=== PATIENT | male | born 1945 | race Caucasian/White ===

== ENCOUNTER → 2018-03-31 | Outpatient (CLI) | payer MEDICARE, OTHER ==
[2018-03-31 14:10] LABS: Blood Urea Nitrogen 15 mg/dL (9-20)
--- NOTE | 2018-03-31 14:48 | CT ---
EXAMINATION TYPE: CT brain wo/w con DATE OF EXAM: 03/31/2018 COMPARISON: NONE HISTORY: Headache and dizziness. CT DLP: 1963.40 mGycm Automated exposure control for dose reduction was used. CONTRAST: CT scan of the head is performed without and with IV Contrast, patient injected with 100 mL of Isovue 300. FINDINGS: Noncontrast images show no acute intracranial hemorrhage or midline shift. There is ventricular and s ulcal prominence consistent with diffuse cerebral atrophy. Is low-attenuation in the periventricular white matter presumed on basis of product of chronic small vessel ischemic change. Postcontrast image s show no suspicious enhancing intraparenchymal mass. The globes are intact and the visualized sinuse s are clear. IMPRESSION: There is mild to moderate diffuse cerebral atrophy and moderate to severe chronic small v essel ischemic change. No suspicious enhancement is noted.
== END | disposition home or self-care (01) ==
LOC: RADCTMAIN 13:36
PROVIDERS: ATTEND Family Medicine
DX: G31.9 Degenerative disease of nervous system, unspecified (principal); I67.82 Cerebral ischemia
CPT/HCPCS: 82565; 84520; 70470; 36415; Q9967

== ENCOUNTER 2018-04-15 12:25 | Inpatient (IN) | payer MEDICARE, OTHER ==
[2018-04-15] MEDS ORDERED: SODIUM CHLORIDE 0.9% 1,000 ML IV STA (12:46)
[2018-04-15] MEDS ORDERED: DILTIAZEM 50 MG in SODIUM CHLORIDE 0.9% 40 ML IV ONE (12:46)
--- NOTE | 2018-04-15 12:47 | ED ---
General Adult HPI - General Chief complaint: Chest Pain Stated complaint: CHEST PAIN Time Seen by Provider: 04/15/18 12:44 Source: patient, RN notes reviewed, old records reviewed Mode of arrival: wheelchair Limitations: no limitations - History of Present Illness Initial comments: This is a 72-year-old male the ER for evaluation today. Patient resents today for shortness of breath, significant chest pain weakness. Patient states his heart feels he is refusing the fifth. Patient does have history of heart disease as a history of A. fib coming in with A. fib with RVR today. Patient states his chest pain is improved currently on his heart is mildly improved but he still a significant anterior chest pain and significant amount of swelling, very diaphoretic and unable to catch his breath - Related Data Home Medications Medication Instructions Recorded Confirmed Cholecalciferol [Vitamin D3] 1,000 unit PO DAILY 02/15/15 04/15/18 Finasteride [Proscar] 5 mg PO HS 02/15/15 04/15/18 Metoprolol Tartrate 12.5 mg PO BID 02/15/15 04/15/18 Tamsulosin [Flomax] 0.4 mg PO HS 02/15/15 04/15/18 metFORMIN HCL [Glucophage] 1,000 mg PO AC-SUPPER 02/15/15 04/15/18 metFORMIN HCL [Glucophage] 500 mg PO AC-BRKFST 07/18/16 04/15/18 Apixaban [Eliquis] 5 mg PO BID 04/15/18 04/15/18 Montelukast [Singulair] 10 mg PO HS 04/15/18 04/15/18 Previous Rx's Medication Instructions Recorded Atorvastatin [Lipitor] 40 mg PO HS #30 tab 07/19/16 Allergies Allergy/AdvReac Type Severity Reaction Status Date / Time lorazepam [From Ativan] AdvReac BECOMES Verified 04/15/18 13:02 DISORIENTED morphine AdvReac AGITATION Verified 04/15/18 13:02 Review of Systems ROS Statement: Those systems with pertinent positive or pertinent negative responses have been documented in the HPI. ROS Other: All systems not noted in ROS Statement are negative. Past Medical History Past Medical History: Coronary Artery Disease (CAD), Chest Pain / Angina, Diabetes Mellitus, Hyperlipidemia, Hypertension, Myocardial Infarction ([place]), Prostate Disorder Additional Past Medical History / Comment(s): NIDDM type II, back pain-bulging discs, diverticular dx, BPH Last Myocardial Infarction Date:: 1999 History of Any Multi-Drug Resistant Organisms: None Reported Past Surgical History: Cholecystectomy, Heart Catheterization With Stent, Orthopedic Surgery, Tonsillectomy Additional Past Surgical History / Comment(s): 1999 cardiac stents, bilateral open shoulder surgeries for rotator cuff, colonoscopy, vasectomy, circumcism. Past Anesthesia/Blood Transfusion Reactions: No Reported Reaction Date of Last Stent Placement:: 1999 Past Psychological History: No Psychological Hx Reported Smoking Status: Current every day smoker Past Alcohol Use History: None Reported Past Drug Use History: None Reported - Past Family History Father Family Medical History: CVA/TIA Additional Family Medical History / Comment(s): Father of a CVA at age 59 yrs. Mother Family Medical History: Vascular Disorder Additional Family Medical History / Comment(s): Mother of a brain aneurysm. General Exam Limitations: no limitations General appearance: alert, in no apparent distress, anxious Head exam: Present: atraumatic, normocephalic, normal inspection Eye exam: Present: normal appearance, PERRL, EOMI. Absent: scleral icterus, conjunctival injection, periorbital swelling ENT exam: Present: normal exam, mucous membranes moist Neck exam: Present: normal inspection. Absent: tenderness, meningismus, lymphadenopathy Respiratory exam: Present: normal lung sounds bilaterally. Absent: respiratory distress, wheezes, rales, rhonchi, stridor Cardiovascular Exam: Present: tachycardia, irregular rhythm, normal heart sounds. Absent: systolic murmur, diastolic murmur, rubs, gallop, clicks GI/Abdominal exam: Present: soft, normal bowel sounds. Absent: distended, tenderness, guarding, rebound, rigid Extremities exam: Present: normal inspection, full ROM, normal capillary refill. Absent: tenderness, pedal edema, joint swelling, calf tenderness Back exam: Present: normal inspection Neurological exam: Present: alert, oriented X3, CN II-XII intact Psychiatric exam: Present: normal affect, normal mood Skin exam: Present: warm, dry, intact, normal color. Absent: rash Course Vital Signs 04/15/18 04/15/18 04/15/18 12:27 12:42 13:03 Temperature 98 F Pulse Rate 56 L 153 H Pulse Rate [ 173 H [employer] Estate [employer] ] Respiratory 18 20 Rate Blood Pressure 117/66 143/70 O2 Sat by Pulse 98 97 Oximetry 04/15/18 04/15/18 04/15/18 13:07 13:13 13:39 Temperature Pulse Rate 148 H 153 H 141 H Pulse Rate [ [employer] ] Respiratory 18 18 16 Rate Blood Pressure 108/62 101/51 156/65 O2 Sat by Pulse 97 98 98 Oximetry - Reevaluation(s) Reevaluation #1: 04/15/18 14:06 Patient showing mild improvement heart rate at this time EKG Findings - EKG Comments: EKG Findings:: EKG shows A. fib with RVR rate 168, QRS 84, QTc 481 Medical Decision Making - Medical Decision Making 72 male the ER was significant anterior chest pain, significant complaint of elevated heart rate in A. fib with RVR, patient is anticoagulated, will continue rate control admitted for cardiology observation. Monitoring of urinalysis status - Lab Data Result diagrams: 04/15/18 12:40 04/15/18 12:40 Lab Results 04/15/18 04/15/18 04/15/18 Range/Units 12:40 12:40 12:40 WBC 11.2 H (3.8-10.6) k/uL RBC 5.41 (4.30-5.90) m/uL Hgb 17.3 (13.0-17.5) gm/dL Hct 50.1 (39.0-53.0) % MCV 92.8 (80.0-100.0) fL MCH 32.0 (25.0-35.0) pg MCHC 34.5 (31.0-37.0) g/dL RDW 13.2 (11.5-15.5) % Plt Count 186 (150-450) k/uL Neutrophils % 59 % Lymphocytes % 27 % Monocytes % 9 % Eosinophils % 2 % Basophils % 0 % Neutrophils # 6.6 (1.3-7.7) k/uL Lymphocytes # 3.0 (1.0-4.8) k/uL Monocytes # 1.0 (0-1.0) k/uL Eosinophils # 0.2 (0-0.7) k/uL Basophils # 0.0 (0-0.2) k/uL PT (9.0-12.0) sec INR (<1.2) APTT (22.0-30.0) sec Sodium 145 (137-145) mmol/L Potassium 4.3 (3.5-5.1) mmol/L Chloride 101 (98-107) mmol/L Carbon Dioxide 29 (22-30) mmol/L Anion Gap 15 mmol/L BUN 14 (9-20) mg/dL Creatinine 0.85 (0.66-1.25) mg/dL Est GFR (CKD-EPI)AfAm >90 (>60 ml/min/1.73 sqM) Est GFR (CKD-EPI)NonAf 88 (>60 ml/min/1.73 sqM) Glucose 164 H (74-99) mg/dL Calcium 9.6 (8.4-10.2) mg/dL Magnesium 1.8 (1.6-2.3) mg/dL Total Bilirubin 0.6 (0.2-1.3) mg/dL AST 17 (17-59) U/L ALT 27 (21-72) U/L Alkaline Phosphatase 124 (38-126) U/L Total Creatine Kinase 37 L (55-170) U/L CK-MB (CK-2) 0.5 (0.0-2.4) ng/mL CK-MB (CK-2) Rel Index 1.4 Troponin I <0.012 (0.000-0.034) ng/mL NT-Pro-B Natriuret Pep pg/mL Total Protein 6.8 (6.3-8.2) g/dL Albumin 4.3 (3.5-5.0) g/dL Lipase 90 (23-300) U/L 04/15/18 04/15/18 Range/Units 12:40 12:40 WBC (3.8-10.6) k/uL RBC (4.30-5.90) m/uL Hgb (13.0-17.5) gm/dL Hct (39.0-53.0) % MCV (80.0-100.0) fL MCH (25.0-35.0) pg MCHC (31.0-37.0) g/dL RDW (11.5-15.5) % Plt Count (150-450) k/uL Neutrophils % % Lymphocytes % % Monocytes % % Eosinophils % % Basophils % % Neutrophils # (1.3-7.7) k/uL Lymphocytes # (1.0-4.8) k/uL Monocytes # (0-1.0) k/uL Eosinophils # (0-0.7) k/uL Basophils # (0-0.2) k/uL PT 10.4 (9.0-12.0) sec INR 1.1 (<1.2) APTT 27.4 (22.0-30.0) sec Sodium (137-145) mmol/L Potassium (3.5-5.1) mmol/L Chloride (98-107) mmol/L Carbon Dioxide (22-30) mmol/L Anion Gap mmol/L BUN (9-20) mg/dL Creatinine (0.66-1.25) mg/dL Est GFR (CKD-EPI)AfAm (>60 ml/min/1.73 sqM) Est GFR (CKD-EPI)NonAf (>60 ml/min/1.73 sqM) Glucose (74-99) mg/dL Calcium (8.4-10.2) mg/dL Magnesium (1.6-2.3) mg/dL Total Bilirubin (0.2-1.3) mg/dL AST (17-59) U/L ALT (21-72) U/L Alkaline Phosphatase (38-126) U/L Total Creatine Kinase (55-170) U/L CK-MB (CK-2) (0.0-2.4) ng/mL CK-MB (CK-2) Rel Index Troponin I (0.000-0.034) ng/mL NT-Pro-B Natriuret Pep 202 pg/mL Total Protein (6.3-8.2) g/dL Albumin (3.5-5.0) g/dL Lipase (23-300) U/L - Radiology Data Radiology results: report reviewed (Chest x-rays negative for acute disease), image reviewed Critical Care Time Critical Care Time: Yes Total Critical Care Time: 31 Disposition Clinical Impression: Chest pain, Atrial fibrillation with RVR Disposition: HOME SELF-CARE Condition: Good Is patient prescribed a controlled substance at d/c from ED?: No Referrals: Mau Mcmillan MD [Primary Care Provider] - 1-2 days
[2018-04-15 13:06] LABS: Basophils % (A) 0 %; Eosinophils # (A) 0.2 k/uL (0-0.7); Eosinophils % (A) 2 %; HCT 50.1 % (39.0-53.0); HGB 17.3 gm/dL (13.0-17.5); Lymphocytes % (A) 27 %; MCHC 34.5 g/dL (31.0-37.0); MCV 92.8 fL (80.0-100.0); Mean Platelet Volume 7.7; Monocytes % (A) 9 %; Neutrophils # (A) 6.6 k/uL (1.3-7.7); Neutrophils % (A) 59 %; Platelet Count 186 k/uL (150-450); RBC 5.41 m/uL (4.30-5.90); RDW 13.2 % (11.5-15.5); WBC 11.2 k/uL (3.8-10.6)
[2018-04-15 13:14] LABS: ALT 27 U/L (21-72); AST 17 U/L (17-59); Albumin 4.3 g/dL (3.5-5.0); Alkaline Phosphatase 124 U/L (38-126); Anion Gap 15 mmol/L; Blood Urea Nitrogen 14 mg/dL (9-20); Calcium 9.6 mg/dL (8.4-10.2); Carbon Dioxide 29 mmol/L (22-30); Chloride 101 mmol/L (98-107); Glucose 164 mg/dL (74-99); Lipase 90 U/L (23-300); Magnesium 1.8 mg/dL (1.6-2.3); Potassium 4.3 mmol/L (3.5-5.1); Sodium 145 mmol/L (137-145); Total Bilirubin 0.6 mg/dL (0.2-1.3); Total Protein 6.8 g/dL (6.3-8.2)
[2018-04-15 13:28] LABS: INR 1.1 (<1.2); Partial Thromboplastin Time 27.4 sec (22.0-30.0); Prothrombin Time 10.4 sec (9.0-12.0)
[2018-04-15 13:31] LABS: Creatine Kinase 37 U/L (55-170)
[2018-04-15 13:43] LABS: Creatine Kinase MB 0.5 ng/mL (0.0-2.4); Troponin I <0.012 ng/mL (0.000-0.034)
[2018-04-15] MEDS ORDERED: NITROGLYCERIN SL TABS 0.4 MG TAB SUBLINGUAL PRN (13:59)
[2018-04-15] MEDS ORDERED: DILTIAZEM 5 MG/1 ML (25ML VIAL) IV STA (14:00)
--- NOTE | 2018-04-15 14:00 | XR ---
EXAMINATION TYPE: XR chest 2V DATE OF EXAM: 04/15/2018 COMPARISON: 07/18/2016 HISTORY: 72-year-old male with chest pain TECHNIQUE: Frontal and lateral views FINDINGS: Heart normal size. Mild atherosclerotic arch calcifications. Mild interstitial prominence has a chron ic appearance. Hazy lower lung densities related to overlying soft tissue. No consolidation or pleura l effusion. IMPRESSION: Chronic changes without acute cardiopulmonary process.
[2018-04-15] MEDS ORDERED: SODIUM CHLORIDE 0.9% 500 ML IV ONE (14:25)
[2018-04-15 15:11] VITALS: RESP 18
--- NOTE | 2018-04-15 16:18 | P.HPIM ---
History of Present Illness This is a pleasant 72-year-old man came to the hospital with complaints of chest pressure-like sensation 5/10 in severity started today when he woke up along with diaphoresis denied any nausea denied any radiation of chest pain. Denied any fever chills does have cough with the clear sputum production does smoke patient does have history of atrial fibrillation patient is found to be in atrial fibrillation with rapid ventricular rate patient is on anticoagulation with Eliquis at home patient takes 12.5 mg twice a day metoprolol tartrate. Patient was started on Cardizem patient had normal ejection fraction the past. Patient had a stress test in 2015 which was essentially within normal limits patient's EKG here showed A. fib with rapid ventricular rate with some ST depressions in anterior chest leads. Chest x-ray did not show any pneumonic process clear to auscultation on exam. Patient denied any fever chills. Patient just pain is nonpruritic in nature facet of troponin is negative. Tumor cetrorelix of troponins were ordered. Patient denied any orthopnea PND was comparing of some shortness of breath upon admission. Patient chest pain significant improved now. Review of Systems REVIEW OF SYSTEMS: CONSTITUTIONAL: No fever, no malaise, no fatigue. HEENT: No recent visual problems or hearing problems. Denied any sore throat. CARDIOVASCULAR: no palpitations, no syncope. PULMONARY: No shortness of breath, no cough, no hemoptysis. GASTROINTESTINAL: No diarrhea, no nausea, no vomiting, no abdominal pain. Normoactive bowel sounds. NEUROLOGICAL: No headaches, no weakness, no numbness. HEMATOLOGICAL: Denies any bleeding or petechiae. GENITOURINARY: Denies any burning micturition, frequency, or urgency. MUSCULOSKELETAL/RHEUMATOLOGICAL: Denies any joint pain, swelling, or any muscle pain. ENDOCRINE: Denies any polyuria or polydipsia. The rest of the 14-point review of systems is negative. Past Medical History Past Medical History: Coronary Artery Disease (CAD), Chest Pain / Angina, Diabetes Mellitus, Hyperlipidemia, Hypertension, Myocardial Infarction ([place]), Prostate Disorder Additional Past Medical History / Comment(s): NIDDM type II, back pain-bulging discs, diverticular dx, BPH Last Myocardial Infarction Date:: 1999 History of Any Multi-Drug Resistant Organisms: None Reported Past Surgical History: Cholecystectomy, Heart Catheterization With Stent, Orthopedic Surgery, Tonsillectomy Additional Past Surgical History / Comment(s): 1999 cardiac stents, bilateral open shoulder surgeries for rotator cuff, colonoscopy, vasectomy, circumcism. Past Anesthesia/Blood Transfusion Reactions: No Reported Reaction Date of Last Stent Placement:: 1999 Smoking Status: Current every day smoker - Past Family History Father Family Medical History: CVA/TIA Additional Family Medical History / Comment(s): Father of a CVA at age 59 yrs. Mother Family Medical History: Vascular Disorder Additional Family Medical History / Comment(s): Mother of a brain aneurysm. Medications and Allergies Home Medications Medication Instructions Recorded Confirmed Type Cholecalciferol [Vitamin D3] 1,000 unit PO DAILY 02/15/15 04/15/18 History Finasteride [Proscar] 5 mg PO HS 02/15/15 04/15/18 History Metoprolol Tartrate 12.5 mg PO BID 02/15/15 04/15/18 History Tamsulosin [Flomax] 0.4 mg PO HS 02/15/15 04/15/18 History metFORMIN HCL [Glucophage] 1,000 mg PO AC-SUPPER 02/15/15 04/15/18 History metFORMIN HCL [Glucophage] 500 mg PO AC-BRKFST 07/18/16 04/15/18 History Atorvastatin [Lipitor] 40 mg PO HS #30 tab 07/19/16 04/15/18 Rx Apixaban [Eliquis] 5 mg PO BID 04/15/18 04/15/18 History Montelukast [Singulair] 10 mg PO HS 04/15/18 04/15/18 History Allergies Allergy/AdvReac Type Severity Reaction Status Date / Time lorazepam [From Ativan] AdvReac BECOMES Verified 04/15/18 13:02 DISORIENTED morphine AdvReac AGITATION Verified 04/15/18 13:02 Physical Exam Vitals: Vital Signs Temp Pulse Pulse Resp BP BP Pulse Ox 04/15/18 15:10 97 F L 125 H 18 136/86 98 04/15/18 14:44 112 H 20 114/77 98 04/15/18 14:30 97.1 F L 118 H 118 H 102/56 98 04/15/18 14:23 124 H 18 87/51 04/15/18 13:39 141 H 16 156/65 98 04/15/18 13:13 153 H 18 101/51 98 04/15/18 13:07 148 H 18 108/62 97 04/15/18 13:03 153 H 20 143/70 97 04/15/18 12:42 173 H 04/15/18 12:27 98 F 56 L 18 117/66 98 Intake and Output 04/15/18 04/15/18 04/15/18 06:59 14:59 22:59 Other: Weight 90.718 kg PHYSICAL EXAMINATION: GENERAL: The patient is alert and oriented x3, not in any acute distress. Well developed, well nourished. HEENT: Pupils are round and equally reacting to light. EOMI. No scleral icterus. No conjunctival pallor. Normocephalic, atraumatic. No pharyngeal erythema. No thyromegaly. CARDIOVASCULAR: S1 and S2 present. No murmurs, rubs, or gallops. Tachycardic irregularly irregular rhythm PULMONARY: Chest is clear to auscultation, no wheezing or crackles. ABDOMEN: Soft, nontender, nondistended, normoactive bowel sounds. No palpable organomegaly. MUSCULOSKELETAL: No joint swelling or deformity. EXTREMITIES: No cyanosis, clubbing, or pedal edema. NEUROLOGICAL: Gross neurological examination did not reveal any focal deficits. SKIN: No rashes. Results CBC & Chem 7: 04/15/18 12:40 04/15/18 12:40 Labs: Abnormal Lab Results - Last 24 Hours (Table) 04/15/18 04/15/18 04/15/18 Range/Units 12:40 12:40 12:40 WBC 11.2 H (3.8-10.6) k/uL Glucose 164 H (74-99) mg/dL Total Creatine Kinase 37 L (55-170) U/L Thrombosis Risk Factor Assmnt - Choose All That Apply Each Factor Represents 1 point: Obesity (BMI >25) Each Risk Factor Represents 2 Points: Age 61-74 years Thrombosis Risk Factor Assessment Total Risk Factor Score: 3 Thrombosis Risk Factor Assessment Level: Moderate Risk Assessment and Plan Plan: -Atrial fibrillation with rapid and regular rate: I did not see any prostrating factor. Patient metoprolol dose will be increased will try to wean off Cardizem. Patient had normal ejection fraction the past continue with his home anti-correlation which was resumed. -Chest pain: Most probably related to his atrial fibrillation cardiology was consulted 2 more sets of troponins were ordered EKGs were ordered. Patient had a Lexiscan stress test in 2014 which did not show any inducible ischemia at that time -Benign prostatic hypertrophy -Type 2 diabetes mellitus patient is being resumed on his home regimen of metformin will monitor his blood sugars patient will also be on sliding scale insulin -Hyperlipidemia -History of coronary artery disease with stents in the past. Previous cardiac catheterization and stenting was in 1999
[2018-04-15 16:59] LABS: Glucose,Whole Blood 111 mg/dL (75-99)
[2018-04-15] MEDS ORDERED: metFORMIN 500 MG TAB PO SCH (17:30)
[2018-04-15] MEDS: DILTIAZEM 50 MG in SODIUM CHLORIDE 0.9% 40 ML IV SCH ×2 (17:43→20:36)
[2018-04-15 19:48] LABS: Creatine Kinase MB 0.9 ng/mL (0.0-2.4)
[2018-04-15 19:52] LABS: Troponin I 0.096 ng/mL (0.000-0.034)
[2018-04-15] MEDS ORDERED: ACETAMINOPHEN TAB 325 MG TAB PO PRN (19:55)
[2018-04-15] MEDS: APIXABAN 5 MG TAB PO SCH (20:12)
[2018-04-15] MEDS: METOPROLOL TARTRATE 25 MG TAB PO SCH (20:12)
[2018-04-15] MEDS ORDERED: FINASTERIDE 5 MG TAB PO SCH (21:00)
[2018-04-15] MEDS ORDERED: TAMSULOSIN 0.4 MG CAP.ER.24H PO SCH (21:00)
[2018-04-15] MEDS ORDERED: MONTELUKAST 10 MG TAB PO SCH (21:00)
[2018-04-15] MEDS ORDERED: METOPROLOL TARTRATE 12.5 MG TAB PO SCH (21:00)
[2018-04-15] MEDS ORDERED: ATORVASTATIN 40 MG TAB PO SCH (21:00)
[2018-04-15 21:15] LABS: Glucose,Whole Blood 87 mg/dL (75-99)
[2018-04-16 01:39] LABS: Creatine Kinase MB 0.8 ng/mL (0.0-2.4)
[2018-04-16 01:44] LABS: Troponin I 0.088 ng/mL (0.000-0.034)
[2018-04-16] MEDS: DILTIAZEM 50 MG in SODIUM CHLORIDE 0.9% 40 ML IV SCH ×3 (02:30→12:34)
[2018-04-16 03:46] LABS: Hemoglobin A1C 6.9 % (4.0-6.0)
[2018-04-16 05:11] LABS: Anion Gap 11 mmol/L; Blood Urea Nitrogen 16 mg/dL (9-20); Calcium 8.9 mg/dL (8.4-10.2); Carbon Dioxide 28 mmol/L (22-30); Chloride 104 mmol/L (98-107); Cholesterol 106 mg/dL (<200); Glucose 92 mg/dL (74-99); HDL Cholesterol 30 mg/dL (40-60); LDL Cholesterol,Calculated 42 mg/dL (0-99); Potassium 3.9 mmol/L (3.5-5.1); Sodium 143 mmol/L (137-145); Triglycerides 170 mg/dL (<150)
[2018-04-16 06:11] LABS: Glucose,Whole Blood 105 mg/dL (75-99)
[2018-04-16] MEDS ORDERED: metFORMIN 500 MG TAB PO SCH (07:30)
[2018-04-16] MEDS ORDERED: ASPIRIN 325 MG TAB PO SCH (09:00)
[2018-04-16] MEDS: APIXABAN 5 MG TAB PO SCH (09:34)
[2018-04-16] MEDS: METOPROLOL TARTRATE 25 MG TAB PO SCH (09:34)
--- NOTE | 2018-04-16 10:19 | P.CRDCN ---
History of Present Illness Consult date: 04/16/18 Requesting physician: Gamaliel Conner Consult reason: atrial fibrillation Chief complaint: Chest tightness and diaphoresis History of present illness: This is a 72-year-old gentleman with known history of hypertension, diabetes, hyperlipidemia, coronary artery disease with prior anterior wall myocardial infarction in 1999 at which time he underwent angioplasty and stenting of the left anterior descending artery. Patient also has history of paroxysmal atrial fibrillation, COPD, and nicotine dependence. Patient presents to the hospital on this occasion with symptoms of chest tightness and heaviness which awoke him from sleep, he states he became quite diaphoretic and mildly short of breath. He also states that he has had a mild fever at home with associated cough. EKG on presentation here showed atrial fibrillation with a rapid ventricular response, heart rate in the 160 range, chest x-ray showed chronic changes without acute cardiopulmonary process. Blood pressure 118/60 on arrival with heart rate in the 160s to 170s, 98% on room air. Blood pressure this morning 118/57 temperature 97.6. White blood cell count on admission 11.2, hemoglobin 17.3, platelet count 186. Sodium 143, potassium 3.9 , BUN 16, creatinine 0.8. Magnesium level I.8. Initial troponin 0.012, subsequent troponin 0.09, 0.08. Cholesterol 106, triglycerides 170, LDL 42, HDL 30. Patient was initiated on IV Cardizem in the emergency room and since converted to normal sinus rhythm. He is currently in normal sinus rhythm at this time. IV Cardizem has been discontinued. We will decrease the aspirin dose to 81 mg daily, continue Eliquis 5 mg one tablet by mouth twice a day. Patient was taking metoprolol 12-1/2 mg one tablet by mouth twice a day at home which has been increased to 25 mg one tablet by mouth twice a day. Past Medical History Past Medical History: Coronary Artery Disease (CAD), Chest Pain / Angina, Diabetes Mellitus, Hyperlipidemia, Hypertension, Myocardial Infarction ([place]), Prostate Disorder Additional Past Medical History / Comment(s): NIDDM type II, back pain-bulging discs, diverticular dx, BPH Last Myocardial Infarction Date:: 1999 History of Any Multi-Drug Resistant Organisms: None Reported Past Surgical History: Cholecystectomy, Heart Catheterization With Stent, Orthopedic Surgery, Tonsillectomy Additional Past Surgical History / Comment(s): 1999 cardiac stents, bilateral open shoulder surgeries for rotator cuff, colonoscopy, vasectomy, circumcism. Past Anesthesia/Blood Transfusion Reactions: No Reported Reaction Date of Last Stent Placement:: 1999 Smoking Status: Current every day smoker - Past Family History Father Family Medical History: CVA/TIA Additional Family Medical History / Comment(s): Father of a CVA at age 59 yrs. Mother Family Medical History: Vascular Disorder Additional Family Medical History / Comment(s): Mother of a brain aneurysm. Medications and Allergies Home Medications Medication Instructions Recorded Confirmed Type Cholecalciferol [Vitamin D3] 1,000 unit PO DAILY 02/15/15 04/15/18 History Finasteride [Proscar] 5 mg PO HS 02/15/15 04/15/18 History Metoprolol Tartrate 12.5 mg PO BID 02/15/15 04/15/18 History Tamsulosin [Flomax] 0.4 mg PO HS 02/15/15 04/15/18 History metFORMIN HCL [Glucophage] 1,000 mg PO AC-SUPPER 02/15/15 04/15/18 History metFORMIN HCL [Glucophage] 500 mg PO AC-BRKFST 07/18/16 04/15/18 History Atorvastatin [Lipitor] 40 mg PO HS #30 tab 07/19/16 04/15/18 Rx Apixaban [Eliquis] 5 mg PO BID 04/15/18 04/15/18 History Montelukast [Singulair] 10 mg PO HS 04/15/18 04/15/18 History Allergies Allergy/AdvReac Type Severity Reaction Status Date / Time lorazepam [From Ativan] AdvReac BECOMES Verified 04/15/18 13:02 DISORIENTED morphine AdvReac AGITATION Verified 04/15/18 13:02 Physical Exam Vitals: Vital Signs Temp Pulse Pulse Resp BP BP Pulse Ox 04/16/18 04:00 97.6 F 61 18 118/57 95 04/16/18 00:00 98.0 F 66 18 114/56 97 04/15/18 20:00 98.1 F 96 18 142/65 94 L 04/15/18 17:45 133/65 04/15/18 15:10 97 F L 125 H 18 136/86 98 04/15/18 14:44 112 H 20 114/77 98 05/15/18 14:30 97.1 F L 118 H 118 H 102/56 98 04/15/18 14:23 124 H 18 87/51 04/15/18 13:39 141 H 16 156/65 98 04/15/18 13:13 153 H 18 101/51 98 04/15/18 13:07 148 H 18 108/62 97 04/15/18 13:03 153 H 20 143/70 97 04/15/18 12:42 173 H 04/15/18 12:27 98 F 56 L 18 117/66 98 Intake and Output 04/15/18 04/16/18 04/16/18 22:59 06:59 14:59 Intake Total 268.833 42.333 Output Total 500 250 Balance -231.167 -207.667 Intake: Intake, IV Titration 28.833 42.333 Amount Diltiazem 50 mg In Sodium 28.833 42.333 Chloride 0.9% 40 ml @ 10 MG/HR 10 mls/hr IV .Q5H [facility] Rx#:[id number] Oral 240 Output: Urine 500 250 Other: Voiding Method Urinal Urinal Weight 89.9 kg PHYSICAL EXAMINATION: HEENT: Head is atraumatic, normocephalic. Pupils equal, round. Neck is supple. There is no elevated jugular venous pressure. HEART EXAMINATION: Heart S1, S2 normal. No murmur or gallop heard. CHEST EXAMINATION: Lungs reveal fine expiratory wheezing throughout. ABDOMEN: Soft, nontender. Bowel sounds are heard. No organomegaly noted. EXTREMITIES: 2+ peripheral pulses with no evidence of peripheral edema and no calf tenderness noted. NEUROLOGIC [patient is awake, alert and oriented -3.] . Results 04/15/18 12:40 04/16/18 03:55 Cardiac Enzymes 04/15/18 04/15/18 04/15/18 Range/Units 12:40 12:40 18:53 AST 17 (17-59) U/L CK-MB (CK-2) 0.5 0.9 (0.0-2.4) ng/mL Troponin I <0.012 0.096 H* (0.000-0.034) ng/mL 04/16/18 Range/Units 00:46 AST (17-59) U/L CK-MB (CK-2) 0.8 (0.0-2.4) ng/mL Troponin I 0.088 H* (0.000-0.034) ng/mL Coagulation 04/15/18 Range/Units 12:40 PT 10.4 (9.0-12.0) sec APTT 27.4 (22.0-30.0) sec Lipids 04/16/18 Range/Units 03:55 Triglycerides 170 H (<150) mg/dL Cholesterol 106 (<200) mg/dL HDL Cholesterol 30 L (40-60) mg/dL CBC 04/15/18 Range/Units 12:40 WBC 11.2 H (3.8-10.6) k/uL RBC 5.41 (4.30-5.90) m/uL Hgb 17.3 (13.0-17.5) gm/dL Hct 50.1 (39.0-53.0) % Plt Count 186 (150-450) k/uL Comprehensive Metabolic Panel 04/15/18 04/16/18 Range/Units 12:40 03:55 Sodium 145 143 (137-145) mmol/L Potassium 4.3 3.9 (3.5-5.1) mmol/L Chloride 101 104 (98-107) mmol/L Carbon Dioxide 29 28 (22-30) mmol/L BUN 14 16 (9-20) mg/dL Creatinine 0.85 0.80 (0.66-1.25) mg/dL Glucose 164 H 92 (74-99) mg/dL Calcium 9.6 8.9 (8.4-10.2) mg/dL AST 17 (17-59) U/L ALT 27 (21-72) U/L Alkaline Phosphatase 124 (38-126) U/L Total Protein 6.8 (6.3-8.2) g/dL Albumin 4.3 (3.5-5.0) g/dL Current Medications Generic Name Dose Route Start Last Admin Trade Name Freq PRN Reason Stop Dose Admin Acetaminophen 650 mg 04/15/18 19:55 04/15/18 20:11 Tylenol Tab PO 650 mg Q6HR PRN Administration Fever and/ or Pain Apixaban 5 mg 04/15/18 21:00 04/16/18 09:34 Eliquis PO 5 mg BID RACHID Administration Aspirin 325 mg 04/16/18 09:00 04/16/18 09:34 Aspirin PO 325 mg DAILY RACHID Administration Atorvastatin Calcium 40 mg 04/15/18 21:00 04/15/18 20:12 Lipitor PO 40 mg HS RACHID Administration Finasteride 5 mg 04/15/18 21:00 04/15/18 20:12 Proscar PO 5 mg HS RACHID Administration Diltiazem HCl 50 mg/ Sodium 50 mls @ 10 mls/hr 04/15/18 16:11 04/16/18 05:45 Chloride IV Not Given .Q5H RACHID Protocol 10 MG/HR Metformin HCl 1,000 mg 04/15/18 17:30 04/15/18 17:17 Glucophage PO 1,000 mg AC-SUPPER RACHID Administration Metformin HCl 500 mg 04/16/18 07:30 04/16/18 06:48 Glucophage PO 500 mg AC-BRKFST RACHID Administration Metoprolol Tartrate 25 mg 04/15/18 21:00 04/16/18 09:34 Lopressor PO 25 mg BID RACHID Administration Montelukast Sodium 10 mg 04/15/18 21:00 04/15/18 20:12 Singulair PO 10 mg HS RACHID Administration Nitroglycerin 0.4 mg 04/15/18 13:59 Nitrostat SUBLINGUAL Q5M PRN Chest Pain Tamsulosin HCl 0.4 mg 04/15/18 21:00 04/15/18 20:12 Flomax PO 0.4 mg HS RACHID Administration Intake and Output 04/15/18 04/16/18 04/16/18 22:59 06:59 14:59 Intake Total 268.833 42.333 Output Total 500 250 Balance -231.167 -207.667 Intake: Intake, IV Titration 28.833 42.333 Amount Diltiazem 50 mg In Sodium 28.833 42.333 Chloride 0.9% 40 ml @ 10 MG/HR 10 mls/hr IV .Q5H [facility] Rx#:[id number] Oral 240 Output: Urine 500 250 Other: Voiding Method Urinal Urinal Weight 89.9 kg 04/15/18 12:40 04/16/18 03:55 EKG Interpretations (text) Initial EKG shows atrial fibrillation with rapid ventricular response. Subsequent EKG shows normal sinus rhythm. Assessment and Plan Plan: Assessment and plan #1 atrial fibrillation with rapid ventricular response, paroxysmal. Patient currently in normal sinus rhythm. #2 history of paroxysmal atrial fibrillation, on Eliquis for anticoagulation. #3 hyperlipidemia #4 hypertension #5 diabetes #6 coronary artery disease with prior anterior myocardial infarction in 1999 which time patient underwent stenting of the LAD. #7 Nicotine dependence #8 COPD Plan We will obtain an echocardiogram with Doppler study and check a TSH level. Beta gisele has been increased to 25 mg one tablet by mouth twice a day and Cardizem drip has been discontinued. We will continue Eliquis 5 mg one tablet by mouth twice a day. Further recommendations to follow. DNP note has been reviewed, I agree with a documented findings and plan of care. Patient was seen and examined.
[2018-04-16 11:46] LABS: Glucose,Whole Blood 106 mg/dL (75-99)
--- NOTE | 2018-04-16 12:31 | P.DS ---
Providers Date of admission: 04/15/18 13:59 Attending physician: Gamaliel Conner Consults: 04/15/18 13:59 Consult Physician Urgent Consulting Provider: Ana Gregg Consult Reason/Comments: afib Do you want consulting provider notified?: Yes Primary care physician: Mau Mcmillan Hospital Course: 72-year-old admitted with atrial fibrillation with rapid ventricular rate rate controlled now off Cardizem drip patient is already on anticoagulation patient is complaining of chest pressure-like sensation echocardiac exam was obtained if cleared by cardiology patient will be discharged today his chest pressure secondary to atrial fibrillation mostly. Troponins are negative. Metoprolol dose was increased to 25 twice a day PHYSICAL EXAMINATION: GENERAL: The patient is alert and oriented x3, not in any acute distress. Well developed, well nourished. HEENT: Pupils are round and equally reacting to light. EOMI. No scleral icterus. No conjunctival pallor. Normocephalic, atraumatic. No pharyngeal erythema. No thyromegaly. CARDIOVASCULAR: S1 and S2 present. No murmurs, rubs, or gallops. PULMONARY: Chest is clear to auscultation, no wheezing or crackles. ABDOMEN: Soft, nontender, nondistended, normoactive bowel sounds. No palpable organomegaly. MUSCULOSKELETAL: No joint swelling or deformity. EXTREMITIES: No cyanosis, clubbing, or pedal edema. NEUROLOGICAL: Gross neurological examination did not reveal any focal deficits. SKIN: No rashes. Assessment and Plan Plan: -Atrial fibrillation with rapid and regular rate: Presently rate controlled -Chest pain: Most probably related to his atrial fibrillation cardiology -Benign prostatic hypertrophy -Type 2 diabetes mellitus -Hyperlipidemia -History of coronary artery disease with stents in the past. Previous cardiac catheterization and stenting was in 1999 Patient Condition at Discharge: Good Plan - Discharge Summary Discharge Rx Participant: No New Discharge Prescriptions: New Metoprolol Tartrate [Lopressor] 25 mg PO BID #60 tab Continue metFORMIN HCL [Glucophage] 1,000 mg PO AC-SUPPER Tamsulosin [Flomax] 0.4 mg PO HS Finasteride [Proscar] 5 mg PO HS Cholecalciferol [Vitamin D3] 1,000 unit PO DAILY metFORMIN HCL [Glucophage] 500 mg PO AC-BRKFST Atorvastatin [Lipitor] 40 mg PO HS #30 tab Montelukast [Singulair] 10 mg PO HS Apixaban [Eliquis] 5 mg PO BID Discontinued Metoprolol Tartrate 12.5 mg PO BID Discharge Medication List Cholecalciferol [Vitamin D3] 1,000 unit PO DAILY 02/15/15 [History] Finasteride [Proscar] 5 mg PO HS 02/15/15 [History] Tamsulosin [Flomax] 0.4 mg PO HS 02/15/15 [History] metFORMIN HCL [Glucophage] 1,000 mg PO AC-SUPPER 02/15/15 [History] metFORMIN HCL [Glucophage] 500 mg PO AC-BRKFST 07/18/16 [History] Atorvastatin [Lipitor] 40 mg PO HS #30 tab 07/19/16 [Rx] Apixaban [Eliquis] 5 mg PO BID 04/15/18 [History] Montelukast [Singulair] 10 mg PO HS 04/15/18 [History] Metoprolol Tartrate [Lopressor] 25 mg PO BID #60 tab 04/16/18 [Rx] Follow up Appointment(s)/Referral(s): Mau Mcmillan MD [Primary Care Provider] - 3 Days Discharge Disposition: HOME SELF-CARE
[2018-04-16 12:32] VITALS: BP 119/58; PULSE 64; TEMP 97.5
--- NOTE | 2018-04-16 20:22 | ECHOF ---
Referral Reason:afib MEASUREMENTS -------- HEIGHT: 172.7 cm WEIGHT: 89.8 kg BP: 118/57 RVIDd: 3.2 cm (< 3.3) IVSd: 1.0 cm (0.6 - 1.1) LVIDd: 3.8 cm (3.9 - 5.3) LVPWd: 1.3 cm (0.6 - 1.1) IVSs: 1.6 cm LVIDs: 3.0 cm LVPWs: 1.6 cm LAESV Index (A-L): 19.79 ml/m Ao Diam: 3.1 cm (2.0 - 3.7) AV Cusp: 1.8 cm (1.5 - 2.6) LA Diam: 3.6 cm (2.7 - 3.8) MV E Sandor: 0.77 m/s MV DecT: 193 ms MV A Sandor: 0.78 m/s MV E/A Ratio: 0.99 RAP: 5.00 mmHg RVSP: 14.07 mmHg FINDINGS -------- Sinus rhythm. This was a technically adequate study. The left ventricular size is normal. Left ventricular wall thickness is normal. Overall left vent ricular systolic function is normal with, an EF between 55 - 60 %. The right ventricle is normal in size and function. Normal LA size by volume 22+/-6 ml/m2. The right atrium is normal in size. Aortic valve is trileaflet and is mildly thickened. The mitral valve leaflets are mildly thickened. There is trace to mild mitral regurgitation. Mild tricuspid regurgitation present. Right ventricular systolic pressure is normal at < 35 mmHg. There is no evidence of pulmonary hypertension. Trace/mild (physiologic) pulmonic regurgitation. The aortic root size is normal. Normal inferior vena cava with normal inspiratory collapse consistent with estimated right atrial pre ssure of 5 mmHg. There is no pericardial effusion. CONCLUSIONS -------- 1. Sinus rhythm. 2. This was a technically adequate study. 3. The left ventricular size is normal. 4. Left ventricular wall thickness is normal. 5. Overall left ventricular systolic function is normal with, an EF between 55 - 60 %. 6. Normal LA size by volume 22+/-6 ml/m2. 7. Aortic valve is trileaflet and is mildly thickened. 8. There is trace to mild mitral regurgitation. 9. Mild tricuspid regurgitation present. 10. Right ventricular systolic pressure is normal at < 35 mmHg. 11. Trace/mild (physiologic) pulmonic regurgitation. 12. The aortic root size is normal. 13. There is no pericardial effusion. RESIDENT CARE AID: David Salazar RDCS
[2018-04-17] MEDS ORDERED: ASPIRIN 81 MG PO SCH (09:00)
== END 2018-04-16 15:02 | disposition home or self-care (01) | DRG 310 ==
LOC: EC 12:25 → 6SEL 13:59
PROVIDERS: ADMIT Hospitalist; ATTEND Hospitalist
DX: I48.0 Paroxysmal atrial fibrillation (principal); J44.9 Chronic obstructive pulmonary disease, unspecified; E11.9 Type 2 diabetes mellitus without complications; R07.9 Chest pain, unspecified; E78.5 Hyperlipidemia, unspecified; F17.200 Nicotine dependence, unspecified, uncomplicated; I10 Essential (primary) hypertension; I25.10 Atherosclerotic heart disease of native coronary artery without angina pectoris; I25.2 Old myocardial infarction; N40.0 Benign prostatic hyperplasia without lower urinary tract symptoms; K57.90 Diverticulosis of intestine, part unspecified, without perforation or abscess without bleeding; Z79.84 Long term (current) use of oral hypoglycemic drugs; Z79.899 Other long term (current) drug therapy; Z79.01 Long term (current) use of anticoagulants; Z88.5 Allergy status to narcotic agent; Z88.8 Allergy status to other drugs, medicaments and biological substances; Z95.5 Presence of coronary angioplasty implant and graft; Z90.49 Acquired absence of other specified parts of digestive tract; Z82.3 Family history of stroke; Z82.49 Family history of ischemic heart disease and other diseases of the circulatory system
CPT/HCPCS: 36415; 71046; 80048; 80053; 80061; 82550; 82553; 83036; 83690; 83735; 83880; 84443; 84484; 85025; 85610; 85730; 93306; 96360; 96365; 96366; 99291

== ENCOUNTER 2018-06-29 13:46 | Inpatient (IN) | payer MEDICARE, OTHER ==
[2018-06-29] MEDS ORDERED: SODIUM CHLORIDE 0.9% 500 ML IV STA (13:49)
--- NOTE | 2018-06-29 14:03 | ED ---
General Adult HPI - General Chief complaint: Weakness Stated complaint: WEAKNESS Time Seen by Provider: 06/29/18 13:49 Source: patient, RN notes reviewed, old records reviewed Mode of arrival: ambulatory Limitations: no limitations - History of Present Illness Initial comments: 72-year-old male history of atrial fibrillation and CAD status post stenting presenting with palpitations. Patient is transported by EMS, found to be in A. fib with rapid ventricular response. Patient is currently on metoprolol 50 mg twice daily. He is anticoagulated. He states that with this palpitations he had some neck pain and some mild central chest tightness. Denies any preceding symptoms. Denies nausea vomiting or diarrhea. Denies rectal bleeding. Denies fever or chills. - Related Data Home Medications Medication Instructions Recorded Confirmed Cholecalciferol [Vitamin D3] 1,000 unit PO DAILY 02/15/15 06/29/18 Finasteride [Proscar] 5 mg PO HS 02/15/15 06/29/18 Tamsulosin [Flomax] 0.4 mg PO HS 02/15/15 06/29/18 metFORMIN HCL [Glucophage] 1,000 mg PO AC-SUPPER 02/15/15 06/29/18 metFORMIN HCL [Glucophage] 500 mg PO AC-BRKFST 07/18/16 06/29/18 Apixaban [Eliquis] 5 mg PO BID 04/15/18 06/29/18 Montelukast [Singulair] 10 mg PO HS 04/15/18 06/29/18 Metoprolol Tartrate [Lopressor] 50 mg PO BID 06/29/18 06/29/18 Previous Rx's Medication Instructions Recorded Atorvastatin [Lipitor] 40 mg PO HS #30 tab 07/19/16 Allergies Allergy/AdvReac Type Severity Reaction Status Date / Time lorazepam [From Ativan] AdvReac BECOMES Verified 06/29/18 14:26 DISORIENTED morphine AdvReac AGITATION Verified 06/29/18 14:26 Review of Systems ROS Statement: Those systems with pertinent positive or pertinent negative responses have been documented in the HPI. ROS Other: All systems not noted in ROS Statement are negative. Past Medical History Past Medical History: Coronary Artery Disease (CAD), Chest Pain / Angina, Diabetes Mellitus, Hyperlipidemia, Hypertension, Myocardial Infarction ([place]), Prostate Disorder Additional Past Medical History / Comment(s): NIDDM type II, back pain-bulging discs, diverticular dx, BPH Last Myocardial Infarction Date:: 1999 History of Any Multi-Drug Resistant Organisms: None Reported Past Surgical History: Cholecystectomy, Heart Catheterization With Stent, Orthopedic Surgery, Tonsillectomy Additional Past Surgical History / Comment(s): 1999 cardiac stents, bilateral open shoulder surgeries for rotator cuff, colonoscopy, vasectomy, circumcism. Past Anesthesia/Blood Transfusion Reactions: No Reported Reaction Date of Last Stent Placement:: 1999 Past Psychological History: No Psychological Hx Reported Smoking Status: Current every day smoker - Past Family History Father Family Medical History: CVA/TIA Additional Family Medical History / Comment(s): Father of a CVA at age 59 yrs. Mother Family Medical History: Vascular Disorder Additional Family Medical History / Comment(s): Mother of a brain aneurysm. General Exam Limitations: no limitations General appearance: alert, in no apparent distress Head exam: Present: atraumatic, normocephalic Eye exam: Present: normal appearance, PERRL, EOMI ENT exam: Present: normal exam Neck exam: Present: normal inspection. Absent: tenderness, meningismus Respiratory exam: Present: normal lung sounds bilaterally. Absent: respiratory distress, wheezes Cardiovascular Exam: Present: tachycardia, irregular rhythm GI/Abdominal exam: Present: soft. Absent: distended, tenderness, guarding Extremities exam: Present: normal inspection, full ROM, normal capillary refill. Absent: pedal edema Neurological exam: Present: alert, oriented X3, CN II-XII intact. Absent: motor sensory deficit Psychiatric exam: Present: normal affect, normal mood Skin exam: Present: warm, dry, intact. Absent: cyanosis, diaphoretic Course Vital Signs 06/29/18 06/29/18 06/29/18 13:47 13:57 14:07 Temperature 98.4 F Pulse Rate 156 H 151 H Pulse Rate [ 156 H Pile Header ] Respiratory 20 20 Rate Blood Pressure 78/52 105/84 O2 Sat by Pulse 96 98 Oximetry 06/29/18 06/29/18 06/29/18 14:09 14:13 14:18 Temperature Pulse Rate 140 H 144 H Pulse Rate [ Pile Header ] Respiratory 20 20 18 Rate Blood Pressure 112/66 73/54 87/69 O2 Sat by Pulse 97 97 96 Oximetry 06/29/18 06/29/18 14:20 14:59 Temperature Pulse Rate 134 H 62 Pulse Rate [ Pile Header ] Respiratory 20 18 Rate Blood Pressure 127/66 O2 Sat by Pulse 100 95 Oximetry EKG Findings - EKG Comments: EKG Findings:: EKG obtained at 1346, atrial fibrillation with rapid ventricular response, rate of 151, there is no ST segment elevation. QRS duration 86, QTC 485. Repeat EKG obtained at 1452, sinus rhythm with sinus arrhythmia, rate of 68, SD interval 160, QRS duration 92, QTC 391. Medical Decision Making - Medical Decision Making 72-year-old male presenting in [facility]. [facility] with RVR, rate 151. Patient was experiencing some mild generalized chest tightness as well as neck and shoulder pain. Patient given IV hydration and IV metoprolol emergency department. Does convert into sinus rhythm. Laboratory studies reveal normal CBC, normal CMP, initial troponin is negative. Patient is anticoagulated. Chest x-ray negative for acute cardiopulmonary disease. Patient will be admitted for telemetry, serial cardiac enzymes, and cardiology consultation. - Lab Data Result diagrams: 06/29/18 14:01 06/29/18 14:01 Lab Results 06/29/18 06/29/18 06/29/18 Range/Units 14:01 14:01 14:01 WBC 10.2 (3.8-10.6) k/uL RBC 5.32 (4.30-5.90) m/uL Hgb 16.6 (13.0-17.5) gm/dL Hct 50.0 (39.0-53.0) % MCV 93.9 (80.0-100.0) fL MCH 31.2 (25.0-35.0) pg MCHC 33.2 (31.0-37.0) g/dL RDW 13.3 (11.5-15.5) % Plt Count 203 (150-450) k/uL Neutrophils % 69 % Lymphocytes % 20 % Monocytes % 7 % Eosinophils % 2 % Basophils % 0 % Neutrophils # 7.0 (1.3-7.7) k/uL Lymphocytes # 2.1 (1.0-4.8) k/uL Monocytes # 0.8 (0-1.0) k/uL Eosinophils # 0.2 (0-0.7) k/uL Basophils # 0.0 (0-0.2) k/uL PT (9.0-12.0) sec INR (<1.2) APTT (22.0-30.0) sec Sodium 142 (137-145) mmol/L Potassium 4.2 (3.5-5.1) mmol/L Chloride 104 (98-107) mmol/L Carbon Dioxide 28 (22-30) mmol/L Anion Gap 10 mmol/L BUN 12 (9-20) mg/dL Creatinine 0.92 (0.66-1.25) mg/dL Est GFR (CKD-EPI)AfAm >90 (>60 ml/min/1.73 sqM) Est GFR (CKD-EPI)NonAf 84 (>60 ml/min/1.73 sqM) Glucose 156 H (74-99) mg/dL Calcium 9.6 (8.4-10.2) mg/dL Magnesium 1.9 (1.6-2.3) mg/dL Total Bilirubin 0.7 (0.2-1.3) mg/dL AST 18 (17-59) U/L ALT 27 (21-72) U/L Alkaline Phosphatase 105 (38-126) U/L Total Creatine Kinase 44 L (55-170) U/L CK-MB (CK-2) 0.6 (0.0-2.4) ng/mL CK-MB (CK-2) Rel Index 1.4 Troponin I <0.012 (0.000-0.034) ng/mL Total Protein 6.7 (6.3-8.2) g/dL Albumin 4.2 (3.5-5.0) g/dL 06/29/18 Range/Units 14:01 WBC (3.8-10.6) k/uL RBC (4.30-5.90) m/uL Hgb (13.0-17.5) gm/dL Hct (39.0-53.0) % MCV (80.0-100.0) fL MCH (25.0-35.0) pg MCHC (31.0-37.0) g/dL RDW (11.5-15.5) % Plt Count (150-450) k/uL Neutrophils % % Lymphocytes % % Monocytes % % Eosinophils % % Basophils % % Neutrophils # (1.3-7.7) k/uL Lymphocytes # (1.0-4.8) k/uL Monocytes # (0-1.0) k/uL Eosinophils # (0-0.7) k/uL Basophils # (0-0.2) k/uL PT 11.2 (9.0-12.0) sec INR 1.2 H (<1.2) APTT 27.6 (22.0-30.0) sec Sodium (137-145) mmol/L Potassium (3.5-5.1) mmol/L Chloride (98-107) mmol/L Carbon Dioxide (22-30) mmol/L Anion Gap mmol/L BUN (9-20) mg/dL Creatinine (0.66-1.25) mg/dL Est GFR (CKD-EPI)AfAm (>60 ml/min/1.73 sqM) Est GFR (CKD-EPI)NonAf (>60 ml/min/1.73 sqM) Glucose (74-99) mg/dL Calcium (8.4-10.2) mg/dL Magnesium (1.6-2.3) mg/dL Total Bilirubin (0.2-1.3) mg/dL AST (17-59) U/L ALT (21-72) U/L Alkaline Phosphatase (38-126) U/L Total Creatine Kinase (55-170) U/L CK-MB (CK-2) (0.0-2.4) ng/mL CK-MB (CK-2) Rel Index Troponin I (0.000-0.034) ng/mL Total Protein (6.3-8.2) g/dL Albumin (3.5-5.0) g/dL Critical Care Time Critical Care Time: Yes Total Critical Care Time: 35 Disposition Clinical Impression: Atrial fibrillation with RVR, Chest pain Disposition: ADMITTED IP TO [facility] Condition: Stable Is patient prescribed a controlled substance at d/c from ED?: No Referrals: Mau Mcmillan MD [Primary Care Provider] - 1-2 days Decision to Admit Reason: Admit from EC Decision Date: 06/29/18 Decision Time: 15:40
[2018-06-29] MEDS: METOPROLOL TARTRATE 5 MG/5 ML VIAL IVP SCH ×3 (14:04→14:41)
[2018-06-29 14:11] LABS: Basophils % (A) 0 %; Eosinophils # (A) 0.2 k/uL (0-0.7); Eosinophils % (A) 2 %; HGB 16.6 gm/dL (13.0-17.5); Lymphocytes # (A) 2.1 k/uL (1.0-4.8); Lymphocytes % (A) 20 %; MCH 31.2 pg (25.0-35.0); MCHC 33.2 g/dL (31.0-37.0); MCV 93.9 fL (80.0-100.0); Mean Platelet Volume 8.1; Monocytes # (A) 0.8 k/uL (0-1.0); Monocytes % (A) 7 %; Neutrophils % (A) 69 %; Platelet Count 203 k/uL (150-450); RBC 5.32 m/uL (4.30-5.90); RDW 13.3 % (11.5-15.5); WBC 10.2 k/uL (3.8-10.6)
[2018-06-29 14:24] LABS: ALT 27 U/L (21-72); AST 18 U/L (17-59); Albumin 4.2 g/dL (3.5-5.0); Alkaline Phosphatase 105 U/L (38-126); Anion Gap 10 mmol/L; Blood Urea Nitrogen 12 mg/dL (9-20); Calcium 9.6 mg/dL (8.4-10.2); Carbon Dioxide 28 mmol/L (22-30); Chloride 104 mmol/L (98-107); Glucose 156 mg/dL (74-99); Magnesium 1.9 mg/dL (1.6-2.3); Potassium 4.2 mmol/L (3.5-5.1); Sodium 142 mmol/L (137-145); Total Bilirubin 0.7 mg/dL (0.2-1.3); Total Protein 6.7 g/dL (6.3-8.2)
[2018-06-29 14:30] LABS: Creatine Kinase 44 U/L (55-170)
[2018-06-29 14:34] LABS: INR 1.2 (<1.2); Partial Thromboplastin Time 27.6 sec (22.0-30.0); Prothrombin Time 11.2 sec (9.0-12.0)
[2018-06-29 14:43] LABS: Creatine Kinase MB 0.6 ng/mL (0.0-2.4); Troponin I <0.012 ng/mL (0.000-0.034)
--- NOTE | 2018-06-29 14:58 | XR ---
EXAMINATION TYPE: XR chest 2V DATE OF EXAM: 06/29/2018 COMPARISON: Chest radiograph 04/15/2018 HISTORY: Chest pain TECHNIQUE: Frontal and lateral views of the chest are obtained. FINDINGS: There is no focal air space opacity, pleural effusion, or pneumothorax seen. The cardiac silhouette size is within normal limits. The osseous structures are intact. IMPRESSION: No acute cardiopulmonary process been no significant interval change.
[2018-06-29 15:00] VITALS: RESP 18
[2018-06-29] MEDS ORDERED: NALOXONE 0.4 MG/ML 1 ML VIAL IV PRN (15:36)
[2018-06-29] MEDS ORDERED: ACETAMINOPHEN TAB 500 MG TAB PO PRN (16:34)
[2018-06-29 16:47] LABS: Glucose,Whole Blood 104 mg/dL (75-99)
[2018-06-29] MEDS: INSULIN ASPART 100 UNIT/ML 1 ML 10 ML VIAL SQ SCH ×2 (17:05→21:40)
[2018-06-29] MEDS: metFORMIN 500 MG TAB PO SCH (17:08)
--- NOTE | 2018-06-29 18:42 | HP ---
HISTORY AND PHYSICAL CHIEF COMPLAINTS: Weakness. HISTORY OF PRESENT ILLNESS: This 72-year-old gentleman with a past medical history of multiple medical problems including CAD, history of diabetes, hypertension, hyperlipidemia, history of myocardial infarction, history of CAD, stent being followed by Dr. Mau Mcmillan in the outpatient setting was complaining generalized hand weakness. Patient came to [facility] and the patient also had chest pressure type of sensation felt in the anterior part of the chest. Patient found to be in atrial fibrillation with fast ventricular rate. Patient received beta blockers, metoprolol 2.5 x3 total and the patient was anticoagulated. The patient converted to normal sinus rhythm. The patient admitted for further evaluation and treatment. The patient had a stress test about a few weeks ago. The patient has seen by Dr. Fontanez in the outpatient setting. There is no history of fever, rigors or chills. No history of any hematochezia or melena. PAST MEDICAL HISTORY: History of CAD, stent, diabetes type 2, hypertension, hyperlipidemia, myocardial infarction. MEDICATIONS: Prior to admission and home medications are: 1. Glucophage 500 mg a.c. breakfast, 1000 mg a.c. supper. 2. Flomax 0.4 q.h.s. 3. Singulair 10 mg q.h.s. 4. Lopressor 50 mg p.o. b.i.d. 5. Proscar 5 mg q.h.s. 6. Vitamin D3 1000 daily. 7. Lipitor 40 mg q.h.s. 8. Eliquis 5 mg p.o. b.i.d. ALLERGIES: ATIVAN, MORPHINE. FAMILY HISTORY: History of CVA, TIA in the family. SOCIAL HISTORY: History of continued ongoing smoking. No history of alcohol intake. REVIEW OF SYSTEMS: ENT: No diminished hearing or vision. CARDIOVASCULAR: As mentioned earlier. RESPIRATORY: As mentioned earlier. GI: No nausea. : No dysuria. NERVOUS SYSTEM: No numbness or weakness. ALLERGY/IMMUNOLOGY: No history of asthma. MUSCULOSKELETAL: As mentioned earlier. HEMATOLOGY/ONCOLOGY: No history of anemia. ENDOCRINE: As mentioned earlier. CONSTITUTIONAL: As mentioned earlier. DERMATOLOGY: Negative. RHEUMATOLOGY: Negative. PSYCHIATRY: As mentioned earlier. PHYSICAL EXAMINATION: Alert, oriented X3. Pulse 63, blood pressure 130/70, respiration 18, temperature 97.2, pulse ox 93% on room air. HEENT: Conjunctivae normal. Oral mucosa moist. NECK: No jugular venous distention. No carotid bruit. No lymph node enlargement. CARDIOVASCULAR: S1, S2. No S3, no S4. RESPIRATORY: Breath sounds diminished in the bases. No rhonchi. No crackles. ABDOMEN: Soft, nontender. No mass palpable. LEGS: No edema, no swelling. NERVOUS SYSTEM: Higher functions as mentioned earlier. Moves all four limbs. No focal motor deficits LYMPHATICS: No lymphadenopathy in the neck, axillae, groin.. SKIN: No ulcer, rash, bleeding. LAB DATA: CBC within normal. INR 1.2, glucose 156. ASSESSMENT: 1. Atrial fibrillation with fast ventricular rate. 2. Chest pain possible unstable angina. 3. History of coronary artery disease, stent. 4. History of diabetes mellitus type 2. 5. Hypertension. 6. Hyperlipidemia. 7. History of myocardial infarction. 8. History of back pain and degenerative joint disease. 9. Continued ongoing nicotine dependence. RECOMMENDATIONS AND DISCUSSION: This 72-year-old gentleman who presented with multiple medical problems, will monitor the patient closely. Continue the current management and symptomatic treatment. The patient has converted into normal sinus rhythm with beta blockers. Patient is anticoagulated with Eliquis 5 mg twice daily and I would also recommend rule out myocardial infarction. Cardiology consultation. I will obtain the report for stress test and continue to monitor. Home medications will be continued. Monitor blood sugars closely and Dr. Mcmillan will follow tomorrow. Discussed with the patient who understands and agrees. MMODL / IJN: [id number] /
[2018-06-29] MEDS: METOPROLOL TARTRATE 50 MG TAB PO SCH (20:12)
[2018-06-29] MEDS: APIXABAN 5 MG TAB PO SCH (20:12)
[2018-06-29] MEDS: MONTELUKAST 10 MG TAB PO SCH (20:12)
[2018-06-29] MEDS: TAMSULOSIN 0.4 MG CAP.ER.24H PO SCH (20:12)
[2018-06-29] MEDS: FINASTERIDE 5 MG TAB PO SCH (20:12)
[2018-06-29] MEDS: ATORVASTATIN 40 MG TAB PO SCH (20:12)
[2018-06-29 20:26] LABS: Creatine Kinase MB 0.7 ng/mL (0.0-2.4)
[2018-06-29 20:51] LABS: Troponin I 0.067 ng/mL (0.000-0.034)
[2018-06-29 21:22] LABS: Glucose,Whole Blood 111 mg/dL (75-99)
[2018-06-30 02:15] LABS: Basophils % (A) 0 %; Eosinophils # (A) 0.2 k/uL (0-0.7); Eosinophils % (A) 2 %; HCT 43.1 % (39.0-53.0); HGB 14.7 gm/dL (13.0-17.5); Lymphocytes # (A) 2.9 k/uL (1.0-4.8); Lymphocytes % (A) 26 %; Mean Platelet Volume 7.9; Monocytes % (A) 9 %; Neutrophils # (A) 6.7 k/uL (1.3-7.7); Neutrophils % (A) 61 %; Platelet Count 149 k/uL (150-450); RBC 4.58 m/uL (4.30-5.90); RDW 13.3 % (11.5-15.5)
[2018-06-30 02:53] LABS: Creatine Kinase MB 0.7 ng/mL (0.0-2.4)
[2018-06-30 03:03] LABS: Troponin I 0.066 ng/mL (0.000-0.034)
[2018-06-30 03:08] LABS: Anion Gap 6 mmol/L; Blood Urea Nitrogen 13 mg/dL (9-20); Carbon Dioxide 29 mmol/L (22-30); Chloride 106 mmol/L (98-107); Glucose 85 mg/dL (74-99); Potassium 4.1 mmol/L (3.5-5.1); Sodium 141 mmol/L (137-145)
[2018-06-30 06:24] LABS: Glucose,Whole Blood 105 mg/dL (75-99)
[2018-06-30] MEDS: METOPROLOL TARTRATE 5 MG/5 ML VIAL IVP SCH (06:28)
[2018-06-30] MEDS: INSULIN ASPART 100 UNIT/ML 1 ML 10 ML VIAL SQ SCH ×4 (06:28→22:13)
[2018-06-30] MEDS: metFORMIN 500 MG TAB PO SCH ×3 (06:48→17:09)
[2018-06-30] MEDS: PANTOPRAZOLE 40 MG TABLET PO SCH (06:48)
--- NOTE | 2018-06-30 08:38 | P.CRDCN ---
History of Present Illness Consult date: 06/30/18 Requesting physician: Mau Mcmillan Consult reason: atrial fibrillation Chief complaint: Chest pain History of present illness: This is a 72-year-old gentleman who follows regularly with Dr. VC Fontanez in the office. History of hypertension, diabetes, hyperlipidemia, coronary artery disease with prior anterior wall WA in 1999 at which time he underwent angioplasty and stenting of the LAD. Patient also has history of paroxysmal atrial fibrillation, COPD, nicotine dependence. He presents to the hospital on this occasion with symptoms of what he describes as heartburn and chest pressure with discomfort in bilateral arms. His initial EKG on presentation here shows atrial fibrillation with a rapid ventricular response. Subsequent EKG shows a normal sinus rhythm. Chest x-ray did not reveal any acute cardiopulmonary process. Let pressure 134/60 with a heart rate in the 60s , temperature 98.2 is 95% on room air. Laboratory data was reviewed, white blood cell count 11.0, hemoglobin 14.7, platelet count 149. Sodium 141, potassium 4.1, BUN 13, creatinine 0.8. Troponins 0.012, 0.067.066. At the time of my examination this morning, patient feels well, denies any chest pain in his breathing is stable, denies any arm discomfort. The patient does state that earlier this month he did have a stress test performed in the office and we will obtain a copy of that. Past Medical History Past Medical History: Coronary Artery Disease (CAD), Chest Pain / Angina, Diabetes Mellitus, Hyperlipidemia, Hypertension, Myocardial Infarction (WA), Prostate Disorder Additional Past Medical History / Comment(s): NIDDM type II, back pain-bulging discs, diverticular dx, BPH Last Myocardial Infarction Date:: 1999 History of Any Multi-Drug Resistant Organisms: None Reported Past Surgical History: Cholecystectomy, Heart Catheterization With Stent, Orthopedic Surgery, Tonsillectomy Additional Past Surgical History / Comment(s): 1999 cardiac stents, bilateral open shoulder surgeries for rotator cuff, colonoscopy, vasectomy, circumcism. Past Anesthesia/Blood Transfusion Reactions: No Reported Reaction Date of Last Stent Placement:: 1999 Past Psychological History: No Psychological Hx Reported Additional Psychological History / Comment(s): Pt lives with his and an adult mehnaz. He is independent. He has no home [facility]. He drives a car. Smoking Status: Current every day smoker Past Alcohol Use History: None Reported Additional Past Alcohol Use History / Comment(s): Pt states he started smoking around 16-18 yrs of age. He is a 1 to 1.5 ppd Past Drug Use History: None Reported - Past Family History Father Family Medical History: CVA/TIA Additional Family Medical History / Comment(s): Father of a CVA at age 59 yrs. Mother Family Medical History: Vascular Disorder Additional Family Medical History / Comment(s): Mother of a brain aneurysm. Medications and Allergies Home Medications Medication Instructions Recorded Confirmed Type Cholecalciferol [Vitamin D3] 1,000 unit PO DAILY 02/15/15 06/29/18 History Finasteride [Proscar] 5 mg PO HS 02/15/15 06/29/18 History Tamsulosin [Flomax] 0.4 mg PO HS 02/15/15 06/29/18 History metFORMIN HCL [Glucophage] 1,000 mg PO AC-SUPPER 02/15/15 06/29/18 History metFORMIN HCL [Glucophage] 500 mg PO AC-BRKFST 07/18/16 06/29/18 History Atorvastatin [Lipitor] 40 mg PO HS #30 tab 07/19/16 06/29/18 Rx Apixaban [Eliquis] 5 mg PO BID 04/15/18 06/29/18 History Montelukast [Singulair] 10 mg PO HS 04/15/18 06/29/18 History Metoprolol Tartrate [Lopressor] 50 mg PO BID 06/29/18 06/29/18 History Allergies Allergy/AdvReac Type Severity Reaction Status Date / Time lorazepam [From Ativan] AdvReac BECOMES Verified 06/29/18 14:26 DISORIENTED morphine AdvReac AGITATION Verified 06/29/18 14:26 Physical Exam Vitals: Vital Signs Temp Pulse Pulse Resp BP BP Pulse Ox 06/30/18 04:15 98.2 F 66 18 135/67 95 06/30/18 04:00 74 18 06/30/18 00:15 98.0 F 67 18 132/63 95 06/29/18 20:10 98.0 F 55 L 18 142/87 99 06/29/18 16:46 97.6 F 63 18 136/71 93 L 06/29/18 16:36 56 L 18 06/29/18 16:19 97.6 F 63 18 136/71 93 L 06/29/18 16:08 98.0 F 58 L 18 108/63 96 06/29/18 15:46 55 L 18 107/63 99 06/29/18 14:59 62 18 127/66 95 06/29/18 14:20 134 H 20 100 06/29/18 14:18 18 87/69 96 06/29/18 14:13 144 H 20 73/54 97 06/29/18 14:09 140 H 20 112/66 97 06/29/18 14:07 151 H 20 105/84 98 06/29/18 13:57 156 H 06/29/18 13:47 98.4 F 156 H 20 78/52 96 Intake and Output 06/29/18 06/30/18 06/30/18 22:59 06:59 14:59 Intake Total 890 Output Total 200 Balance 690 Intake: IV 150 .9 @ 100 150 Intake, IV Titration 500 Amount Sodium Chloride 0.9% 500 500 ml @ 999 mls/hr IV .Q31M STA Rx#:[id number] Oral 240 Output: Urine 200 Other: Voiding Method Toilet Toilet # Voids 1 1 # Bowel Movements 1 Weight 89.7 kg PHYSICAL EXAMINATION: GENERAL: 72-year-old gentleman in no acute distress at the time of my examination HEENT: Head is atraumatic, normocephalic. Pupils equal, round. Sclera anicteric. Conjunctiva are clear. Mucous membranes of the mouth are moist. Neck is supple. There is no elevated jugular venous pressure. No carotid bruit is heard. HEART EXAMINATION: Heart S1, S2 normal. No murmur or gallop heard. CHEST EXAMINATION: Lungs are clear to auscultation and precussion. No chest wall tenderness is noted on palpation or with deep breathing. ABDOMEN: Soft, nontender. Bowel sounds are heard. No organomegaly noted. EXTREMITIES: 2+ peripheral pulses with no evidence of peripheral edema and no calf tenderness noted. NEUROLOGIC patient is awake, alert and oriented X3. . Results 06/30/18 01:59 06/30/18 01:59 Cardiac Enzymes 06/29/18 06/29/18 06/29/18 Range/Units 14:01 14:01 19:45 AST 18 (17-59) U/L CK-MB (CK-2) 0.6 0.7 (0.0-2.4) ng/mL Troponin I <0.012 0.067 H* (0.000-0.034) ng/mL 06/30/18 Range/Units 01:59 AST (17-59) U/L CK-MB (CK-2) 0.7 (0.0-2.4) ng/mL Troponin I 0.066 H* (0.000-0.034) ng/mL Coagulation 06/29/18 Range/Units 14:01 PT 11.2 (9.0-12.0) sec APTT 27.6 (22.0-30.0) sec CBC 06/29/18 06/30/18 Range/Units 14:01 01:59 WBC 10.2 11.0 H (3.8-10.6) k/uL RBC 5.32 4.58 (4.30-5.90) m/uL Hgb 16.6 14.7 (13.0-17.5) gm/dL Hct 50.0 43.1 (39.0-53.0) % Plt Count 203 149 L (150-450) k/uL Comprehensive Metabolic Panel 06/29/18 06/30/18 Range/Units 14:01 01:59 Sodium 142 141 (137-145) mmol/L Potassium 4.2 4.1 (3.5-5.1) mmol/L Chloride 104 106 (98-107) mmol/L Carbon Dioxide 28 29 (22-30) mmol/L BUN 12 13 (9-20) mg/dL Creatinine 0.92 0.80 (0.66-1.25) mg/dL Glucose 156 H 85 (74-99) mg/dL Calcium 9.6 9.0 (8.4-10.2) mg/dL AST 18 (17-59) U/L ALT 27 (21-72) U/L Alkaline Phosphatase 105 (38-126) U/L Total Protein 6.7 (6.3-8.2) g/dL Albumin 4.2 (3.5-5.0) g/dL Current Medications Generic Name Dose Route Start Last Admin Trade Name Freq PRN Reason Stop Dose Admin Acetaminophen 500 mg 06/29/18 16:34 Tylenol Tab PO Q6HR PRN Fever and/ or MILD Pain Apixaban 5 mg 06/29/18 21:00 06/29/18 20:12 Eliquis PO 5 mg BID RACHID Administration Atorvastatin Calcium 40 mg 06/29/18 21:00 06/29/18 20:12 Lipitor PO 40 mg HS RACHID Administration Cholecalciferol 1,000 unit 06/30/18 09:00 Vitamin D3 PO DAILY RACHID Finasteride 5 mg 06/29/18 21:00 06/29/18 20:12 Proscar PO 5 mg HS RACHID Administration Insulin Aspart 0 unit 06/29/18 17:30 06/30/18 06:28 Novolog SQ Not Given ACHS [facility] Protocol Metformin HCl 500 mg 06/30/18 07:30 06/30/18 08:24 Glucophage PO Not Given AC-BRKFST [facility] Metformin HCl 1,000 mg 06/29/18 17:30 06/29/18 17:08 Glucophage PO 1,000 mg AC-SUPPER [facility] Administration Metoprolol Tartrate 50 mg 06/29/18 21:00 06/29/18 20:12 Lopressor PO 50 mg BID [facility] Administration Montelukast Sodium 10 mg 06/29/18 21:00 06/29/18 20:12 Singulair PO 10 mg HS [facility] Administration Naloxone HCl 0.2 mg 06/29/18 15:36 Narcan IV Q2M PRN Opioid Reversal Nicotine 1 patch 06/30/18 09:00 Habitrol 14mg/24hr Patch TRANSDERM DAILY [facility] Pantoprazole Sodium 40 mg 06/30/18 07:30 06/30/18 06:48 Protonix PO 40 mg AC-BRKFST [facility] Administration Tamsulosin HCl 0.4 mg 06/29/18 21:00 06/29/18 20:12 Flomax PO 0.4 mg HS RACHID Administration Intake and Output 06/29/18 06/30/18 06/30/18 22:59 06:59 14:59 Intake Total 890 Output Total 200 Balance 690 Intake: IV 150 .9 @ 100 150 Intake, IV Titration 500 Amount Sodium Chloride 0.9% 500 500 ml @ 999 mls/hr IV .Q31M STA Rx#:[id number] Oral 240 Output: Urine 200 Other: Voiding Method Toilet Toilet # Voids 1 1 # Bowel Movements 1 Weight 89.7 kg 06/30/18 01:59 07/30/18 01:59 EKG Interpretations (text) EKG on admission showed atrial fibrillation with a rapid ventricular response. Subsequent EKG shows normal sinus rhythm. Assessment and Plan Plan: Assessment and plan #1 atrial fibrillation with rapid ventricular response, patient currently in normal sinus rhythm #2 chest heaviness with bilateral arm discomfort, could be secondary to A. fib with RVR. Troponins 0.012, 0.067, 0.066 #3 known history of coronary artery disease with prior myocardial infarction in 1999 at which time patient underwent stenting of the LAD, he states he most recently had a stress test performed earlier this month in the office #4 hypertension #5 hyperlipidemia #6 diabetes #7 COPD #8 nicotine dependence Plan Patient had an echocardiogram with Doppler study performed in April of this year, because of the abnormality in troponin we will repeat an echo this admission. We will also obtain stress test performed earlier this month in the office. Patient's symptoms and abnormality in troponin could be secondary to A. fib with RVR. Patient did have an admission to the hospital in April of this year at which time he presented with A. fib with RVR, troponin abnormality noted on that visit as well. We will continue Eliquis 5 mg one tablet by mouth twice a day, Lipitor 40 mg daily, metoprolol 50 mg one tablet by mouth twice a day, nicotine patch, obtain free T4 and TSH level. Initiate baby aspirin daily. Further recommendations to follow. DNP note has been reviewed, I agree with a documented findings and plan of care. Patient was seen and examined.
[2018-06-30] MEDS: METOPROLOL TARTRATE 50 MG TAB PO SCH ×2 (08:39→22:10)
[2018-06-30] MEDS: CHOLECALCIFEROL 1,000 UNIT TAB PO SCH (08:39)
[2018-06-30] MEDS: NICOTINE 14MG/24HR PATCH TRANSDERM SCH (08:39)
--- NOTE | 2018-06-30 11:20 | P.PN ---
Progress Note - Text This is an addendum to the dictated cardiology consultation. The patient has a known history of CAD status post PCI in 1999, history of paroxysmal atrial fibrillation who presented with symptoms of palpitations, he was in atrial ablation with rapid ventricular response associated with chest tightness. He recently had an MPI that showed no evidence of stress-induced ischemia. He's feeling well at this time, his breathing is stable, he denies any dizziness or palpitations he's been ambulating without significant difficulties. His EKG shows no acute ST segment changes when he is in sinus mechanism and he has minimal troponin elevation most likely related to the atrial fibrillation. His systolic function has been normal and his MPI has been normal, it was done on . I will continue on anticoagulation and I would add flecainide with the hope to maintain sinus mechanism. If he has any recurrence he may be a candidate for ablation. I discussed those findings with the patient and his . Thank you for this consult we will follow with you.
[2018-06-30 11:40] LABS: Glucose,Whole Blood 108 mg/dL (75-99)
--- NOTE | 2018-06-30 11:55 | P.PN ---
Subjective Patient resting in bed states he has some improvement. Patient has converted to sinus rhythm Objective - Vital Signs Vital signs: Vital Signs Temp 98.4 F 06/30/18 08:15 Pulse 70 06/30/18 08:15 Resp 18 06/30/18 08:15 BP 159/75 06/30/18 08:15 Pulse Ox 93 L 06/30/18 08:15 Intake & Output 06/29/18 06/30/18 06/30/18 18:59 06:59 18:59 Intake Total 890 Output Total 200 Balance 690 Weight 89.811 kg 89.7 kg Intake: IV 150 .9 @ 100 150 Intake, IV Titration 500 Amount Sodium Chloride 0.9% 500 500 ml @ 999 mls/hr IV .Q31M STA Rx#:[id number] Oral 240 Output: Urine 200 Other: Voiding Method Toilet Toilet Toilet # Voids 1 1 2 # Bowel Movements 1 - Constitutional General appearance: Present: obese - EENT Eyes: Present: PERRLA Ears: bilateral: normal - Neck Neck: Present: normal ROM - Respiratory Respiratory: bilateral: CTA - Cardiovascular Rhythm: regular - Gastrointestinal General gastrointestinal: Present: soft - Integumentary Integumentary: Present: normal - Neurologic Neurologic: Present: CNII-XII intact - Psychiatric Psychiatric: Present: A&O x's 3, appropriate affect, intact judgment & insight - Labs CBC & Chem 7: 06/30/18 01:59 06/30/18 01:59 Labs: Abnormal Lab Results - Last 24 Hours (Table) 06/29/18 06/29/18 06/29/18 Range/Units 14:01 14:01 14:01 WBC (3.8-10.6) k/uL Plt Count (150-450) k/uL INR 1.2 H (<1.2) Glucose 156 H (74-99) mg/dL POC Glucose (mg/dL) (75-99) mg/dL Total Creatine Kinase 44 L (55-170) U/L Troponin I (0.000-0.034) ng/mL 06/29/18 06/29/18 06/29/18 Range/Units 16:45 19:45 21:03 WBC (3.8-10.6) k/uL Plt Count (150-450) k/uL INR (<1.2) Glucose (74-99) mg/dL POC Glucose (mg/dL) 104 H 111 H (75-99) mg/dL Total Creatine Kinase 38 L (55-170) U/L Troponin I 0.067 H* (0.000-0.034) ng/mL 06/30/18 06/30/18 06/30/18 Range/Units 01:59 01:59 05:40 WBC 11.0 H (3.8-10.6) k/uL Plt Count 149 L (150-450) k/uL INR (<1.2) Glucose (74-99) mg/dL POC Glucose (mg/dL) 105 H (75-99) mg/dL Total Creatine Kinase 36 L (55-170) U/L Troponin I 0.066 H* (0.000-0.034) ng/mL 06/30/18 Range/Units 11:16 WBC (3.8-10.6) k/uL Plt Count (150-450) k/uL INR (<1.2) Glucose (74-99) mg/dL POC Glucose (mg/dL) 108 H (75-99) mg/dL Total Creatine Kinase (55-170) U/L Troponin I (0.000-0.034) ng/mL - Imaging and Cardiology Chest x-ray: report reviewed Assessment and Plan Plan: Assessment Atrial fibrillation with RVR converted to sinus rhythm with beta blockers Chest pain elevated troponins History of coronary disease with ID and stents Diabetes type 2 Hypertension Hyperlipidemia lipidemia Degenerative disease chronic back pain Nicotine dependence Plan Continue consultation with cardiology
[2018-06-30] MEDS: FLECAINIDE 50 MG TAB PO SCH ×2 (11:58→22:10)
[2018-06-30] MEDS: APIXABAN 5 MG TAB PO SCH ×2 (11:58→22:09)
[2018-06-30] MEDS: ASPIRIN 81 MG PO SCH (11:58)
[2018-06-30 14:18] LABS: Hemoglobin A1C 7.1 % (4.0-6.0)
[2018-06-30 16:20] LABS: Glucose,Whole Blood 86 mg/dL (75-99)
--- NOTE | 2018-06-30 16:24 | ECHOF ---
Referral Reason:chest pain MEASUREMENTS -------- HEIGHT: 172.7 cm WEIGHT: 89.4 kg BP: RVIDd: 3.1 cm (< 3.3) IVSd: 1.3 cm (0.6 - 1.1) LVIDd: 4.0 cm (3.9 - 5.3) LVPWd: 1.2 cm (0.6 - 1.1) IVSs: 1.7 cm LVIDs: 2.7 cm LVPWs: 1.8 cm LA Diam: 3.3 cm (2.7 - 3.8) Ao Diam: 3.2 cm (2.0 - 3.7) LA Diam: 3.4 cm (2.7 - 3.8) MV EXCURSION: 22.213 mm (> 18.000) MV EF SLOPE: 109 mm/s (70 - 150) EPSS: 0.5 cm MV E Sandor: 0.48 m/s MV DecT: 229 ms MV A Sandor: 0.78 m/s MV E/A Ratio: 0.61 RAP: 5.00 mmHg RVSP: 18.36 mmHg FINDINGS -------- Sinus rhythm. This was a technically adequate study. The left ventricular size is normal. Overall left ventricular systolic function is low-normal with, an EF between 50 - 55 %. The right ventricle is normal in size. The left atrial size is normal. The right atrial size is normal. The aortic valve is trileaflet, and appears structurally normal. No aortic stenosis or regurgitation. Mild mitral annular calcification present. Mild mitral regurgitation is present. Mild tricuspid regurgitation present. There is no evidence of pulmonary hypertension. The right v entricular systolic pressure, as measured by Doppler, is 18.36mmHg. There is no pulmonic regurgitation present. The aortic root size is normal. There is no pericardial effusion. CONCLUSIONS -------- 1. The left ventricular size is normal. 2. Overall left ventricular systolic function is low-normal with, an EF between 50 - 55 %. 3. The right ventricle is normal in size. 4. The left atrial size is normal. 5. The right atrial size is normal. 6. The aortic valve is trileaflet, and appears structurally normal. No aortic stenosis or regurgitati on. 7. Mild mitral annular calcification present. 8. Mild mitral regurgitation is present. 9. Mild tricuspid regurgitation present. 10. There is no evidence of pulmonary hypertension. 11. The right ventricular systolic pressure, as measured by Doppler, is 18.36mmHg. 12. There is no pulmonic regurgitation present. 13. The aortic root size is normal. 14. There is no pericardial effusion. MANAGER REPORTING: Lola Lane RDCS
[2018-06-30 21:16] LABS: Glucose,Whole Blood 136 mg/dL (75-99)
[2018-06-30] MEDS: ATORVASTATIN 40 MG TAB PO SCH (22:10)
[2018-06-30] MEDS: FINASTERIDE 5 MG TAB PO SCH (22:10)
[2018-06-30] MEDS: MONTELUKAST 10 MG TAB PO SCH (22:10)
[2018-06-30] MEDS: TAMSULOSIN 0.4 MG CAP.ER.24H PO SCH (22:11)
[2018-07-01 05:40] LABS: Glucose,Whole Blood 133 mg/dL (75-99)
[2018-07-01] MEDS: INSULIN ASPART 100 UNIT/ML 1 ML 10 ML VIAL SQ SCH ×2 (06:13→11:30)
[2018-07-01] MEDS: PANTOPRAZOLE 40 MG TABLET PO SCH (06:25)
[2018-07-01] MEDS: metFORMIN 500 MG TAB PO SCH (06:25)
[2018-07-01 06:41] LABS: Basophils % (A) 0 %; Eosinophils # (A) 0.2 k/uL (0-0.7); Eosinophils % (A) 2 %; HCT 46.5 % (39.0-53.0); HGB 14.9 gm/dL (13.0-17.5); Lymphocytes # (A) 2.7 k/uL (1.0-4.8); Lymphocytes % (A) 27 %; MCH 30.3 pg (25.0-35.0); MCV 94.7 fL (80.0-100.0); Mean Platelet Volume 7.8; Monocytes # (A) 0.9 k/uL (0-1.0); Monocytes % (A) 9 %; Neutrophils # (A) 5.8 k/uL (1.3-7.7); Neutrophils % (A) 59 %; Platelet Count 170 k/uL (150-450); RBC 4.91 m/uL (4.30-5.90); RDW 13.2 % (11.5-15.5); WBC 9.7 k/uL (3.8-10.6)
[2018-07-01 06:49] LABS: Anion Gap 7 mmol/L; Blood Urea Nitrogen 15 mg/dL (9-20); Calcium 9.1 mg/dL (8.4-10.2); Carbon Dioxide 31 mmol/L (22-30); Chloride 104 mmol/L (98-107); Glucose 120 mg/dL (74-99); Potassium 4.3 mmol/L (3.5-5.1); Sodium 142 mmol/L (137-145)
[2018-07-01] MEDS: NICOTINE 14MG/24HR PATCH TRANSDERM SCH (07:56)
[2018-07-01] MEDS: ASPIRIN 81 MG PO SCH (08:04)
[2018-07-01] MEDS: CHOLECALCIFEROL 1,000 UNIT TAB PO SCH (08:04)
[2018-07-01] MEDS: APIXABAN 5 MG TAB PO SCH (08:04)
[2018-07-01] MEDS: METOPROLOL TARTRATE 50 MG TAB PO SCH (08:05)
[2018-07-01] MEDS: FLECAINIDE 50 MG TAB PO SCH (08:05)
[2018-07-01 11:26] LABS: Glucose,Whole Blood 105 mg/dL (75-99)
--- NOTE | 2018-07-01 11:36 | P.DS ---
Providers Date of admission: 06/29/18 15:36 Expected date of discharge: 07/01/18 Attending physician: Mau Mcmillan Consults: 06/29/18 15:37 Consult Physician Routine Consulting Provider: Ana Gregg Consult Reason/Comments: A. fib with RVR, chest pain Do you want consulting provider notified?: Yes Primary care physician: Mau Mcmillan Hospital Course: 72-year-old male presented to the emergency room with complaints of chest pressure. Patient was found to be in atrial fibrillation with RVR patient was started on a beta gisele converted to sinus rhythm Assessment Atrial fibrillation with RVR converted to sinus rhythm with a beta gisele Chest pain related to the atrial fibrillation History of coronary disease with stents Diabetes type 2 Hypertension Hyperlipidemia History of CO Degenerative disc disease Nicotine dependence Plan Follow-up with family physician Dr. Mau Mcmillan and cardiology Patient Condition at Discharge: Stable Plan - Discharge Summary Discharge Rx Participant: No New Discharge Prescriptions: New Flecainide [Tambocor] 50 mg PO Q12HR #60 tab Nicotine 14Mg/24Hr Patch [Habitrol] 1 patch TRANSDERM DAILY #30 patch Acetaminophen Tab [Tylenol] 500 mg PO Q6HR PRN tab PRN Reason: Fever and/ or MILD Pain Pantoprazole [Protonix] 40 mg PO AC-BRKFST tablet.dr Rich metFORMIN HCL [Glucophage] 1,000 mg PO AC-SUPPER Tamsulosin [Flomax] 0.4 mg PO HS Finasteride [Proscar] 5 mg PO HS Cholecalciferol [Vitamin D3] 1,000 unit PO DAILY metFORMIN HCL [Glucophage] 500 mg PO AC-BRKFST Atorvastatin [Lipitor] 40 mg PO HS #30 tab Montelukast [Singulair] 10 mg PO HS Apixaban [Eliquis] 5 mg PO BID Metoprolol Tartrate [Lopressor] 50 mg PO BID Discharge Medication List Cholecalciferol [Vitamin D3] 1,000 unit PO DAILY 02/15/15 [History] Finasteride [Proscar] 5 mg PO HS 02/15/15 [History] Tamsulosin [Flomax] 0.4 mg PO HS 02/15/15 [History] metFORMIN HCL [Glucophage] 1,000 mg PO AC-SUPPER 02/15/15 [History] metFORMIN HCL [Glucophage] 500 mg PO AC-BRKFST 07/18/16 [History] Atorvastatin [Lipitor] 40 mg PO HS #30 tab 07/19/16 [Rx] Apixaban [Eliquis] 5 mg PO BID 04/15/18 [History] Montelukast [Singulair] 10 mg PO HS 04/15/18 [History] Metoprolol Tartrate [Lopressor] 50 mg PO BID 06/29/18 [History] Acetaminophen Tab [Tylenol] 500 mg PO Q6HR PRN tab 07/01/18 [Rx] Flecainide [Tambocor] 50 mg PO Q12HR #60 tab 07/01/18 [Rx] Nicotine 14Mg/24Hr Patch [Habitrol] 1 patch TRANSDERM DAILY #30 patch 07/01/18 [ Rx] Pantoprazole [Protonix] 40 mg PO AC-BRKFST tablet. 07/01/18 [Rx] Follow up Appointment(s)/Referral(s): Mau Mcmillan MD [Primary Care Provider] - 07/08/18 9:40 am (Saturday) Karis Fontanez MD [STAFF PHYSICIAN] - 07/22/18 3:15 pm Patient Instructions/Handouts: A-fib (Atrial Fibrillation) (DC), Safe Use of Anticoagulants (DC)
[2018-07-01 13:26] VITALS: BP 138/63; PULSE 58; TEMP 97.5
--- NOTE | 2018-07-01 14:40 | P.PN ---
Subjective Progress Note Date: 07/01/18 This is a 72-year-old gentleman who follows regularly with Dr. VC Fontanez in the office. History of hypertension, diabetes, hyperlipidemia, coronary artery disease with prior anterior wall OR in 1999 at which time he underwent angioplasty and stenting of the LAD. Patient also has history of paroxysmal atrial fibrillation, COPD, nicotine dependence. He presents to the hospital on this occasion with symptoms of what he describes as heartburn and chest pressure with discomfort in bilateral arms. His initial EKG on presentation here shows atrial fibrillation with a rapid ventricular response. Subsequent EKG shows a normal sinus rhythm. Chest x-ray did not reveal any acute cardiopulmonary process. Let pressure 134/60 with a heart rate in the 60s , temperature 98.2 is 95% on room air. Laboratory data was reviewed, white blood cell count 11.0, hemoglobin 14.7, platelet count 149. Sodium 141, potassium 4.1, BUN 13, creatinine 0.8. Troponins 0.012, 0.067.066. At the time of my examination this morning, patient feels well, denies any chest pain in his breathing is stable, denies any arm discomfort. The patient does state that earlier this month he did have a stress test performed in the office and we will obtain a copy of that. 07/01/2008 Patient seen and examined this morning, continues to be in a normal sinus rhythm. Feeling well overall.blood pressure 138/60 with a heart rate in the low 60s, 98% on room air.CBC normal, sodium 142, potassium 4.3, BUN 15, creatinine 0.8. Objective - Vital Signs Vital signs: Vital Signs Temp 97.5 F L 07/01/18 12:00 Pulse 58 L 07/01/18 12:00 Resp 18 07/01/18 12:00 BP 138/63 07/01/18 12:00 Pulse Ox 98 07/01/18 12:00 Intake & Output 06/30/18 07/01/18 07/01/18 18:59 06:59 18:59 Intake Total 360 200 360 Balance 360 200 360 Weight 88.1 kg Intake: Oral 360 200 360 Other: Voiding Method Toilet Toilet Toilet # Voids 2 2 - Exam PHYSICAL EXAMINATION: GENERAL: 72-year-old gentleman in no acute distress at the time of my examination HEENT: Head is atraumatic, normocephalic. Pupils equal, round. Sclera anicteric. Conjunctiva are clear. Mucous membranes of the mouth are moist. Neck is supple. There is no elevated jugular venous pressure. No carotid bruit is heard. HEART EXAMINATION: Heart S1, S2 normal. No murmur or gallop heard. CHEST EXAMINATION: Lungs are clear to auscultation and precussion. No chest wall tenderness is noted on palpation or with deep breathing. ABDOMEN: Soft, nontender. Bowel sounds are heard. No organomegaly noted. EXTREMITIES: 2+ peripheral pulses with no evidence of peripheral edema and no calf tenderness noted. NEUROLOGIC patient is awake, alert and oriented X3. - Labs CBC & Chem 7: 07/01/18 05:31 07/01/18 05:31 Labs: Abnormal Lab Results - Last 24 Hours (Table) 06/29/18 06/30/18 07/01/18 Range/Units 19:45 20:59 05:31 Carbon Dioxide 31 H (22-30) mmol/L Glucose 120 H (74-99) mg/dL POC Glucose (mg/dL) 136 H (75-99) mg/dL Hemoglobin A1c 7.1 H (4.0-6.0) % 07/01/18 07/01/18 Range/Units 05:35 11:15 Carbon Dioxide (22-30) mmol/L Glucose (74-99) mg/dL POC Glucose (mg/dL) 133 H 105 H (75-99) mg/dL Hemoglobin A1c (4.0-6.0) % Assessment and Plan Plan: Assessment and plan #1 atrial fibrillation with rapid ventricular response, patient currently in normal sinus rhythm #2 chest heaviness with bilateral arm discomfort, could be secondary to A. fib with RVR. Troponins 0.012, 0.067, 0.066 #3 known history of coronary artery disease with prior myocardial infarction in 1999 at which time patient underwent stenting of the LAD, he states he most recently had a stress test performed earlier this month in the office #4 hypertension #5 hyperlipidemia #6 diabetes #7 COPD #8 nicotine dependence Plan echocardiogram with Doppler study revealed a normal left ventricular systolic function. Patient continues to be in normal sinus rhythm. From cardiology's perspective, patient may be able to be discharged home today on Eliquis and flecainide. Follow-up appointment will be made in the office with Dr. VC Fontanez post discharge. DNP note has been reviewed, I agree with a documented findings and plan of care. Patient was seen and examined.
== END 2018-07-01 13:21 | disposition home or self-care (01) | DRG 310 ==
LOC: EC 13:46 → 6SEL 15:36
PROVIDERS: ADMIT Family Medicine; ATTEND Family Medicine
DX: I48.0 Paroxysmal atrial fibrillation (principal); E11.9 Type 2 diabetes mellitus without complications; E78.5 Hyperlipidemia, unspecified; F17.200 Nicotine dependence, unspecified, uncomplicated; G89.29 Other chronic pain; I10 Essential (primary) hypertension; I25.10 Atherosclerotic heart disease of native coronary artery without angina pectoris; I25.2 Old myocardial infarction; J44.9 Chronic obstructive pulmonary disease, unspecified; N40.0 Benign prostatic hyperplasia without lower urinary tract symptoms; Z79.01 Long term (current) use of anticoagulants; Z82.3 Family history of stroke; Z95.5 Presence of coronary angioplasty implant and graft; M54.2 Cervicalgia; M25.519 Pain in unspecified shoulder; R74.8 Abnormal levels of other serum enzymes; Z79.899 Other long term (current) drug therapy; Z88.8 Allergy status to other drugs, medicaments and biological substances; K57.90 Diverticulosis of intestine, part unspecified, without perforation or abscess without bleeding; Z79.84 Long term (current) use of oral hypoglycemic drugs
CPT/HCPCS: 36415; 71046; 80048; 80053; 82550; 82553; 83036; 83735; 84484; 85025; 85610; 85730; 93306; 96361; 96374; 96376; 99291

== ENCOUNTER 2018-08-18 16:26 | Inpatient (IN) | payer MEDICARE, OTHER ==
[2018-08-18 16:42] LABS: Glucose,Whole Blood 126 mg/dL (75-99)
--- NOTE | 2018-08-18 16:42 | ED ---
General Adult HPI - General Stated complaint: altered mental status - History of Present Illness Initial comments: Dictation was produced using [employer] dictation software. please excuse any grammatical, word or spelling errors. Chief Complaint: 72-year-old male past medical history of coronary artery disease, diabetes, dyslipidemia, hypertension, NH, A. fib presents with altered mental status since 3:30 PM. History of Present Illness: 72-year-old male who was at home when he became acutely confused approximately 3:30 PM. EMS was called because patient was severely confused which is abnormal according to . said patient was quite ill appearing at approximately breakfast this time. Patient told his that he felt unwell. Patient was last seen normal and having normal conversation approximately 3:30 PM.: White patient does not have a severe history of CVA. Patient unable to provide HPI this time. Patient is on eliquis for his atrial fibrillation. He was just started on pantoprazole and flecainide for A. fib. The ROS documented in this emergency department record has been reviewed and confirmed by me. Those systems with pertinent positive or negative responses have been documented in the HPI. All other systems are other negative and/or noncontributory. - Related Data Home Medications Medication Instructions Recorded Confirmed Cholecalciferol [Vitamin D3] 1,000 unit PO DAILY 02/15/15 08/18/18 Finasteride [Proscar] 5 mg PO HS 02/15/15 08/18/18 Tamsulosin [Flomax] 0.4 mg PO HS 02/15/15 08/18/18 metFORMIN HCL [Glucophage] 1,000 mg PO AC-SUPPER 02/15/15 08/18/18 metFORMIN HCL [Glucophage] 500 mg PO AC-BRKFST 07/18/16 08/18/18 Apixaban [Eliquis] 5 mg PO BID 04/15/18 08/18/18 Montelukast [Singulair] 10 mg PO HS 04/15/18 08/18/18 Metoprolol Tartrate [Lopressor] 50 mg PO BID 06/29/18 08/18/18 Flecainide [Tambocor] 50 mg PO BID 08/18/18 08/18/18 Previous Rx's Medication Instructions Recorded Atorvastatin [Lipitor] 40 mg PO HS #30 tab 07/19/16 Pantoprazole [Protonix] 40 mg PO AC-BRKFST tablet. 07/01/18 Allergies Allergy/AdvReac Type Severity Reaction Status Date / Time lorazepam [From Ativan] AdvReac BECOMES Verified 08/18/18 16:56 DISORIENTED morphine AdvReac AGITATION Verified 08/18/18 16:56 Review of Systems ROS Statement: Those systems with pertinent positive or pertinent negative responses have been documented in the HPI. ROS Other: All systems not noted in ROS Statement are negative. Past Medical History Past Medical History: Coronary Artery Disease (CAD), Chest Pain / Angina, Diabetes Mellitus, Hyperlipidemia, Hypertension, Myocardial Infarction (NH), Prostate Disorder Additional Past Medical History / Comment(s): NIDDM type II, back pain-bulging discs, diverticular dx, BPH Last Myocardial Infarction Date:: 1999 History of Any Multi-Drug Resistant Organisms: None Reported Past Surgical History: Cholecystectomy, Heart Catheterization With Stent, Orthopedic Surgery, Tonsillectomy Additional Past Surgical History / Comment(s): 1999 cardiac stents, bilateral open shoulder surgeries for rotator cuff, colonoscopy, vasectomy, circumcism. Past Anesthesia/Blood Transfusion Reactions: No Reported Reaction Date of Last Stent Placement:: 1999 Past Psychological History: No Psychological Hx Reported Additional Psychological History / Comment(s): Pt lives with his and an adult mehnaz. He is independent. He has no home [facility]. He drives a car. Smoking Status: Current every day smoker Past Alcohol Use History: None Reported Additional Past Alcohol Use History / Comment(s): Pt states he started smoking around 16-18 yrs of age. He is a 1 to 1.5 ppd Past Drug Use History: None Reported - Past Family History Father Family Medical History: CVA/TIA Additional Family Medical History / Comment(s): Father of a CVA at age 59 yrs. Mother Family Medical History: Vascular Disorder Additional Family Medical History / Comment(s): Mother of a brain aneurysm. General Exam - General Exam Comments Initial Comments: PHYSICAL EXAM: General Impression: A lethargic, confused, slow speech HEENT: Normocephalic atraumatic, extra-ocular movements intact, pupils equal and reactive to light bilaterally, mucous membranes moist. Cardiovascular: Heart regular rate and rhythm, S1&S2 audible, no murmurs, rubs or gallops Chest: Bilateral lung rhonchi Abdomen: Bowel sounds present, abdomen soft, non-tender, non-distended, no organomegaly Musculoskeletal: Pulses present and equal in all extremities, no peripheral edema Motor: Moves all shows grossly, 3+ strength of bilateral lower extremities, no drift of left upper extremity. Normal strength to right upper extremity Neurological: Follows commands intermittently, intact sensation to pain. No gaze deficit. Mild left neglect Skin: Intact with no visualized rashes Psych: Not tested Course Vital Signs 08/18/18 08/18/18 08/18/18 16:30 16:45 17:00 Temperature 104.6 F H Pulse Rate 87 82 102 H Respiratory 16 18 18 Rate Blood Pressure 150/67 100/67 133/84 O2 Sat by Pulse 99 98 96 Oximetry 08/18/18 08/18/18 08/18/18 17:15 17:30 17:45 Temperature Pulse Rate 92 101 H 136 H Respiratory 18 18 16 Rate Blood Pressure 152/95 161/70 136/61 O2 Sat by Pulse 96 Oximetry 08/18/18 08/18/18 08/18/18 17:49 18:16 19:14 Temperature 104 F H 102.3 F H 101.3 F H Pulse Rate 82 86 Respiratory 18 18 Rate Blood Pressure 130/62 130/62 O2 Sat by Pulse 98 Oximetry Medical Decision Making - Medical Decision Making ED course: 72 Year-old male presents with acute confusion since 3:30 PM. Patient is severely confused and appears to be densely aphasic. Patient was given an NIH of 11. Timeout onset was 3:30 PM. Discussed patient case with Dr. Leon was her stroke neurologist. He agreed the patient is not a TPA candidate at this time. Patient was given 500 mL bolus and Tylenol with improvement of mental status.Laboratory evaluation obtained. Leukocytosis of 12.8. Coag panel unremarkable. Metabolic panel is negative. Lactic acid level II.1. Cardiac enzymes are negative. Urine is unremarkable. Rapid urine drug screen is negative. CT of the brain shows no acute processes. CT angioma does not show an acute processes. Chest x-rays negative. Repeat vital signs shows improvement of temperature. This point there is no clear source of patient's fever. Patient does not have any signs of meningismus. He has negative Kernig's and Brudzinski's. No clear indication for lumbar puncture this time. Patient started complaining of any neck pain headache. Patient given broad-spectrum antibiotics. Pending blood cultures and urine cultures. Patient be admitted to the hospital for further evaluation. EKG interpretation: Ventricular rate 93 normal sinus rhythm, PA interval 156, QRS 92, QTC 427. No PA prolongation, no QTC prolongation, no ST or T-wave changes noted. . Overall, this EKG is unremarkable - Lab Data Result diagrams: 08/18/18 17:00 08/18/18 17:00 Lab Results 08/18/18 08/18/18 08/18/18 Range/Units 16:38 17:00 17:00 WBC 12.8 H (3.8-10.6) k/uL RBC 4.77 (4.30-5.90) m/uL Hgb 14.9 (13.0-17.5) gm/dL Hct 46.3 (39.0-53.0) % MCV 97.1 (80.0-100.0) fL MCH 31.2 (25.0-35.0) pg MCHC 32.2 (31.0-37.0) g/dL RDW 13.3 (11.5-15.5) % Plt Count 124 L (150-450) k/uL Neutrophils % 88 % Lymphocytes % 4 % Monocytes % 5 % Eosinophils % 2 % Basophils % 0 % Neutrophils # 11.3 H (1.3-7.7) k/uL Lymphocytes # 0.5 L (1.0-4.8) k/uL Monocytes # 0.7 (0-1.0) k/uL Eosinophils # 0.2 (0-0.7) k/uL Basophils # 0.0 (0-0.2) k/uL PT (9.0-12.0) sec INR (<1.2) APTT (22.0-30.0) sec Sodium 139 (137-145) mmol/L Potassium 4.5 (3.5-5.1) mmol/L Chloride 103 (98-107) mmol/L Carbon Dioxide 26 (22-30) mmol/L Anion Gap 10 mmol/L BUN 16 (9-20) mg/dL Creatinine 0.83 (0.66-1.25) mg/dL Est GFR (CKD-EPI)AfAm >90 (>60 ml/min/1.73 sqM) Est GFR (CKD-EPI)NonAf 89 (>60 ml/min/1.73 sqM) Glucose 120 H (74-99) mg/dL POC Glucose (mg/dL) 126 H (75-99) mg/dL POC Glu Day Trader ID Kenyatta Renee Plasma Lactic Acid Cory (0.7-2.0) mmol/L Calcium 8.8 (8.4-10.2) mg/dL Total Bilirubin 0.8 (0.2-1.3) mg/dL AST 32 (17-59) U/L ALT 38 (21-72) U/L Alkaline Phosphatase 96 (38-126) U/L Total Creatine Kinase (55-170) U/L CK-MB (CK-2) (0.0-2.4) ng/mL CK-MB (CK-2) Rel Index Troponin I (0.000-0.034) ng/mL Total Protein 6.3 (6.3-8.2) g/dL Albumin 3.7 (3.5-5.0) g/dL Urine Color Urine Appearance (Clear) Urine pH (5.0-8.0) Ur Specific [place] (1.001-1.035) Urine Protein (Negative) Urine Glucose (UA) (Negative) Urine Ketones (Negative) Urine Blood (Negative) Urine Nitrite (Negative) Urine Bilirubin (Negative) Urine Urobilinogen (<2.0) mg/dL Ur Leukocyte Esterase (Negative) Urine Opiates Screen (NotDetected) Ur Oxycodone Screen (NotDetected) Urine Methadone Screen (NotDetected) Ur Propoxyphene Screen (NotDetected) Ur Barbiturates Screen (NotDetected) U Tricyclic Antidepress (NotDetected) Ur Phencyclidine Scrn (NotDetected) Ur Amphetamines Screen (NotDetected) U Methamphetamines Scrn (NotDetected) U Benzodiazepines Scrn (NotDetected) Urine Cocaine Screen (NotDetected) U Marijuana (THC) Screen (NotDetected) 08/18/18 08/18/18 08/18/18 Range/Units 17:00 17:00 17:30 WBC (3.8-10.6) k/uL RBC (4.30-5.90) m/uL Hgb (13.0-17.5) gm/dL Hct (39.0-53.0) % MCV (80.0-100.0) fL MCH (25.0-35.0) pg MCHC (31.0-37.0) g/dL RDW (11.5-15.5) % Plt Count (150-450) k/uL Neutrophils % % Lymphocytes % % Monocytes % % Eosinophils % % Basophils % % Neutrophils # (1.3-7.7) k/uL Lymphocytes # (1.0-4.8) k/uL Monocytes # (0-1.0) k/uL Eosinophils # (0-0.7) k/uL Basophils # (0-0.2) k/uL PT 11.5 (9.0-12.0) sec INR 1.2 H (<1.2) APTT 26.0 (22.0-30.0) sec Sodium (137-145) mmol/L Potassium (3.5-5.1) mmol/L Chloride (98-107) mmol/L Carbon Dioxide (22-30) mmol/L Anion Gap mmol/L BUN (9-20) mg/dL Creatinine (0.66-1.25) mg/dL Est GFR (CKD-EPI)AfAm (>60 ml/min/1.73 sqM) Est GFR (CKD-EPI)NonAf (>60 ml/min/1.73 sqM) Glucose (74-99) mg/dL POC Glucose (mg/dL) (75-99) mg/dL POC Glu Day Trader ID Plasma Lactic Acid Cory 2.1 H* (0.7-2.0) mmol/L Calcium (8.4-10.2) mg/dL Total Bilirubin (0.2-1.3) mg/dL AST (17-59) U/L ALT (21-72) U/L Alkaline Phosphatase (38-126) U/L Total Creatine Kinase 33 L (55-170) U/L CK-MB (CK-2) 0.3 (0.0-2.4) ng/mL CK-MB (CK-2) Rel Index 0.9 Troponin I <0.012 (0.000-0.034) ng/mL Total Protein (6.3-8.2) g/dL Albumin (3.5-5.0) g/dL Urine Color Urine Appearance (Clear) Urine pH (5.0-8.0) Ur Specific [place] (1.001-1.035) Urine Protein (Negative) Urine Glucose (UA) (Negative) Urine Ketones (Negative) Urine Blood (Negative) Urine Nitrite (Negative) Urine Bilirubin (Negative) Urine Urobilinogen (<2.0) mg/dL Ur Leukocyte Esterase (Negative) Urine Opiates Screen (NotDetected) Ur Oxycodone Screen (NotDetected) Urine Methadone Screen (NotDetected) Ur Propoxyphene Screen (NotDetected) Ur Barbiturates Screen (NotDetected) U Tricyclic Antidepress (NotDetected) Ur Phencyclidine Scrn (NotDetected) Ur Amphetamines Screen (NotDetected) U Methamphetamines Scrn (NotDetected) U Benzodiazepines Scrn (NotDetected) Urine Cocaine Screen (NotDetected) U Marijuana (THC) Screen (NotDetected) 08/18/18 Range/Units 17:51 WBC (3.8-10.6) k/uL RBC (4.30-5.90) m/uL Hgb (13.0-17.5) gm/dL Hct (39.0-53.0) % MCV (80.0-100.0) fL MCH (25.0-35.0) pg MCHC (31.0-37.0) g/dL RDW (11.5-15.5) % Plt Count (150-450) k/uL Neutrophils % % Lymphocytes % % Monocytes % % Eosinophils % % Basophils % % Neutrophils # (1.3-7.7) k/uL Lymphocytes # (1.0-4.8) k/uL Monocytes # (0-1.0) k/uL Eosinophils # (0-0.7) k/uL Basophils # (0-0.2) k/uL PT (9.0-12.0) sec INR (<1.2) APTT (22.0-30.0) sec Sodium (137-145) mmol/L Potassium (3.5-5.1) mmol/L Chloride (98-107) mmol/L Carbon Dioxide (22-30) mmol/L Anion Gap mmol/L BUN (9-20) mg/dL Creatinine (0.66-1.25) mg/dL Est GFR (CKD-EPI)AfAm (>60 ml/min/1.73 sqM) Est GFR (CKD-EPI)NonAf (>60 ml/min/1.73 sqM) Glucose (74-99) mg/dL POC Glucose (mg/dL) (75-99) mg/dL POC Glu Day Trader ID Plasma Lactic Acid Cory (0.7-2.0) mmol/L Calcium (8.4-10.2) mg/dL Total Bilirubin (0.2-1.3) mg/dL AST (17-59) U/L ALT (21-72) U/L Alkaline Phosphatase (38-126) U/L Total Creatine Kinase (55-170) U/L CK-MB (CK-2) (0.0-2.4) ng/mL CK-MB (CK-2) Rel Index Troponin I (0.000-0.034) ng/mL Total Protein (6.3-8.2) g/dL Albumin (3.5-5.0) g/dL Urine Color Yellow Urine Appearance Clear (Clear) Urine pH 7.0 (5.0-8.0) Ur Specific [place] 1.022 (1.001-1.035) Urine Protein Negative (Negative) Urine Glucose (UA) Negative (Negative) Urine Ketones Negative (Negative) Urine Blood Negative (Negative) Urine Nitrite Negative (Negative) Urine Bilirubin Negative (Negative) Urine Urobilinogen <2.0 (<2.0) mg/dL Ur Leukocyte Esterase Negative (Negative) Urine Opiates Screen Not Detected (NotDetected) Ur Oxycodone Screen Not Detected (NotDetected) Urine Methadone Screen Not Detected (NotDetected) Ur Propoxyphene Screen Not Detected (NotDetected) Ur Barbiturates Screen Not Detected (NotDetected) U Tricyclic Antidepress Not Detected (NotDetected) Ur Phencyclidine Scrn Not Detected (NotDetected) Ur Amphetamines Screen Not Detected (NotDetected) U Methamphetamines Scrn Not Detected (NotDetected) U Benzodiazepines Scrn Not Detected (NotDetected) Urine Cocaine Screen Not Detected (NotDetected) U Marijuana (THC) Screen Not Detected (NotDetected) Disposition Clinical Impression: SIRS (systemic inflammatory response syndrome) Disposition: ADMITTED IP TO THIS HOSP Condition: Fair Referrals: Mau Mcmillan MD [Primary Care Provider] - 1-2 days Decision Time: 20:04
[2018-08-18] MEDS ORDERED: SODIUM CHLORIDE 0.9% 500 ML IV STA (16:43)
--- NOTE | 2018-08-18 17:07 | CT ---
EXAMINATION: CT brain wo con for TPA DATE AND TIME: 08/18/2018 4:57 PM CLINICAL INDICATION: Neuro Deficits Altered mental status. TECHNIQUE: Standard departmental protocol. 992.8 COMPARISON: CT 03/31/2018 FINDINGS: The calvarium is intact. There is no intracranial hemorrhage. There is no intracranial mass or mass effect. No definite new intra-axial or extra-axial attenuation defect. The paranasal sinuses, middle ear cavities, and mastoid sinus air cells are clear. The orbits are unremarkable. IMPRESSION: NO ACUTE PROCESS.
[2018-08-18] MEDS ORDERED: ACETAMINOPHEN IV (For NPO) 1,000 MG in EMPTY BAG 1 BAG IVPB ONE (17:12)
[2018-08-18 17:17] LABS: Basophils % (A) 0 %; Eosinophils # (A) 0.2 k/uL (0-0.7); Eosinophils % (A) 2 %; HCT 46.3 % (39.0-53.0); HGB 14.9 gm/dL (13.0-17.5); Lymphocytes # (A) 0.5 k/uL (1.0-4.8); Lymphocytes % (A) 4 %; MCH 31.2 pg (25.0-35.0); MCHC 32.2 g/dL (31.0-37.0); MCV 97.1 fL (80.0-100.0); Mean Platelet Volume 7.3; Monocytes # (A) 0.7 k/uL (0-1.0); Monocytes % (A) 5 %; Neutrophils # (A) 11.3 k/uL (1.3-7.7); Neutrophils % (A) 88 %; Platelet Count 124 k/uL (150-450); RBC 4.77 m/uL (4.30-5.90); RDW 13.3 % (11.5-15.5); WBC 12.8 k/uL (3.8-10.6)
[2018-08-18 17:26] LABS: INR 1.2 (<1.2); Prothrombin Time 11.5 sec (9.0-12.0)
[2018-08-18 17:28] LABS: ALT 38 U/L (21-72); AST 32 U/L (17-59); Albumin 3.7 g/dL (3.5-5.0); Alkaline Phosphatase 96 U/L (38-126); Anion Gap 10 mmol/L; Blood Urea Nitrogen 16 mg/dL (9-20); Calcium 8.8 mg/dL (8.4-10.2); Carbon Dioxide 26 mmol/L (22-30); Chloride 103 mmol/L (98-107); Glucose 120 mg/dL (74-99); Potassium 4.5 mmol/L (3.5-5.1); Sodium 139 mmol/L (137-145); Total Bilirubin 0.8 mg/dL (0.2-1.3); Total Protein 6.3 g/dL (6.3-8.2)
[2018-08-18 17:41] LABS: Creatine Kinase 33 U/L (55-170)
--- NOTE | 2018-08-18 17:53 | CT ---
EXAMINATION TYPE: CT angio head neck with contrast and with 3-D reconstruction renderings. DATE OF EXAM: 08/18/2018 HISTORY: Altered mental status. COMPARISON: CT 08/18/2018 CT DLP: 421.2 mGycm. Automated Exposure Control for Dose Reduction was Utilized. TECHNIQUE: CTA scan of the neck is performed with IV Contrast, patient injected with 65 mL of Isovue 370, axial images are obtained, coronal and sagittal reformatted images are reviewed. Three-D recons tructed images are created on an independent workstation and reviewed. FINDINGS: Carotid systems / anterior circulation: Negative for hemodynamically significant stenosis or filling defect throughout the neck. Anterior circulation negative for significant stenosis, filling defect, o r aneurysm. Vertebral artery systems / posterior circulation: Negative for hemodynamically significant stenosis o r filling defect throughout the neck. Posterior circulation negative for significant stenosis, fillin g defect, or aneurysm. Other: No significant findings. IMPRESSION: No acute process.
[2018-08-18 17:54] LABS: Creatine Kinase MB 0.3 ng/mL (0.0-2.4); Troponin I <0.012 ng/mL (0.000-0.034)
[2018-08-18 18:14] LABS: Appearance,Urine Clear (Clear); Bilirubin,Urine Negative (Negative); Blood,Urine Negative (Negative); Color,Urine Yellow; Glucose,Urine (UA) Negative (Negative); Ketones,Urine Negative (Negative); Leukocyte Esterase,Urine Negative (Negative); Nitrite,Urine Negative (Negative); Protein,Urine Negative (Negative); Specific Gravity,Urine 1.022 (1.001-1.035); Urobilinogen,Urine <2.0 mg/dL (<2.0)
[2018-08-18 18:23] LABS: Amphetamine Screen,Urine Not Detected (NotDetected); Barbiturate Screen,Urine Not Detected (NotDetected); Benzodiazepines Screen,Urine Not Detected (NotDetected); Cocaine Screen,Urine Not Detected (NotDetected); Methadone Screen, Urine Not Detected (NotDetected); Opiate Screen,Urine Not Detected (NotDetected); Oxycodone Screen, Urine Not Detected (NotDetected); Phencyclidine Screen,Urine Not Detected (NotDetected); Tricyclic Antidepressant,Urine Not Detected (NotDetected); Urn Cannabinoid Scrn Not Detected (NotDetected)
[2018-08-18] MEDS ORDERED: VANCOMYCIN 1,500 MG in SODIUM CHLORIDE 0.9% 250 ML IVPB STA (18:50)
[2018-08-18] MEDS ORDERED: CEFEPIME 2 GM in SODIUM CHLORIDE 0.9% 50 ML IVPB STA (18:50)
--- NOTE | 2018-08-18 19:13 | XR ---
EXAMINATION: XR chest 2V DATE AND TIME: 08/18/2018 6:17 PM CLINICAL INDICATION: altered mental status TECHNIQUE: AP and lateral COMPARISON: 06/29/2018 FINDINGS: Limited hemidiaphragms consistent with low lung inflation at the moment of x-ray radiography. The hyacinth gs appear to be clear and well expanded otherwise. The pleural spaces are negative. The cardiac silhouette is mildly enlarged. The remainder of the mediastinal silhouette is unremarkable. The skeletal structures and soft tissues are negative for acute findings. IMPRESSION: NO ACUTE PROCESS.
[2018-08-18] MEDS ORDERED: VANCOMYCIN IV PER PHARMACY 1 EACH MISC MISCELLANE PRN (20:26)
[2018-08-18] MEDS ORDERED: MELATONIN 3 MG TABLET PO PRN (20:26)
[2018-08-18] MEDS ORDERED: TAMSULOSIN 0.4 MG CAP.ER.24H PO SCH (21:00)
--- NOTE | 2018-08-18 21:54 | HP ---
HISTORY AND PHYSICAL I am covering for Dr. Mau Mcmillan. CHIEF COMPLAINT: Change in mental status. HISTORY OF PRESENT ILLNESS: This 72-year-old gentleman with a past medical history of CAD and stent, diabetes mellitus, hypertension, hyperlipidemia, history atrial fibrillation, history of myocardial infarction, being followed by Dr. Mau Mcmillan in the outpatient setting, was noted to have confusion of acute onset at about 3:30 p.m. today. The family noted that the patient was confused. The patient was found to be ill-appearing at approximately breakfast this time. The patient also has some cough. He does not have any history of CVI. Because of the confusion, patient was taken to [facility] and admitted for further evaluation. Fever was found to be 104. The patient was given some Tylenol. The possibility of stroke was considered, but the stroke workup turned up negative, with a normal CT scan and CT angiogram. Patient was admitted for further evaluation and treatment. The chest exam showed a few rhonchi and crackles. No bronchial breath sounds, but chest x-ray showed some minimal infiltrate in the right lower lobe. There is no history of any headache, any seizures. No history of any chest pain, palpitations, hematochezia or melena at this time. PAST MEDICAL HISTORY: 1. History of diabetes mellitus, type 2. 2. History of hypertension. 3. Hyperlipidemia. 4. History of myocardial infarction. 5. History of prostate disorder. 6. History of CAD and stent. HOME MEDICATIONS: 1. Metformin 500 mg at breakfast, 1000 mg at supper. 2. Flomax 0.4 at bedtime. 3. Protonix 40 mg with breakfast. 4. Singulair 10 mg at bedtime. 5. Lopressor 50 mg b.i.d. 6. Tambocor 50 mg b.i.d. 7. Proscar 5 mg at bedtime. 8. Vitamin D3 1000 daily. 9. Lipitor 40 mg at bedtime. 10.Eliquis 5 mg p.o. b.i.d. ALLERGIES: LORAZEPAM and MORPHINE. FAMILY HISTORY: History of CVA, TIA. SOCIAL HISTORY: History of smoking on a regular basis. No history of alcohol intake. REVIEW OF SYSTEMS: ENT: Diminished hearing. Diminished vision. CARDIOVASCULAR SYSTEM: As mentioned earlier. RESPIRATORY SYSTEM: As mentioned earlier. GI: No nausea, vomiting. : No dysuria or retention. NERVOUS SYSTEM: As mentioned earlier. ALLERGY/IMMUNOLOGY: No asthma, hayfever. MUSCULOSKELETAL: As mentioned earlier. HEMATOLOGY/ONCOLOGY: No history of anemia. ENDOCRINE: No history of diabetes, hypothyroidism. CONSTITUTIONAL: As mentioned earlier. DERMATOLOGY: Negative. RHEUMATOLOGY: Negative. PSYCHIATRY: As mentioned earlier. PHYSICAL EXAMINATION: Patient is alert and oriented x3. Pulse is 86, blood pressure 130/62, respiration 18, temperature 101.3, pulse ox 98% on room air. HEENT: Conjunctivae normal. Oral mucosa moist. NECK: No jugular venous distention. No carotid bruit. No lymph node enlargement. No neck stiffness. CARDIOVASCULAR SYSTEM: S1, S2 muffled. No S3. No S4. RESPIRATORY SYSTEM: Breath sounds diminished at the bases. Bilateral scattered rhonchi and expiratory wheezing present. ABDOMEN: Soft, non-tender. No mass palpable. LEGS: No edema. No swelling. NERVOUS SYSTEM: Higher functions as mentioned earlier. Moves all 4 limbs. No focal motor or sensory deficit. LYMPHATICS: No lymph node palpable in neck, axillae or groin. SKIN: No ulcer, rash, bleeding. LABS: WBC 12.8, hemoglobin 14.9. Glucose 120, lactic acid 2.1. Other labs are noted. ASSESSMENT: 1. Possible acute right lower lobe pneumonia with possible sepsis. 2. Change in mental status, acute metabolic encephalopathy, possibly secondary to sepsis. 3. Increased white count. 4. Thrombocytopenia. 5. History of coronary artery disease and stent. 6. Diabetes mellitus, type 2. 7. Hypertension. 8. Hyperlipidemia. 9. History of myocardial infarction. 10.History of prostate disorder. 11.History of degenerative joint disease. RECOMMENDATIONS AND DISCUSSION: In this 72-year-old gentleman who presented with multiple complex medical issues, we will monitor the patient closely, continue the current medications, continue with symptomatic treatment, broad-spectrum IV antibiotics. Also recommend infectious disease evaluation. The patient was given cefepime. I will continue the cefepime and continue to monitor. Cultures will be obtained. Influenza swabs are being requested. Guarded prognosis because of multiple complex medical issues. See orders for further details. Will continue with IV fluids cautiously. Further recommendations to follow. A copy of this dictation is being forwarded to Dr. Mau Mcmillan, who is the primary physician. MMODL / IJN: [id number] /
[2018-08-18 22:55] VITALS: BMI 29.2
[2018-08-18] MEDS: APIXABAN 5 MG TAB PO SCH (22:58)
[2018-08-18] MEDS: METOPROLOL TARTRATE 50 MG TAB PO SCH (22:58)
[2018-08-18] MEDS: ATORVASTATIN 40 MG TAB PO SCH (22:59)
[2018-08-18] MEDS: FINASTERIDE 5 MG TAB PO SCH (22:59)
[2018-08-18] MEDS: FLECAINIDE 50 MG TAB PO SCH (22:59)
[2018-08-18] MEDS: INSULIN ASPART 100 UNIT/ML 1 ML 10 ML VIAL SQ SCH (22:59)
[2018-08-18] MEDS: MONTELUKAST 10 MG TAB PO SCH (22:59)
[2018-08-19] MEDS ORDERED: HEPARIN SODIUM,PORCINE 5,000 UNIT/ML 1 ML VIAL SQ SCH
[2018-08-19] MEDS: CEFEPIME 2 GM in SODIUM CHLORIDE 0.9% 50 ML IVPB SCH ×3 (04:00→19:59)
[2018-08-19 04:20] LABS: Hemoglobin A1C 6.8 % (4.0-6.0)
[2018-08-19] MEDS: PANTOPRAZOLE 40 MG TABLET PO SCH (05:53)
[2018-08-19] MEDS: ACETAMINOPHEN TAB 500 MG TAB PO PRN ×2 (05:53→16:10)
[2018-08-19] MEDS: INSULIN ASPART 100 UNIT/ML 1 ML 10 ML VIAL SQ SCH ×4 (05:54→23:18)
[2018-08-19 06:17] LABS: Glucose,Whole Blood 129 mg/dL (75-99)
[2018-08-19] MEDS: VANCOMYCIN 1,750 MG in SODIUM CHLORIDE 0.9% 500 ML IVPB SCH ×2 (06:32→20:34)
[2018-08-19 06:40] LABS: Basophils % (A) 0 %; Eosinophils # (A) 0.1 k/uL (0-0.7); Eosinophils % (A) 1 %; HCT 43.9 % (39.0-53.0); HGB 14.6 gm/dL (13.0-17.5); Lymphocytes % (A) 6 %; MCH 31.5 pg (25.0-35.0); MCHC 33.4 g/dL (31.0-37.0); MCV 94.4 fL (80.0-100.0); Mean Platelet Volume 7.9; Monocytes # (A) 1.5 k/uL (0-1.0); Monocytes % (A) 10 %; Neutrophils # (A) 12.8 k/uL (1.3-7.7); Neutrophils % (A) 82 %; Platelet Count 131 k/uL (150-450); RBC 4.65 m/uL (4.30-5.90); RDW 13.1 % (11.5-15.5); WBC 15.7 k/uL (3.8-10.6)
[2018-08-19 06:53] LABS: Anion Gap 10 mmol/L; Blood Urea Nitrogen 15 mg/dL (9-20); Calcium 8.8 mg/dL (8.4-10.2); Carbon Dioxide 25 mmol/L (22-30); Chloride 107 mmol/L (98-107); Glucose 110 mg/dL (74-99); Potassium 4.2 mmol/L (3.5-5.1); Sodium 142 mmol/L (137-145)
[2018-08-19] MEDS ORDERED: metFORMIN 500 MG TAB PO SCH ×2 (07:30→17:30)
[2018-08-19] MEDS: APIXABAN 5 MG TAB PO SCH ×2 (08:13→20:00)
[2018-08-19] MEDS: METOPROLOL TARTRATE 50 MG TAB PO SCH ×2 (08:13→20:01)
[2018-08-19] MEDS: FLECAINIDE 50 MG TAB PO SCH ×2 (08:13→20:00)
[2018-08-19] MEDS: CHOLECALCIFEROL 1,000 UNIT TAB PO SCH (08:14)
--- NOTE | 2018-08-19 10:57 | P.PN ---
Subjective 72-year-old pleasant gentleman was admitted secondary to sepsis patient is found to be bacteremic with gram-negative bacilli. Patient will be continued on cefepime Vanco mycin will be discontinued repeat blood cultures today and tomorrow morning will be obtained patient white blood cell count went up patient denied any abdominal pain will obtain a CAT scan of the abdomen to rule out any intra-abdominal source of infection. Constitutional: Denied any fatigue denied any fever. Cardio vascular: denied any chest pain, palpitations Gastrointestinal denied any nausea vomiting Pulmonary: Denied any shortness of breath cough Neurologic denied any new focal deficits Objective - Vital Signs Vital signs: Vital Signs Temp 98.6 F 08/19/18 08:00 Pulse 68 08/19/18 08:00 Resp 18 08/19/18 08:00 BP 119/56 08/19/18 08:00 Pulse Ox 93 L 08/19/18 08:00 Intake & Output 08/18/18 08/19/18 08/19/18 18:59 06:59 18:59 Intake Total 960 Output Total 800 Balance 160 Weight 89.721 kg 87 kg Intake: Oral 960 Output: Urine 800 Other: Voiding Method Urinal # Voids 2 - Exam PHYSICAL EXAMINATION: GENERAL: The patient is alert and oriented x3, not in any acute distress. Well developed, well nourished. HEENT: Pupils are round and equally reacting to light. EOMI. No scleral icterus. No conjunctival pallor. Normocephalic, atraumatic. No pharyngeal erythema. No thyromegaly. CARDIOVASCULAR: S1 and S2 present. No murmurs, rubs, or gallops. PULMONARY: Chest is clear to auscultation, no wheezing or crackles. ABDOMEN: Soft, nontender, nondistended, normoactive bowel sounds. No palpable organomegaly. MUSCULOSKELETAL: No joint swelling or deformity. EXTREMITIES: No cyanosis, clubbing, or pedal edema. NEUROLOGICAL: Gross neurological examination did not reveal any focal deficits. SKIN: No rashes. - Labs CBC & Chem 7: 08/19/18 05:56 08/19/18 05:56 Labs: Abnormal Lab Results - Last 24 Hours (Table) 08/18/18 08/18/18 08/18/18 Range/Units 16:38 17:00 17:00 WBC 12.8 H (3.8-10.6) k/uL Plt Count 124 L (150-450) k/uL Neutrophils # 11.3 H (1.3-7.7) k/uL Lymphocytes # 0.5 L (1.0-4.8) k/uL Monocytes # (0-1.0) k/uL INR (<1.2) Glucose 120 H (74-99) mg/dL POC Glucose (mg/dL) 126 H (75-99) mg/dL Hemoglobin A1c (4.0-6.0) % Plasma Lactic Acid Cory (0.7-2.0) mmol/L Total Creatine Kinase (55-170) U/L 08/18/18 08/18/18 08/18/18 Range/Units 17:00 17:00 17:00 WBC (3.8-10.6) k/uL Plt Count (150-450) k/uL Neutrophils # (1.3-7.7) k/uL Lymphocytes # (1.0-4.8) k/uL Monocytes # (0-1.0) k/uL INR 1.2 H (<1.2) Glucose (74-99) mg/dL POC Glucose (mg/dL) (75-99) mg/dL Hemoglobin A1c 6.8 H (4.0-6.0) % Plasma Lactic Acid Cory (0.7-2.0) mmol/L Total Creatine Kinase 33 L (55-170) U/L 08/18/18 08/19/18 08/19/18 Range/Units 17:30 05:56 05:56 WBC 15.7 H (3.8-10.6) k/uL Plt Count 131 L (150-450) k/uL Neutrophils # 12.8 H (1.3-7.7) k/uL Lymphocytes # (1.0-4.8) k/uL Monocytes # 1.5 H (0-1.0) k/uL INR (<1.2) Glucose 110 H (74-99) mg/dL POC Glucose (mg/dL) (75-99) mg/dL Hemoglobin A1c (4.0-6.0) % Plasma Lactic Acid Cory 2.1 H* (0.7-2.0) mmol/L Total Creatine Kinase (55-170) U/L 08/19/18 Range/Units 06:15 WBC (3.8-10.6) k/uL Plt Count (150-450) k/uL Neutrophils # (1.3-7.7) k/uL Lymphocytes # (1.0-4.8) k/uL Monocytes # (0-1.0) k/uL INR (<1.2) Glucose (74-99) mg/dL POC Glucose (mg/dL) 129 H (75-99) mg/dL Hemoglobin A1c (4.0-6.0) % Plasma Lactic Acid Cory (0.7-2.0) mmol/L Total Creatine Kinase (55-170) U/L Microbiology - Last 24 Hours (Table) 08/18/18 17:30 Blood Culture Gram Stain - Preliminary Blood 08/18/18 17:30 Blood Culture - Final Blood 08/18/18 17:51 Urine Culture - Preliminary Urine,Voided Assessment and Plan Plan: -Sepsis gram-negative to bacteremia source is not clear abdominal CAT scan will be updated as mentioned above. My suspicion is low that patient has pneumonia. Cefepime will be continued vancomycin will be discontinued. Repeat blood cultures will be obtained today and tomorrow infectious disease was consulted -Atrial fibrillation: Presently rate controlled continue with anti-coagulation -Coronary artery disease -Type 2 diabetes mellitus: metformin will be discussed use secondary to lactic acidosis, patient will be started on IV fluids -Hypertension -hyperlipidemia -Benign prostatic hypertrophy -Degenerative joint disease.
[2018-08-19] MEDS: SODIUM CHLORIDE 0.9% 1,000 ML IV SCH (11:45)
[2018-08-19] MEDS: MULTIVITAMINS, THERA 1 EACH TAB PO SCH (11:46)
[2018-08-19 11:47] LABS: Glucose,Whole Blood 110 mg/dL (75-99)
[2018-08-19] MEDS: IOPAMIDOL-300 CONTRAST 30 ML VIAL (ORAL USE) PO PRN ×2 (16:16→17:42)
[2018-08-19 16:46] LABS: Glucose,Whole Blood 128 mg/dL (75-99)
[2018-08-19] MEDS: FINASTERIDE 5 MG TAB PO SCH (20:00)
[2018-08-19] MEDS: ATORVASTATIN 40 MG TAB PO SCH (20:00)
[2018-08-19] MEDS: MONTELUKAST 10 MG TAB PO SCH (20:01)
--- NOTE | 2018-08-19 20:06 | CT ---
EXAMINATION TYPE: CT abdomen pelvis w con DATE OF EXAM: 08/19/2018 COMPARISON: None HISTORY: Intraabdominal infection. CT DLP: 1232.2 mGycm Automated exposure control for dose reduction was used. TECHNIQUE: Helical acquisition of images was performed from the lung bases through the pelvis. CONTRAST: Performed with Oral Contrast and with IV Contrast, patient injected with 100ml mL of Isovue 300. FINDINGS: Lung bases are clear of consolidation. There is no pleural effusion. Spleen appears normal. Pancreas appears normal. There is air in the anterior biliary tree. Bile ducts are not dilated. There are clip s from cholecystectomy. Stomach appears normal. There is no adrenal mass. Kidneys show satisfactory contrast opacification. T here is 2 cm cortical cyst lower pole left kidney. There are bilateral multiple renal small calcifica tions. There is no hydronephrosis. Ureters are not dilated. There is 1.5 cm cortical cyst posterior l eft kidney. Abdominal aorta is atheromatous. There is no retroperitoneal adenopathy. There is no mese nteric adenopathy. There is a single enlarged lymph node anterior to the pancreatic head that measure s 16 x 10 mm. There is slight increased density in the mesenteric fat at the celiac artery. There are multiple diverticula in the sigmoid colon. There is no evidence of free air. There is no as cites. Bladder distends smoothly. There is no inguinal hernia. There is small umbilical hernia that c ontains fat. There is no intestinal wall thickening. There are no dilated loops. There are some spond ylotic changes in the lumbar spine. I see no bony destructive process. Abdominal aorta is atheromatou s. 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 IMPRESSION: NONOBSTRUCTING RENAL CALCULI. There is pneumobilia probably related to reflux. No dilated ducts. Ther e is slight increased density in the fat around the proximal celiac artery that could relate to a min imal localized inflammatory process. There is single enlarged peripancreatic lymph node. No inflammat ory changes are seen within the pancreas.
[2018-08-19 21:35] LABS: Glucose,Whole Blood 107 mg/dL (75-99)
--- NOTE | 2018-08-19 23:16 | CONS ---
CONSULTATION DATE OF SERVICE: 08/19/2018 REASON FOR CONSULTATION: Sepsis and gram-negative bacteremia. HISTORY OF PRESENT ILLNESS: The patient is a 72-year-old male who presented to [facility] ER last evening with the chief complaints of acute rigors and chills and confusion that apparently started around 3:30 in the afternoon. EMS was called because the patient was severely confused. The patient denies any headache. Denies having any URI symptoms. No chest pain, shortness of breath or cough. No nausea. No vomiting. No abdominal pain. No diarrhea. No burning or frequency of urine. With these symptoms, the patient was evaluated by the ER physician. Initial workup was done for possible CVA. Angiographic CT and brain CT were negative. The patient did have a chest x-ray that was reported to be negative. The patient did have a fever of 104.6 on presentation. The patient did have a white count of 12.6. It is up to 15.7 today. Patient's UA was negative. The blood cultures drawn are coming back positive with gram-negative bacilli. Antibiotic has been adjusted to cefepime and vancomycin. Infectious Disease was consulted for further recommendations regarding antibiotic therapy. The patient on my evaluation this morning has been back to his baseline; he knows he is in the hospital. He continues to deny having any active symptoms at this point. REVIEW OF SYSTEMS: CONSTITUTIONAL: Positive for weakness along with a fever. EYES: No complaint. ENT: No complaint. RESPIRATORY: No complaint. CARDIOVASCULAR: No complaint. GENITOURINARY: No complaint. GASTROINTESTINAL: No complaint. MUSCULOSKELETAL: No complaint. INTEGUMENTARY: No complaint. PSYCHOLOGICAL: No complaint. ENDOCRINE: No complaint. NEUROLOGICAL: As per HPI. PAST MEDICAL HISTORY: 1. Coronary artery disease. 2. Diabetes mellitus. 3. Hyperlipidemia. 4. Hypertension. 5. FL. 6. Benign prostatic hypertrophy. PAST SURGICAL HISTORY: 1. Cholecystectomy. 2. PTCA and stent. 3. Tonsillectomy. 4. Bilateral shoulder surgery for rotator cuff. 5. Vasectomy. 6. Circumcision. 7. Colonoscopy. SOCIAL HISTORY: The patient is currently a smoker. He has been smoking since the age of 19, about a pack and a half a day. No drinking or drug use. FAMILY HISTORY: Father history of CVA and TIA. Mother with history of brain aneurysm. ALLERGIES: LORAZEPAM AND MORPHINE. CURRENT MEDICATIONS: 1. Tylenol. 2. Eliquis. 3. Lipitor. 4. Vitamin D3. 5. Proscar. 6. NovoLog. 7. Melatonin. 8. Lopressor. 9. Singulair. 10.Theragran. 11.Protonix. PHYSICAL EXAMINATION: Blood pressure is 148/68 with a pulse of 66, temperature 98.2, T-max 104. He is 95% on room air. General description is an elderly male lying in bed in no distress. No tachypnea or accessory muscle of respiration use. HEENT examination showed no pallor or scleral icterus. Oral mucous membrane is dry. No pharyngeal erythema or thrush. NECK: Trachea is central. No thyromegaly. LUNGS: Unlabored breathing. Clear to auscultation. No wheeze or crackle. HEART: S1, S2. Regular rate and rhythm. ABDOMEN: Soft. No tenderness. No guarding or rigidity. EXTREMITIES: No edema of the feet. SKIN EXAMINATION: No rash or mass palpable. Neurologically the patient is awake, alert, oriented x3. Mood and affect normal. LABS: BUN of 15, creatinine 0.73. White count 15.7. Influenza serology was negative. Urine drug screen was negative. UA was negative. Chest x-ray reported to be negative. DIAGNOSTIC IMPRESSION AND PLAN: Patient admitted to hospital with sepsis in a patient who did have a fever of 104 degrees Fahrenheit. The patient did have elevated white count and tachycardia, meeting criteria for SIRS, now with evidence of gram-negative bacteremia, which could be either secondary to abdominal or urinary source. However, the patient's UA has been negative. Chest x-ray report negative for pneumonia. He also had a CT of abdomen and pelvis completed which shows some inflammatory changes around the celiac artery origin with a question of possible ischemic colitis to be the likely etiology, as the patient currently has no other clinical focus of infection. PLAN: 1. Repeat a UA and culture. 2. Discontinue cefepime and vancomycin. 3. Start the patient on Zosyn 3.375 grams q.8 hours. 4. Will follow up on clinical condition and culture to further adjust medication if needed. Thank you for this consultation. Will follow this patient along with you. MMODL / IJN: [id number] /
[2018-08-20] MEDS: PIPERACILLIN-TAZOBACTAM 3.375 GM in DEXTROSE/WATER 1 50ML.BAG IVPB SCH ×4 (00:02→23:39)
[2018-08-20 01:02] LABS: Appearance,Urine Clear (Clear); Bilirubin,Urine Negative (Negative); Blood,Urine Negative (Negative); Color,Urine Light Yellow; Glucose,Urine (UA) Negative (Negative); Ketones,Urine Negative (Negative); Leukocyte Esterase,Urine Negative (Negative); Nitrite,Urine Negative (Negative); Protein,Urine Negative (Negative); Specific Gravity,Urine 1.025 (1.001-1.035); Urobilinogen,Urine <2.0 mg/dL (<2.0)
[2018-08-20] MEDS: SODIUM CHLORIDE 0.9% 1,000 ML IV SCH ×3 (02:30→16:31)
[2018-08-20] MEDS: ACETAMINOPHEN TAB 500 MG TAB PO PRN ×2 (03:16→21:47)
[2018-08-20] MEDS: PANTOPRAZOLE 40 MG TABLET PO SCH (05:54)
[2018-08-20] MEDS: HYDROcodone/APAP 5-325MG 1 EACH TAB PO PRN ×2 (05:54→13:03)
[2018-08-20] MEDS: hydrALAZINE HCL 20 MG/ML 1 ML VIAL IVP PRN ×2 (05:55→21:07)
[2018-08-20 05:59] LABS: Glucose,Whole Blood 112 mg/dL (75-99)
[2018-08-20] MEDS: INSULIN ASPART 100 UNIT/ML 1 ML 10 ML VIAL SQ SCH ×4 (06:01→21:13)
[2018-08-20 07:38] LABS: Basophils % (A) 0 %; Eosinophils # (A) 0.1 k/uL (0-0.7); Eosinophils % (A) 1 %; HCT 41.5 % (39.0-53.0); HGB 13.9 gm/dL (13.0-17.5); Lymphocytes # (A) 0.6 k/uL (1.0-4.8); Lymphocytes % (A) 7 %; MCH 31.6 pg (25.0-35.0); MCHC 33.4 g/dL (31.0-37.0); MCV 94.4 fL (80.0-100.0); Mean Platelet Volume 8.2; Monocytes # (A) 0.7 k/uL (0-1.0); Monocytes % (A) 9 %; Neutrophils # (A) 6.7 k/uL (1.3-7.7); Neutrophils % (A) 81 %; RBC 4.39 m/uL (4.30-5.90); RDW 13.1 % (11.5-15.5); WBC 8.3 k/uL (3.8-10.6)
[2018-08-20 07:39] LABS: Anion Gap 6 mmol/L; Blood Urea Nitrogen 13 mg/dL (9-20); Calcium 8.6 mg/dL (8.4-10.2); Carbon Dioxide 27 mmol/L (22-30); Chloride 107 mmol/L (98-107); Glucose 109 mg/dL (74-99); Potassium 3.7 mmol/L (3.5-5.1); Sodium 140 mmol/L (137-145)
[2018-08-20 08:55] LABS: Platelet Count 97 k/uL (150-450)
[2018-08-20] MEDS: METOPROLOL TARTRATE 50 MG TAB PO SCH ×3 (08:58→21:47)
[2018-08-20] MEDS: CHOLECALCIFEROL 1,000 UNIT TAB PO SCH (08:58)
[2018-08-20] MEDS: APIXABAN 5 MG TAB PO SCH ×2 (08:59→21:08)
[2018-08-20] MEDS: FLECAINIDE 50 MG TAB PO SCH ×3 (08:59→21:46)
[2018-08-20] MEDS: MULTIVITAMINS, THERA 1 EACH TAB PO SCH (09:00)
[2018-08-20 11:14] LABS: Glucose,Whole Blood 113 mg/dL (75-99)
--- NOTE | 2018-08-20 11:38 | P.PN ---
Subjective 72-year-old pleasant gentleman was admitted secondary to sepsis patient is found to be bacteremic with gram-negative bacilli. Patient will be continued on cefepime Vanco mycin will be discontinued repeat blood cultures today and tomorrow morning will be obtained patient white blood cell count went up patient denied any abdominal pain will obtain a CAT scan of the abdomen to rule out any intra-abdominal source of infection. 08/20/2018 Patient blood cultures from my yesterday are so far negative patient leukocytosis improved. Patient had abdominal CAT scan and the infectious disease believes there may be probably some ischemic colitis blood cultures are still pending to be finalized patient is on Zosyn other antibiotics were discontinued. Constitutional: Denied any fatigue denied any fever. Cardio vascular: denied any chest pain, palpitations Gastrointestinal denied any nausea vomiting Pulmonary: Denied any shortness of breath cough Neurologic denied any new focal deficits Objective - Vital Signs Vital signs: Vital Signs Temp 98 F 08/20/18 08:00 Pulse 68 08/20/18 08:00 Resp 18 08/20/18 08:00 BP 136/98 08/20/18 08:00 Pulse Ox 96 08/20/18 08:00 Intake & Output 08/19/18 08/20/18 08/20/18 18:59 06:59 18:59 Intake Total 90 Output Total 300 400 Balance -300 -310 Weight 87.3 kg Intake: Oral 90 Output: Urine 300 400 Other: Voiding Method Urinal Urinal - Exam PHYSICAL EXAMINATION: GENERAL: The patient is alert and oriented x3, not in any acute distress. Well developed, well nourished. HEENT: Pupils are round and equally reacting to light. EOMI. No scleral icterus. No conjunctival pallor. Normocephalic, atraumatic. No pharyngeal erythema. No thyromegaly. CARDIOVASCULAR: S1 and S2 present. No murmurs, rubs, or gallops. PULMONARY: Chest is clear to auscultation, no wheezing or crackles. ABDOMEN: Soft, nontender, nondistended, normoactive bowel sounds. No palpable organomegaly. MUSCULOSKELETAL: No joint swelling or deformity. EXTREMITIES: No cyanosis, clubbing, or pedal edema. NEUROLOGICAL: Gross neurological examination did not reveal any focal deficits. SKIN: No rashes. - Labs CBC & Chem 7: 08/20/18 06:46 08/20/18 06:46 Labs: Abnormal Lab Results - Last 24 Hours (Table) 08/19/18 08/19/18 08/19/18 Range/Units 11:44 16:44 21:34 Plt Count (150-450) k/uL Lymphocytes # (1.0-4.8) k/uL Glucose (74-99) mg/dL POC Glucose (mg/dL) 110 H 128 H 107 H (75-99) mg/dL 08/20/18 08/20/18 08/20/18 Range/Units 05:58 06:46 06:46 Plt Count 97 L (150-450) k/uL Lymphocytes # 0.6 L (1.0-4.8) k/uL Glucose 109 H (74-99) mg/dL POC Glucose (mg/dL) 112 H (75-99) mg/dL 08/20/18 Range/Units 11:10 Plt Count (150-450) k/uL Lymphocytes # (1.0-4.8) k/uL Glucose (74-99) mg/dL POC Glucose (mg/dL) 113 H (75-99) mg/dL Microbiology - Last 24 Hours (Table) 08/18/18 17:51 Urine Culture - Final Urine,Voided 08/18/18 17:30 Blood Culture Gram Stain - Preliminary Blood Blood Culture - Preliminary Gram Neg Bacilli 08/18/18 17:30 Blood Culture - Final Blood Assessment and Plan Plan: -Sepsis gram-negative to bacteremia source is not clear abdominal CAT scan suspicious for ischemic colitis, patient is presently on Zosyn which will be continued awaiting finalization of the blood cultures and clearance of bacteremia -Atrial fibrillation: Presently rate controlled continue with anti-coagulation -Coronary artery disease -Type 2 diabetes mellitus: metformin will be discussed use secondary to lactic acidosis, patient will be started on IV fluids -Hypertension -hyperlipidemia -Benign prostatic hypertrophy -Degenerative joint disease.
[2018-08-20 16:24] LABS: Glucose,Whole Blood 99 mg/dL (75-99)
[2018-08-20 21:02] LABS: Glucose,Whole Blood 120 mg/dL (75-99)
[2018-08-20] MEDS: MONTELUKAST 10 MG TAB PO SCH (21:08)
[2018-08-20] MEDS: ATORVASTATIN 40 MG TAB PO SCH (21:08)
[2018-08-20] MEDS: FINASTERIDE 5 MG TAB PO SCH (21:09)
[2018-08-20 21:58] VITALS: RESP 18
--- NOTE | 2018-08-20 22:59 | PN ---
PROGRESS NOTE DATE OF SERVICE: 08/20/2018. REASON FOR FOLLOWUP: Gram-negative bacteremia with sepsis. INTERVAL HISTORY: The patient is currently afebrile. He has been breathing comfortably. The patient denies significant chest pain, shortness of breath or cough. He did have slight discomfort in the right abdominal area; some nausea, but no vomiting and no diarrhea. EXAMINATION: Blood pressure 194/81 with a pulse of 58, temperature 98.8. General description is an elderly male, lying in bed in no distress. RESPIRATORY SYSTEM: Unlabored breathing. Clear to auscultation anteriorly. HEART: S1, S2. Regular rate and rhythm. ABDOMEN: Soft. No tenderness. No guarding or rigidity. EXTREMITIES: No edema of feet. LABS: The patient did have a repeat UA done this morning which has been negative. CT of abdomen and pelvis did show pneumobilia, probably related to reflux and increased density in the fat along with around the celiac artery. DIAGNOSTIC IMPRESSION AND PLAN: Patient with gram-negative bacteremia, source is abdominal, questionably ischemic with some increased inflammation of the celiac artery was noticed on the CAT scan. The patient is complaining of pain in the upper abdominal area. The patient at this time will continue on Zosyn while waiting for the culture to finalize. Continue with supportive care. MMODL / IJN: [id number] /
[2018-08-21 05:59] LABS: Glucose,Whole Blood 116 mg/dL (75-99)
[2018-08-21 06:04] LABS: Basophils % (A) 0 %; Eosinophils # (A) 0.1 k/uL (0-0.7); Eosinophils % (A) 1 %; HCT 40.5 % (39.0-53.0); Lymphocytes # (A) 0.9 k/uL (1.0-4.8); Lymphocytes % (A) 10 %; MCH 30.8 pg (25.0-35.0); MCHC 32.2 g/dL (31.0-37.0); MCV 95.6 fL (80.0-100.0); Mean Platelet Volume 7.9; Monocytes # (A) 0.9 k/uL (0-1.0); Monocytes % (A) 11 %; Neutrophils # (A) 6.7 k/uL (1.3-7.7); Neutrophils % (A) 76 %; Platelet Count 105 k/uL (150-450); RBC 4.23 m/uL (4.30-5.90); RDW 13.2 % (11.5-15.5); WBC 8.8 k/uL (3.8-10.6)
[2018-08-21] MEDS: INSULIN ASPART 100 UNIT/ML 1 ML 10 ML VIAL SQ SCH ×2 (06:14→12:53)
[2018-08-21 06:19] LABS: Anion Gap 9 mmol/L; Blood Urea Nitrogen 12 mg/dL (9-20); Calcium 8.3 mg/dL (8.4-10.2); Carbon Dioxide 25 mmol/L (22-30); Chloride 104 mmol/L (98-107); Glucose 104 mg/dL (74-99); Potassium 3.8 mmol/L (3.5-5.1); Sodium 138 mmol/L (137-145)
[2018-08-21] MEDS: SODIUM CHLORIDE 0.9% 1,000 ML IV SCH ×3 (06:19→12:52)
[2018-08-21] MEDS: PANTOPRAZOLE 40 MG TABLET PO SCH (06:23)
[2018-08-21] MEDS: PIPERACILLIN-TAZOBACTAM 3.375 GM in DEXTROSE/WATER 1 50ML.BAG IVPB SCH (08:18)
[2018-08-21] MEDS: HYDROcodone/APAP 5-325MG 1 EACH TAB PO PRN (08:21)
[2018-08-21] MEDS: METOPROLOL TARTRATE 50 MG TAB PO SCH (08:21)
[2018-08-21] MEDS: CHOLECALCIFEROL 1,000 UNIT TAB PO SCH (08:21)
[2018-08-21] MEDS: FLECAINIDE 50 MG TAB PO SCH (08:22)
[2018-08-21] MEDS: MULTIVITAMINS, THERA 1 EACH TAB PO SCH (08:22)
[2018-08-21] MEDS: APIXABAN 5 MG TAB PO SCH (08:22)
[2018-08-21 11:14] VITALS: BP 160/72; PULSE 56; TEMP 98.2
[2018-08-21 11:51] LABS: Glucose,Whole Blood 160 mg/dL (75-99)
--- NOTE | 2018-08-21 12:00 | P.DS ---
Providers Date of admission: 08/18/18 19:58 Attending physician: Gamaliel Conner Consults: 08/18/18 19:32 Consult Physician Routine Consulting Provider: Leyda Pierre Consult Reason/Comments: fever ,unknown source Do you want consulting provider notified?: Yes Primary care physician: Mau Mcmillan [facility] Course: 72-year-old pleasant gentleman was admitted secondary to sepsis patient is found to be bacteremic with gram-negative bacilli. Patient will be continued on cefepime Vanco mycin will be discontinued repeat blood cultures today and tomorrow morning will be obtained patient white blood cell count went up patient denied any abdominal pain will obtain a CAT scan of the abdomen to rule out any intra-abdominal source of infection. 08/20/2018 Patient blood cultures from my yesterday are so far negative patient leukocytosis improved. Patient had abdominal CAT scan and the infectious disease believes there may be probably some ischemic colitis blood cultures are still pending to be finalized patient is on Zosyn other antibiotics were discontinued. 08/29/2018 Patient has bacteremia with Klebsiella pneumoniae pansensitive. Infectious disease believes patient has colitis which contributed to his septicemia and bacteremia because of that reason they're recommending 12 more days of ciprofloxacin, metronidazole completing 14 day therapy PHYSICAL EXAMINATION: GENERAL: The patient is alert and oriented x3, not in any acute distress. Well developed, well nourished. HEENT: Pupils are round and equally reacting to light. EOMI. No scleral icterus. No conjunctival pallor. Normocephalic, atraumatic. No pharyngeal erythema. No thyromegaly. CARDIOVASCULAR: S1 and S2 present. No murmurs, rubs, or gallops. PULMONARY: Chest is clear to auscultation, no wheezing or crackles. ABDOMEN: Soft, nontender, nondistended, normoactive bowel sounds. No palpable organomegaly. MUSCULOSKELETAL: No joint swelling or deformity. EXTREMITIES: No cyanosis, clubbing, or pedal edema. NEUROLOGICAL: Gross neurological examination did not reveal any focal deficits. SKIN: No rashes. Assessment and Plan Plan: -Sepsis gram-negative to bacteremia source is not clear abdominal CAT scan suspicious for infectious colitis, patient has Klebsiella pneumoniae sepsis and bacteremia. -Atrial fibrillation: Presently rate controlled continue with anti-coagulation -Coronary artery disease -Type 2 diabetes mellitus: -Hypertension -hyperlipidemia -Benign prostatic hypertrophy -Degenerative joint disease. Patient Condition at Discharge: Fair Plan - Discharge Summary Discharge Rx Participant: No New Discharge Prescriptions: New Ciprofloxacin HCl [Cipro] 500 mg PO Q12H 12 Days #6 tab metroNIDAZOLE [Flagyl] 500 mg PO Q8HR #36 tab Continue metFORMIN HCL [Glucophage] 1,000 mg PO AC-SUPPER Tamsulosin [Flomax] 0.4 mg PO HS Finasteride [Proscar] 5 mg PO HS Cholecalciferol [Vitamin D3] 1,000 unit PO DAILY metFORMIN HCL [Glucophage] 500 mg PO AC-BRKFST Atorvastatin [Lipitor] 40 mg PO HS #30 tab Montelukast [Singulair] 10 mg PO HS Apixaban [Eliquis] 5 mg PO BID Metoprolol Tartrate [Lopressor] 50 mg PO BID Pantoprazole [Protonix] 40 mg PO AC-BRKFST tablet. Flecainide [Tambocor] 50 mg PO BID Discharge Medication List Cholecalciferol [Vitamin D3] 1,000 unit PO DAILY 02/15/15 [History] Finasteride [Proscar] 5 mg PO HS 02/15/15 [History] Tamsulosin [Flomax] 0.4 mg PO HS 02/15/15 [History] metFORMIN HCL [Glucophage] 1,000 mg PO AC-SUPPER 02/15/15 [History] metFORMIN HCL [Glucophage] 500 mg PO AC-BRKFST 07/18/16 [History] Atorvastatin [Lipitor] 40 mg PO HS #30 tab 07/19/16 [Rx] Apixaban [Eliquis] 5 mg PO BID 04/15/18 [History] Montelukast [Singulair] 10 mg PO HS 04/15/18 [History] Metoprolol Tartrate [Lopressor] 50 mg PO BID 06/29/18 [History] Pantoprazole [Protonix] 40 mg PO AC-BRKFST tablet. 07/01/18 [Rx] Flecainide [Tambocor] 50 mg PO BID 08/18/18 [History] Ciprofloxacin HCl [Cipro] 500 mg PO Q12H 12 Days #6 tab 08/21/18 [Rx] metroNIDAZOLE [Flagyl] 500 mg PO Q8HR #36 tab 08/21/18 [Rx] Follow up Appointment(s)/Referral(s): Mau Mcmillan MD [Primary Care Provider] - 08/27/18 10:00 am Leyda Pierre MD [STAFF PHYSICIAN] - 1 Week Patient Instructions/Handouts: Sepsis (GEN), Complications of Infection (GEN) Discharge Disposition: HOME SELF-CARE
--- NOTE | 2018-08-21 13:33 | PN ---
PROGRESS NOTE DATE OF SERVICE: 08/21/2018 REASON FOR FOLLOWUP: Klebsiella bacteremia, possible abdominal source. INTERVAL HISTORY: The patient is currently afebrile. He is breathing comfortably. He did have some cough, but not bringing up any sputum. No chest pain. Abdominal pain has improved. No nausea, vomiting and no diarrhea. PHYSICAL EXAMINATION: On examination, blood pressure is 160/72 with a pulse of 56, temperature 98.2. He is 95% on room air. General description is an elderly male up in the bed in no distress. RESPIRATORY SYSTEM: Unlabored breathing, occasional wheeze. HEART: S1, S2. Regular rate and rhythm. ABDOMEN: Soft, no tenderness. EXTREMITIES: No edema of the feet. LABS: BUN of 12, creatinine 0.64, hemoglobin is 13, white count 8.8. Blood culture with Klebsiella pneumoniae sensitive pathogen. Repeat blood cultures 08/19 and 08/20 have been negative. DIAGNOSTIC IMPRESSION AND PLAN: Patient with Klebsiella pneumoniae bacteremia source could be abdominal, less likely pulmonary source as the patient did have CT of abdomen and pelvis that did show some inflammation around the distribution. He will finish therapy with oral Cipro and Flagyl combination for another 12 days with close outpatient followup. Continue supportive care. MMODL / IJN: [id number] /
== END 2018-08-21 14:27 | disposition home or self-care (01) | DRG 871 ==
LOC: EC 16:26 → 6SEL 19:58
PROVIDERS: ADMIT Hospitalist; ATTEND Hospitalist
DX: A41.59 Other Gram-negative sepsis (principal); G93.41 Metabolic encephalopathy; A09 Infectious gastroenteritis and colitis, unspecified; D69.6 Thrombocytopenia, unspecified; E11.9 Type 2 diabetes mellitus without complications; E78.5 Hyperlipidemia, unspecified; F17.200 Nicotine dependence, unspecified, uncomplicated; I10 Essential (primary) hypertension; I25.10 Atherosclerotic heart disease of native coronary artery without angina pectoris; I25.2 Old myocardial infarction; I48.91 Unspecified atrial fibrillation; M19.90 Unspecified osteoarthritis, unspecified site; N40.0 Benign prostatic hyperplasia without lower urinary tract symptoms; Z79.01 Long term (current) use of anticoagulants; Z79.84 Long term (current) use of oral hypoglycemic drugs; Z79.899 Other long term (current) drug therapy; Z82.3 Family history of stroke; Z95.5 Presence of coronary angioplasty implant and graft; Z79.51 Long term (current) use of inhaled steroids; Z88.5 Allergy status to narcotic agent; Z88.8 Allergy status to other drugs, medicaments and biological substances
CPT/HCPCS: 36415; 70450; 70496; 70498; 71046; 74177; 80048; 80053; 80306; 81003; 82550; 82553; 83036; 83605; 84484; 85025; 85610; 85730; 87040; 87077; 87086; 87186; 87502; 93005; 96365; 96366; 96367; 99285

== ENCOUNTER → 2018-09-16 | Outpatient (CLI) | payer MEDICARE, OTHER ==
--- NOTE | 2018-09-16 16:16 | US ---
EXAMINATION TYPE: US carotid duplex BILAT DATE OF EXAM: 09/16/2018 COMPARISON: NONE CLINICAL HISTORY: R42 Dizziness. EXAM MEASUREMENTS: RIGHT: Peak Systolic Velocity (PSV) cm/sec ----- Right CCA: 60.9 ----- Right ICA: 86.2 ----- Right ECA: 166.1 ICA/CCA ratio: 1.4 RIGHT: End Diastole cm/sec ----- Right CCA: 11.8 ----- Right ICA: 23.9 ----- Right ECA: 9.9 LEFT: Peak Systolic Velocity (PSV) cm/sec ----- Left CCA: 65.7 ----- Left ICA: 93.2 ----- Left ECA: 148.0 ICA/CCA ratio: 1.4 LEFT: End Diastole cm/sec ----- Left CCA: 12.5 ----- Left ICA: 25.8 ----- Left ECA: 12.3 VERTEBRALS (direction of flow): Right Vertebral: Antegrade Left Vertebral: Antegrade Rhythm: Normal No elevated velocities in bilateral ICA's, small velocity increase in bilateral ECA's IMPRESSION: Mild degree of grayscale atheromatous plaquing with no sonographically evident hemodynam ically significant stenosis within either visualized internal or common carotid arterial system. 50 -60% stenosis within the bilateral external carotid arteries.
== END | disposition home or self-care (01) ==
LOC: RADUSWWP 15:31
PROVIDERS: ATTEND Family Medicine
DX: I65.23 Occlusion and stenosis of bilateral carotid arteries (principal)
CPT/HCPCS: 93880

== ENCOUNTER → 2018-10-03 | Outpatient (CLI) | payer MEDICARE, OTHER ==
--- NOTE | 2018-10-05 13:38 | MR ---
EXAMINATION TYPE: MR brain wo/w con DATE OF EXAM: 10/03/2018 COMPARISON: 08/18/2018 CT brain HISTORY: Headache CONTRAST: Performed utilizing 7.5 mL intravenous Gadavist gadolinium contrast. TECHNIQUE: Multiplanar, multiecho imaging on a 3.0 Gris magnet is performed through the brain. Stud y is performed within 24 hours of arrival to the hospital. The craniovertebral junction is normal. The pituitary is normal. Diffusion-weighted imaging is performed. No abnormal hyperintensity is present to suggest an acute i ntracranial infarct or acute ischemic change. There is confluent periventricular white matter hyperintensity, likely on the basis of white matter i schemic changes. This correlates with the CT examination. No abnormal enhancement is evident. Ventricles and sulci are appropriate for the patient age. IMPRESSIONS: 1. Confluent periventricular white matter ischemic type changes.
--- NOTE | 2018-10-05 14:08 | MR ---
EXAMINATION TYPE: MR angio head wo con DATE OF EXAM: 10/03/2018 COMPARISON: HISTORY: Headache CONTRAST: None TECHNIQUE: Multiplanar multiecho imaging on a 3.0 Gris magnet is performed through the [place] [facility]. 3-D [id number] imaging is performed. Source images are reviewed on the computer in the axi al plane. Reconstructed images rotating on the computer are reviewed. FINDINGS: The internal carotid arteries bifurcate normally into A1 and M1 segments. The A2 segments are normal. Middle cerebral artery branches are normal. Extending inferior to the left A1 and A2 segments adjacent to the anterior communicating artery is a 1.7 mm suspected aneurysm. This is just left of midline near the junction of the A1 and the A2 segmen t on the left. Anterior communicating artery is patent. The right posterior communicating artery is absent. The left posterior communicating artery is patent. Vertebrobasilar arteries within the [id number]-ho-sabv are normal. The right vertebral artery is dominant. Posterior cerebral vasculature is normal. No obstructions are identified. No significant flow-limit ing stenosis is evident. IMPRESSIONS: 1. There appears to be a 1.7 mm aneurysm at the junction of the left A1 and A2 segments adjacent to t he anterior communicating artery.
== END | disposition home or self-care (01) ==
LOC: RADMRIMAIN 16:45
PROVIDERS: ATTEND Family Medicine
DX: R90.89 Other abnormal findings on diagnostic imaging of central nervous system (principal); R51 Headache
CPT/HCPCS: 70544; 70553; A9585

== ENCOUNTER → 2019-07-13 | Outpatient (CLI) | payer MEDICARE, OTHER ==
[2019-07-13 14:43] LABS: African American GFR (CKD) >90 (>60 ml/min/1.73 sqM); Blood Urea Nitrogen 19 mg/dL (9-20); Non-African American GFR(CKD) 86 (>60 ml/min/1.73 sqM)
--- NOTE | 2019-07-13 15:23 | CT ---
EXAMINATION TYPE: CT brain wo/w con DATE OF EXAM: 07/13/2019 COMPARISON: MRI of the head dated 10/03/2018 and CTA of the head dated 08/18/2018 HISTORY: Dizziness, hx of cerebral aneurysm CT DLP: 2043 mGycm Automated exposure control for dose reduction was used. CONTRAST: CT scan of the head is performed without and with IV Contrast, patient injected with 100 mL of Isovue 300. FINDINGS: No acute intracranial hemorrhage. No mass effect or midline shift. Scattered areas of low attenuation in the periventricular and subcortical white matter with predominance in the frontoparietal lobes. M ild generalized atrophy. No hydrocephalus. Extra-axial spaces are clear. Basal cisterns are preserved . Skull base is intact. Visualized paranasal sinuses and mastoid air cells are clear. No abnormal enhancing mass is identified. Difficult evaluation of the tiny 2 mm aneurysm near the lef t anterior communicating artery due to slice thickness. No new or enlarging aneurysms are identified. Basilar artery is patent. Hypoplasia of the right vertebral artery. IMPRESSION: No acute intracranial hemorrhage, mass effect or midline shift. Chronic senescent changes of the brain. No abnormal enhancing mass identified. Limited evaluation of tiny 2 mm aneurysm seen on MRA dated 10/03/2018. If further evaluation is requir ed, MRA of the head without contrast media obtained.
--- NOTE | 2019-07-13 15:49 | US ---
EXAMINATION TYPE: US carotid duplex BILAT DATE OF EXAM: 07/13/2019 COMPARISON: NONE CLINICAL HISTORY: R42 Dizziness, I67.0 Cerebral Aneurysm. Dizziness EXAM MEASUREMENTS: RIGHT: Peak Systolic Velocity (PSV) cm/sec ----- Right CCA: 51.3 ----- Right ICA: 89.2 ----- Right ECA: 117.0 ICA/CCA ratio: 1.7 RIGHT: End Diastole cm/sec ----- Right CCA: 13.4 ----- Right ICA: 19.7 ----- Right ECA: 9.6 LEFT: Peak Systolic Velocity (PSV) cm/sec ----- Left CCA: 56.3 ----- Left ICA: 70.2 ----- Left ECA: 152.9 ICA/CCA ratio: 1.2 LEFT: End Diastole cm/sec ----- Left CCA: 13.4 ----- Left ICA: 19.7 ----- Left ECA: 0 VERTEBRALS (direction of flow): Right Vertebral: Antegrade Left Vertebral: Antegrade Rhythm: Normal No significant stenosis seen IMPRESSION: No evidence for hemodynamically significant stenosis. Criteria for Assigning % of Stenosis / Diameter reduction (Estimation based on the indirect measurements of the internal carotid artery velocities (ICA PSV). 1. Normal (no stenosis)=ICA PSV < 125 cm/s: ratio < 2.0: ICA EDV<40 cm/s. 2. Less than 50% stenosis=ICA PSV < 125 cm/s: ratio < 2.0: ICA EDV<40 cm/s. 3. 50 to 69% stenosis=ICA PSV of 125 to 230 cm/s: ration 2.0 ? 4.0: ICA EDV 40-100 cm/s. 4. Greater than 70% stenosis to near occlusion= ICA PSV > 230 cm/s: ratio > 4.0: ICA EDV > 100 cm/s. 5. Near occlusion= ICA PSV velocities may be low or undetectable: variable ratio and ICA EDV. 6. Total occlusion=unable to detect flow.
== END | disposition home or self-care (01) ==
LOC: RADCTMAIN 14:05
PROVIDERS: ATTEND Family Medicine
DX: R42 Dizziness and giddiness (principal); R90.89 Other abnormal findings on diagnostic imaging of central nervous system
CPT/HCPCS: 36415; 70470; 82565; 84520; 93880

== ENCOUNTER → 2019-11-05 | Outpatient (CLI) | payer MEDICARE, OTHER ==
--- NOTE | 2019-11-05 16:43 | MR ---
EXAMINATION TYPE: MR angio head wo con DATE OF EXAM: 11/05/2019 COMPARISON: Prior MRA October 03, 2018. HISTORY: One year follow up on cerebral aneurysm TECHNIQUE: Time of flight images focusing on the [place] were performed without contrast.. 2-D and 3-D postprocessing imaging is performed on MRI scanner.. FINDINGS: Redemonstration of dominant left vertebral artery. No significant stenosis or aneurysmal ch carito and posterior circulation. Small caliber but patent left posterior communicating artery redemons trated image 114. Hypoplastic right posterior communicating artery. Images of the anterior circulation demonstrate focal stable aneurysm right aspect anterior to indicat ing artery image 114 measuring approximately 1.8 mm. No new aneurysm is seen. No significant stenosis is evident. 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 No new a neurysm is seen.
== END | disposition home or self-care (01) ==
LOC: RADMRIMAIN 15:23
PROVIDERS: ATTEND Psychiatry & Neurology Neurology
DX: I67.1 Cerebral aneurysm, nonruptured (principal)
CPT/HCPCS: 70544

== ENCOUNTER 2020-07-07 20:15 | Inpatient (IN) | payer MEDICARE, OTHER ==
[2020-07-07] MEDS ORDERED: SODIUM CHLORIDE 0.9% 500 ML 500 ML IV STA (20:42)
[2020-07-07] MEDS ORDERED: DILTIAZEM DRIP BOLUS FROM BAG 1 MG SOLN IV ONE (20:42)
[2020-07-07] MEDS ORDERED: DILTIAZEM 125 MG in SODIUM CHLORIDE 0.9% 100 ML IV SCH (20:45)
[2020-07-07 20:59] LABS: Basophils % (A) 0 %; Eosinophils # (A) 0.3 k/uL (0-0.7); Eosinophils % (A) 2 %; HCT 48.9 % (39.0-53.0); Lymphocytes # (A) 2.5 k/uL (1.0-4.8); Lymphocytes % (A) 21 %; MCH 31.4 pg (25.0-35.0); MCHC 32.8 g/dL (31.0-37.0); MCV 95.7 fL (80.0-100.0); Mean Platelet Volume 8.8; Monocytes # (A) 0.9 k/uL (0-1.0); Monocytes % (A) 8 %; Neutrophils # (A) 8.1 k/uL (1.3-7.7); Neutrophils % (A) 68 %; Platelet Count 181 k/uL (150-450); RBC 5.11 m/uL (4.30-5.90); RDW 13.8 % (11.5-15.5)
[2020-07-07 21:07] LABS: ALT 24 U/L (4-49); AST 23 U/L (17-59); African American GFR (CKD) >90 (>60 ml/min/1.73 sqM); Albumin 4.2 g/dL (3.5-5.0); Alkaline Phosphatase 98 U/L (38-126); Anion Gap 9 mmol/L; Blood Urea Nitrogen 14 mg/dL (9-20); Calcium 10.4 mg/dL (8.4-10.2); Carbon Dioxide 27 mmol/L (22-30); Chloride 104 mmol/L (98-107); Glucose 236 mg/dL (74-99); Non-African American GFR(CKD) 84 (>60 ml/min/1.73 sqM); Potassium 4.4 mmol/L (3.5-5.1); Sodium 140 mmol/L (137-145); Total Bilirubin 0.4 mg/dL (0.2-1.3); Total Protein 6.6 g/dL (6.3-8.2)
[2020-07-07 21:10] LABS: Prothrombin Time 10.2 sec (9.0-12.0)
--- NOTE | 2020-07-07 21:40 | XR ---
EXAMINATION: XR chest 1V portable DATE AND TIME: 07/07/2020 9:27 PM CLINICAL INDICATION: PHH; dysrhythmia TECHNIQUE: AP upright portable COMPARISON: 08/18/2018 FINDINGS: The lungs are clear. The pleural spaces are negative. The cardiac silhouette is not enlarged. The remainder of the mediastinal silhouette is unremarkable. The skeletal structures and soft tissues are negative for acute findings. IMPRESSION: NO ACUTE PROCESS.
[2020-07-07] MEDS ORDERED: NALOXONE 0.4 MG/ML 1 ML VIAL IV PRN (22:37)
--- NOTE | 2020-07-07 22:37 | ED ---
Chest Pain HPI - General Chief Complaint: Chest Pain Stated Complaint: Chest pain Source: patient Mode of arrival: ambulatory Limitations: no limitations - History of Present Illness Initial Comments: Patient is a 74-year-old male past medical history of A. fib and coronary artery disease who presents to emergency room with reported chest pressure. He states he took a nap and around 1 PM woke up and found that he was having significant chest pressure and palpitations. Symptoms persisted all evening until his made him come into the emergency department. Upon arrival patient noted to be in A. fib with RVR. Patient reports that he has taken his metoprolol this morning. He has yet to take his nighttime dose. Upon further prompting the patient states that he had an appointment with Dr. Pak last week. At this time he was taken off of his Fleccinide. He continues to remain on elquis without any missed doses. She denies ripping or tearing sensation to his back. Denies any abdominal pain. No fevers or chills. No lower extremity edema. No other alleviating, precipitating or modifying factors - Related Data Home Medications Medication Instructions Recorded Confirmed Cholecalciferol [Vitamin D3 (25 1,000 unit PO DAILY 02/15/15 07/07/20 Mcg = 1000 Iu)] Finasteride [Proscar] 5 mg PO HS 02/15/15 07/07/20 Tamsulosin [Flomax] 0.4 mg PO HS 02/15/15 07/07/20 Apixaban [Eliquis] 5 mg PO BID 04/15/18 07/07/20 Montelukast [Singulair] 10 mg PO HS 04/15/18 07/07/20 Metoprolol Tartrate [Lopressor] 50 mg PO BID-W/MEALS 06/29/18 07/07/20 lisinopriL [Zestril] 2.5 mg PO DAILY 07/07/20 07/07/20 metFORMIN HCL 1,000 mg PO BID-W/MEALS 07/07/20 07/07/20 Previous Rx's Medication Instructions Recorded Atorvastatin [Lipitor] 40 mg PO HS #30 tab 07/19/16 Pantoprazole [Protonix] 40 mg PO AC-BRKFST tablet. 07/01/18 Allergies Allergy/AdvReac Type Severity Reaction Status Date / Time lorazepam [From Ativan] AdvReac BECOMES Verified 07/07/20 21:59 DISORIENTED morphine AdvReac AGITATION Verified 07/07/20 21:59 Review of Systems ROS Statement: Those systems with pertinent positive or pertinent negative responses have been documented in the HPI. ROS Other: All systems not noted in ROS Statement are negative. EKG Findings - EKG Comments: EKG Findings:: EKG demonstrates H fibrillation with a rapid ventricular rate of 171. QRS E4. QTC of 472. No acute ST segment elevations. Moderate ST depression in the lateral leads Past Medical History Past Medical History: Atrial Fibrillation, Coronary Artery Disease (CAD), Chest Pain / Angina, Diabetes Mellitus, Hyperlipidemia, Hypertension, Myocardial Infarction ([place]), Prostate Disorder Additional Past Medical History / Comment(s): NIDDM type II, back pain-bulging discs, diverticular dx, BPH Last Myocardial Infarction Date:: 1999 History of Any Multi-Drug Resistant Organisms: None Reported Past Surgical History: Cholecystectomy, Heart Catheterization With Stent, Orthopedic Surgery, Tonsillectomy Additional Past Surgical History / Comment(s): 1999 cardiac stents, bilateral open shoulder surgeries for rotator cuff, colonoscopy, vasectomy, circumcism. Past Anesthesia/Blood Transfusion Reactions: No Reported Reaction Date of Last Stent Placement:: 1999 Past Psychological History: No Psychological Hx Reported Smoking Status: Current every day smoker Past Alcohol Use History: None Reported Past Drug Use History: None Reported - Past Family History Father Family Medical History: CVA/TIA Additional Family Medical History / Comment(s): Father of a CVA at age 59 yrs. Mother Family Medical History: Vascular Disorder Additional Family Medical History / Comment(s): Mother of a brain aneurysm. General Exam Limitations: no limitations Course Vital Signs 07/07/20 07/07/20 07/07/20 20:16 21:03 21:06 Temperature 98.4 F Pulse Rate 51 L 165 H 168 H Respiratory 20 18 Rate Blood Pressure 107/59 107/75 116/77 O2 Sat by Pulse 97 98 98 Oximetry 07/07/20 07/07/20 07/07/20 21:19 21:45 21:47 Temperature Pulse Rate 152 H 151 H 88 Respiratory 16 16 16 Rate Blood Pressure 93/73 110/98 142/72 O2 Sat by Pulse 97 100 96 Oximetry 07/07/20 22:45 Temperature 98.2 F Pulse Rate 83 Respiratory 18 Rate Blood Pressure 122/72 O2 Sat by Pulse 98 Oximetry Chest Pain MDM - MDM Upon arrival patient is placed into room 4. A thorough history and physical exam was performed. Peripheral IV is established. Patient is noted to be in A. fib with RVR. He is given a 10 mg bolus of Cardizem and started on a Cardizem drip. He remains in continuous pulse ox and cardiac monitoring. Laboratory studies were conducted. Chest x-ray was performed which demonstrates no acute process. Patient remained in the Cardizem drip for approximately an hour. It is noted that the patient converts to normal sinus rhythm. I recommended hospitalization for evaluation of the patient's rate controlling medications for cardiology. Patient agreed to this. I discussed the case with Sujatha from [facility] to accept admission. Patient was then taken to the floor in stable condition Disposition Clinical Impression: Atrial fibrillation with RVR Disposition: ADMITTED IP TO THIS HOSP Condition: Stable Is patient prescribed a controlled substance at d/c from ED?: No Decision to Admit Reason: Admit from EC Decision Date: 07/07/20 Decision Time: 22:37
[2020-07-08] MEDS: APIXABAN 5 MG TAB PO SCH ×2 (01:32→08:46)
[2020-07-08 03:20] LABS: Basophils % (A) 0 %; Eosinophils # (A) 0.2 k/uL (0-0.7); Eosinophils % (A) 2 %; HCT 44.5 % (39.0-53.0); HGB 14.4 gm/dL (13.0-17.5); Lymphocytes # (A) 3.1 k/uL (1.0-4.8); Lymphocytes % (A) 28 %; MCH 31.4 pg (25.0-35.0); MCHC 32.4 g/dL (31.0-37.0); MCV 96.7 fL (80.0-100.0); Mean Platelet Volume 8.4; Monocytes % (A) 9 %; Neutrophils # (A) 6.6 k/uL (1.3-7.7); Neutrophils % (A) 60 %; Platelet Count 174 k/uL (150-450); RDW 13.9 % (11.5-15.5); WBC 11.1 k/uL (3.8-10.6)
[2020-07-08 04:08] LABS: African American GFR (CKD) >90 (>60 ml/min/1.73 sqM); Anion Gap 4 mmol/L; Blood Urea Nitrogen 15 mg/dL (9-20); Calcium 9.6 mg/dL (8.4-10.2); Carbon Dioxide 27 mmol/L (22-30); Chloride 108 mmol/L (98-107); Glucose 142 mg/dL (74-99); Non-African American GFR(CKD) >90 (>60 ml/min/1.73 sqM); Potassium 4.4 mmol/L (3.5-5.1); Sodium 139 mmol/L (137-145)
[2020-07-08 06:10] LABS: Glucose,Whole Blood 145 mg/dL (75-99)
[2020-07-08] MEDS ORDERED: METOPROLOL TARTRATE 50 MG TAB PO SCH (07:30)
[2020-07-08] MEDS ORDERED: PANTOPRAZOLE 40 MG TABLET PO SCH (07:30)
[2020-07-08] MEDS ORDERED: CHOLECALCIFEROL 1,000 UNIT TAB PO SCH (09:00)
--- NOTE | 2020-07-08 10:36 | ECHOF ---
Referral Reason:afib MEASUREMENTS -------- HEIGHT: 175.3 cm WEIGHT: 88.5 kg BP: 103/58 RVIDd: 3.3 cm (< 3.3) IVSd: 1.0 cm (0.6 - 1.1) LVIDd: 4.6 cm (3.9 - 5.3) LVPWd: 1.2 cm (0.6 - 1.1) IVSs: 1.3 cm LVIDs: 3.4 cm LVPWs: 1.5 cm LA Diam: 3.7 cm (2.7 - 3.8) LAESV Index (A-L): 23.69 ml/m Ao Diam: 2.6 cm (2.0 - 3.7) AV Cusp: 1.9 cm (1.5 - 2.6) MV EXCURSION: 21.518 mm (> 18.000) MV EF SLOPE: 70 mm/s (70 - 150) EPSS: 0.6 cm MV E Sandor: 0.59 m/s MV DecT: 148 ms MV A Sandor: 0.52 m/s MV E/A Ratio: 1.14 RAP: 5.00 mmHg RVSP: 11.16 mmHg FINDINGS -------- Sinus rhythm. This was a technically adequate study. LV size, wall thickness and systolic function are normal, with an EF greater than 55%. The left claude tricular size is normal. The right ventricle is normal in size. The left atrial size is normal. Normal LA size by volume 22+/-6 ml/m2. The right atrial size is normal. There is mild aortic valve sclerosis. Mild mitral regurgitation is present. Mild tricuspid regurgitation present. Right ventricular systolic pressure is normal at < 35 mmHg. There is no pulmonic regurgitation present. The aortic root size is normal. There is no pericardial effusion. CONCLUSIONS -------- 1. LV size, wall thickness and systolic function are normal, with an EF greater than 55%. 2. The left ventricular size is normal. 3. The right ventricle is normal in size. 4. The left atrial size is normal. 5. Normal LA size by volume 22+/-6 ml/m2. 6. The right atrial size is normal. 7. There is mild aortic valve sclerosis. 8. Mild mitral regurgitation is present. 9. Mild tricuspid regurgitation present. 10. Right ventricular systolic pressure is normal at < 35 mmHg. [employer] MACHINE OPERATOR: Lola Lane RDCS
[2020-07-08] MEDS ORDERED: METOPROLOL TARTRATE 25 MG TAB PO STA (11:22)
[2020-07-08 12:04] LABS: Glucose,Whole Blood 158 mg/dL (75-99)
--- NOTE | 2020-07-08 13:47 | P.CRDCN ---
History of Present Illness Consult date: 07/08/20 History of present illness: CHIEF COMPLAINT: A. fib HISTORY OF PRESENT ILLNESS: 74-year-old male with a past history of atrial fibrillation and coronary artery disease with previous stent placement to the LAD in 1999 who presented to the emergency room with a chief complaint of chest tightness. EKG on arrival revealed afib with RVR. Patient denied shortness of breath or palpations. Patient received IV Cardizem bolus and was started on a Cardizem drip. He is now maintaining sinus rhythm. Patient reports he saw Dr. Pak in the office in June and he took him off his Flecainide. Patient also reports he was due to have an echocardiogram performed soon. DIAGNOSTICS: EKG reveals atrial fibrillation with RVR Chest xray negative for acute process Laboratory data: WBC 11.1. Hemoglobin 14.4. Platelet count 174. Sodium 139. Potassium 4.4. BUN 15. Creatinine 0.76. Magnesium 2.0. BNP 145. Troponin 0.012. 0.038. 0.043. Current cardiac medications include lisinopril 2.5 mg daily, metoprolol 50 mg PO BID, Lipitor 40 mg daily, and Eliquis 5 mg twice a day. REVIEW OF SYSTEMS: CONSTITUTIONAL: Denies fever or chills. HEENT: Denies blurred vision, vision changes, or eye pain. Denies hemoptysis CARDIOVASCULAR: Patient reports chest tightness yesterday. Denies orthopnea, PND or palpitations RESPIRATORY: No shortness of breath. GASTROINTESTINAL: Denies abdominal pain. Denies nausea or vomiting. HEMATOLOGIC: Denies bleeding disorders. GENITOURINARY: Denies any blood in urine. SKIN: Denies pruitis. Denies rash. PHYSICAL EXAM: VITAL SIGNS: Reviewed. GENERAL: Well-developed in no acute distress. HEENT: Head is normocephalic. Pupils are equal, round. Sclerae anicteric. Mucous membranes of the mouth are moist. Neck supple. No JVD or thyromegaly LUNGS: Respirations even and unlabored. Lungs essentially clear to auscultation bilaterally. HEART: Regular rate and rhythm. S1 and S2 heard. ABDOMEN: Soft. Nontender. EXTREMITIES: Normal range of motion. No clubbing or cyanosis. Peripheral pulses intact. No lower extremity edema NEUROLOGIC: Awake and alert. Oriented x 3. ASSESSMENT: 1. Atrial fibrillation with RVR 2. History of coronary artery disease with previous stent placement to LAD, 1999 PLAN: -Echocardiogram obtained and reviewed -Continue anticoagulation -Beta gisele increased per medicine -Okay to discharge from a cardiac standpoint. Patient to follow up outpatient with Dr. Pak Nurse practitioner note has been reviewed by physician. Signing provider agrees with the documented findings, assessment, and plan of care. Past Medical History Past Medical History: Atrial Fibrillation, Coronary Artery Disease (CAD), Chest Pain / Angina, Diabetes Mellitus, Hyperlipidemia, Hypertension, Myocardial Infarction ([place]), Prostate Disorder Additional Past Medical History / Comment(s): NIDDM type II, back pain-bulging discs, diverticular dx, BPH Last Myocardial Infarction Date:: 1999 History of Any Multi-Drug Resistant Organisms: None Reported Past Surgical History: Cholecystectomy, Heart Catheterization With Stent, Orthopedic Surgery, Tonsillectomy Additional Past Surgical History / Comment(s): 1999 cardiac stents, bilateral open shoulder surgeries for rotator cuff, colonoscopy, vasectomy, circumcism. Past Anesthesia/Blood Transfusion Reactions: No Reported Reaction Date of Last Stent Placement:: 1999 Past Psychological History: No Psychological Hx Reported Smoking Status: Current every day smoker Past Alcohol Use History: None Reported Past Drug Use History: None Reported - Past Family History Brother(s) Family Medical History: Dialysis Father Family Medical History: CVA/TIA Additional Family Medical History / Comment(s): Father of a CVA at age 59 yrs. Mother Family Medical History: Vascular Disorder Additional Family Medical History / Comment(s): Mother of a brain aneurysm. Medications and Allergies Home Medications Medication Instructions Recorded Confirmed Type Cholecalciferol [Vitamin D3 (25 1,000 unit PO DAILY 02/15/15 07/07/20 History Mcg = 1000 Iu)] Finasteride [Proscar] 5 mg PO HS 02/15/15 07/07/20 History Tamsulosin [Flomax] 0.4 mg PO HS 02/15/15 07/07/20 History Atorvastatin [Lipitor] 40 mg PO HS #30 tab 07/19/16 07/07/20 Rx Apixaban [Eliquis] 5 mg PO BID 04/15/18 07/07/20 History Montelukast [Singulair] 10 mg PO HS 04/15/18 07/07/20 History Pantoprazole [Protonix] 40 mg PO [facility] tablet. 07/01/18 07/07/20 Rx lisinopriL [Zestril] 2.5 mg PO DAILY 07/07/20 07/07/20 History metFORMIN HCL 1,000 mg PO BID-W/MEALS 07/07/20 07/07/20 History Metoprolol Tartrate [Lopressor] 75 mg PO BID-W/MEALS #60 tab 07/08/20 Rx Allergies Allergy/AdvReac Type Severity Reaction Status Date / Time lorazepam [From Ativan] AdvReac BECOMES Verified 07/07/20 21:59 DISORIENTED morphine AdvReac AGITATION Verified 07/07/20 21:59 Physical Exam Vitals: Vital Signs Temp Pulse Pulse Resp BP BP Pulse Ox 07/08/20 04:00 97.9 F 67 16 103/58 98 07/07/20 23:54 98.0 F 77 16 131/66 98 07/07/20 22:45 98.2 F 83 18 122/72 98 07/07/20 21:47 88 16 142/72 96 07/07/20 21:45 151 H 16 110/98 100 07/07/20 21:19 152 H 16 93/73 97 07/07/20 21:06 168 H 18 116/77 98 07/07/20 21:03 165 H 107/75 98 07/07/20 20:16 98.4 F 51 L 20 107/59 97 Intake and Output 07/07/20 07/08/20 07/08/20 22:59 06:59 14:59 Other: Voiding Method Toilet # Voids 1 Weight 86.183 kg 88.5 kg Results 07/08/20 03:11 07/08/20 03:11 Cardiac Enzymes 07/07/20 07/07/20 07/08/20 Range/Units 20:51 20:51 00:23 AST 23 (17-59) U/L Troponin I <0.012 0.038 H* (0.000-0.034) ng/mL 07/08/20 Range/Units 03:11 AST (17-59) U/L Troponin I 0.043 H* (0.000-0.034) ng/mL Coagulation 07/07/20 Range/Units 20:51 PT 10.2 (9.0-12.0) sec APTT 26.0 (22.0-30.0) sec CBC 07/07/20 07/08/20 Range/Units 20:51 03:11 WBC 12.0 H 11.1 H (3.8-10.6) k/uL RBC 5.11 4.60 (4.30-5.90) m/uL Hgb 16.0 14.4 (13.0-17.5) gm/dL Hct 48.9 44.5 (39.0-53.0) % Plt Count 181 174 (150-450) k/uL Comprehensive Metabolic Panel 07/07/20 07/08/20 Range/Units 20:51 03:11 Sodium 140 139 (137-145) mmol/L Potassium 4.4 4.4 (3.5-5.1) mmol/L Chloride 104 108 H (98-107) mmol/L Carbon Dioxide 27 27 (22-30) mmol/L BUN 14 15 (9-20) mg/dL Creatinine 0.90 0.76 (0.66-1.25) mg/dL Glucose 236 H 142 H (74-99) mg/dL Calcium 10.4 H 9.6 (8.4-10.2) mg/dL AST 23 (17-59) U/L ALT 24 (4-49) U/L Alkaline Phosphatase 98 (38-126) U/L Total Protein 6.6 (6.3-8.2) g/dL Albumin 4.2 (3.5-5.0) g/dL Current Medications Generic Name Dose Route Start Last Admin Trade Name Freq PRN Reason Stop Dose Admin Apixaban 5 mg 07/08/20 00:30 07/08/20 08:46 Eliquis PO 5 mg BID RACHID Administration Atorvastatin Calcium 40 mg 07/08/20 21:00 Lipitor PO HS RACHID Cholecalciferol 1,000 unit 07/08/20 09:00 07/08/20 08:46 Vitamin D3 (25 Mcg = 1000 Iu) PO 1,000 unit DAILY RACHID Administration Finasteride 5 mg 07/08/20 21:00 Proscar PO HS RACHID Diltiazem HCl 125 mg/ Sodium 125 mls @ 5 mls/hr 07/07/20 20:45 07/07/20 21:01 Chloride IV 5 mg/hr .Q24H RACHID 5 mls/hr Administration 5 MG/HR Lisinopril 2.5 mg 07/08/20 09:00 07/08/20 08:46 Zestril PO 2.5 mg DAILY RACHID Administration Metoprolol Tartrate 50 mg 07/08/20 07:30 07/08/20 06:48 Lopressor PO 50 mg BID-W/MEALS RACHID Administration Montelukast Sodium 10 mg 07/08/20 21:00 Singulair PO HS RACHID Naloxone HCl 0.2 mg 07/07/20 22:37 Narcan IV Q2M PRN Opioid Reversal Pantoprazole Sodium 40 mg 07/08/20 07:30 07/08/20 06:48 Protonix PO 40 mg AC-BRKFST RACHID Administration Tamsulosin HCl 0.4 mg 07/08/20 21:00 Flomax PO HS [facility] Intake and Output 07/07/20 07/08/20 07/08/20 22:59 06:59 14:59 Other: Voiding Method Toilet # Voids 1 Weight 86.183 kg 88.5 kg 07/08/20 03:11 07/08/20 03:11
--- NOTE | 2020-07-08 14:53 | P.HPIM ---
History of Present Illness 74-year-old pleasant male came in with compensative chest tightness EKG revealed atrial fibrillation entrapment clear rate. Patient was started given Cardizem bolus and subsequent to started on Cardizem drip subsequently converted to sinus rhythm. Patient used to be on flecainide which was recently discontinued by his computer engineering technologist. Patient had normal ejection fraction the past. I'm increasing the dose of metoprolol patient is already on anticoagulation patient will be discharged today to follow up with his computer engineering technologist as an outpatient today patient had mildly elevated troponin which was believed to be secondary to atrial fibrillation. He does have history of coronary artery disease with the stents to LAD in 1999. Review of Systems REVIEW OF SYSTEMS: CONSTITUTIONAL: No fever, no malaise, no fatigue. HEENT: No recent visual problems or hearing problems. Denied any sore throat. CARDIOVASCULAR: No orthopnea, PND, no palpitations, no syncope. PULMONARY: No shortness of breath, no cough, no hemoptysis. GASTROINTESTINAL: No diarrhea, no nausea, no vomiting, no abdominal pain. NEUROLOGICAL: No headaches, no weakness, no numbness. HEMATOLOGICAL: Denies any bleeding or petechiae. GENITOURINARY: Denies any burning micturition, frequency, or urgency. MUSCULOSKELETAL/RHEUMATOLOGICAL: Denies any joint pain, swelling, or any muscle pain. ENDOCRINE: Denies any polyuria or polydipsia. The rest of the 14-point review of systems is negative. Past Medical History Past Medical History: Atrial Fibrillation, Coronary Artery Disease (CAD), Chest Pain / Angina, Diabetes Mellitus, Hyperlipidemia, Hypertension, Myocardial Infarction ([place]), Prostate Disorder Additional Past Medical History / Comment(s): NIDDM type II, back pain-bulging discs, diverticular dx, BPH Last Myocardial Infarction Date:: 1999 History of Any Multi-Drug Resistant Organisms: None Reported Past Surgical History: Cholecystectomy, Heart Catheterization With Stent, Ort hopedic Surgery, Tonsillectomy Additional Past Surgical History / Comment(s): 1999 cardiac stents, bilateral open shoulder surgeries for rotator cuff, colonoscopy, vasectomy, circumcism. Past Anesthesia/Blood Transfusion Reactions: No Reported Reaction Date of Last Stent Placement:: 1999 Past Psychological History: No Psychological Hx Reported Smoking Status: Current every day smoker Past Alcohol Use History: None Reported Past Drug Use History: None Reported - Past Family History Brother(s) Family Medical History: Dialysis Father Family Medical History: CVA/TIA Additional Family Medical History / Comment(s): Father of a CVA at age 59 yrs. Mother Family Medical History: Vascular Disorder Additional Family Medical History / Comment(s): Mother of a brain aneurysm. Medications and Allergies Home Medications Medication Instructions Recorded Confirmed Type Cholecalciferol [Vitamin D3 (25 1,000 unit PO DAILY 02/15/15 07/07/20 History Mcg = 1000 Iu)] Finasteride [Proscar] 5 mg PO HS 02/15/15 07/07/20 History Tamsulosin [Flomax] 0.4 mg PO HS 02/15/15 07/07/20 History Atorvastatin [Lipitor] 40 mg PO HS #30 tab 07/19/16 07/07/20 Rx Apixaban [Eliquis] 5 mg PO BID 04/15/18 07/07/20 History Montelukast [Singulair] 10 mg PO HS 04/15/18 07/07/20 History Pantoprazole [Protonix] 40 mg PO AC-BRKFST tablet. 07/01/18 07/07/20 Rx lisinopriL [Zestril] 2.5 mg PO DAILY 07/07/20 07/07/20 History metFORMIN HCL 1,000 mg PO BID-W/MEALS 07/07/20 07/07/20 History Metoprolol Tartrate [Lopressor] 75 mg PO BID-W/MEALS #60 tab 07/08/20 Rx Allergies Allergy/AdvReac Type Severity Reaction Status Date / Time lorazepam [From Ativan] AdvReac BECOMES Verified 07/07/20 21:59 DISORIENTED morphine AdvReac AGITATION Verified 07/07/20 21:59 Physical Exam Vitals: Vital Signs Temp Pulse Pulse Resp BP BP Pulse Ox 07/08/20 04:00 97.9 F 67 16 103/58 98 07/07/20 23:54 98.0 F 77 16 131/66 98 07/07/20 22:45 98.2 F 83 18 122/72 98 07/07/20 21:47 88 16 142/72 96 07/07/20 21:45 151 H 16 110/98 100 07/07/20 21:19 152 H 16 93/73 97 07/07/20 21:06 168 H 18 116/77 98 07/07/20 21:03 165 H 107/75 98 07/07/20 20:16 98.4 F 51 L 20 107/59 97 Intake and Output 07/07/20 07/08/20 07/08/20 22:59 06:59 14:59 Other: Voiding Method Toilet # Voids 1 Weight 86.183 kg 88.5 kg PHYSICAL EXAMINATION: GENERAL: The patient is alert and oriented x3, not in any acute distress. Well developed, well nourished. HEENT: Pupils are round and equally reacting to light. EOMI. No scleral icterus. No conjunctival pallor. Normocephalic, atraumatic. No pharyngeal erythema. No thyromegaly. CARDIOVASCULAR: S1 and S2 present. No murmurs, rubs, or gallops. PULMONARY: Chest is clear to auscultation, no wheezing or crackles. ABDOMEN: Soft, nontender, nondistended, normoactive bowel sounds. No palpable organomegaly. MUSCULOSKELETAL: No joint swelling or deformity. EXTREMITIES: No cyanosis, clubbing, or pedal edema. NEUROLOGICAL: Gross neurological examination did not reveal any focal deficits. SKIN: No rashes. Results CBC & Chem 7: 07/08/20 03:11 07/08/20 03:11 Labs: Abnormal Lab Results - Last 24 Hours (Table) 07/07/20 07/07/20 07/08/20 Range/Units 20:51 20:51 00:23 WBC 12.0 H (3.8-10.6) k/uL Neutrophils # 8.1 H (1.3-7.7) k/uL Chloride (98-107) mmol/L Glucose 236 H (74-99) mg/dL POC Glucose (mg/dL) (75-99) mg/dL Calcium 10.4 H (8.4-10.2) mg/dL Troponin I 0.038 H* (0.000-0.034) ng/mL 07/08/20 07/08/20 07/08/20 Range/Units 03:11 03:11 03:11 WBC 11.1 H (3.8-10.6) k/uL Neutrophils # (1.3-7.7) k/uL Chloride 108 H (98-107) mmol/L Glucose 142 H (74-99) mg/dL POC Glucose (mg/dL) (75-99) mg/dL Calcium (8.4-10.2) mg/dL Troponin I 0.043 H* (0.000-0.034) ng/mL 07/08/20 07/08/20 Range/Units 06:09 12:03 WBC (3.8-10.6) k/uL Neutrophils # (1.3-7.7) k/uL Chloride (98-107) mmol/L Glucose (74-99) mg/dL POC Glucose (mg/dL) 145 H 158 H (75-99) mg/dL Calcium (8.4-10.2) mg/dL Troponin I (0.000-0.034) ng/mL Thrombosis Risk Factor Assmnt - Choose All That Apply Each Factor Represents 1 point: Obesity (BMI >25) Other Risk Factors: Yes Each Risk Factor Represents 2 Points: Age 61-74 years Thrombosis Risk Factor Assessment Total Risk Factor Score: 3 Thrombosis Risk Factor Assessment Level: Moderate Risk Assessment and Plan Plan: -Atrial fibrillation with rapid ventricular rate: Patient is present is sinus rh ythm rate controlled is being discharged today. Patient regarding her anti- correlation increase the dose of beta gisele to 75 twice a day from 50 twice a day -Dizziness secondary to atrial fibrillation resolved at this time -Chest pain and mildly elevated troponin: Secondary to atrial fibrillation no evidence of acute myocardial infarction -Type 2 diabetes mellitus -Hyperlipidemia -Hypertension -Coronary artery disease -Benign prostatic hypertrophic -Nicotine abuse: Counseling was provided patient is try to cut down on smoking For above-mentioned chronic woody problems patient will be continued on rest of his home medications patient will be discharged today
--- NOTE | 2020-07-08 14:53 | P.DS ---
Providers Date of admission: 07/07/20 23:01 Attending physician: Gamaliel Conner Consults: 07/07/20 22:59 Consult Physician Urgent Consulting Provider: [facility] Consult Reason/Comments: afib with rvr Do you want consulting provider notified?: Yes Primary care physician: Mau Mcmillan Hospital Course: As mentioned in HPI Patient Condition at Discharge: Stable Plan - Discharge Summary Discharge Rx Participant: No New Discharge Prescriptions: New Metoprolol Tartrate [Lopressor] 75 mg PO BID-W/MEALS #60 tab Continue Tamsulosin [Flomax] 0.4 mg PO HS Finasteride [Proscar] 5 mg PO HS Cholecalciferol [Vitamin D3 (25 Mcg = 1000 Iu)] 1,000 unit PO DAILY Atorvastatin [Lipitor] 40 mg PO HS #30 tab Montelukast [Singulair] 10 mg PO HS Apixaban [Eliquis] 5 mg PO BID Pantoprazole [Protonix] 40 mg PO AC-BRKFST tablet. metFORMIN HCL 1,000 mg PO BID-W/MEALS lisinopriL [Zestril] 2.5 mg PO DAILY Discontinued Metoprolol Tartrate [Lopressor] 50 mg PO BID-W/MEALS Discharge Medication List Cholecalciferol [Vitamin D3 (25 Mcg = 1000 Iu)] 1,000 unit PO DAILY 02/15/15 [History] Finasteride [Proscar] 5 mg PO HS 02/15/15 [History] Tamsulosin [Flomax] 0.4 mg PO HS 02/15/15 [History] Atorvastatin [Lipitor] 40 mg PO HS #30 tab 07/19/16 [Rx] Apixaban [Eliquis] 5 mg PO BID 04/15/18 [History] Montelukast [Singulair] 10 mg PO HS 04/15/18 [History] Pantoprazole [Protonix] 40 mg PO AC-BRKFST tablet. 07/01/18 [Rx] lisinopriL [Zestril] 2.5 mg PO DAILY 07/07/20 [History] metFORMIN HCL 1,000 mg PO BID-W/MEALS 07/07/20 [History] Metoprolol Tartrate [Lopressor] 75 mg PO BID-W/MEALS #60 tab 07/08/20 [Rx] Follow up Appointment(s)/Referral(s): Mau Mcmillan MD [Primary Care Provider] - 3 Days Lima Pak MD [STAFF PHYSICIAN] - 1 Week Discharge Disposition: HOME SELF-CARE
[2020-07-08 15:41] VITALS: RESP 18
[2020-07-08 15:47] VITALS: BP 140/66; PULSE 59; TEMP 98.1
[2020-07-08] MEDS ORDERED: METOPROLOL TARTRATE 25 MG TAB PO SCH (17:30)
[2020-07-08] MEDS ORDERED: FINASTERIDE 5 MG TAB PO SCH (21:00)
[2020-07-08] MEDS ORDERED: MONTELUKAST 10 MG TAB PO SCH (21:00)
[2020-07-08] MEDS ORDERED: ATORVASTATIN 40 MG TAB PO SCH (21:00)
[2020-07-08] MEDS ORDERED: TAMSULOSIN 0.4 MG CAP.ER.24H PO SCH (21:00)
== END 2020-07-08 15:33 | disposition home or self-care (01) | DRG 310 ==
LOC: EC 20:15 → 3SCARD 23:01
PROVIDERS: ADMIT Hospitalist; ATTEND Hospitalist
DX: I48.91 Unspecified atrial fibrillation (principal); I25.10 Atherosclerotic heart disease of native coronary artery without angina pectoris; I10 Essential (primary) hypertension; F17.200 Nicotine dependence, unspecified, uncomplicated; E78.5 Hyperlipidemia, unspecified; E11.9 Type 2 diabetes mellitus without complications; N40.0 Benign prostatic hyperplasia without lower urinary tract symptoms; I25.2 Old myocardial infarction; Z79.01 Long term (current) use of anticoagulants; Z79.84 Long term (current) use of oral hypoglycemic drugs; Z79.899 Other long term (current) drug therapy; Z82.3 Family history of stroke; Z95.5 Presence of coronary angioplasty implant and graft; Z88.8 Allergy status to other drugs, medicaments and biological substances; Z88.5 Allergy status to narcotic agent; Z90.49 Acquired absence of other specified parts of digestive tract; Z98.890 Other specified postprocedural states; Z90.89 Acquired absence of other organs; Z81.8 Family history of other mental and behavioral disorders; Z82.49 Family history of ischemic heart disease and other diseases of the circulatory system
CPT/HCPCS: 71045; 80048; 80053; 83735; 83880; 84484; 85025; 85610; 85730; 93005; 93306; 96365; 96366; 96376; 99285

== ENCOUNTER → 2021-03-13 | Outpatient (CLI) | payer MEDICARE, OTHER | END | disposition home or self-care (01) | LOC: LABWHC1 16:43 | PROVIDERS: ATTEND Family Medicine | DX: Z20.822 Contact with and (suspected) exposure to COVID-19 (principal) | CPT/HCPCS: U0003; C9803 ==

== ENCOUNTER 2021-03-21 11:26 | Inpatient (IN) | payer MEDICARE, OTHER ==
[2021-03-21] MEDS ORDERED: DILTIAZEM DRIP BOLUS FROM BAG 1 MG SOLN IV ONE (11:44)
[2021-03-21] MEDS ORDERED: DILTIAZEM 125 MG in SODIUM CHLORIDE 0.9% 100 ML IV SCH ×2 (11:45→22:45)
[2021-03-21 12:24] LABS: Albumin 4.3 g/dL (3.5-5.0); Calcium 9.5 mg/dL (8.4-10.2); Magnesium 1.7 mg/dL (1.6-2.3); Potassium 4.7 mmol/L (3.5-5.1); Total Bilirubin 0.6 mg/dL (0.2-1.3); Total Protein 6.8 g/dL (6.3-8.2)
--- NOTE | 2021-03-21 12:25 | ED ---
Chest Pain HPI - General Chief Complaint: Chest Pain Stated Complaint: chest tightness, SOB Time Seen by Provider: 03/21/21 11:36 Source: patient, RN notes reviewed Mode of arrival: wheelchair Limitations: no limitations - History of Present Illness Initial Comments: This is a 75-year-old male with a history of atrial fibrillation in the past who presents with complaints that they have retrosternal chest tightness some shortness of breath and dizziness. He woke up with around 10:30 this morning. No fevers chills no nausea vomiting sweats. He states the pain is gone at this time. He was found upon arrival to be in atrial fibrillation. No other complaints or modifying factors at this time MD Complaint: chest pain, other - Related Data Home Medications Medication Instructions Recorded Confirmed Cholecalciferol [Vitamin D3 (25 25 mcg PO DAILY 02/15/15 03/21/21 Mcg = 1000 Iu)] Finasteride [Proscar] 5 mg PO HS 02/15/15 03/21/21 Tamsulosin [Flomax] 0.4 mg PO HS 02/15/15 03/21/21 Apixaban [Eliquis] 5 mg PO BID 04/15/18 03/21/21 Montelukast [Singulair] 10 mg PO HS 04/15/18 03/21/21 lisinopriL [Zestril] 2.5 mg PO DAILY 07/07/20 03/21/21 metFORMIN HCL 1,000 mg PO AC-BID 07/07/20 03/21/21 Metoprolol Tartrate [Lopressor] 50 mg PO BID 03/21/21 03/21/21 Pantoprazole [Protonix] 40 mg PO DAILY 03/21/21 03/21/21 Previous Rx's Medication Instructions Recorded Atorvastatin [Lipitor] 40 mg PO HS #30 tab 07/19/16 Allergies Allergy/AdvReac Type Severity Reaction Status Date / Time lorazepam [From Ativan] AdvReac BECOMES Verified 03/21/21 12:06 DISORIENTED morphine AdvReac AGITATION Verified 03/21/21 12:06 Review of Systems ROS Statement: Those systems with pertinent positive or pertinent negative responses have been documented in the HPI. ROS Other: All systems not noted in ROS Statement are negative. EKG Findings - EKG Results: EKG: interpreted by ANASTACIOD EKG shows: atrial fibrillation (Atrial fibrillation with a response rate of 191 QRS S 78 QT since QTC 320/[address] configuration) Past Medical History Past Medical History: Atrial Fibrillation, Coronary Artery Disease (CAD), Chest Pain / Angina, Diabetes Mellitus, Hyperlipidemia, Hypertension, Myocardial Infarction ([place]), Prostate Disorder Additional Past Medical History / Comment(s): NIDDM type II, back pain-bulging discs, diverticular dx, BPH Last Myocardial Infarction Date:: 1999 History of Any Multi-Drug Resistant Organisms: None Reported Past Surgical History: Cholecystectomy, Heart Catheterization With Stent, Orthopedic Surgery, Tonsillectomy Additional Past Surgical History / Comment(s): 1999 cardiac stents, bilateral open shoulder surgeries for rotator cuff, colonoscopy, vasectomy, circumcism. Past Anesthesia/Blood Transfusion Reactions: No Reported Reaction Date of Last Stent Placement:: 1999 Past Psychological History: No Psychological Hx Reported Smoking Status: Current every day smoker Past Alcohol Use History: None Reported Past Drug Use History: None Reported - Past Family History Brother(s) Family Medical History: Dialysis Father Family Medical History: CVA/TIA Additional Family Medical History / Comment(s): Father of a CVA at age 59 yrs. Mother Family Medical History: Vascular Disorder Additional Family Medical History / Comment(s): Mother of a brain aneurysm. General Exam - General Exam Comments Initial Comments: This is a well-developed well-nourished awake alert oriented times 3 male Limitations: no limitations General appearance: alert, in no apparent distress Head exam: Present: atraumatic, normocephalic, normal inspection Eye exam: Present: normal appearance, PERRL, EOMI. Absent: scleral icterus, conjunctival injection, periorbital swelling ENT exam: Present: normal exam, mucous membranes moist Neck exam: Present: normal inspection, full ROM, other (No stridor JVD or bruits). Absent: tenderness, meningismus, lymphadenopathy Respiratory exam: Present: normal lung sounds bilaterally. Absent: respiratory distress, wheezes, rales, rhonchi, stridor Cardiovascular Exam: Present: tachycardia, irregular rhythm. Absent: systolic murmur, diastolic murmur, rubs, gallop, clicks GI/Abdominal exam: Present: soft, normal bowel sounds. Absent: distended, tenderness, guarding, rebound, rigid Extremities exam: Present: normal inspection, full ROM, normal capillary refill. Absent: tenderness, pedal edema, joint swelling, calf tenderness Back exam: Present: normal inspection Neurological exam: Present: alert, oriented X3, CN II-XII intact Psychiatric exam: Present: normal affect, normal mood Skin exam: Present: warm, dry, intact, normal color. Absent: rash Course Vital Signs 03/21/21 03/21/21 11:29 13:32 Temperature 97.9 F Pulse Rate 52 L 147 H Respiratory 18 18 Rate Blood Pressure 100/64 94/65 O2 Sat by Pulse 98 98 Oximetry - Reevaluation(s) Reevaluation #1: 03/21/21 13:52 Ventilation patient reveals that he has no further discomfort he still has atrial fibrillation though the rate is trending downward. He did demonstrate some evidence of hypotension. He will get a fluid bolus. Chest Pain MDM - MDM I did discuss findings with the [facility]'s service patient be admitted with cardiology consultation. Critical Care Time Critical Care Time: Yes Total Critical Care Time: 39 Critical Care Time: Critical care time includes initial presentation with history physical labs x- rays multiple reevaluation patient responsive therapy discuss with the admitting physician admission orders and documentation of the above. Disposition Clinical Impression: Rapid atrial fibrillation, Chest pain, Hypotensive episode Disposition: ADMITTED IP TO THIS HOSP Condition: Fair Referrals: Mau Mcmillan MD [Primary Care Provider] - 1-2 days
[2021-03-21 12:27] LABS: Prothrombin Time 10.9 sec (9.0-12.0)
[2021-03-21 12:43] LABS: Basophils # (A) 0.1 k/uL (0-0.2); Basophils % (A) 1 %; Eosinophils # (A) 0.2 k/uL (0-0.7); Eosinophils % (A) 1 %; Lymphocytes # (A) 3.1 k/uL (1.0-4.8); Lymphocytes % (A) 26 %; MCH 33.1 pg (25.0-35.0); MCV 97.1 fL (80.0-100.0); Mean Platelet Volume 9.1; Monocytes % (A) 9 %; Neutrophils # (A) 7.2 k/uL (1.3-7.7); Neutrophils % (A) 61 %; Platelet Count 191 k/uL (150-450); RBC 5.15 m/uL (4.30-5.90); RDW 13.6 % (11.5-15.5); WBC 11.8 k/uL (3.8-10.6)
--- NOTE | 2021-03-21 12:46 | XR ---
EXAMINATION TYPE: XR chest 2V DATE OF EXAM: 03/21/2021 COMPARISON: 07/07/2020 HISTORY: 75-year-old male with chest pain and shortness of breath TECHNIQUE: AP and lateral views FINDINGS: The cardiomediastinal silhouette, aorta, and pulmonary vasculature are within normal limits. Minimal central peribronchial cuffing especially on the right. Some strandy atelectasis in the lower lungs. N o consolidation or pleural effusion. IMPRESSION: Minimal central peribronchial cuffing particularly on the right could reflect bronchitis or chronic a sthma. No acute process otherwise seen.
[2021-03-21] MEDS ORDERED: SODIUM CHLORIDE 0.9% 1,000 ML IV ONE (13:55)
[2021-03-21] MEDS ORDERED: NITROGLYCERIN SL TABS 0.4 MG TAB SUBLINGUAL PRN (13:56)
[2021-03-21 18:58] LABS: Glucose,Whole Blood 97 mg/dL (75-99)
[2021-03-21] MEDS: INSULIN ASPART (NovoLOG) 100 UNIT/ML VIAL SQ SCH ×2 (18:58→21:50)
[2021-03-21] MEDS: metFORMIN 500 MG TAB PO SCH (19:02)
--- NOTE | 2021-03-21 19:48 | P.HPIM ---
History of Present Illness H&P Date: 03/21/21 Chief Complaint: Palpitations/Chest tightness/shortness of breath 75-year-old male is admitted to the hospital for atrial fibrillation with rapid ventricular rate. Patient woke up this a.m. approximate 1030 with symptoms of palpitation, chest tightness, shortness of breath, and nausea. Patient went to the emergency department, found to have a fib with RVR with a rate of 180 to 220, patient was placed on Cardizem drip titrate up to 10 mg per hour current heart rate 120s to 130s. Patient has significant medical history of atrial fibrillation, coronary artery disease, chest pain/angina, diabetes mellitus type II [id number], history of myocardial infarction, history of bulging disc, history of diverticular disease, and BPH. Patient has significant surgical history of cholecystectomy, heart catheterization with stent, and orthopedic surgery. Patients diagnostic labs are evaluated elevated troponin possibly related to rate response. Currently patient denies fever, chills, shortness of breath, chest pain, palpitations, abdominal pain, nausea, or diarrhea. Patient is anticoagulated with Eliquis for past history of atrial fibrillation. Consultation with cardiology for recommendations and treatment plan. Review of Systems Cardiovascular: Reports decreased exercise tolerance, Reports dyspnea on exe rtion, Reports palpitations Respiratory: Reports dyspnea Past Medical History Past Medical History: Atrial Fibrillation, Coronary Artery Disease (CAD), Chest Pain / Angina, Diabetes Mellitus, Hyperlipidemia, Hypertension, Myocardial In farction ([place]), Prostate Disorder Additional Past Medical History / Comment(s): NIDDM type II, back pain-bulging discs, diverticular dx, BPH Last Myocardial Infarction Date:: 1999 History of Any Multi-Drug Resistant Organisms: None Reported Past Surgical History: Cholecystectomy, Heart Catheterization With Stent, Orthopedic Surgery, Tonsillectomy Additional Past Surgical History / Comment(s): 1999 cardiac stents, bilateral open shoulder surgeries for rotator cuff, colonoscopy, vasectomy, circumcism. Past Anesthesia/Blood Transfusion Reactions: No Reported Reaction Date of Last Stent Placement:: 1999 Past Psychological History: No Psychological Hx Reported Smoking Status: Current every day smoker Past Alcohol Use History: None Reported Past Drug Use History: None Reported - Past Family History Brother(s) Family Medical History: Dialysis Father Family Medical History: CVA/TIA Additional Family Medical History / Comment(s): Father of a CVA at age 59 yrs. Mother Family Medical History: Vascular Disorder Additional Family Medical History / Comment(s): Mother of a brain aneurysm. Medications and Allergies Home Medications and Allergies Comment(s): Medications and allergies reviewed Home Medications Medication Instructions Recorded Confirmed Type Cholecalciferol [Vitamin D3 (25 25 mcg PO DAILY 02/15/15 03/21/21 History Mcg = 1000 Iu)] Finasteride [Proscar] 5 mg PO HS 02/15/15 03/21/21 History Tamsulosin [Flomax] 0.4 mg PO HS 02/15/15 03/21/21 History Atorvastatin [Lipitor] 40 mg PO HS #30 tab 07/19/16 03/21/21 Rx Apixaban [Eliquis] 5 mg PO BID 04/15/18 03/21/21 History Montelukast [Singulair] 10 mg PO HS 04/15/18 03/21/21 History lisinopriL [Zestril] 2.5 mg PO DAILY 07/07/20 03/21/21 History metFORMIN HCL 1,000 mg PO AC-BID 07/07/20 03/21/21 History Metoprolol Tartrate [Lopressor] 50 mg PO BID 03/21/21 03/21/21 History Pantoprazole [Protonix] 40 mg PO DAILY 03/21/21 03/21/21 History Allergies Allergy/AdvReac Type Severity Reaction Status Date / Time lorazepam [From Ativan] AdvReac BECOMES Verified 03/21/21 12:06 DISORIENTED morphine AdvReac AGITATION Verified 03/21/21 12:06 Physical Exam Vitals: Vital Signs Temp Pulse Resp BP Pulse Ox 03/21/21 17:24 142 H 18 111/74 96 03/21/21 15:38 128 H 17 106/70 96 03/21/21 14:26 121 H 18 99/70 97 03/21/21 13:32 147 H 18 94/65 98 03/21/21 11:29 97.9 F 52 L 18 100/64 98 Intake and Output 03/21/21 03/21/21 03/21/21 06:59 14:59 22:59 Other: Weight 86.183 kg - Constitutional General appearance: mild distress - EENT Eyes: EOMI, PERRLA, normal appearance Ears: bilateral: normal - Neck Neck: normal ROM Carotids: bilateral: upstroke normal Thyroid: bilateral: normal size - Respiratory Respiratory: bilateral: CTA (Anterior and posterior lung arellano) - Cardiovascular A fib with RVR Heart rate: 122 Rhythm: irregularly irregular Heart sounds: normal: S1, S2 radial pulse Peripheral Pulses: bilateral: Normal dorsalis pedis Peripheral Pulses: bilateral: Normal - Gastrointestinal General gastrointestinal: normal bowel sounds - Integumentary Integumentary: pale - Neurologic Neurologic: CNII-XII intact - Musculoskeletal Musculoskeletal: gait normal - Psychiatric Psychiatric: A&O x's 3, appropriate affect, intact judgment & insight Results CBC & Chem 7: 03/21/21 11:48 03/21/21 11:48 Labs: Abnormal Lab Results - Last 24 Hours (Table) 03/21/21 03/21/21 03/21/21 Range/Units 11:48 11:48 16:27 WBC 11.8 H (3.8-10.6) k/uL Glucose 217 H (74-99) mg/dL Creatine Kinase 37 L (55-170) U/L Troponin I 0.080 H* (0.000-0.034) ng/mL Chest x-ray: report reviewed Thrombosis Risk Factor Assmnt - Choose All That Apply Each Factor Represents 1 point: Obesity (BMI >25) Each Risk Factor Represents 2 Points: Age 61-74 years (Patient currently on anticoagulation therapy for atrial fibrillation Eliquis 5 mg BID) Thrombosis Risk Factor Assessment Total Risk Factor Score: 3 Thrombosis Risk Factor Assessment Level: Moderate Risk Assessment and Plan Assessment: Atrial fibrillation with RVR Chest tightness Coronary artery disease with heart catheterization the past Diabetes mellitus type II [id number] History of myocardial infarction History of bulging disc History of diverticulitis BPH cholecystectomy orthopedic surgeries full code Plan: Atrial fibrillation with RVR continue Cardizem drip titrate to keep heart rate less than 120 and systolic blood pressure greater than 90/60; continue Eliquis 5 mg PO BID consultation with cardiology for treatment plan and recommendations. Chest discomfort continue serial troponins consultation with cardiology for treatment plan and recommendations continue home medications continue to monitor vital signs, diagnostic labs further recommendations to come based on patient's clinical condition Time with Patient: Greater than 30
[2021-03-21] MEDS ORDERED: MONTELUKAST 10 MG TAB PO SCH (21:00)
[2021-03-21] MEDS ORDERED: ATORVASTATIN 40 MG TAB PO SCH (21:00)
[2021-03-21] MEDS ORDERED: FINASTERIDE 5 MG TAB PO SCH (21:00)
[2021-03-21] MEDS ORDERED: TAMSULOSIN 0.4 MG CAP.ER.24H PO SCH (21:00)
[2021-03-21 21:35] LABS: Glucose,Whole Blood 93 mg/dL (75-99)
[2021-03-21] MEDS: METOPROLOL TARTRATE 50 MG TAB PO SCH (21:48)
[2021-03-21] MEDS: APIXABAN 5 MG TAB PO SCH (21:49)
[2021-03-22] MEDS ORDERED: IBUPROFEN 400 MG TAB PO PRN (04:49)
[2021-03-22 05:56] LABS: Basophils % (A) 0 %; Eosinophils # (A) 0.1 k/uL (0-0.7); Eosinophils % (A) 1 %; HCT 44.1 % (39.0-53.0); HGB 14.6 gm/dL (13.0-17.5); Lymphocytes % (A) 18 %; MCHC 33.2 g/dL (31.0-37.0); MCV 96.4 fL (80.0-100.0); Mean Platelet Volume 8.5; Monocytes % (A) 9 %; Neutrophils # (A) 7.7 k/uL (1.3-7.7); Neutrophils % (A) 70 %; Platelet Count 168 k/uL (150-450); RBC 4.57 m/uL (4.30-5.90); RDW 13.7 % (11.5-15.5)
[2021-03-22 06:04] LABS: ALT 16 U/L (4-49); AST 20 U/L (17-59); African American GFR (CKD) >90 (>60 ml/min/1.73 sqM); Albumin 3.4 g/dL (3.5-5.0); Albumin/Globulin Ratio 1.4; Alkaline Phosphatase 71 U/L (38-126); Anion Gap 6 mmol/L; Blood Urea Nitrogen 17 mg/dL (9-20); Calcium 8.9 mg/dL (8.4-10.2); Carbon Dioxide 27 mmol/L (22-30); Chloride 107 mmol/L (98-107); Cholesterol 110 mg/dL (<200); Globulin 2.4 g/dL; Glucose 112 mg/dL (74-99); HDL Cholesterol 30 mg/dL (40-60); LDL Cholesterol,Calculated 36 mg/dL (0-99); Magnesium 1.7 mg/dL (1.6-2.3); Non-African American GFR(CKD) 86 (>60 ml/min/1.73 sqM); Potassium 4.4 mmol/L (3.5-5.1); Sodium 140 mmol/L (137-145); Total Bilirubin 0.6 mg/dL (0.2-1.3); Total Protein 5.8 g/dL (6.3-8.2); Triglycerides 222 mg/dL (<150)
[2021-03-22 07:22] LABS: Glucose,Whole Blood 110 mg/dL (75-99)
[2021-03-22] MEDS ORDERED: PANTOPRAZOLE 40 MG TABLET PO SCH (07:30)
[2021-03-22] MEDS: metFORMIN 500 MG TAB PO SCH (07:40)
[2021-03-22] MEDS: INSULIN ASPART (NovoLOG) 100 UNIT/ML VIAL SQ SCH ×2 (07:40→12:03)
[2021-03-22 08:07] VITALS: BP 104/61; PULSE 68; RESP 16; TEMP 98
--- NOTE | 2021-03-22 08:10 | P.PN ---
Subjective Progress Note Date: 03/22/21 Principal diagnosis: Chest tightness/palpitations A. fib RVR Evaluated patient this a.m., resting comfortably in bed. Throughout the night patient converted to sinus rhythm, Cardizem drip discontinued. Patient denies any complaints at this time. Elevated troponins possibly related to rate responseconsultation with cardiology for recommendations and treatment plan. Patient denies fever, chills, shortness of breath, palpitations, chest pain, abdominal pain, nausea, vomiting or diarrhea at this time. Objective - Vital Signs Vital signs: Vital Signs Temp 98.7 F 03/22/21 01:16 Pulse 64 03/22/21 01:16 Resp 20 03/22/21 02:19 BP 112/73 03/22/21 01:16 Pulse Ox 95 03/22/21 01:16 Intake & Output 03/21/21 03/22/21 03/22/21 18:59 06:59 18:59 Weight 86.183 kg 86.183 kg Other: Voiding Method Toilet # Voids 0 - Constitutional General appearance: Present: cooperative - EENT Eyes: Present: EOMI, PERRLA, normal appearance Ears: bilateral: normal - Neck Neck: Present: normal ROM Carotids: bilateral: upstroke normal Thyroid: bilateral: normal size - Respiratory Respiratory: bilateral: CTA (Anterior and posterior lung arellano) - Cardiovascular Details: Normal sinus rhythm Heart rate: 67 Rhythm: regular Heart sounds: normal: S1, S2 - Peripheral pulses radial pulse Peripheral Pulses: bilateral: Normal dorsalis pedis Peripheral Pulses: bilateral: Normal - Gastrointestinal General gastrointestinal: Present: normal bowel sounds - Integumentary Integumentary: Present: normal turgor - Neurologic Neurologic: Present: CNII-XII intact - Musculoskeletal Musculoskeletal: Present: gait normal - Psychiatric Psychiatric: Present: A&O x's 3, appropriate affect, intact judgment & insight - Allied health notes Allied health notes reviewed: nursing - Labs CBC & Chem 7: 03/22/21 04:46 03/22/21 04:46 Labs: Abnormal Lab Results - Last 24 Hours (Table) 03/21/21 03/21/21 03/21/21 Range/Units 11:48 11:48 16:27 WBC 11.8 H (3.8-10.6) k/uL Glucose 217 H (74-99) mg/dL POC Glucose (mg/dL) (75-99) mg/dL Creatine Kinase 37 L (55-170) U/L Troponin I 0.080 H* (0.000-0.034) ng/mL Total Protein (6.3-8.2) g/dL Albumin (3.5-5.0) g/dL Triglycerides (<150) mg/dL HDL Cholesterol (40-60) mg/dL 03/21/21 03/22/21 03/22/21 Range/Units 19:25 04:46 04:46 WBC 11.0 H (3.8-10.6) k/uL Glucose 112 H (74-99) mg/dL POC Glucose (mg/dL) (75-99) mg/dL Creatine Kinase (55-170) U/L Troponin I 0.097 H* (0.000-0.034) ng/mL Total Protein 5.8 L (6.3-8.2) g/dL Albumin 3.4 L (3.5-5.0) g/dL Triglycerides 222 H (<150) mg/dL HDL Cholesterol 30 L (40-60) mg/dL 03/22/21 Range/Units 07:21 WBC (3.8-10.6) k/uL Glucose (74-99) mg/dL POC Glucose (mg/dL) 110 H (75-99) mg/dL Creatine Kinase (55-170) U/L Troponin I (0.000-0.034) ng/mL Total Protein (6.3-8.2) g/dL Albumin (3.5-5.0) g/dL Triglycerides (<150) mg/dL HDL Cholesterol (40-60) mg/dL - Imaging and Cardiology Chest x-ray: report reviewed Assessment and Plan Assessment: Atrial fibrillation with RVRconverted to sinus rhythm with Cardizem drip Chest tightnessdenies at this time Coronary artery disease with heart catheterization the past Diabetes mellitus type II [id number] History of myocardial infarction History of bulging disc History of diverticulitis BPH cholecystectomy orthopedic surgeries full code Plan: Atrial fibrillation with RVR discontinue Cardizem drip, continue Eliquis 5 mg by mouth twice a dayconsultation with cardiology for recommendations and treatment plan Chest discomfort continue serial troponins consultation with cardiology for treatment plan and recommendations continue home medications continue to monitor vital signs, diagnostic labs further recommendations to come based on patient's clinical condition Time with Patient: Greater than 30
[2021-03-22] MEDS: METOPROLOL TARTRATE 50 MG TAB PO SCH (08:12)
[2021-03-22] MEDS: APIXABAN 5 MG TAB PO SCH (08:12)
[2021-03-22] MEDS ORDERED: CHOLECALCIFEROL 25 MCG (1000 IU) TABLET PO SCH (09:00)
[2021-03-22] MEDS ORDERED: ASPIRIN 81 MG PO SCH (09:00)
[2021-03-22] MEDS ORDERED: ASPIRIN 325 MG TAB PO SCH (09:00)
[2021-03-22] MEDS ORDERED: METOPROLOL TARTRATE 25 MG TAB PO STA (09:41)
--- NOTE | 2021-03-22 09:59 | P.CRDCN ---
History of Present Illness History of present illness: HISTORY OF PRESENTING ILLNESS This is a pleasant 75-year-old male past medical history significant for atrial fibrillation on eliquis, type 2 diabetes, hypertension, History [place], coronary artery disease status post PCI LAD in 1999, nicotine dependence. He follows in the office with Dr. Camara. We have been asked to see in consultation for atrial fibrillation with RVR and elevated troponin. Patient woke up this a.m. approximate 1030 yesterday with symptoms of palpitation and chest tightness. Associated shortness of breath. Also had slight diaphoresis. Chest tightness was nonradiating, nonexertional, patient denied nausea. Presented to the emergency department. Found to be in Atrial fibrillation with RVR HR 180-220. Patient was given 10mg Cardizem bolus and was placed on Cardizem drip titrate up to 10 mg per hour. Converted back to sinus rhythm HR 60s. Patient seen and examined at bedside, up in bedside chair, no acute distress. States his chest tightness resolved after his heart rate was decreased. Denies shortness of breath, lightheadedness, dizziness, syncope. At time of exam no chest pain or tightness. Laboratory data reviewed, troponin trend <0.012, 0.08, 0.09, Vital signs blood pressure 104/61, heart rate 68, maintaining oxygen saturations greater than 92% on room air, afebrile. DIAGNOSTICS EKG reveals on admission atrial fibrillation with RVR heart rate 191. Repeat EKG sinus rhythm heart rate 86, no significant STT wave abnormalities. Prior EKG in 05/2020 patient was in atrial fibrillation with RVR Telemetry tracings indicate sinus mechanism HR 60s Chest xray no acute cardiopulmonary process. Most recent echocardiogram 07/2020EF of 55%, mild MR, mild TR Laboratory reviewed, WBC 11, hemoglobin 14.6, platelets 160, sodium 140, potassium 4.4, serum creatinine 0.84, BUN/creatinine 17, triglycerides 222, cholesterol 110, LDL 36, HDL 30. Current cardiac medications include lisinopril 2.5 mg daily, metoprolol tartrate 50 mg twice a day, atorvastatin 40 mg nightly, Eliquis 5 mg twice a day. REVIEW OF SYSTEMS At the time of my exam: CONSTITUTIONAL: Denies fever or chills. CARDIOVASCULAR: + Chest tightness, + shortness of breath Denies orthopnea, PND or palpitations. RESPIRATORY: Denies cough. GASTROINTESTINAL: Denies abdominal pain, diarrhea, constipation, nausea or vomiting. MUSCULOSKELETAL: Denies myalgias. NEUROLOGIC: Denies numbness, tingling, headacbe or weakness. ENDOCRINE: Denies fatigue, weight change, polydipsia or polyurina. GENITOURINARY: Denies burning, hematuria or urgency with micturation. HEMATOLOGIC: Denies history of anemia or bleeding. PHYSICAL EXAMINATION CONSTITUTIONAL: No apparent distress. HEENT: Head is normocephalic. Pupils are equal, round. Sclerae anicteric. Mucous membranes of the mouth are moist. No JVD. No carotid bruit. CHEST EXAMINATION: Lungs are clear to auscultation. No chest wall tenderness is noted on palpation or with deep breathing. HEART EXAMINATION: Regular rate and rhythm. S1, S2 heard. No murmurs, gallops or rub. ABDOMEN: Soft, nontender. Positive bowel sounds. EXTREMITIES: 2+ peripheral pulses, no lower extremity edema and no calf tenderness. SKIN: intact NEUROLOGIC EXAMINATION: Patient is awake, alert and oriented x3. ASSESSMENT Paroxysmal atrial fibrillation -[id number] score 4 Elevated troponin- most likely due to patient being in atrial fibrillation with RVR Hypertension Dyslipidemia History of myocardial infarction Coronary artery disease status post PCI to LAD in 1999 Chronic nicotine dependence PLAN -Will repeat one more troponin to assess troponin trend -Increase metoprolol tartrate to 75 BID -Continue Eliquis anticoagulation -2D echo ordered to assess cardiac structure and function -If no acute changes on echocardiogram and troponin is not increased from prior, ok to discharge from cardiac perspective and follow up outpatient with Dr. Camara in the office. Nurse Practitioner note has been reviewed, I agree with a documented findings and plan of care. Patient was seen and examined. Past Medical History Past Medical History: Atrial Fibrillation, Coronary Artery Disease (CAD), Chest Pain / Angina, Diabetes Mellitus, Hyperlipidemia, Hypertension, Myocardial Infarction ([place]), Prostate Disorder Additional Past Medical History / Comment(s): NIDDM type II, back pain-bulging discs, diverticular dx, BPH Last Myocardial Infarction Date:: 1999 History of Any Multi-Drug Resistant Organisms: None Reported Past Surgical History: Cholecystectomy, Heart Catheterization With Stent, Orthopedic Surgery, Tonsillectomy Additional Past Surgical History / Comment(s): 1999 cardiac stents, bilateral open shoulder surgeries for rotator cuff, colonoscopy, vasectomy, circumcism. Past Anesthesia/Blood Transfusion Reactions: No Reported Reaction Date of Last Stent Placement:: 1999 Past Psychological History: No Psychological Hx Reported Additional Psychological History / Comment(s): Pt lives with his and an adult mehnaz. He is independent. He has no home [facility]. He drives a car. Smoking Status: Current every day smoker Past Alcohol Use History: None Reported Additional Past Alcohol Use History / Comment(s): Pt states he started smoking around 16-18 yrs of age. He is a 1 to 1.5 ppd Past Drug Use History: None Reported - Past Family History Brother(s) Family Medical History: Dialysis Father Family Medical History: CVA/TIA Additional Family Medical History / Comment(s): Father of a CVA at age 59 yrs. Mother Family Medical History: Vascular Disorder Additional Family Medical History / Comment(s): Mother of a brain aneurysm. Medications and Allergies Home Medications Medication Instructions Recorded Confirmed Type Cholecalciferol [Vitamin D3 (25 25 mcg PO DAILY 02/15/15 03/21/21 History Mcg = 1000 Iu)] Finasteride [Proscar] 5 mg PO HS 02/15/15 03/21/21 History Tamsulosin [Flomax] 0.4 mg PO HS 02/15/15 03/21/21 History Atorvastatin [Lipitor] 40 mg PO HS #30 tab 07/19/16 03/21/21 Rx Apixaban [Eliquis] 5 mg PO BID 04/15/18 03/21/21 History Montelukast [Singulair] 10 mg PO HS 04/15/18 03/21/21 History lisinopriL [Zestril] 2.5 mg PO DAILY 07/07/20 03/21/21 History metFORMIN HCL 1,000 mg PO AC-BID 07/07/20 03/21/21 History Metoprolol Tartrate [Lopressor] 50 mg PO BID 03/21/21 03/21/21 History Pantoprazole [Protonix] 40 mg PO DAILY 03/21/21 03/21/21 History Allergies Allergy/AdvReac Type Severity Reaction Status Date / Time lorazepam [From Ativan] AdvReac BECOMES Verified 03/21/21 12:06 DISORIENTED morphine AdvReac AGITATION Verified 03/21/21 12:06 Physical Exam Vitals: Vital Signs Temp Pulse Pulse Resp BP BP Pulse Ox 03/22/21 07:00 98.0 F 68 16 104/61 92 L 03/22/21 02:19 20 03/22/21 01:16 98.7 F 64 16 112/73 95 03/21/21 21:38 97.8 F 82 20 110/76 97 03/21/21 17:24 142 H 18 111/74 96 03/21/21 15:38 128 H 17 106/70 96 03/21/21 14:26 121 H 18 99/70 97 03/21/21 13:32 147 H 18 94/65 98 03/21/21 11:29 97.9 F 52 L 18 100/64 98 Intake and Output 03/21/21 03/22/21 03/22/21 22:59 06:59 14:59 Other: Voiding Method Toilet # Voids 0 Weight 86.183 kg Results 03/22/21 04:46 03/22/21 04:46 Cardiac Enzymes 03/21/21 03/21/21 03/21/21 Range/Units 11:48 11:48 16:27 AST 22 (17-59) U/L Troponin I <0.012 0.080 H* (0.000-0.034) ng/mL 03/21/21 03/22/21 Range/Units 19:25 04:46 AST 20 (17-59) U/L Troponin I 0.097 H* (0.000-0.034) ng/mL Coagulation 03/21/21 Range/Units 11:48 PT 10.9 (9.0-12.0) sec APTT 26.0 (22.0-30.0) sec Lipids 03/22/21 Range/Units 04:46 Triglycerides 222 H (<150) mg/dL Cholesterol 110 (<200) mg/dL HDL Cholesterol 30 L (40-60) mg/dL CBC 03/21/21 03/22/21 Range/Units 11:48 04:46 WBC 11.8 H 11.0 H (3.8-10.6) k/uL RBC 5.15 4.57 (4.30-5.90) m/uL Hgb 17.0 14.6 (13.0-17.5) gm/dL Hct 50.0 44.1 (39.0-53.0) % Plt Count 191 168 (150-450) k/uL Comprehensive Metabolic Panel 03/21/21 03/22/21 Range/Units 11:48 04:46 Sodium 140 140 (137-145) mmol/L Potassium 4.7 4.4 (3.5-5.1) mmol/L Chloride 104 107 (98-107) mmol/L Carbon Dioxide 27 27 (22-30) mmol/L BUN 18 17 (9-20) mg/dL Creatinine 1.05 0.84 (0.66-1.25) mg/dL Glucose 217 H 112 H (74-99) mg/dL Calcium 9.5 8.9 (8.4-10.2) mg/dL AST 22 20 (17-59) U/L ALT 20 16 (4-49) U/L Alkaline Phosphatase 88 71 (38-126) U/L Total Protein 6.8 5.8 L (6.3-8.2) g/dL Albumin 4.3 3.4 L (3.5-5.0) g/dL Current Medications Generic Name Dose Route Start Last Admin Trade Name Freq PRN Reason Stop Dose Admin Apixaban 5 mg 03/21/21 21:00 03/22/21 08:12 Apixaban 5 Mg Tab PO 5 mg BID RACHID Administration Aspirin 81 mg 03/22/21 09:00 03/22/21 08:28 Aspirin 81 Mg PO Not Given DAILY RACHID Atorvastatin Calcium 40 mg 03/21/21 21:00 03/21/21 21:48 Atorvastatin 40 Mg Tab PO 40 mg HS RACHID Administration Cholecalciferol 25 mcg 03/22/21 09:00 03/22/21 08:12 Cholecalciferol 25 Mcg (1000 Iu) Tablet PO 25 mcg DAILY RACHID Administration Finasteride 5 mg 03/21/21 21:00 03/21/21 21:49 Finasteride 5 Mg Tab PO 5 mg HS RACHID Administration Ibuprofen 400 mg 03/22/21 04:49 03/22/21 05:00 Ibuprofen 400 Mg Tab PO 400 mg Q6HR PRN Administration Pain Insulin Aspart 0 unit 03/21/21 17:30 03/22/21 07:40 Insulin Aspart (Novolog) 100 Unit/Ml Vial SQ Not Given ACHS [facility] Protocol Lisinopril 2.5 mg 03/22/21 09:00 03/22/21 08:12 Lisinopril 2.5 Mg Tab PO 2.5 mg DAILY RACHID Administration Metformin HCl 1,000 mg 03/21/21 17:30 03/22/21 07:40 Metformin 500 Mg Tab PO Not Given AC-BID RACHID Metoprolol Tartrate 50 mg 03/21/21 21:00 03/22/21 08:12 Metoprolol Tartrate 50 Mg Tab PO 50 mg BID RACHID Administration Montelukast Sodium 10 mg 03/21/21 21:00 03/21/21 21:49 Montelukast 10 Mg Tab PO 10 mg HS RACHID Administration Nitroglycerin 0.4 mg 03/21/21 13:56 Nitroglycerin Sl Tabs 0.4 Mg Tab SUBLINGUAL Q5M PRN Chest Pain Pantoprazole Sodium 40 mg 03/22/21 07:30 03/22/21 08:12 Pantoprazole 40 Mg Tablet PO 40 mg [id number]-[id number] RACHID Administration Tamsulosin HCl 0.4 mg 03/21/21 21:00 03/21/21 21:49 Tamsulosin 0.4 Mg Cap.Er.24h PO 0.4 mg HS RACHID Administration Intake and Output 03/21/21 03/22/21 03/22/21 22:59 06:59 14:59 Other: Voiding Method Toilet # Voids 0 Weight 86.183 kg 03/22/21 04:46 03/22/21 04:46
[2021-03-22 11:51] LABS: Glucose,Whole Blood 128 mg/dL (75-99)
--- NOTE | 2021-03-22 15:51 | ECHOF ---
Referral Reason:A fib with RVR MEASUREMENTS -------- HEIGHT: 172.7 cm WEIGHT: 86.2 kg BP: RVIDd: 2.4 cm (< 3.3) IVSd: 1.1 cm (0.6 - 1.1) LVIDd: 4.2 cm (3.9 - 5.3) LVPWd: 1.1 cm (0.6 - 1.1) IVSs: 1.6 cm LVIDs: 3.1 cm LVPWs: 1.3 cm LAESV Index (A-L): 15.74 ml/m MV EXCURSION: 14.577 mm (> 18.000) MV EF SLOPE: 84 mm/s (70 - 150) EPSS: 0.5 cm MV E Sandor: 0.58 m/s MV DecT: 246 ms MV A Sandor: 0.49 m/s MV E/A Ratio: 1.17 RAP: 5.00 mmHg RVSP: 21.52 mmHg FINDINGS -------- This was a technically adequate study. The left ventricular size is normal. Left ventricular wall thickness is normal. Overall left vent ricular systolic function is low-normal with, an EF between 50 - 55 %. The diastolic filling patter n is normal for the age of the patient 11.68. The right ventricle is normal in size. The left atrial size is normal. Normal LA size by volume 22+/-6 ml/m2. The right atrial size is normal. Interatrial and interventricular septum intact. The aortic valve was not well visualized. The mitral valve is normal. There is trace mitral regurgitation. The tricuspid valve appears structurally normal. Trace tricuspid regurgitation present. Right claude tricular systolic pressure is normal at < 35 mmHg. There is no pulmonic regurgitation present. The aortic root size is normal. IVC Not well visulized. There is no pericardial effusion. CONCLUSIONS -------- 1. The left ventricular size is normal. 2. Left ventricular wall thickness is normal. 3. Overall left ventricular systolic function is low-normal with, an EF between 50 - 55 %. 4. The diastolic filling pattern is normal for the age of the patient 11.68 5. There is trace mitral regurgitation. 6. Trace tricuspid regurgitation present. 7. There is no pericardial effusion. BLENDING KETTLE TENDER: Gretchen Bonner RDCS
--- NOTE | 2021-03-22 16:13 | P.DS ---
Providers Date of admission: 03/22/21 09:45 Expected date of discharge: 03/22/21 Attending physician: Mau Mcmillan Consults: 03/21/21 13:56 Consult Physician Urgent Consulting Provider: Harjinder Camara Consult Reason/Comments: Chest pain, A. fib RVR Do you want consulting provider notified?: Yes Primary care physician: Mau Mcmillan Hospital Course: 75-year-old male was admitted to the hospital for atrial fibrillation with rapid ventricular rate. Patient stated he woke up approximate 10:30 AM with symptoms of palpitation, chest pain, shortness of breath and nausea. Patient went to the emergency department found to have atrial fibrillation with RVR with a rate of 180 to 220, patient was placed on Cardizem drip up to 10 mg per hour throughout the hospital stay patient converted to normal sinus rhythm. Patient has serious troponins drawn downward trend related to rate response. Patient had echocardiogram revealing ejection fraction of 50 to 55% with normal hernández tolic filling. Patient was evaluated by cardiology for expert opinion and recommendations increasing Lopressor 275 mg PO BID for rate control, continue Eliquis 5 mg PO BID. Patient has significant medical history of atrial fibrillation, coronary artery disease, chest pain/angina, diabetes mellitus type II notes in the clinic, history of myocardial infarction, history of bulging discs, history of diverticulitis, and BPH. Patient has significant surgical history of cholecystectomy, or catheterization with stenting, and orthopedic surgeries. Throughout hospital stay after conversion from atrial fibrillation with RVR to sinus rate patient denied any chest pain, shortness of breath, palpitations or any symptoms. Patient follow-up with primary care doctor in one to 2 days. [facility]up with [facility] within one to 2 weeks. Patient stable upon discharge. Assessment: A fib with RVR resolved with Cardizem drip; increase Lopressor to 75 mg PO BID chest tightness resolved with conversion to sinus rhythm elevated troponins rate related acute coronary syndrome ruled out with echocardiogram and expert opinion from cardiology history of coronary disease with heart catheterization and stenting history of diabetes mellitus type II [id number] history of myocardial infarction history of lumbar bulging disc history of diverticulitis BPH History of cholecystectomy History of multiple orthopedic surgeries full code Health Concerns: Multiple comorbidities Pertinent Studies: Chest x-ray echocardiogram with ejection fraction of 50 to 55% normal diastolic feeling for age Procedures: No procedures performed Patient Condition at Discharge: Fair Plan - Discharge Summary New Discharge Prescriptions: New Metoprolol Tartrate [Lopressor] 75 mg PO BID 30 Days #180 tab Ibuprofen [Motrin] 400 mg PO Q6HR PRN tab PRN Reason: Pain Continue Tamsulosin [Flomax] 0.4 mg PO HS Finasteride [Proscar] 5 mg PO HS Cholecalciferol [Vitamin D3 (25 Mcg = 1000 Iu)] 25 mcg PO DAILY Atorvastatin [Lipitor] 40 mg PO HS #30 tab Montelukast [Singulair] 10 mg PO HS Apixaban [Eliquis] 5 mg PO BID metFORMIN HCL 1,000 mg PO AC-BID lisinopriL [Zestril] 2.5 mg PO DAILY Pantoprazole [Protonix] 40 mg PO DAILY Discontinued Metoprolol Tartrate [Lopressor] 50 mg PO BID Discharge Medication List Cholecalciferol [Vitamin D3 (25 Mcg = 1000 Iu)] 25 mcg PO DAILY 02/15/15 [History] Finasteride [Proscar] 5 mg PO HS 02/15/15 [History] Tamsulosin [Flomax] 0.4 mg PO HS 02/15/15 [History] Atorvastatin [Lipitor] 40 mg PO HS #30 tab 07/19/16 [Rx] Apixaban [Eliquis] 5 mg PO BID 04/15/18 [History] Montelukast [Singulair] 10 mg PO HS 04/15/18 [History] lisinopriL [Zestril] 2.5 mg PO DAILY 07/07/20 [History] metFORMIN HCL 1,000 mg PO AC-BID 07/07/20 [History] Pantoprazole [Protonix] 40 mg PO DAILY 03/21/21 [History] Ibuprofen [Motrin] 400 mg PO Q6HR PRN tab 03/22/21 [Rx] Metoprolol Tartrate [Lopressor] 75 mg PO BID 30 Days #180 tab 03/22/21 [Rx] Follow up Appointment(s)/Referral(s): Mau Mcmillan MD [Primary Care Provider] - 1-2 days Harjinder Camara DO [STAFF PHYSICIAN] - 2 Weeks Discharge Disposition: HOME SELF-CARE
[2021-03-22] MEDS ORDERED: METOPROLOL TARTRATE 25 MG TAB PO SCH (21:00)
== END 2021-03-22 16:30 | disposition home or self-care (01) | DRG 310 ==
LOC: EC 11:26 → 6NMEDSUR 15:51 → OBSVTOIN 03-22 09:45
PROVIDERS: ADMIT Family Medicine; ATTEND Family Medicine
DX: I48.0 Paroxysmal atrial fibrillation (principal); F17.210 Nicotine dependence, cigarettes, uncomplicated; I10 Essential (primary) hypertension; I25.10 Atherosclerotic heart disease of native coronary artery without angina pectoris; I25.2 Old myocardial infarction; N40.0 Benign prostatic hyperplasia without lower urinary tract symptoms; Z79.01 Long term (current) use of anticoagulants; E11.9 Type 2 diabetes mellitus without complications; E78.5 Hyperlipidemia, unspecified; Z79.84 Long term (current) use of oral hypoglycemic drugs; Z79.899 Other long term (current) drug therapy; Z82.3 Family history of stroke; Z90.49 Acquired absence of other specified parts of digestive tract; Z95.5 Presence of coronary angioplasty implant and graft; Z90.89 Acquired absence of other organs; Z98.890 Other specified postprocedural states; Z88.1 Allergy status to other antibiotic agents; Z88.8 Allergy status to other drugs, medicaments and biological substances; R79.89 Other specified abnormal findings of blood chemistry; Z20.822 Contact with and (suspected) exposure to COVID-19
CPT/HCPCS: 36415; 71046; 80053; 80061; 82550; 83735; 83880; 84484; 85025; 85610; 85730; 87635; 93005; 93306; 96365; 96366; 99285

== ENCOUNTER 2021-08-25 08:28 | Inpatient (IN) | payer MEDICARE, OTHER ==
[2021-08-25] MEDS ORDERED: SODIUM CHLORIDE 0.9% 1,000 ML IV STA (08:39)
[2021-08-25] MEDS ORDERED: DEXTROSE 5% IN WATER 250 ML with AMIODARONE 300 MG IV ONE (08:42)
[2021-08-25 08:51] LABS: Basophils % (A) 0 %; Eosinophils # (A) 0.2 k/uL (0-0.7); Eosinophils % (A) 2 %; HCT 46.9 % (39.0-53.0); HGB 15.6 gm/dL (13.0-17.5); Lymphocytes % (A) 26 %; MCH 32.7 pg (25.0-35.0); MCHC 33.2 g/dL (31.0-37.0); MCV 98.3 fL (80.0-100.0); Mean Platelet Volume 8.8; Monocytes % (A) 8 %; Neutrophils # (A) 7.1 k/uL (1.3-7.7); Neutrophils % (A) 61 %; Platelet Count 180 k/uL (150-450); RBC 4.77 m/uL (4.30-5.90); RDW 13.7 % (11.5-15.5); WBC 11.6 k/uL (3.8-10.6)
--- NOTE | 2021-08-25 08:51 | ED ---
General Adult HPI - General Chief complaint: Arrhythmia/Palpitations Stated complaint: Rapid Heart Rate Source: EMS Mode of arrival: ambulatory Limitations: no limitations - History of Present Illness Initial comments: Dictation was produced using [employer] dictation software. please excuse any grammatical, word or spelling errors. Chief Complaint: 76-year-old male with past medical history of A. fib presents to the emergency department for chief complaint of palpitations History of Present Illness: Patient 76-year-old male who has past medical history of A. fib. He woke this morning to go to the bathroom when all the sudden he started to feel intense floaters in his chest. Patient's history of A. fib and cardioversion. Patient reports that he takes anticoagulation medications. Patient denies any fever. Denies any chest pain. EMS was called patient is brought to the emergency department in stable vitals. EMS provided patient with 400 mL bolus of IV fluids. After the fluids EMS reports that his tachycardia improved. He was initially in the rates of 170-180 after fluids dropped down to 140. 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 Patient does not report missing any medications recently. Patient is prescribed metoprolol 75 mg twice a day. The ROS documented in this emergency department record has been reviewed and confirmed by me. Those systems with pertinent positive or negative responses have been documented in the HPI. All other systems are other negative and/or noncontributory. PHYSICAL EXAM: General Impression: Alert and oriented x3, not in acute distress HEENT: Normocephalic atraumatic, extra-ocular movements intact, pupils equal and reactive to light bilaterally, mucous membranes moist. Cardiovascular: Irregularly irregular Chest: Able to complete full sentences, no retractions, no tachypnea Abdomen: abdomen soft, non-tender, non-distended, no organomegaly Musculoskeletal: Pulses present and equal in all extremities, no peripheral edema Motor: no focal deficits noted Neurological: CN II-XII grossly intact, no focal motor or sensory deficits noted Skin: Intact with no visualized rashes Psych: Normal affect and mood ED course: 76-year-old male presents emergency Department with A. fib with rapid ventricular rate. Patient is benign appearing at the bedside. He is not showing signs of acute distress vital signs upon arrival shows heart rate of 160, blood pressure 105/96, rest of vital signs within acceptable limits. Patient started on 1 L normal saline bolus. Patient's blood pressure is marginal. His heart rate still significantly elevated started on amiodarone drip. Chart review was performed. Previous vitals were obtained from reviewed from last admission back in March. Patient's blood pressure usually is in the upper 90s and low 100s systolic. Patient reevaluated at bedside after having been on amiodarone drip for some time.*Rates improved into the 110s to 120s. He denies any active symptoms at this time. States he feels significantly better and has no complaints. Patient be admitted for A. fib with RVR. Patient's blood pressure appears to be his normal baseline blood pressures. Laboratory evaluation obtained. CBC, coag panel, metabolic panel is within acceptable limits. Troponin is negative. Chest x-ray shows no processes. EKG interpretation: Ventricular rate 161, A. fib with RVR, QRS 86, QTC 484. No AK prolongation, no QTC prolongation, no ST or T-wave changes noted. EKG compared to 03/21/2021 showing no changes. - Related Data Home Medications Medication Instructions Recorded Confirmed Finasteride [Proscar] 5 mg PO HS 02/15/15 08/25/21 Tamsulosin [Flomax] 0.4 mg PO HS 02/15/15 08/25/21 Apixaban [Eliquis] 5 mg PO BID 04/15/18 08/25/21 Montelukast [Singulair] 10 mg PO HS 04/15/18 08/25/21 lisinopriL [Zestril] 2.5 mg PO DAILY 07/07/20 08/25/21 metFORMIN HCL [Glucophage] 1,000 mg PO AC-BID 07/07/20 08/25/21 Pantoprazole [Protonix] 40 mg PO DAILY 03/21/21 08/25/21 Cholecalciferol [Vitamin D3 (25 25 mcg PO DAILY 08/25/21 08/25/21 Mcg = 1000 Iu)] Metoprolol Tartrate [Lopressor] 25 mg PO BID 08/25/21 08/25/21 Previous Rx's Medication Instructions Recorded Atorvastatin [Lipitor] 40 mg PO HS #30 tab 07/19/16 Allergies Allergy/AdvReac Type Severity Reaction Status Date / Time lorazepam [From Ativan] AdvReac BECOMES Verified 08/25/21 09:26 DISORIENTED morphine AdvReac AGITATION Verified 08/25/21 09:26 Review of Systems ROS Statement: Those systems with pertinent positive or pertinent negative responses have been documented in the HPI. ROS Other: All systems not noted in ROS Statement are negative. Past Medical History Past Medical History: Atrial Fibrillation, Coronary Artery Disease (CAD), Chest Pain / Angina, Diabetes Mellitus, Hyperlipidemia, Hypertension, Myocardial Infarction ([place]), Prostate Disorder Additional Past Medical History / Comment(s): NIDDM type II, back pain-bulging discs, diverticular dx, BPH Last Myocardial Infarction Date:: 1999 History of Any Multi-Drug Resistant Organisms: None Reported Past Surgical History: Cholecystectomy, Heart Catheterization With Stent, Orthopedic Surgery, Tonsillectomy Additional Past Surgical History / Comment(s): 1999 cardiac stents, bilateral open shoulder surgeries for rotator cuff, colonoscopy, vasectomy, circumcism. Past Anesthesia/Blood Transfusion Reactions: No Reported Reaction Date of Last Stent Placement:: 1999 Past Psychological History: No Psychological Hx Reported Smoking Status: Current every day smoker Past Alcohol Use History: None Reported Past Drug Use History: None Reported - Past Family History Brother(s) Family Medical History: Dialysis Father Family Medical History: CVA/TIA Additional Family Medical History / Comment(s): Father of a CVA at age 59 yrs. Mother Family Medical History: Vascular Disorder Additional Family Medical History / Comment(s): Mother of a brain aneurysm. General Exam Limitations: no limitations Course Vital Signs 08/25/21 08/25/21 08/25/21 08:30 08:36 08:45 Temperature 97.6 F Pulse Rate 160 H 163 H 165 H Respiratory 20 20 20 Rate Blood Pressure 105/96 94/65 113/93 O2 Sat by Pulse 98 96 96 Oximetry 08/25/21 08/25/21 09:02 10:23 Temperature Pulse Rate 142 H 140 H Respiratory 20 20 Rate Blood Pressure 114/79 95/61 O2 Sat by Pulse 96 96 Oximetry Medical Decision Making - Lab Data Result diagrams: 08/25/21 08:40 08/25/21 08:40 Lab Results 08/25/21 08/25/21 08/25/21 Range/Units 08:40 08:40 08:40 WBC 11.6 H (3.8-10.6) k/uL RBC 4.77 (4.30-5.90) m/uL Hgb 15.6 (13.0-17.5) gm/dL Hct 46.9 (39.0-53.0) % MCV 98.3 (80.0-100.0) fL MCH 32.7 (25.0-35.0) pg MCHC 33.2 (31.0-37.0) g/dL RDW 13.7 (11.5-15.5) % Plt Count 180 (150-450) k/uL MPV 8.8 Neutrophils % 61 % Lymphocytes % 26 % Monocytes % 8 % Eosinophils % 2 % Basophils % 0 % Neutrophils # 7.1 (1.3-7.7) k/uL Lymphocytes # 3.0 (1.0-4.8) k/uL Monocytes # 1.0 (0-1.0) k/uL Eosinophils # 0.2 (0-0.7) k/uL Basophils # 0.0 (0-0.2) k/uL PT (9.0-12.0) sec INR (<1.2) APTT (22.0-30.0) sec Sodium 141 (137-145) mmol/L Potassium 3.9 (3.5-5.1) mmol/L Chloride 108 H (98-107) mmol/L Carbon Dioxide 25 (22-30) mmol/L Anion Gap 8 mmol/L BUN 18 (9-20) mg/dL Creatinine 0.97 (0.66-1.25) mg/dL Est GFR (CKD-EPI)AfAm 89 (>60 ml/min/1.73 sqM) Est GFR (CKD-EPI)NonAf 77 (>60 ml/min/1.73 sqM) Glucose 179 H (74-99) mg/dL Plasma Lactic Acid Cory 1.8 (0.7-2.0) mmol/L Calcium 9.4 (8.4-10.2) mg/dL Magnesium 1.8 (1.6-2.3) mg/dL Total Bilirubin 0.4 (0.2-1.3) mg/dL AST 20 (17-59) U/L ALT 14 (4-49) U/L Alkaline Phosphatase 92 (38-126) U/L Troponin I (0.000-0.034) ng/mL Total Protein 6.3 (6.3-8.2) g/dL Albumin 3.6 (3.5-5.0) g/dL 08/25/21 08/25/21 Range/Units 08:40 08:41 WBC (3.8-10.6) k/uL RBC (4.30-5.90) m/uL Hgb (13.0-17.5) gm/dL Hct (39.0-53.0) % MCV (80.0-100.0) fL MCH (25.0-35.0) pg MCHC (31.0-37.0) g/dL RDW (11.5-15.5) % Plt Count (150-450) k/uL MPV Neutrophils % % Lymphocytes % % Monocytes % % Eosinophils % % Basophils % % Neutrophils # (1.3-7.7) k/uL Lymphocytes # (1.0-4.8) k/uL Monocytes # (0-1.0) k/uL Eosinophils # (0-0.7) k/uL Basophils # (0-0.2) k/uL PT 11.0 (9.0-12.0) sec INR 1.0 (<1.2) APTT 26.9 (22.0-30.0) sec Sodium (137-145) mmol/L Potassium (3.5-5.1) mmol/L Chloride (98-107) mmol/L Carbon Dioxide (22-30) mmol/L Anion Gap mmol/L BUN (9-20) mg/dL Creatinine (0.66-1.25) mg/dL Est GFR (CKD-EPI)AfAm (>60 ml/min/1.73 sqM) Est GFR (CKD-EPI)NonAf (>60 ml/min/1.73 sqM) Glucose (74-99) mg/dL Plasma Lactic Acid Cory (0.7-2.0) mmol/L Calcium (8.4-10.2) mg/dL Magnesium (1.6-2.3) mg/dL Total Bilirubin (0.2-1.3) mg/dL AST (17-59) U/L ALT (4-49) U/L Alkaline Phosphatase (38-126) U/L Troponin I <0.012 (0.000-0.034) ng/mL Total Protein (6.3-8.2) g/dL Albumin (3.5-5.0) g/dL Critical Care Time Critical Care Time: Yes Total Critical Care Time: 33 Disposition Clinical Impression: Atrial fibrillation with RVR Disposition: ADMITTED IP TO THIS HOSP Condition: Fair Referrals: Mau Mcmillan MD [Primary Care Provider] - 1-2 days
[2021-08-25] MEDS: AMIODARONE 450 MG in DEXTROSE 5% IN WATER 250 ML IV SCH ×2 (08:55)
[2021-08-25] MEDS ORDERED: DEXTROSE 5% IN WATER 100 ML with AMIODARONE 150 MG IV ONE (09:00)
[2021-08-25 09:10] LABS: Albumin 3.6 g/dL (3.5-5.0); Calcium 9.4 mg/dL (8.4-10.2); Magnesium 1.8 mg/dL (1.6-2.3); Potassium 3.9 mmol/L (3.5-5.1); Total Bilirubin 0.4 mg/dL (0.2-1.3); Total Protein 6.3 g/dL (6.3-8.2)
[2021-08-25] MEDS ORDERED: AMIODARONE 360 MG in DEXTROSE 5% IN WATER 200 ML IV ONE ×2 (09:10)
[2021-08-25 09:47] LABS: Partial Thromboplastin Time 26.9 sec (22.0-30.0)
--- NOTE | 2021-08-25 10:59 | XR ---
EXAMINATION TYPE: XR chest 1V portable DATE OF EXAM: 08/25/2021 COMPARISON: 03/21/2021 HISTORY: Shortness of breath TECHNIQUE: Frontal and lateral views of the chest are obtained. FINDINGS: Scattered senescent parenchymal changes noted. No evidence for infiltrate. No evidence for atelectasis. Heart size is stable. Mediastinal structures are stable and grossly unremarkable. No evidence for hilar prominence. Degenerative changes dorsal spine. IMPRESSION: 1. No evidence for acute pulmonary disease.
[2021-08-25] MEDS ORDERED: NALOXONE 0.4 MG/ML 1 ML VIAL IV PRN (11:15)
[2021-08-25] MEDS ORDERED: ONDANSETRON 4 MG/2 ML VIAL IVP PRN (11:15)
[2021-08-25 12:34] LABS: Glucose,Whole Blood 148 mg/dL (75-99)
[2021-08-25] MEDS: SODIUM CHLORIDE 0.9% 1,000 ML IV SCH (13:04)
[2021-08-25 16:48] LABS: Glucose,Whole Blood 123 mg/dL (75-99)
[2021-08-25 20:33] LABS: Glucose,Whole Blood 100 mg/dL (75-99)
[2021-08-25] MEDS ORDERED: ACETAMINOPHEN TAB 500 MG TAB PO PRN (20:37)
[2021-08-25] MEDS ORDERED: MONTELUKAST 10 MG TAB PO SCH (21:00)
[2021-08-25] MEDS ORDERED: ATORVASTATIN 40 MG TAB PO SCH (21:00)
[2021-08-25] MEDS ORDERED: TAMSULOSIN 0.4 MG CAP.ER.24H PO SCH (21:00)
[2021-08-25] MEDS ORDERED: FINASTERIDE 5 MG TAB PO SCH (21:00)
[2021-08-25] MEDS: METOPROLOL TARTRATE 25 MG TAB PO SCH (21:23)
[2021-08-25] MEDS: NICOTINE 14MG/24HR PATCH TRANSDERM SCH (21:24)
[2021-08-25] MEDS: APIXABAN 5 MG TAB PO SCH (21:24)
--- NOTE | 2021-08-25 21:49 | HP ---
HISTORY AND PHYSICAL I am covering for Dr. Mcmillan. DATE OF SERVICE: 08/25/2021 CHIEF COMPLAINTS: Not feeling good and palpitations. HISTORY OF PRESENT ILLNESS: This 76-year-old gentleman with a past medical history of atrial fibrillation, history of CAD, diabetes, hypertension, hyperlipidemia, being followed by Dr. Mau Mcmillan in the outpatient setting, was not feeling well this morning when he woke up. The patient was also feeling intense flutters in the chest, and the patient came to [facility] and was found to have atrial fibrillation with a fast ventricular rate. EMS bolus IV fluids and the patient was started on amiodarone drip. The patient is being closely monitored at this time. There is no history of any fever, rigors or chills. No history of headache, loss of consciousness, seizures at this time. PAST MEDICAL HISTORY: Atrial fibrillation, CAD, diabetes mellitus, hypertension, hyperlipidemia. HOME MEDICATIONS: Protonix, Singulair, vitamin D3, Zestril, Flomax, Proscar, Lipitor, Eliquis, Glucophage, lopressor. ALLERGIES: ATIVAN AND MORPHINE. FAMILY HISTORY: History of CVA and TIA. SOCIAL HISTORY: History of smoking. No history of alcohol intake. REVIEW OF SYSTEMS: ENT: No diminished hearing. No diminished vision. CARDIOVASCULAR SYSTEM: As mentioned earlier. RESPIRATORY SYSTEM: Occasional cough. GI: As mentioned earlier. : No dysuria. NERVOUS SYSTEM: No numbness, weakness. ALLERGY/IMMUNOLOGY: No asthma or hay fever. MUSCULOSKELETAL: As mentioned earlier. HEMATOLOGY/ONCOLOGY: No history of anemia. ENDOCRINE: As mentioned earlier. CONSTITUTIONAL: As mentioned earlier. DERMATOLOGY: Negative. RHEUMATOLOGY: Negative. PSYCHIATRY: As mentioned earlier. PHYSICAL EXAMINATION: Patient alert and oriented x3. Pulse is 61, regular. Blood pressure 170/61, respirations 16, temperature 98.1, pulse ox 98% on room air. HEENT: Conjunctivae normal. Oral mucosa moist. NECK: No jugular venous distention. CARDIOVASCULAR: S1, S2 muffled. Irregular. RESPIRATION: Breath sounds diminished at the bases. Bilateral scattered rhonchi and expiratory wheezing and crackles. ABDOMEN: Soft, nontender. No mass palpable. LEGS: No edema. No swelling. NERVOUS SYSTEM: Higher functions as mentioned earlier. Moves all 4 limbs. No focal motor or sensory deficit. LYMPHATICS: No lymph node palpable in neck, axillae or groin. SKIN: No ulcer, rash, bleeding. JOINTS: No active deforming arthropathy. LABS: WBC 7.0, glucose 148. The chest x-ray, which was reviewed personally by me, showed increased bronchovascular markings and prominent right hilum. Otherwise, no acute abnormalities. ASSESSMENT: 1. Paroxysmal atrial fibrillation with fast ventricular rate. 2. Possible chronic obstructive pulmonary disease/chronic bronchitis. 3. Atrial fibrillation. 4. Coronary artery disease. 5. Diabetes mellitus, type 2. 6. Hypertension. 7. Hyperlipidemia. 8. History of myocardial infarction. 9. History of degenerative joint disease. 10.History of diverticular disease. 11.History of cholecystectomy. 12.History of coronary artery disease, stent. 13.History of continued ongoing nicotine dependence. 14.FULL CODE. RECOMMENDATIONS AND DISCUSSION: In this 76-year-old gentleman who presented with multiple complex medical issues, we will monitor the patient closely, continue the current medications, continue symptomatic treatment, continue the amiodarone drip and closely follow with Cardiology. Otherwise, I would also recommend resuming the home medications, bronchodilators, smoking cessation. Guarded prognosis. Further recommendations to follow. A copy of this dictation is being forwarded to Dr. Mcmillan, who is the primary physician. MMODL / IJN: [id number] /
[2021-08-26 05:51] LABS: Glucose,Whole Blood 109 mg/dL (75-99)
[2021-08-26] MEDS ORDERED: metFORMIN 500 MG TAB PO SCH (07:30)
[2021-08-26] MEDS ORDERED: PANTOPRAZOLE 40 MG TABLET PO SCH (07:30)
[2021-08-26 08:49] VITALS: RESP 18; TEMP 98.3
[2021-08-26] MEDS: SODIUM CHLORIDE 0.9% 1,000 ML IV SCH ×2 (08:50→08:51)
[2021-08-26] MEDS: METOPROLOL TARTRATE 25 MG TAB PO SCH (08:50)
[2021-08-26] MEDS: APIXABAN 5 MG TAB PO SCH (08:50)
[2021-08-26] MEDS: NICOTINE 14MG/24HR PATCH TRANSDERM SCH (08:51)
[2021-08-26] MEDS: AMIODARONE 450 MG in DEXTROSE 5% IN WATER 250 ML IV SCH ×2 (08:51)
[2021-08-26 08:52] LABS: Basophils % (A) 0 %; Eosinophils # (A) 0.1 k/uL (0-0.7); Eosinophils % (A) 1 %; HCT 40.1 % (39.0-53.0); HGB 12.8 gm/dL (13.0-17.5); Lymphocytes # (A) 1.9 k/uL (1.0-4.8); Lymphocytes % (A) 19 %; MCH 31.7 pg (25.0-35.0); MCHC 31.8 g/dL (31.0-37.0); MCV 99.6 fL (80.0-100.0); Mean Platelet Volume 8.6; Monocytes # (A) 0.9 k/uL (0-1.0); Monocytes % (A) 9 %; Neutrophils % (A) 69 %; Platelet Count 138 k/uL (150-450); RBC 4.02 m/uL (4.30-5.90); RDW 14.1 % (11.5-15.5); WBC 10.3 k/uL (3.8-10.6)
[2021-08-26] MEDS ORDERED: CHOLECALCIFEROL 25 MCG (1000 IU) TABLET PO SCH (09:00)
[2021-08-26 09:47] LABS: Appearance,Urine Clear (Clear); Bilirubin,Urine Negative (Negative); Blood,Urine Negative (Negative); Color,Urine Light Yellow; Glucose,Urine (UA) Negative (Negative); Ketones,Urine Negative (Negative); Leukocyte Esterase,Urine Negative (Negative); Nitrite,Urine Negative (Negative); Protein,Urine Negative (Negative); Specific Gravity,Urine 1.012 (1.001-1.035); Urobilinogen,Urine <2.0 mg/dL (<2.0)
[2021-08-26 11:38] LABS: Glucose,Whole Blood 123 mg/dL (75-99)
[2021-08-26 12:04] VITALS: BP 158/72; PULSE 59
[2021-08-26] MEDS ORDERED: AMIODARONE 200 MG TAB PO STA (12:16)
--- NOTE | 2021-08-26 15:30 | P.CRDCN ---
History of Present Illness Consult date: 08/26/21 Consult reason: atrial fibrillation History of present illness: HISTORY OF PRESENTING ILLNESS This is a 76-year-old male patient with past medical history significant for atrial fibrillation on eliquis, type 2 diabetes, hypertension, History RI, coronary artery disease status post PCI LAD in 1999, nicotine dependence. He follows in the office with Dr. Camara. Patient was last hospitalized in March of this years at which time he was treated for paroxysmal atrial fibrillation with RVR at 180-220 bpm. Patient was treated with Cardizem drip and converted back to sinus rhythm. Patient states that he has had no further episodes since that time his follow-up with Dr. Camara in the office. He denies having any chest pain or shortness of breath but could feel his heart racing. Patient has been started on amiodarone drip here in converted to sinus rhythm running in the 50s and 60s. Patient will be transitioned to oral amiodarone. Chest x-ray reveals no acute cardiopulmonary process. Echocardiogram March/2021 revealed EF of 50-55%, trace mitral regurgitation, trace tricuspid regurgitation. REVIEW OF SYSTEMS At the time of my exam: CONSTITUTIONAL: Denies fever or chills. CARDIOVASCULAR: Denies Chest tightness, denies shortness of breath Denies orthopnea, PND or palpitations. Reported palpitations. RESPIRATORY: Denies cough. GASTROINTESTINAL: Denies abdominal pain, diarrhea, constipation, nausea or vomiting. MUSCULOSKELETAL: Denies myalgias. NEUROLOGIC: Denies numbness, tingling, headacbe or weakness. ENDOCRINE: Denies fatigue, weight change, polydipsia or polyurina. GENITOURINARY: Denies burning, hematuria or urgency with micturation. HEMATOLOGIC: Denies history of anemia or bleeding. PHYSICAL EXAMINATION CONSTITUTIONAL: No apparent distress. HEENT: Head is normocephalic. Pupils are equal, round. Sclerae anicteric. Mucous membranes of the mouth are moist. No JVD. No carotid bruit. CHEST EXAMINATION: Lungs are clear to auscultation. No chest wall tenderness is noted on palpation or with deep breathing. HEART EXAMINATION: Regular rate and rhythm. S1, S2 heard. No murmurs, gallops or rub. ABDOMEN: Soft, nontender. Positive bowel sounds. EXTREMITIES: 2+ peripheral pulses, no lower extremity edema and no calf tenderness. SKIN: intact NEUROLOGIC EXAMINATION: Patient is awake, alert and oriented x3. ASSESSMENT Paroxysmal atrial fibrillation with episode of RVR, converted to sinus [id number] score 4 Hypertension Dyslipidemia History of myocardial infarction Coronary artery disease status post PCI to LAD in 1999 Chronic nicotine dependence PLAN Transitioned IV amiodarone to oral at 600 mg daily with tapering dose, prescription sent to his pharmacy Continue eliquis 5 mg twice daily, Lopressor 25 mg twice daily. Patient is cleared for discharge home with planned follow-up with Dr. Camara in the next week. Nurse Practitioner note has been reviewed, I agree with a documented findings and plan of care. Patient was seen and examined. Past Medical History Past Medical History: Atrial Fibrillation, Coronary Artery Disease (CAD), Chest Pain / Angina, Diabetes Mellitus, Hyperlipidemia, Hypertension, Myocardial Infarction ([place]), Prostate Disorder Additional Past Medical History / Comment(s): NIDDM type II, back pain-bulging discs, diverticular dx, BPH Last Myocardial Infarction Date:: 1999 History of Any Multi-Drug Resistant Organisms: None Reported Past Surgical History: Cholecystectomy, Heart Catheterization With Stent, Orthopedic Surgery, Tonsillectomy Additional Past Surgical History / Comment(s): 1999 cardiac stents, bilateral open shoulder surgeries for rotator cuff, colonoscopy, vasectomy, circumcism. Past Anesthesia/Blood Transfusion Reactions: No Reported Reaction Date of Last Stent Placement:: 1999 Past Psychological History: No Psychological Hx Reported Additional Psychological History / Comment(s): Pt lives with his and an adult daughter. He is independent. He has no home [facility]. He drives a car. Smoking Status: Current every day smoker Past Alcohol Use History: None Reported Additional Past Alcohol Use History / Comment(s): Pt states he started smoking around 16-19 yrs of age. He is a 1 to 1.5 ppd Past Drug Use History: None Reported - Past Family History Brother(s) Family Medical History: Dialysis Father Family Medical History: CVA/TIA Additional Family Medical History / Comment(s): Father of a CVA at age 59 yrs. Mother Family Medical History: Vascular Disorder Additional Family Medical History / Comment(s): Mother of a brain aneurysm. Medications and Allergies Home Medications Medication Instructions Recorded Confirmed Type Finasteride [Proscar] 5 mg PO HS 02/15/08/25/21 History Atorvastatin [Lipitor] 40 mg PO HS #30 tab 07/19/16 08/25/21 Rx Apixaban [Eliquis] 5 mg PO BID 04/15/18 08/25/21 History Montelukast [Singulair] 10 mg PO HS 04/15/18 08/25/21 History lisinopriL [Zestril] 2.5 mg PO DAILY 07/07/20 08/25/21 History metFORMIN HCL [Glucophage] 1,000 mg PO AC-BID 07/07/20 08/25/21 History Pantoprazole [Protonix] 40 mg PO DAILY 03/21/21 08/25/21 History Cholecalciferol [Vitamin D3 (25 25 mcg PO DAILY 08/25/21 08/25/21 History Mcg = 1000 Iu)] Metoprolol Tartrate [Lopressor] 25 mg PO BID 08/25/21 08/25/21 History Amiodarone [Cordarone] 600 mg PO DAILY #51 tab 08/26/21 Rx Tamsulosin [Flomax] 0.4 mg PO HS #1 cap 08/26/21 Rx Allergies Allergy/AdvReac Type Severity Reaction Status Date / Time lorazepam [From Ativan] AdvReac BECOMES Verified 08/25/21 09:26 DISORIENTED morphine AdvReac AGITATION Verified 08/25/21 09:26 Physical Exam Vitals: Vital Signs Temp Pulse Resp BP Pulse Ox 08/26/21 11:45 59 L 18 158/72 95 08/26/21 08:48 98.3 F 66 18 146/71 94 L 08/26/21 08:45 66 18 08/26/21 04:00 63 16 149/89 96 08/26/21 02:00 70 16 08/26/21 00:00 98.0 F 70 16 127/62 96 08/25/21 20:00 61 16 08/25/21 15:42 98.1 F 61 16 117/61 98 08/25/21 14:00 16 08/25/21 13:05 97.6 F 111 H 16 110/72 96 Intake and Output 08/25/21 08/26/21 08/26/21 22:59 06:59 14:59 Intake Total 457.22 Output Total 400 500 Balance 57.22 -500 Intake: Intake, IV Titration 217.22 Amount Amiodarone 450 mg In 217.22 Dextrose 5% in Water 250 ml @ 0.5 MG/MIN 16.667 mls/hr IV .Q15H RACHID Rx#: [id number] Oral 240 Output: Urine 400 500 Other: Voiding Method Toilet Toilet Toilet Urinal Urinal Urinal # Voids 1 1 # Bowel Movements 1 Weight 85.2 kg Results 08/26/21 08:03 08/25/21 08:40 CBC 08/26/21 Range/Units 08:03 WBC 10.3 (3.8-10.6) k/uL RBC 4.02 L (4.30-5.90) m/uL Hgb 12.8 L (13.0-17.5) gm/dL Hct 40.1 (39.0-53.0) % Plt Count 138 L (150-450) k/uL Current Medications Generic Name Dose Route Start Last Admin Trade Name Freq PRN Reason Stop Dose Admin Acetaminophen 500 mg 08/25/21 20:37 Acetaminophen Tab 500 Mg Tab PO Q6HR PRN Fever and/ or Pain Apixaban 5 mg 08/25/21 21:00 08/26/21 08:50 Apixaban 5 Mg Tab PO 5 mg BID RACHID Administration Protocol Atorvastatin Calcium 40 mg 08/25/21 21:00 08/25/21 21:23 Atorvastatin 40 Mg Tab PO 40 mg HS RACHID Administration Cholecalciferol 25 mcg 08/26/21 09:00 08/26/21 08:50 Cholecalciferol 25 Mcg (1000 Iu) Tablet PO 25 mcg DAILY RACHID Administration Finasteride 5 mg 08/25/21 21:00 08/25/21 21:23 Finasteride 5 Mg Tab PO 5 mg HS RACHID Administration Sodium Chloride 1,000 mls @ 130 mls/hr 08/25/21 11:15 08/26/21 08:51 Saline 0.9% IV Not Given .Q7H42M RACHID Lisinopril 2.5 mg 08/26/21 09:00 08/26/21 08:50 Lisinopril 2.5 Mg Tab PO 2.5 mg DAILY RACHID Administration Metformin HCl 1,000 mg 08/26/21 07:30 08/26/21 06:28 Metformin 500 Mg Tab PO 1,000 mg AC-BID RACHID Administration Metoprolol Tartrate 25 mg 08/25/21 21:00 08/26/21 08:50 Metoprolol Tartrate 25 Mg Tab PO 25 mg BID RACHID Administration Montelukast Sodium 10 mg 08/25/21 21:00 08/25/21 21:24 Montelukast 10 Mg Tab PO 10 mg HS RACHID Administration Naloxone HCl 0.2 mg 08/25/21 11:15 Naloxone 0.4 Mg/Ml 1 Ml Vial IV Q2M PRN Opioid Reversal Nicotine 1 patch 08/25/21 20:45 08/26/21 08:51 Nicotine 14mg/24hr Patch TRANSDERM Not Given DAILY RACHID Ondansetron HCl 4 mg 08/25/21 11:15 Ondansetron 4 Mg/2 Ml Vial IVP Q8HR PRN Nausea And Vomiting Pantoprazole Sodium 40 mg 08/26/21 07:30 08/26/21 06:28 Pantoprazole 40 Mg Tablet PO 40 mg DAILY@0730 RACHID Administration Tamsulosin HCl 0.4 mg 08/25/21 21:00 08/25/21 21:24 Tamsulosin 0.4 Mg Cap.Er.24h PO 0.4 mg HS RACHID Administration Intake and Output 08/25/21 08/26/21 08/26/21 22:59 06:59 14:59 Intake Total 457.22 Output Total 400 500 Balance 57.22 -500 Intake: Intake, IV Titration 217.22 Amount Amiodarone 450 mg In 217.22 Dextrose 5% in Water 250 ml @ 0.5 MG/MIN 16.667 mls/hr IV .Q15H RACHID Rx#: [id number] Oral 240 Output: Urine 400 500 Other: Voiding Method Toilet Toilet Toilet Urinal Urinal Urinal # Voids 1 1 # Bowel Movements 1 Weight 85.2 kg 08/26/21 08:03 08/25/21 08:40
--- NOTE | 2021-08-26 21:02 | DS ---
DISCHARGE SUMMARY DATE OF SERVICE: 08/26/2021 FINAL DIAGNOSES: 1. Paroxysmal atrial fibrillation with fast ventricular rate. 2. Possible chronic obstructive pulmonary disease, chronic bronchitis. 3. Atrial fibrillation, history of coronary artery disease. 4. Diabetes type 2. 5. Hypertension. 6. Hyperlipidemia. 7. History of myocardial infarction. 8. History of degenerative joint disease. 9. History of diverticular disease. 10.History of cholecystectomy. 11.History of coronary artery disease/stent. 12.History of continued ongoing nicotine dependence. 13.FULL CODE. DISCHARGE DISPOSITION: Patient being discharged in stable condition with guarded prognosis. HISTORY: This 76-year-old gentleman with past medical history of multiple medical problems being followed by Dr. Mau Mcmillan in the outpatient setting was admitted with atrial fibrillation with fast ventricular rate. The patient given amiodarone. Patient improved significantly. was initiated by Cardiology. Otherwise, the patient also had features of early COPD, bronchitis. Recommended smoking cessation. Continue follow up with Dr. Mcmillan regarding that. On exam, vital signs stable. Cardiovascular: S1, S2. Abdomen soft. Nontender. Nervous system: No focal deficits. DISCHARGE ADVICE AND MEDICATIONS: 1. Diet is cardiac diet. 2. Activity limited until followup. 3. Follow up with Dr. Mcmillan in 1-2 days. 4. Follow up with Cardiology as recommended. DISCHARGE MEDICATIONS: 1. Eliquis 5 mg p.o. b.i.d. 2. Glucophage 1000 mg p.o. b.i.d. 3. Lopressor 25 mg p.o. b.i.d. 4. Proscar 5 mg q.h.s. 5. Protonix 40 mg p.o. daily. 6. Singular 10 mg q.h.s. 7. Vitamin D3 25 mcg p.o. daily. 8. Zestril 2.5 mg daily. 9. Cordarone 600 mg daily and taper per Cardiology. 10.Flomax 0.4 q.h.s. 11.Lipitor 40 mg q.h.s. Once again the patient discharged in stable condition. Guarded prognosis. MMODL / IJN: [id number] / MTDD
== END 2021-08-26 14:24 | disposition home or self-care (01) | DRG 310 ==
LOC: EC 08:28 → 3SCARD 11:15
PROVIDERS: ADMIT Hospitalist; ATTEND Hospitalist
DX: I48.0 Paroxysmal atrial fibrillation (principal); E11.9 Type 2 diabetes mellitus without complications; E78.5 Hyperlipidemia, unspecified; F17.200 Nicotine dependence, unspecified, uncomplicated; I10 Essential (primary) hypertension; I25.10 Atherosclerotic heart disease of native coronary artery without angina pectoris; I25.2 Old myocardial infarction; N40.0 Benign prostatic hyperplasia without lower urinary tract symptoms; Z79.01 Long term (current) use of anticoagulants; Z20.822 Contact with and (suspected) exposure to COVID-19; Z79.84 Long term (current) use of oral hypoglycemic drugs; Z79.899 Other long term (current) drug therapy; Z82.3 Family history of stroke; Z90.49 Acquired absence of other specified parts of digestive tract; Z95.5 Presence of coronary angioplasty implant and graft; J44.9 Chronic obstructive pulmonary disease, unspecified; M19.90 Unspecified osteoarthritis, unspecified site
CPT/HCPCS: 36415; 71045; 80053; 81003; 83605; 83735; 84443; 84484; 85025; 85610; 85730; 87635; 93005; 96360; 99291

== ENCOUNTER → 2021-11-22 | Outpatient (CLI) | payer MEDICARE, OTHER ==
--- NOTE | 2021-11-22 18:58 | US ---
EXAMINATION TYPE: US kidneys/renal and bladder DATE OF EXAM: 11/22/2021 COMPARISON: NONE CLINICAL HISTORY: 76-year-old male R94.4 Abnormal results of kidney function studies. TECHNIQUE: Multiple sonographic images of the kidneys and bladder are obtained. FINDINGS: EXAM MEASUREMENTS: Right Kidney: 9.9 x 4.5 x 4.4 cm Left Kidney: 9.9 x 4.6 x 4.1 cm Right Kidney: No hydronephrosis. Left Kidney: There are a few cysts, largest measuring 1.5 x 1.5 x 1.5cm. No hydronephrosis. Bladder: Partial distention limits evaluation. IMPRESSION: 1. No hydronephrosis. 2. A few benign cysts within the left kidney measuring up to 1.5 cm.
== END | disposition home or self-care (01) ==
LOC: RADUSWWP 12:05
PROVIDERS: ATTEND Family Medicine
DX: N28.1 Cyst of kidney, acquired (principal)
CPT/HCPCS: 76770

== ENCOUNTER → 2022-01-05 | Outpatient (CLI) | payer MEDICARE, OTHER ==
[2022-01-05 23:20] LABS: HCT 45.1 % (39.6-50.0); HGB 14.4 g/dL (13.0-17.0); MCH 32.7 pg (27.0-32.0); MCHC 31.9 g/dL (32.0-37.0); MCV 102.5 fL (80.0-97.0); Mean Platelet Volume 11.4 fL (9.5-12.2); Platelet Count 209 X 10*3/uL (140-440); RDW 13.5 % (11.5-14.5); WBC 10.07 X 10*3/uL (4.50-10.00)
[2022-01-05 23:42] LABS: Anion Gap 11.8 mmol/L (10.00-18.00); Blood Urea Nitrogen 16.8 mg/dL (9.0-27.0); Carbon Dioxide 27.2 mmol/L (20.0-27.5); Non-African American GFR(CKD) 73.3 (60.0-200.0); Potassium 4.8 mmol/L (3.5-5.5)
== END | disposition home or self-care (01) ==
LOC: LABPAT 16:07
PROVIDERS: ATTEND Internal Medicine Clinical Cardiac Electrophysiology
DX: Z01.812 Encounter for preprocedural laboratory examination (principal); Z20.822 Contact with and (suspected) exposure to COVID-19; I48.0 Paroxysmal atrial fibrillation
CPT/HCPCS: 80051; 82565; 84520; 85027; U0003; C9803; U0005

== ENCOUNTER → 2022-02-16 | Outpatient (CLI) | payer MEDICARE, OTHER ==
--- NOTE | 2022-02-16 12:15 | MR ---
EXAMINATION TYPE: MR angio head wo con DATE OF EXAM: 02/16/2022 COMPARISON: Prior MRA November 05, 2019 HISTORY: Follow up aneurysm TECHNIQUE: Time of flight images focusing on the [place] of [place] were performed without contrast.. 2-D and 3-D postprocessing imaging is performed on independent workstation and reviewed. FINDINGS: Redemonstration of dominant left vertebral artery. Vertebral arteries are patent to basilar junction. No significant stenosis or aneurysmal change in the posterior circulation. Small caliber b ut patent left posterior communicating artery redemonstrated axial image 86. Hypoplastic right box stacker ior communicating artery. Images of the anterior circulation demonstrate focal stable aneurysm right aspect anterior of the fen estrated anterior communicating artery axial image 86 difficult to accurately measure due to close pr oximity and fenestrated vessels near this level measuring approximately 2.8 mm without significant ch carito in appearance from prior study. No new aneurysm is seen. No significant stenosis is evident. 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 No new aneurysm is seen.
== END | disposition home or self-care (01) ==
LOC: RADMRIMAIN 10:20
PROVIDERS: ATTEND Family Medicine
DX: I72.9 Aneurysm of unspecified site (principal); J44.9 Chronic obstructive pulmonary disease, unspecified
CPT/HCPCS: 70544

== ENCOUNTER → 2022-05-23 | Outpatient (CLI) | payer MEDICARE, OTHER ==
[2022-05-23 14:22] LABS: HCT 46.9 % (39.6-50.0); HGB 14.9 g/dL (13.0-17.0); MCH 31.4 pg (27.0-32.0); MCHC 31.8 g/dL (32.0-37.0); MCV 98.7 fL (80.0-97.0); Mean Platelet Volume 11.7 fL (9.5-12.2); NRBC Per 100 WBC 0 /100 WBCS (0.0-0.0); Platelet Count 192 X 10*3/uL (140-440); RBC 4.75 X 10*6/uL (4.40-5.60); RDW 13.2 % (11.5-14.5); WBC 11.68 X 10*3/uL (4.50-10.00)
[2022-05-23 14:28] LABS: Anion Gap 10.3 mmol/L (10.00-18.00); Blood Urea Nitrogen 14.1 mg/dL (9.0-27.0); Carbon Dioxide 27.7 mmol/L (20.0-27.5); Non-African American GFR(CKD) 73.3 (60.0-200.0); Potassium 4.2 mmol/L (3.5-5.5)
== END | disposition home or self-care (01) ==
LOC: LABPAT 09:24
PROVIDERS: ATTEND Internal Medicine Clinical Cardiac Electrophysiology
DX: Z01.812 Encounter for preprocedural laboratory examination (principal); I48.0 Paroxysmal atrial fibrillation
CPT/HCPCS: 80051; 82565; 84520; 85027

== ENCOUNTER 2022-05-31 06:30 | Day surgery (SDC) | payer MEDICARE, OTHER ==
[2022-05-29 14:08] VITALS: BMI 25.8
[~2022-05-31 06:30] MED LIST: SODIUM CHLORIDE 0.9% 1,000 ML IV SCH
[2022-05-31 06:54] LABS: Glucose,Whole Blood 118 mg/dL (70-110)
[2022-05-31] MEDS ORDERED: HEPARIN SODIUM,PORCINE 5,000 UNIT/ML 1 ML VIAL ONE (07:34)
[2022-05-31] MEDS ORDERED: LIDOCAINE 4% LTA KIT (4 ML) TOPICAL ONE (07:34)
[2022-05-31] MEDS ORDERED: PHENYLEPHRINE-0.9% NACL SYG 1,000 MCG/10 ML SYRINGE ONE (07:34)
[2022-05-31] MEDS ORDERED: ePHEDrine 50 MG/ML 1 ML VIAL ONE (07:34)
[2022-05-31] MEDS ORDERED: LIDOCAINE 2% INJ 20 MG/ML (2 ML VIAL) ONE (07:34)
[2022-05-31] MEDS ORDERED: MIDAZOLAM 2 MG/2 ML VIAL ONE (07:34)
[2022-05-31] MEDS ORDERED: SUCCINYLCHOLINE CHLORIDE 100 MG/5 ML SYR IV ONE (07:34)
[2022-05-31] MEDS ORDERED: PROPOFOL 10 MG/ML 20 ML VIAL IV ONE (07:34)
[2022-05-31] MEDS ORDERED: fentaNYL (PF) 50 MCG/ML 2 ML AMP ONE (07:34)
[2022-05-31] MEDS ORDERED: PROTAMINE SULFATE 10 MG/ML 5 ML VIAL IV ONE (07:34)
--- NOTE | 2022-05-31 07:45 | P.EPPROC ---
- EP Procedure Note Electrophysiology Procedure Note: This is Dr. Chow dictating an H/P on this patient The patient was interviewed and examined IMPRESSION / ASSESSMENT: Persistent atrial fibrillation currently on amiodarone History of CAD and anterior wall [place] Dyslipidemia Hypertension Type 2 diabetes PLAN: Proceed with PVI for management of atrial fibrillation Continue anticoagulation and low-dose amiodarone 100 mg by mouth daily for now HPI ROS: No fever chills or rigors, no cough, phlegm or expectoration, no nausea, vomiting or diarrhea, no hematuria, dysuria, no musculoskeletal complaints, no strokes or seizures, no skin lesions. EXAMINATION: Afebrile 97.1F pulse rate in the 50s blood pressure 67/70 6 mmHg Breath sounds are clear no rhonchi no crackles Heart sounds S1 and S2 are normal no murmurs Abdomen soft Extremities warm REVIEW OF LABS, ECG & MEDICAL DATA medications reviewed Currently metoprolol tartrate 50 g twice daily, atorvastatin 40 mg daily, ELIQUIS 5 mg twice daily, Zestril 2.5 mg daily at bedtime line amiodarone 200 mg daily Coronary sinus PCR negative
[2022-05-31] MEDS ORDERED: LIDOCAINE 1% INJ 10MG/ML (30 ML VIAL-PF) SQ ONE (07:57)
[2022-05-31] MEDS ORDERED: LIDOCAINE 1% PF 10 MG/ML (5 ML AMP) SQ ONE (07:57)
[2022-05-31] MEDS ORDERED: HEPARIN SOD,PORK IN 0.45% NACL 25,000 UNIT in 0.45% NACL 1 250ML.BAG IV ONE (08:16)
[2022-05-31] MEDS ORDERED: IOPAMIDOL-370 100ML BTL INJ ONE (09:44)
[2022-05-31] MEDS ORDERED: ACETAMINOPHEN TAB 325 MG TAB PO PRN (10:20)
[2022-05-31] MEDS ORDERED: ACETAMINOPHEN IV (For NPO) 1,000 MG in EMPTY BAG 1 BAG IVPB ONE (10:20)
--- NOTE | 2022-05-31 10:29 | P.HPCAR ---
History of Present Illness This is Dr. Chow dictating an H/P on this patient The patient was interviewed and examined IMPRESSION / ASSESSMENT: Persistent atrial fibrillation currently on amiodarone History of CAD and anterior wall [place] Dyslipidemia Hypertension Type 2 diabetes PLAN: Proceed with PVI for management of atrial fibrillation Continue anticoagulation and low-dose amiodarone 100 mg by mouth daily for now HPI ROS: No fever chills or rigors, no cough, phlegm or expectoration, no nausea, vomiting or diarrhea, no hematuria, dysuria, no musculoskeletal complaints, no strokes or seizures, no skin lesions. EXAMINATION: Afebrile 97.1F pulse rate in the 50s blood pressure 67/70 6 mmHg Breath sounds are clear no rhonchi no crackles Heart sounds S1 and S2 are normal no murmurs Abdomen soft Extremities warm REVIEW OF LABS, ECG & MEDICAL DATA medications reviewed Currently metoprolol tartrate 50 g twice daily, atorvastatin 40 mg daily, ELIQUIS 5 mg twice daily, Zestril 2.5 mg daily at bedtime line amiodarone 200 mg daily Coronary sinus PCR negative Physical Exam Vitals: Vital Signs Temp Pulse Resp BP 05/31/22 06:47 97.1 F L 56 L 18 167/76 Intake and Output 05/30/22 05/31/22 05/31/22 22:59 06:59 14:59 Intake Total 100 268 Balance 100 268 Intake: IV 100 268 Past Medical History Past Medical History: Atrial Fibrillation, Coronary Artery Disease (CAD), Chest Pain / Angina, Diabetes Mellitus, Hyperlipidemia, Hypertension, Myocardial Infarction ([place]), Prostate Disorder Additional Past Medical History / Comment(s): See Dr Chow's H&P. Back pain-bulging discs, diverticular disease, BPH. Last Myocardial Infarction Date:: 1999 History of Any Multi-Drug Resistant Organisms: None Reported Past Surgical History: Cholecystectomy, Heart Catheterization With Stent, Orthopedic Surgery, Tonsillectomy Additional Past Surgical History / Comment(s): 1999 cardiac stents, bilateral open shoulder surgeries for rotator cuff, colonoscopy, vasectomy, circumcism. Past Anesthesia/Blood Transfusion Reactions: No Reported Reaction Date of Last Stent Placement:: 1999 Past Psychological History: No Psychological Hx Reported Smoking Status: Current every day smoker Past Alcohol Use History: None Reported Additional Past Alcohol Use History / Comment(s): Started smoking around 16-18 yrs of age, 1 to 1.5 ppd. Past Drug Use History: None Reported - Past Family History Brother(s) Family Medical History: Dialysis Father Family Medical History: CVA/TIA Additional Family Medical History / Comment(s): Father of a CVA at age 59 yrs. Mother Family Medical History: Vascular Disorder Additional Family Medical History / Comment(s): Mother of a brain aneurysm. Physical Examination Vital Signs Temp Pulse Resp BP 05/31/22 06:47 97.1 F L 56 L 18 167/76 Intake and Output 05/30/22 05/31/22 05/31/22 22:59 06:59 14:59 Intake Total 100 268 Balance 100 268 Intake: IV 100 268 Results Current Medications Generic Name Dose Route Start Last Admin Trade Name Freq PRN Reason Stop Dose Admin Acetaminophen 650 mg 05/31/22 10:20 Acetaminophen Tab 325 Mg Tab PO 06/30/22 10:21 Q6HR PRN Mild Pain Apixaban 5 mg 05/31/22 21:00 Apixaban 5 Mg Tab PO 06/30/22 21:01 BID [facility] Protocol Atorvastatin Calcium 40 mg 05/31/22 21:00 Atorvastatin 40 Mg Tab PO 06/30/22 21:01 HS RACHID Finasteride 5 mg 05/31/22 21:00 Finasteride 5 Mg Tab PO 06/30/22 21:01 HS [facility] Acetaminophen 1,000 mg/ IV 100 mls @ 400 mls/hr 05/31/22 10:20 Solution IVPB 05/31/22 10:34 ONCE ONE Lisinopril 2.5 mg 05/31/22 21:00 Lisinopril 2.5 Mg Tab PO 06/30/22 21:01 HS [facility] Metoprolol Tartrate 50 mg 05/31/22 21:00 Metoprolol Tartrate 50 Mg Tab PO 06/30/22 21:01 BID RACHID Montelukast Sodium 10 mg 05/31/22 21:00 Montelukast 10 Mg Tab PO 06/30/22 21:01 HS [facility] Non-Formulary Medication 1,000 mg 05/31/22 21:00 Metformin Hcl [Glucophage] PO 06/30/22 21:01 BID RACHID Pantoprazole Sodium 40 mg 06/01/22 09:00 Pantoprazole 40 Mg Tablet PO 07/01/22 09:01 DAILY RACHID Sodium Chloride 12 ml 05/31/22 10:20 Sodium Chloride 0.9% Flush 10 Ml Syringe IV 06/30/22 10:21 Q12HR PRN Line Flush Tamsulosin HCl 0.4 mg 05/31/22 21:00 Tamsulosin 0.4 Mg Cap.Er.24h PO 06/30/22 21:01 HS RACHID Intake and Output 05/30/22 05/31/22 05/31/22 22:59 06:59 14:59 Intake Total 100 268 Balance 100 268 Intake: IV 100 268
--- NOTE | 2022-05-31 10:36 | P.EPPROC ---
- EP Procedure Note Electrophysiology Procedure Note: PROCEDURE A. fib ablation/cryoablation the pulmonary veins DIAGNOSIS Persistent Atrial fibrillation, symptomatic, refractory to therapy RESULT No left atrial appendage mass seen on intracardiac echo Normal LV function Elevated RA and LA pressures, mean RA pressure 60 mmHg, mean LA pressure 19 mmHg Successful A. fib ablation/pulmonary vein isolation of all veins using cryo- ablation Complete entrance block in all 4 veins confirmed No evidence for phrenic nerve injury Esophageal deflection YES PROCEDURE DETAILS Patient was brought to the EP lab in a fasting state after obtaining written informed consent. Procedure performed under general anesthesia Esophagus was intubated. Esophageal temperature monitoring with circa catheter. Esophageal deflection with an endoscope to avoid hypothermia of the esophagus. After initial muscle relaxant use, muscle relaxants were not given thereafter in order to assess phrenic nerve during procedure. Patient prepped and draped as per protocol Cryo ablation-set up with standard preparation of the cryoablation tools done. Femoral Venous access obtained on the right and left groins and sheaths placed Diagnostic catheters for the high right atrium, phrenic nerve stimulation and pacing, His bundle, coronary sinus placed Intracardiac echo catheter placed. Long sheath placed in the right atrium Left and right transseptal catheterization performed under intracardiac echo guidance. Intravenous heparin with aCT above 300 Later, catheter positioning and balloon positioning in the left atrium and pulmonary veins, under intracardiac echo guidance Diagnostic EP study with coronary sinus pacing and recording Baseline measurements: Sinus cycle length 904 ms, LA interval 121, QRS 88 and daily for 27 ms AH 80 and HV 41 AV node Wenckebach block 370 ms Sinus node recovery times at 600, 500, 400 ms were 1094, 1111 and 1250 ms Transseptal catheterization performed RA pressure 18/14/16 LA pressure 25/12/19 Transseptal catheterization performed with standard sheath. The cryoablation sheath was then placed with an over the wire exchange without any acute complications. The cryoablation balloon was placed in the office of each pulmonary vein and all 4 pulmonary veins were isolated. IV dye was injected to confirm occlusion. Goal: achieve complete occlusion of the pulmonary vein, achieve -30 degrees C at 30 seconds and achieve -40 degrees C at 60 seconds and a time to effect of less than 60 seconds. If not, the balloon was repositioned to obtain this result After completion of Cryoblation with durations from 180-240 seconds, entrance block was confirmed with the Attain circular catheter in a roving fashion around the antrum of the pulmonary veins Phrenic nerve pacing was performed from the SVC, right innominate vein area and diaphragm voltage was monitored. Diaphragmatic contractions were also monitored manually for strength of contraction. At the end of the procedure the Achieve catheter was once again used to check for entrance block Phrenic nerve stimulation was performed to confirm diaphragmatic stimulation the end of the procedure Cine fluoroscopy was performed at the very end of the procedure to confirm movement of both diaphragms with inspiration and expiration This is a long procedure. The right superior pulmonary vein could not be isolated completely filled the first 3 minute cryoablation despite excellent occlusion and excellent temperatures A repeat carinal lesion at to be delivered for complete isolation The esophagus was difficult to displace Despite displacement esophageal temperatures [place] to below 27.5C, which is up out of point Multiple short of Cryoblation lesions had to be delivered The left inferior vein was isolated expeditiously that required multiple short of lesions on account of esophageal cooling The left superior pulmonary vein had a very thick pedicle that took a long time to isolate Multiple lesions had to be delivered while keeping the esophagus away, to achieve complete isolation This was successfully performed but it required multiple short of Cryoblation le sions At the end of the procedure the patient was extubated Venous sheaths were removed and hemostasis assured with a closure device PROCEDURES PERFORMED Diagnostic EP study CS pacing and recording Left and right transseptal catheterization Catheter the mapping of the tachycardia Intracardiac echocardiography Pulmonary vein isolation with transseptal and comprehensive EPS, [id number] Increased procedural services, modifier 22
--- NOTE | 2022-05-31 10:38 | P.PN ---
Subjective Dear Mau Mr. Blankenship underwent pulmonary vein isolation successfully He tolerated the procedure well without any acute complications He will continue ELIQUIS I was asked him to reduce the dose of amiodarone 2 100 mg by mouth daily He will continue all other cardiac medications as before and will follow with you and Dr. Camara as before Thank you for entrusting me with the care of the patient Warm regards Sincerely Donal Chow Objective - Vital Signs Vital signs: Vital Signs Temp 96.8 F L 05/31/22 10:23 Pulse 51 L 05/31/22 10:32 Resp 16 05/31/22 10:32 BP 141/76 05/31/22 10:32 Pulse Ox 100 05/31/22 10:32 FiO2 Intake & Output 05/30/22 05/31/22 05/31/22 18:59 06:59 18:59 Intake Total 100 268 Balance 100 268 Weight 77.111 kg Intake: IV 100 268 - Labs Labs: Abnormal Lab Results - Last 24 Hours (Table) 05/31/22 Range/Units 06:50 POC Glucose (mg/dL) 118 H (70-110) mg/dL
[2022-05-31 17:24] LABS: Glucose,Whole Blood 94 mg/dL (70-110)
[2022-05-31] MEDS ORDERED: FINASTERIDE 5 MG TAB PO SCH (21:00)
[2022-05-31] MEDS ORDERED: TAMSULOSIN 0.4 MG CAP.ER.24H PO SCH (21:00)
[2022-05-31] MEDS ORDERED: ATORVASTATIN 40 MG TAB PO SCH (21:00)
[2022-05-31] MEDS ORDERED: MONTELUKAST 10 MG TAB PO SCH (21:00)
[2022-05-31] MEDS: APIXABAN 5 MG TAB PO SCH (21:10)
[2022-05-31] MEDS: METOPROLOL TARTRATE 50 MG TAB PO SCH (21:10)
[2022-05-31 21:31] LABS: Glucose,Whole Blood 111 mg/dL (70-110)
[2022-06-01] MEDS ORDERED: PANTOPRAZOLE 40 MG TABLET PO SCH (07:30)
[2022-06-01 07:47] LABS: Glucose,Whole Blood 126 mg/dL (70-110)
[2022-06-01 08:31] VITALS: BP 123/72; PULSE 84; RESP 18; TEMP 98
[2022-06-01] MEDS: METOPROLOL TARTRATE 50 MG TAB PO SCH (09:01)
[2022-06-01] MEDS: APIXABAN 5 MG TAB PO SCH (09:01)
--- NOTE | 2022-06-01 09:25 | P.DS ---
Providers Attending physician: Donal Chow Primary care physician: Mau Mcmillan [facility] Course: Patient is doing well. No throat pain, mild pleuritic chest discomfort in the upper chest No dizziness lightheadedness or palpitations On examination blood pressure 123 was 72 mmHg Breath sounds are clear Heart sounds S2 normal no rub no gallop Groins of healed well Impression Persistent atrial fibrillation on amiodarone Status post PVI successful Followed by electrical cardioversion Known CAD Elevated right and left atrial mean pressure is with preserved LV function Plan Discharge home today patient is stable from a cardiac vascular standpoint Follow-up with Dr. Camara Reduce amiodarone to 100 mg by mouth daily Continue anticoagulation and other cardiac medications Plan - Discharge Summary Discharge Rx Participant: No New Discharge Prescriptions: New Amiodarone [Cordarone] 100 mg PO DAILY #90 tablet Discontinued Amiodarone [Cordarone] 200 mg PO DAILY No Action Finasteride [Proscar] 5 mg PO HS Atorvastatin [Lipitor] 40 mg PO HS #30 tab Montelukast [Singulair] 10 mg PO HS Apixaban [Eliquis] 5 mg PO BID metFORMIN HCL [Glucophage] 1,000 mg PO BID lisinopriL [Zestril] 2.5 mg PO HS Pantoprazole [Protonix] 40 mg PO DAILY Tamsulosin [Flomax] 0.4 mg PO HS #1 cap Metoprolol Tartrate [Lopressor] 50 mg PO BID Cholecalciferol [Vitamin D3 (25 Mcg = 1000 Iu)] 50 mcg PO DAILY Discharge Medication List Finasteride [Proscar] 5 mg PO HS 02/15/15 [History] Atorvastatin [Lipitor] 40 mg PO HS #30 tab 07/19/16 [Rx] Apixaban [Eliquis] 5 mg PO BID 04/15/18 [History] Montelukast [Singulair] 10 mg PO HS 04/15/18 [History] lisinopriL [Zestril] 2.5 mg PO HS 07/07/20 [History] metFORMIN HCL [Glucophage] 1,000 mg PO BID 07/07/20 [History] Pantoprazole [Protonix] 40 mg PO DAILY 03/21/21 [History] Cholecalciferol [Vitamin D3 (25 Mcg = 1000 Iu)] 50 mcg PO DAILY 08/25/21 [History] Tamsulosin [Flomax] 0.4 mg PO HS #1 cap 08/26/21 [Rx] Metoprolol Tartrate [Lopressor] 50 mg PO BID 01/03/22 [History] Amiodarone [Cordarone] 100 mg PO DAILY #90 tablet 06/01/22 [Rx] Follow up Appointment(s)/Referral(s): Harjinder Camara DO [STAFF PHYSICIAN] - 06/11/22 3:00 pm (Appointment at the main office) Activity/Diet/Wound Care/Special Instructions: Post EP study - Ablation instructions 1. Keep access sites dry for 2 days. 2. No heavy lifting or straining for 2 days. 3. Avoid bending the hips repeatedly for 2 days. 4. You may go up and down stairs slowly Call if the following is noted 1. Bleeding, increasing swelling or pain at the access sites. 2. Increasing chest discomfort, especially upon taking a deep breath. 3. Increasing shortness of breath, at rest or with exertion. 4. Undue cough / phlegm 5. Difficulty or pain while swallowing. 6. Pain or change in color in the extremities. 7. Fever, chills, rigors. 8. Increasing headache or neurologic symptoms. 9. Dizziness, fainting, palpitations Reduce amiodarone dose to 100 mg by mouth daily Continue ELIQUIS Continue other cardiac medications without any changes Discharge Disposition: HOME SELF-CARE
[2022-06-02] MEDS ORDERED: metFORMIN 500 MG TAB PO SCH (17:30)
== END 2022-06-01 12:25 | disposition home or self-care (01) ==
LOC: CATHEP 06:30 → 6NMEDSUR 09:50 → CATHEP 06-01 12:25
PROVIDERS: ATTEND Internal Medicine Clinical Cardiac Electrophysiology
DX: I48.19 Other persistent atrial fibrillation (principal); I25.10 Atherosclerotic heart disease of native coronary artery without angina pectoris; I25.2 Old myocardial infarction; E78.5 Hyperlipidemia, unspecified; Z20.822 Contact with and (suspected) exposure to COVID-19; I10 Essential (primary) hypertension; E11.9 Type 2 diabetes mellitus without complications; Z72.0 Tobacco use; Z95.5 Presence of coronary angioplasty implant and graft; Z79.01 Long term (current) use of anticoagulants; Z79.84 Long term (current) use of oral hypoglycemic drugs; Z79.899 Other long term (current) drug therapy
CPT/HCPCS: 93656; 87635; C1894 ×2; C1769 ×4; C1760; C1730 ×2; C1759; C1893; C1733; C1766; S0138; J2250; J2720; J1644 ×2; J2001 ×2; J3010; J2370; J0330; J2704; Q9967

== ENCOUNTER → 2023-03-15 | Outpatient (CLI) | payer MEDICARE, OTHER ==
[2023-03-15 11:51] LABS: ALT 11 U/L (10-49); AST 14 U/L (14-35); African American GFR (CKD) 61.4 (60.0-200.0); BUN/Creat Ratio 16.62 Ratio (12.00-20.00); Blood Urea Nitrogen 21.6 mg/dL (9.0-27.0); Calcium 9.6 mg/dL (8.7-10.3); Carbon Dioxide 28.4 mmol/L (20.0-27.5); Chloride 108 mmol/L (96-109); Glucose 107 mg/dL (70-110); LDL Cholesterol,Calculated 43.7 mg/dL (0.0-131.0); Potassium 5.1 mmol/L (3.5-5.5); Sodium 146 mmol/L (135-145); VLDL Calculation 18.14 mg/dL (5.00-40.00)
== END | disposition home or self-care (01) ==
LOC: LABWHC1 07:21
PROVIDERS: ATTEND Nurse Practitioner Acute Care
DX: E78.2 Mixed hyperlipidemia (principal); I48.0 Paroxysmal atrial fibrillation
CPT/HCPCS: 36415; 80048; 80061; 84439; 84443; 84450; 84460

== ENCOUNTER → 2023-03-27 | Day surgery (SDC) | payer MEDICARE, OTHER ==
[2023-03-22 15:01] VITALS: BMI 25.1
[~2023-03-27] MED LIST changes: +BALANCED SALT IRRIG SOLN COMB2 15 ML IRRIG.SOLN IRRIGATION ONE; +CYCLOPENTOLATE 1% OPHTH SOLN 2 ML BTL OP ONE; +DUOVISC KIT (GREEN BOX) INTRAOCULA ONE; +EPINEPHrine (PF) 0.3 ML in BALANCED SALT IRRIG SOLN COMB2 500 ML IRRIGATION ONE; +LACTATED RINGERS 1,000 ML IV SCH; +LIDOCAINE 1% (10MG/ML) FOR IV START INTRADERMA PRN; +LIDOCAINE 1% (PF) 10MG/ML VIAL MISCELLANE ONE; +MIDAZOLAM 2 MG/2 ML VIAL ONE; +MOXIFLOXACIN HCL 0.5% DROPS 3 ML BTL OP PRN; +ONDANSETRON 4 MG/2 ML VIAL IVP PRN; -SODIUM CHLORIDE 0.9% 1,000 ML IV SCH; +TETRACAINE 0.5% OPHTH (PF) DROPS 4 ML BTL OP PRN; +TIMOLOL 0.5% OPHTH DROPS 5 ML BTL OP PRN; +fentaNYL (PF) 50 MCG/ML 2 ML AMP IV PRN; +fentaNYL (PF) 50 MCG/ML 2 ML AMP ONE
[2023-03-27] MEDS: CYCLOPENTOLATE 1% OPHTH SOLN 2 ML BTL OP PRN ×2 (06:50→06:56)
[2023-03-27] MEDS: PHENYLEPHRINE 2.5% OPHTH DRP 2ML OP PRN ×3 (06:53→07:08)
[2023-03-27 07:09] LABS: Glucose,Whole Blood 141 mg/dL (70-110)
--- NOTE | 2023-03-27 08:03 | P.OP ---
Date of Procedure: 03/27/23 Preoperative Diagnosis: NS & CS Postoperative Diagnosis: same Procedure(s) Performed: PIOL, OD Implants: [id number] 19.00 Anesthesia: MAC Surgeon: Mark Gomez Pathology: none sent Condition: stable Disposition: same day Indications for Procedure: blurry vision Operative Findings: no complications
[2023-03-27 08:56] VITALS: RESP 16; TEMP 98
[2023-03-27 09:03] VITALS: BP 131/72; PULSE 63
--- NOTE | 2023-03-27 19:33 | OP ---
OPERATIVE REPORT DATE OF SERVICE : 03/27/2023 PREOPERATIVE DIAGNOSES: 1. Nuclear sclerosis. 2. Cortical sclerosis. 3. Exposure to Flomax. POSTOPERATIVE DIAGNOSES: 1. Nuclear sclerosis. 2. Cortical sclerosis. 3. Exposure to Flomax. 4. Floppy iris syndrome. OPERATION: Phacoemulsification of cataract and interocular lens implant, right eye. ESTIMATED BLOOD LOSS: Zero. SPECIMEN TAKEN: None. NARRATIVE: After obtaining the appropriate consent, the patient was brought to the operating room where the patient was placed under cardiac monitoring and prepped and draped in the usual sterile manner. At the 11 o'clock position, a 15-degree super sharp blade was used to create a paracentesis followed by instillation of 1% Xylocaine MPF 50:50 mix with BSS into the anterior chamber. This was followed by DuoVisc viscoelastic to stabilize the anterior chamber. At the 9 o'clock position a self-sealing corneal flap incision was created using 2.5 mm keratome. A 7 mm Malyugin ring was inserted on the pupillary sphincter to holf the pupil open due to the appearance of both poor dilation and excessive iris movement. A cystotome was used to initiate a continuous tear capsulorrhexis which was completed with the Utrata forceps. A Binkhorst cannula was used to hydrodissect the lens nucleus followed by hydrodelineation. Phacoemulsification of the lens was performed utilizing phaco chop in 24.37 seconds at 12% power. The remaining cortical material was removed using the irrigation aspiration mode followed by additional 1% Xylocaine MPF into the anterior chamber followed by viscoelastic to stabilize the capsular bag. A [employer]ch [employer] Lomb MX60E 19.0 diopters posterior chamber lens was placed into the capsular bag without difficulty. The remaining viscoelastic material was removed from the anterior chamber with the irrigation/aspiration. Balanced salt solution was used to normalize the intraocular pressure. The incision was checked for watertight integrity. The patient then received 2 drops of 0.5% timolol followed by 2 drops Vigamox, was lightly patched and shielded in the usual manner. There were no complications from the procedure. The patient tolerated the procedure well and was returned to recovery in good condition. MMODL / IJN: [id number] / MTDD
== END | disposition home or self-care (01) ==
LOC: OR 06:02
PROVIDERS: ATTEND Ophthalmology
DX: H25.11 Age-related nuclear cataract, right eye (principal); H25.011 Cortical age-related cataract, right eye; H21.81 Floppy iris syndrome; I25.10 Atherosclerotic heart disease of native coronary artery without angina pectoris; I48.91 Unspecified atrial fibrillation; E11.36 Type 2 diabetes mellitus with diabetic cataract; I10 Essential (primary) hypertension; E78.5 Hyperlipidemia, unspecified; F17.210 Nicotine dependence, cigarettes, uncomplicated; N40.0 Benign prostatic hyperplasia without lower urinary tract symptoms; Z79.01 Long term (current) use of anticoagulants; Z79.84 Long term (current) use of oral hypoglycemic drugs; Z79.899 Other long term (current) drug therapy; Z88.5 Allergy status to narcotic agent; Z88.8 Allergy status to other drugs, medicaments and biological substances
CPT/HCPCS: 66982; C1780; J2250; J0171; J3010; J2001

== ENCOUNTER 2023-04-10 07:23 | Day surgery (SDC) | payer MEDICARE, OTHER ==
[~2023-04-10 07:23] MED LIST changes: -BALANCED SALT IRRIG SOLN COMB2 15 ML IRRIG.SOLN IRRIGATION ONE; -CYCLOPENTOLATE 1% OPHTH SOLN 2 ML BTL OP ONE; -DUOVISC KIT (GREEN BOX) INTRAOCULA ONE; -EPINEPHrine (PF) 0.3 ML in BALANCED SALT IRRIG SOLN COMB2 500 ML IRRIGATION ONE; -LACTATED RINGERS 1,000 ML IV SCH; -LIDOCAINE 1% (10MG/ML) FOR IV START INTRADERMA PRN; -LIDOCAINE 1% (PF) 10MG/ML VIAL MISCELLANE ONE; -MIDAZOLAM 2 MG/2 ML VIAL ONE; -MOXIFLOXACIN HCL 0.5% DROPS 3 ML BTL OP PRN; -ONDANSETRON 4 MG/2 ML VIAL IVP PRN; -TIMOLOL 0.5% OPHTH DROPS 5 ML BTL OP PRN; -fentaNYL (PF) 50 MCG/ML 2 ML AMP IV PRN; -fentaNYL (PF) 50 MCG/ML 2 ML AMP ONE
[2023-04-10] MEDS ORDERED: LACTATED RINGERS 1,000 ML IV SCH (07:36)
[2023-04-10] MEDS: CYCLOPENTOLATE 1% OPHTH SOLN 2 ML BTL OP PRN ×3 (07:51→08:03)
[2023-04-10] MEDS: PHENYLEPHRINE 2.5% OPHTH DRP 2ML OP PRN ×3 (07:54→08:06)
[2023-04-10 08:06] VITALS: RESP 16; TEMP 96.7
[2023-04-10 08:21] LABS: Glucose,Whole Blood 142 mg/dL (70-110)
[2023-04-10] MEDS ORDERED: fentaNYL (PF) 50 MCG/ML 2 ML AMP ONE (09:10)
[2023-04-10] MEDS ORDERED: MIDAZOLAM 2 MG/2 ML VIAL ONE (09:10)
[2023-04-10] MEDS ORDERED: LIDOCAINE 1% (PF) 10MG/ML VIAL MISCELLANE ONE (09:21)
[2023-04-10] MEDS ORDERED: HYALURONATE SODIUM INTRAOCULAR 1 EACH SYRINGE (12MG/ML) INTRAOCULA ONE (09:21)
[2023-04-10] MEDS ORDERED: BALANCED SALT IRRIG SOLN COMB2 15 ML IRRIG.SOLN INTRAOCULA ONE (09:21)
[2023-04-10] MEDS ORDERED: EPINEPHrine (PF) 1 MG/ML AMP MISCELLANE ONE (09:21)
[2023-04-10] MEDS: TIMOLOL 0.5% OPHTH DROPS 5 ML BTL OP PRN ×2 (09:33→09:37)
[2023-04-10] MEDS: MOXIFLOXACIN HCL 0.5% DROPS 3 ML BTL OP PRN ×2 (09:33→09:37)
--- NOTE | 2023-04-10 09:39 | P.OP ---
Date of Procedure: 04/10/23 Preoperative Diagnosis: NS & CS Postoperative Diagnosis: same Procedure(s) Performed: PIOL, OS Implants: MX60E 19.00 Anesthesia: MAC Surgeon: Mark Gomez Pathology: none sent Condition: stable Disposition: same day Indications for Procedure: blurry vision Operative Findings: no complications
[2023-04-10 10:02] VITALS: BP 111/77; PULSE 54
--- NOTE | 2023-04-10 18:23 | OP ---
OPERATIVE REPORT DATE OF SERVICE : 04/10/2023 PROCEDURE PERFORMED: Phacoemulsification of cataract and intraocular lens implant of the left eye. PREOPERATIVE DIAGNOSES: 1. Nuclear sclerosis. 2. Cortical sclerosis. 3. Exposure to Flomax. POSTOPERATIVE DIAGNOSES: 1. Nuclear sclerosis. 2. Cortical sclerosis. 3. Exposure to Flomax. 4. Floppy iris syndrome. ANESTHESIA: Topical. ESTIMATED BLOOD LOSS: None. SPECIMEN TAKEN: None. NARRATIVE: After obtaining the appropriate consent, the patient was brought to the operating room. There, he was placed under cardiac monitoring and prepped and draped in the usual sterile manner. He was approached from his left temporal side, and at the 5 o'clock position, a paracentesis port was created. Through this opening, 1% Xylocaine MPF with 1% epinephrine MPF and balanced salt solution in a ratio of 1:2:1 was injected into the anterior chamber. This was followed by stabilization of the anterior chamber with Viscoat. At the 3 o'clock position, a 2.5 mm keratome was used to create a self- sealing corneal flap incision. It was apparent at this stage of the procedure that the iris was not cooperating and would likely be damaged with surgery. Therefore, a 7 mm Malyugin ring was placed on the pupillary sphincter. A cystotome was then introduced to begin a continuous tear capsulorrhexis, which was completed using the Utrata forceps. Hydrodissection and hydrodelineation of the lens were accomplished with balanced salt solution. Phacoemulsification of the lens utilizing phaco chop was accomplished in 13.33 seconds at 11% power. Additional med mix was instilled into the anterior chamber. This was followed by removal of the remaining cortical material from the intraocular lens bag as well as the posterior capsule with capsule vacuum mode. A Bausch and Lomb MX60E 19.0-diopter posterior chamber intraocular lens was inserted into the capsular bag after Provisc was used to stabilize the chamber and the capsular bag itself. Once the lens was placed, the Malyugin ring was withdrawn, and the viscoelastic was removed from the lens as well as the anterior chamber. The eye was brought to normal intraocular pressure through the paracentesis port, and he received 2 drops of 0.5% timolol followed by 2 drops of moxifloxacin. He was then lightly patched and shielded in the usual manner. There were no complications from the procedure. He tolerated the procedure well and was returned to outpatient recovery in good condition. MMTOMAL / IJN: [id number] /
== END 2023-04-10 10:30 | disposition home or self-care (01) ==
LOC: OR 07:23
PROVIDERS: ATTEND Ophthalmology
DX: H25.12 Age-related nuclear cataract, left eye (principal); H25.012 Cortical age-related cataract, left eye; H21.81 Floppy iris syndrome; E11.36 Type 2 diabetes mellitus with diabetic cataract; I10 Essential (primary) hypertension; E78.5 Hyperlipidemia, unspecified; I25.10 Atherosclerotic heart disease of native coronary artery without angina pectoris; I48.91 Unspecified atrial fibrillation; F17.210 Nicotine dependence, cigarettes, uncomplicated; Z96.1 Presence of intraocular lens; Z90.89 Acquired absence of other organs; Z79.899 Other long term (current) drug therapy; Z95.5 Presence of coronary angioplasty implant and graft; Z98.890 Other specified postprocedural states
CPT/HCPCS: 66984; C1780; J2250; J0171; J3010; J2001

== ENCOUNTER → 2024-03-11 | Outpatient (CLI) | payer MEDICARE, OTHER ==
[2024-03-11 16:28] LABS: ALT 12 U/L (10-49); AST 13 U/L (14-35); Chol/HDL Ratio 3.62 Ratio; LDL Cholesterol,Calculated 51.3 mg/dL (0.0-131.0)
== END | disposition home or self-care (01) ==
LOC: LABWHC1 10:19
PROVIDERS: ATTEND Internal Medicine
DX: E78.2 Mixed hyperlipidemia (principal)
CPT/HCPCS: 36415; 80061; 84450; 84460

== ENCOUNTER → 2025-05-17 | Outpatient (CLI) | payer MEDICARE, OTHER ==
--- NOTE | 2025-05-17 11:20 | XR ---
EXAMINATION TYPE: XR chest 2V DATE OF EXAM: 05/17/2025 10:48 AM COMPARISON: Chest radiographs from 08/25/2021 CLINICAL INDICATION: Male, 79 years old with history of J44.9 COPD; [facility] TECHNIQUE: XR chest 2V Frontal and lateral views of the chest. FINDINGS: Lungs/Pleura: Low lung volumes are present. There is no evidence of pleural effusion, focal consolida tion, or pneumothorax. Pulmonary vascularity: Unremarkable. Heart/mediastinum: Cardiomediastinal silhouette is unremarkable. Musculoskeletal: No acute osseous pathology. IMPRESSION: Low lung volumes with a generalized hazy appearance which could represent atelectasis versus pulmonar y edema correlate with serum BNP. [facility], , 05/17/2025 11:18 AM
== END | disposition home or self-care (01) ==
LOC: RADXRMAIN 10:39
PROVIDERS: ATTEND Family Medicine
DX: J44.9 Chronic obstructive pulmonary disease, unspecified (principal)
CPT/HCPCS: 71046

== ENCOUNTER 2025-05-30 01:18 | Inpatient (IN) | payer MEDICARE, OTHER ==
[2025-05-30] MEDS: SODIUM CHLORIDE 0.9% 1,000 ML IV STA (01:40)
[2025-05-30] MEDS: ACETAMINOPHEN TAB 500 MG TAB PO STA (01:46)
--- NOTE | 2025-05-30 01:53 | CT ---
EXAM: CT Head Without Intravenous Contrast CLINICAL HISTORY: ITS.REASON CT Reason: trauma TECHNIQUE: Axial computed tomography images of the head/brain without intravenous contrast. CTDI is 45.3 mGy and DLP is 1101 mGy-cm. This CT exam was performed using one or more of the following dose reduction techniques: automated exposure control, adjustment of the mA and/or kV according to patient size, and/or use of iterative reconstruction technique. COMPARISON: No relevant prior studies available. FINDINGS: Brain: Moderate ischemic microangiopathy age-appropriate cerebral volume loss. No hemorrhage. Ventricles: Unremarkable. No ventriculomegaly. Bones/joints: Unremarkable. No acute fracture. Soft tissues: Unremarkable. Sinuses: Unremarkable as visualized. No acute sinusitis. Mastoid air cells: Unremarkable as visualized. No mastoid effusion. IMPRESSION: No acute findings in the head/brain. EXAM: CT Cervical Spine Without Intravenous Contrast CLINICAL HISTORY: ITS.REASON CT Reason: trauma TECHNIQUE: Axial computed tomography images of the cervical spine without intravenous contrast. CTDI is 12.5 mGy and DLP is 321.3 mGy-cm. This CT exam was performed using one or more of the following dose reduction techniques: automated exposure control, adjustment of the mA and/or kV according to patient size, and/or use of iterative reconstruction technique. COMPARISON: No relevant prior studies available. FINDINGS: Vertebrae: Unremarkable. No acute fracture. Discs/spinal canal/neural foramina: No acute findings. No spinal canal stenosis. Soft tissues: Unremarkable. IMPRESSION: Normal cervical spine CT.
--- NOTE | 2025-05-30 01:54 | XR ---
EXAM: XR Chest, 1 View CLINICAL HISTORY: ITS.REASON XR Reason: trauma TECHNIQUE: Frontal view of the chest. COMPARISON: 05/17/2025 FINDINGS: Lungs: Unremarkable. No consolidation. Pleural space: Unremarkable. No pneumothorax. Heart: Unremarkable. No cardiomegaly. Mediastinum: Unremarkable. Normal mediastinal contour. Bones/joints: Unremarkable. No acute fracture. IMPRESSION: Normal chest x-ray.
[2025-05-30 01:58] LABS: Glucose,Whole Blood 169 mg/dL (70-110)
--- NOTE | 2025-05-30 01:58 | XR ---
EXAM: XR Pelvis, 1 or 2 Views CLINICAL HISTORY: ITS.REASON XR Reason: Trauma TECHNIQUE: Frontal view of the pelvis. COMPARISON: No relevant prior studies available. FINDINGS: Bones/joints: Unremarkable. No acute fracture. No dislocation. Soft tissues: Unremarkable. IMPRESSION: Normal pelvis x-ray.
[2025-05-30 02:01] LABS: Bilirubin,Urine 1+ (Negative); Blood,Urine Negative (Negative); Color,Urine Yellow; Glucose,Urine (UA) Negative (Negative); Ketones,Urine Negative (Negative); Leukocyte Esterase,Urine Negative (Negative); Nitrite,Urine Negative (Negative); PH, Urine 7.0 (5.0-8.0); Protein,Urine Trace (Negative); Specific Gravity,Urine 1.021 (1.001-1.035); Urobilinogen,Urine 3.0 mg/dL (<2.0)
[2025-05-30 02:02] LABS: AST 206 U/L (17-59); African American GFR (CKD) >90 (>60 ml/min/1.73 sqM); Albumin 3.4 g/dL (3.5-5.0); Alkaline Phosphatase 201 U/L (38-126); Anion Gap 16 mmol/L; Blood Urea Nitrogen 16 mg/dL (9-20); Calcium 9.2 mg/dL (8.4-10.2); Carbon Dioxide 19 mmol/L (22-30); Chloride 102 mmol/L (98-107); Glucose 148 mg/dL (74-99); Non-African American GFR(CKD) 80 (>60 ml/min/1.73 sqM); Potassium 3.7 mmol/L (3.5-5.1); Sodium 137 mmol/L (137-145); Total Protein 5.6 g/dL (6.3-8.2)
[2025-05-30 02:19] LABS: ALT 142 U/L (4-49)
[2025-05-30] MEDS ORDERED: VANCOMYCIN IV PER PHARMACY 1 EACH MISC MISCELLANE PRN (02:27)
[2025-05-30 02:32] LABS: Basophils # (A) 0.03 10*3/uL (0.00-0.10); Basophils % (A) 0.4 %; Eosinophils # (A) 0.00 10*3/uL (0.04-0.35); Eosinophils % (A) 0.0 %; HCT 39.5 % (39.6-50.0); HGB 13.0 g/dL (13.0-17.0); Immature Platelet Fraction 5.0 % (1.1-6.1); Lymphocytes # (A) 0.20 10*3/uL (0.90-5.00); Lymphocytes % (A) 2.6 %; MCH 30.9 pg (27.0-32.0); MCHC 32.9 g/dL (32.0-37.0); MCV 93.8 fL (80.0-97.0); Monocytes # (A) 0.25 10*3/uL (0.20-1.00); Monocytes % (A) 3.2 %; Neutrophils # (A) 7.27 10*3/uL (1.80-7.70); Neutrophils % (A) 93.2 %; Platelet Count 106 10*3/uL (140-440); RBC 4.21 10*6/uL (4.40-5.60); RDW 14.2 % (11.5-14.5); WBC 7.80 10*3/uL (4.50-10.00)
[2025-05-30 02:40] LABS: Barbiturate Screen,Urine Not Detected (NotDetected); Benzodiazepines Screen,Urine Detected (NotDetected); Opiate Screen,Urine Not Detected (NotDetected); Oxycodone Screen, Urine Not Detected (NotDetected); Phencyclidine Screen,Urine Not Detected (NotDetected); Tricyclic Antidepressant,Urine Not Detected (NotDetected); Urn Cannabinoid Scrn Not Detected (NotDetected)
[2025-05-30 02:49] LABS: INR 1.2 (<1.2); Partial Thromboplastin Time 22.3 sec (22.0-30.0); Prothrombin Time 13.3 sec (10.0-12.5)
[2025-05-30] MEDS: ONDANSETRON 4 MG/2 ML VIAL IVP STA (03:10)
[2025-05-30] MEDS: LACTATED RINGERS 1,000 ML IV ONE ×2 (03:12→11:07)
[2025-05-30] MEDS: ACETAMINOPHEN IV (For NPO) 1,000 MG in EMPTY BAG 1 BAG IVPB STA (03:28)
[2025-05-30] MEDS: PIPERACILLIN-TAZOBACTAM 3.375 GM in SODIUM CHLORIDE 0.9% 100 ML IVPB SCH (03:28)
[2025-05-30] MEDS: PANTOPRAZOLE 40 MG/10 ML VIAL IVP ONE (03:34)
[2025-05-30 03:37] LABS: RSV Not Detected (Not Detectd)
[2025-05-30] MEDS: LACTATED RINGERS 1,000 ML IV SCH ×2 (03:53→20:10)
[2025-05-30] MEDS: VANCOMYCIN 1,500 MG in SODIUM CHLORIDE 0.9% 500 ML 500 ML IVPB ONE (03:53)
[2025-05-30 04:12] LABS: Creatine Kinase 45 U/L (55-170); Lipase 36 U/L (23-300)
--- NOTE | 2025-05-30 04:15 | CT ---
EXAM: CT Abdomen and Pelvis With Intravenous Contrast CLINICAL HISTORY: ITS.REASON CT Reason: evaluate for hepatobiliary pathology TECHNIQUE: Axial computed tomography images of the abdomen and pelvis with intravenous contrast. CTDI is 25.9 mGy and DLP is 1283.4 mGy-cm. This CT exam was performed using one or more of the following dose reduction techniques: automated exposure control, adjustment of the mA and/or kV according to patient size, and/or use of iterative reconstruction technique. COMPARISON: 08/19/2018 FINDINGS: Lung bases: Unremarkable. No mass. No consolidation. ABDOMEN: Liver: Unremarkable. No mass. Gallbladder and bile ducts: Postop changes prior cholecystectomy mild pneumobilia likely secondary to prior sphincterotomy. Common bile duct is appropriately distended given patient's postoperative state. Pancreas: Unremarkable. No mass. No ductal dilation. Spleen: Unremarkable. No splenomegaly. Adrenals: Unremarkable. No mass. Kidneys and ureters: Uncomplicated left renal cysts measuring 1.6 cm. Complicated left renal cysts measuring 2.2 x 2.1 cm. No hydronephrosis. Stomach and bowel: Diverticulosis without evidence of diverticulitis. . No obstruction. PELVIS: Appendix: No findings to suggest acute appendicitis. Bladder: Unremarkable. No mass. Reproductive: Unremarkable as visualized. ABDOMEN and PELVIS: Intraperitoneal space: Unremarkable. No free air. No significant fluid collection. Bones/joints: No acute fracture. No dislocation. Soft tissues: Unremarkable. Vasculature: Unremarkable. No abdominal aortic aneurysm. Lymph nodes: Unremarkable. No enlarged lymph nodes. IMPRESSION: 1. Uncomplicated left renal cyst 2. Complex right renal cyst measuring 2.2 cm. 3. Other minor chronic findings as described above.
[2025-05-30] MEDS ORDERED: ONDANSETRON 4 MG/2 ML VIAL IVP PRN (05:46)
[2025-05-30] MEDS ORDERED: NALOXONE 0.4 MG/ML 1 ML VIAL IV PRN (05:46)
--- NOTE | 2025-05-30 05:50 | ED ---
General Adult HPI - General Chief complaint: Altered Mental Status Stated complaint: altered mental status Time Seen by Provider: 05/30/25 01:20 Source: patient, family, EMS, RN notes reviewed, old records reviewed Mode of arrival: EMS Limitations: altered mental status - History of Present Illness Initial comments: 79-year-old male who presents emergency department for altered mental status as well as a fall. Unknown medications at home but upon chart review here found to have a history of atrial fibrillation on Eliquis. Had numerous falls at home today. Presents febrile in a cervical collar. Apparently has had decreased oral intake at home as well. Has no acute complaints currently. He is mildly confused and is ANO x 1-2. He is a poor historian overall other than that he fell. He denies any pain. Apparently he ambulates with a walker at home at baseline. EMS is concerned because the left pupil is slightly larger than the right pupil although both are equally responsive. Presents for further evaluation. Made a level 2 trauma upon arrival. - Related Data Home Medications Medication Instructions Recorded Confirmed Finasteride [Proscar] 5 mg PO HS 02/15/15 04/08/23 Apixaban [Eliquis] 5 mg PO BID 04/15/18 04/08/23 Montelukast [Singulair] 10 mg PO HS 04/15/18 04/08/23 lisinopriL [Zestril] 2.5 mg PO HS 07/07/20 04/08/23 metFORMIN HCL [Glucophage] 1,000 mg PO BID 07/07/20 04/08/23 Pantoprazole [Protonix] 40 mg PO DAILY 03/21/21 04/08/23 Cholecalciferol [Vitamin D3 (25 50 mcg PO DAILY 08/25/21 04/08/23 Mcg = 1000 Iu)] Metoprolol Tartrate [Lopressor] 50 mg PO BID 01/03/22 04/08/23 Previous Rx's Medication Instructions Recorded Atorvastatin [Lipitor] 40 mg PO HS #30 tab 07/19/16 Tamsulosin [Flomax] 0.4 mg PO HS #1 cap 08/26/21 Amiodarone [Cordarone] 100 mg PO DAILY #90 tablet 06/01/22 Allergies Allergy/AdvReac Type Severity Reaction Status Date / Time lorazepam [From Ativan] AdvReac BECOMES Verified 04/10/23 07:49 DISORIENTED morphine AdvReac AGITATION Verified 04/10/23 07:49 Review of Systems ROS Statement: Those systems with pertinent positive or pertinent negative responses have been documented in the HPI. Review of Systems: CONST: Denies fever EYES: Denies blurry vision ENT: Denies nasal congestion C/V: Denies Chest pain RESP: Denies shortness of breath GI: Denies abdominal pain : Denies dysuria SKIN: Denies rash. MSK: Denies joint pain. NEURO: Denies headache ROS Other: All systems not noted in ROS Statement are negative. Past Medical History Past Medical History: Atrial Fibrillation, Coronary Artery Disease (CAD), Chest Pain / Angina, Diabetes Mellitus, Eye Disorder, Hyperlipidemia, Hypertension, Myocardial Infarction (TX), Prostate Disorder Additional Past Medical History / Comment(s): NIDDM type II, back pain-bulging discs, diverticular dx, BPH, BILAT CATARACTS Last Myocardial Infarction Date:: 1999 History of Any Multi-Drug Resistant Organisms: None Reported Past Surgical History: Cardiac Ablation, Cholecystectomy, EPS, Heart Catheterization With Stent, Orthopedic Surgery, Tonsillectomy Additional Past Surgical History / Comment(s): 1999 cardiac stents, bilateral open shoulder surgeries for rotator cuff, colonoscopy, vasectomy, circumcism. Past Anesthesia/Blood Transfusion Reactions: No Reported Reaction Date of Last Stent Placement:: 1999 Past Psychological History: No Psychological Hx Reported Smoking Status: Current every day smoker - Past Family History Brother(s) Family Medical History: Dialysis Mother Family Medical History: Vascular Disorder Additional Family Medical History / Comment(s): Mother of a brain aneurysm. General Exam - General Exam Comments Initial Comments: General: Appears in no acute distress. Febrile. HEAD: Normal with no signs of head trauma. Negative Leach sign. Negative raccoon eyes. EYES: PERRLA, EOMI, conjunctiva normal, no discharge. Right pupil is 2 mm and left pupil is 2-1/2 mm. Unknown acuity regarding this. ENT: Hearing grossly intact, normal oropharynx. Dry mucous membranes. RESPIRATORY: Clear breath sounds bilaterally. No wheezes, rales, or rhonchi. C/V: Tachycardic. S1 and S2 auscultated, no edema, peripheral pulses 2+ and intact throughout ABD: Abd is soft, nontender, nondistended EXT: Normal range of motion, no obvious deformity pelvis is stable. No back pain. SKIN: No rashes or lesions observed on exposed skin. NEURO: Alert oriented x 1-2. No obvious focal deficits. General weakness present.GCS of 15. Limitations: altered mental status Course Vital Signs 05/30/25 05/30/25 05/30/25 01:19 06:04 07:26 Temperature 100.9 F H 98.9 F 98.9 F Pulse Rate 110 H 101 H 95 Respiratory 16 18 18 Rate Blood Pressure 151/78 99/60 86/49 O2 Sat by Pulse 94 L 96 94 L Oximetry Medical Decision Making - Medical Decision Making Was pt. sent in by a medical professional or institution (, PA, COLLEGE FOOTBALL COACH, urgent care, hospital, or [facility]...) When possible be specific @ -No Did you speak to anyone other than the patient for history (EMS, parent, family, police, friend...)? What history was obtained from this source @ -Spoke with EMS who informed us of the multiple falls at home as well as the fever. Spoke with family who informed us that he is on blood thinners and he has normal baseline mental status. Did you review nursing and triage notes (agree or disagree)? Why? @ -I reviewed and agree with nursing and triage notes Were old charts reviewed (outside hosp., previous admission, EMS record, old EKG, old radiological studies, urgent care reports/EKG's, [facility] records)? Report findings @ -No old charts were reviewed Differential Diagnosis (chest pain, altered mental status, abdominal pain women, abdominal pain men, vaginal bleeding, weakness, fever, dyspnea, syncope, headache, dizziness, GI bleed, back pain, seizure, CVA, palpatations, mental health, musculoskeletal)? @ -Differential Altered Mental Status: Hypoglycemia, DKA, hypercapnia, ETOH, overdose, CO poisoning, trauma, myxedema coma, HTN encephalopathy, infection, encephalitis, psychosis, intercranial hemorrhage, hepatic encephalopathy, meningitis, CVA, this is not meant to be an all-inclusive list EKG interpreted by me (3pts min.). @ -As above X-rays interpreted by me (1pt min.). @ -Chest x-ray reveals no obvious acute cardiopulmonary process. Pelvis x-ray reveals no obvious acute traumatic injury. CT interpreted by me (1pt min.). @ -CT brain and C-spine negative for any obvious acute traumatic injury or process. CT abdomen pelvis shows a cholecystectomy. No obvious acute intra- abdominal process to explain the patient's symptoms. Patient does have bilateral renal cyst. U/S interpreted by me (1pt. min.). @ -None done What testing was considered but not performed or refused? (CT, X-rays, U/S, labs)? Why? @ -None What meds were considered but not given or refused? Why? @ -None Did you discuss the management of the patient with other professionals (professionals i.e. DrShweta, PA, COLLEGE FOOTBALL COACH, lab, RT, psych nurse, social insurance analyst, blockers skiver, teacher, guest relation officer, case liner)? Give summary @ -Spoke with on-call trauma physician, Dr. Benitez who was in agreement this plan. She will be notified of any pertinent updates Discussed with Dr. Concepcion who accepted the admission. Was smoking cessation discussed for >3mins.? @ -No Was critical care preformed (if so, how long)? @ -Yes, 36 minutes Were there social determinants of health that impacted care today? How? (Homelessness, low income, unemployed, alcoholism, drug addiction, t ransportation, low edu. Level, literacy, decrease access to med. care, long-term, rehab)? @ -No Was there de-escalation of care discussed even if they declined (Discuss DNR or withdrawal of care, Hospice)? DNR status @ -No What co-morbidities impacted this encounter? (DM, HTN, Smoking, COPD, CAD, Cance r, CVA, ARF, Chemo, Hep., AIDS, mental health diagnosis, sleep apnea, morbid obesity)? @ -None Was patient admitted / discharged? Hospital course, mention meds given and route, prescriptions, significant lab abnormalities, going to OR and other pertinent info. @ -Presents as a fall on blood thinners with altered mentation. Made a level 2 trauma activation. Patient found to be febrile as well as tachycardic. We will work the patient up as a trauma. Spoke with on-call trauma physician, Dr. James Ayala who was in agreement this plan. She will be notified of any pertinent updates. Patient will be given IV fluids, Tylenol for his fever, and taken to CT. ATLS protocol followed. Patient was in agreement this plan. Imaging returned negative for any obvious acute injury. Cervical collar was successfully cleared at this time. Patient's labs remarkable for lactic acidosis of 8.6, absence of leukocytosis, as well as some nonspecific elevations in the LFTs as well as mild elevation in bilirubin. Patient uncertain if he has a history of a cholecystectomy. Patient did meet sepsis criteria at 0220. Patient received 1 L fluid bolus and will receive additional 1 L fluid bolus in addition to maintenance fluids and broad-spectrum antibiotics. Blood cultures obtained and sent. Patient was in agreement this plan. CT and pelvis obtained due to the elevation in LFTs which shows the ch olecystectomy as well as no other obvious acute intra-abdominal process to explain current symptoms. On reevaluation, mentation is improved for the patient. Fevers improved. Tachycardia is improved. Remains hemodynamically stable. He will be admitted to the hospital at this time. Patient in agreement this plan. I spoke with the admitting team, Dr. Concepcion who accepted the admission. Consult placed to infectious disease, Dr. Pierre. Patient did have 1 episode of emesis here in the department that was blueberry colored. He did have blueberries with his breakfast. There was an occult sent of the gastric fluid which was positive however no gross blood was seen. No coffee ground emesis. Hemoglobin is within normal limits. I question the accuracy. Will continue to monitor. Undiagnosed new problem with uncertain prognosis? @ -No Drug Therapy requiring intensive monitoring for toxicity (Heparin, Nitro, Insulin, Cardizem)? @ -No Were any procedures done? @ -No Diagnosis/symptom? @ -Sepsis with unknown source, Dehydration, fall, altered mental status Acute, or Chronic, or Acute on Chronic? @ -Acute Uncomplicated (without systemic symptoms) or Complicated (systemic symptoms)? @ -Complicated Side effects of treatment? @ -No Exacerbation, Progression, or Severe Exacerbation? @ -No Poses a threat to life or bodily function? How? (Chest pain, [place], [place], pneumonia, PE, COPD, DKA, ARF, appy, cholecystitis, CVA, Diverticulitis, Homicidal, Suicidal, threat to staff... and all critical care pts) @ -Yes - Lab Data Result diagrams: 05/30/25 01:40 05/30/25 01:40 Lab Results 05/30/25 05/30/25 05/30/25 Range/Units 01:35 01:40 01:40 WBC 7.80 (4.50-10.00) 10*3/uL RBC 4.21 L (4.40-5.60) 10*6/uL Hgb 13.0 (13.0-17.0) g/dL Hct 39.5 L (39.6-50.0) % MCV 93.8 (80.0-97.0) fL MCH 30.9 (27.0-32.0) pg MCHC 32.9 (32.0-37.0) g/dL Plt Count 106 L (140-440) 10*3/uL MPV 10.9 (9.5-12.2) fL Immature Gran % (Auto) 0.6 % Neutrophils % 93.2 % Lymphocytes % 2.6 % Monocytes % 3.2 % Eosinophils % 0.0 % Basophils % 0.4 % Immature Gran # 0.05 H (0.00-0.04) 10*3/uL Neutrophils # 7.27 (1.80-7.70) 10*3/uL Lymphocytes # 0.20 L (0.90-5.00) 10*3/uL Monocytes # 0.25 (0.20-1.00) 10*3/uL Eosinophils # 0.00 L (0.04-0.35) 10*3/uL Basophils # 0.03 (0.00-0.10) 10*3/uL Immature Plt Fraction 5.0 (1.1-6.1) % PT 13.3 H (10.0-12.5) sec INR 1.2 H (<1.2) APTT 22.3 (22.0-30.0) sec Sodium (137-145) mmol/L Potassium (3.5-5.1) mmol/L Chloride (98-107) mmol/L Carbon Dioxide (22-30) mmol/L Anion Gap mmol/L BUN (9-20) mg/dL Creatinine (0.66-1.25) mg/dL Est GFR (CKD-EPI)AfAm (>60 ml/min/1.73 sqM) Est GFR (CKD-EPI)NonAf (>60 ml/min/1.73 sqM) Glucose (74-99) mg/dL POC Glucose (mg/dL) (70-110) mg/dL POC Glu Trust Administrator ID Lactic Ac Sepsis Rflx Plasma Lactic Acid Cory (0.7-2.0) mmol/L Calcium (8.4-10.2) mg/dL Total Bilirubin (0.2-1.3) mg/dL AST (17-59) U/L ALT (4-49) U/L Alkaline Phosphatase (38-126) U/L Creatine Kinase (55-170) U/L Total Protein (6.3-8.2) g/dL Albumin (3.5-5.0) g/dL Lipase (23-300) U/L Urine Color Urine Appearance (Clear) Urine pH (5.0-8.0) Ur Specific Isabella (1.001-1.035) Urine Protein (Negative) Urine Glucose (UA) (Negative) Urine Ketones (Negative) Urine Blood (Negative) Urine Nitrite (Negative) Urine Bilirubin (Negative) Urine Urobilinogen (<2.0) mg/dL Ur Leukocyte Esterase (Negative) Gastric Occult Blood (Negative) Urine Opiates Screen (NotDetected) Ur Oxycodone Screen (NotDetected) Urine Methadone Screen (NotDetected) Ur Barbiturates Screen (NotDetected) U Tricyclic Antidepress (NotDetected) Ur Phencyclidine Scrn (NotDetected) Ur Amphetamines Screen (NotDetected) U Methamphetamines Scrn (NotDetected) U Benzodiazepines Scrn (NotDetected) Urine Cocaine Screen (NotDetected) U Marijuana (THC) Screen (NotDetected) Serum Alcohol mg/dL Influenza Type A (PCR) (Not Detectd) Influenza Type B (PCR) (Not Detectd) RSV (PCR) (Not Detectd) SARS-CoV-2 (PCR) (Not Detectd) Blood Type Blood Type Confirm A Negative Blood Type Recheck Bld Type Recheck Status Antibody Screen Spec Expiration Date 05/30/25 05/30/25 05/30/25 Range/Units 01:40 01:40 01:40 WBC (4.50-10.00) 10*3/uL RBC (4.40-5.60) 10*6/uL Hgb (13.0-17.0) g/dL Hct (39.6-50.0) % MCV (80.0-97.0) fL MCH (27.0-32.0) pg MCHC (32.0-37.0) g/dL Plt Count (140-440) 10*3/uL MPV (9.5-12.2) fL Immature Gran % (Auto) % Neutrophils % % Lymphocytes % % Monocytes % % Eosinophils % % Basophils % % Immature Gran # (0.00-0.04) 10*3/uL Neutrophils # (1.80-7.70) 10*3/uL Lymphocytes # (0.90-5.00) 10*3/uL Monocytes # (0.20-1.00) 10*3/uL Eosinophils # (0.04-0.35) 10*3/uL Basophils # (0.00-0.10) 10*3/uL Immature Plt Fraction (1.1-6.1) % PT (10.0-12.5) sec INR (<1.2) APTT (22.0-30.0) sec Sodium 137 (137-145) mmol/L Potassium 3.7 (3.5-5.1) mmol/L Chloride 102 (98-107) mmol/L Carbon Dioxide 19 L (22-30) mmol/L Anion Gap 16 mmol/L BUN 16 (9-20) mg/dL Creatinine 0.92 (0.66-1.25) mg/dL Est GFR (CKD-EPI)AfAm >90 (>60 ml/min/1.73 sqM) Est GFR (CKD-EPI)NonAf 80 (>60 ml/min/1.73 sqM) Glucose 148 H (74-99) mg/dL POC Glucose (mg/dL) (70-110) mg/dL POC Glu Trust Administrator ID Lactic Ac Sepsis Rflx Plasma Lactic Acid Cory 8.6 H* (0.7-2.0) mmol/L Calcium 9.2 (8.4-10.2) mg/dL Total Bilirubin 4.2 H (0.2-1.3) mg/dL AST 206 H (17-59) U/L ALT 142 H (4-49) U/L Alkaline Phosphatase 201 H (38-126) U/L Creatine Kinase (55-170) U/L Total Protein 5.6 L (6.3-8.2) g/dL Albumin 3.4 L (3.5-5.0) g/dL Lipase (23-300) U/L Urine Color Yellow Urine Appearance Clear (Clear) Urine pH 7.0 (5.0-8.0) Ur Specific Isabella 1.021 (1.001-1.035) Urine Protein Trace H (Negative) Urine Glucose (UA) Negative (Negative) Urine Ketones Negative (Negative) Urine Blood Negative (Negative) Urine Nitrite Negative (Negative) Urine Bilirubin 1+ H (Negative) Urine Urobilinogen 3.0 (<2.0) mg/dL Ur Leukocyte Esterase Negative (Negative) Gastric Occult Blood (Negative) Urine Opiates Screen Not Detected (NotDetected) Ur Oxycodone Screen Not Detected (NotDetected) Urine Methadone Screen Not Detected (NotDetected) Ur Barbiturates Screen Not Detected (NotDetected) U Tricyclic Antidepress Not Detected (NotDetected) Ur Phencyclidine Scrn Not Detected (NotDetected) Ur Amphetamines Screen Not Detected (NotDetected) U Methamphetamines Scrn Not Detected (NotDetected) U Benzodiazepines Scrn Detected H (NotDetected) Urine Cocaine Screen Not Detected (NotDetected) U Marijuana (THC) Screen Not Detected (NotDetected) Serum Alcohol <10 mg/dL Influenza Type A (PCR) (Not Detectd) Influenza Type B (PCR) (Not Detectd) RSV (PCR) (Not Detectd) SARS-CoV-2 (PCR) (Not Detectd) Blood Type Blood Type Confirm Blood Type Recheck Bld Type Recheck Status Antibody Screen Spec Expiration Date 05/30/25 05/30/25 05/30/25 Range/Units 01:40 01:40 01:56 WBC (4.50-10.00) 10*3/uL RBC (4.40-5.60) 10*6/uL Hgb (13.0-17.0) g/dL Hct (39.6-50.0) % MCV (80.0-97.0) fL MCH (27.0-32.0) pg MCHC (32.0-37.0) g/dL Plt Count (140-440) 10*3/uL MPV (9.5-12.2) fL Immature Gran % (Auto) % Neutrophils % % Lymphocytes % % Monocytes % % Eosinophils % % Basophils % % Immature Gran # (0.00-0.04) 10*3/uL Neutrophils # (1.80-7.70) 10*3/uL Lymphocytes # (0.90-5.00) 10*3/uL Monocytes # (0.20-1.00) 10*3/uL Eosinophils # (0.04-0.35) 10*3/uL Basophils # (0.00-0.10) 10*3/uL Immature Plt Fraction (1.1-6.1) % PT (10.0-12.5) sec INR (<1.2) APTT (22.0-30.0) sec Sodium (137-145) mmol/L Potassium (3.5-5.1) mmol/L Chloride (98-107) mmol/L Carbon Dioxide (22-30) mmol/L Anion Gap mmol/L BUN (9-20) mg/dL Creatinine (0.66-1.25) mg/dL Est GFR (CKD-EPI)AfAm (>60 ml/min/1.73 sqM) Est GFR (CKD-EPI)NonAf (>60 ml/min/1.73 sqM) Glucose (74-99) mg/dL POC Glucose (mg/dL) 169 H (70-110) mg/dL POC Glu Trust Administrator ID Burgess Ma Lactic Ac Sepsis Rflx Plasma Lactic Acid Cory (0.7-2.0) mmol/L Calcium (8.4-10.2) mg/dL Total Bilirubin (0.2-1.3) mg/dL AST (17-59) U/L ALT (4-49) U/L Alkaline Phosphatase (38-126) U/L Creatine Kinase 45 L (55-170) U/L Total Protein (6.3-8.2) g/dL Albumin (3.5-5.0) g/dL Lipase 36 (23-300) U/L Urine Color Urine Appearance (Clear) Urine pH (5.0-8.0) Ur Specific Isabella (1.001-1.035) Urine Protein (Negative) Urine Glucose (UA) (Negative) Urine Ketones (Negative) Urine Blood (Negative) Urine Nitrite (Negative) Urine Bilirubin (Negative) Urine Urobilinogen (<2.0) mg/dL Ur Leukocyte Esterase (Negative) Gastric Occult Blood (Negative) Urine Opiates Screen (NotDetected) Ur Oxycodone Screen (NotDetected) Urine Methadone Screen (NotDetected) Ur Barbiturates Screen (NotDetected) U Tricyclic Antidepress (NotDetected) Ur Phencyclidine Scrn (NotDetected) Ur Amphetamines Screen (NotDetected) U Methamphetamines Scrn (NotDetected) U Benzodiazepines Scrn (NotDetected) Urine Cocaine Screen (NotDetected) U Marijuana (THC) Screen (NotDetected) Serum Alcohol mg/dL Influenza Type A (PCR) (Not Detectd) Influenza Type B (PCR) (Not Detectd) RSV (PCR) (Not Detectd) SARS-CoV-2 (PCR) (Not Detectd) Blood Type A Negative Blood Type Confirm Blood Type Recheck No Previous Record Bld Type Recheck Status CABO Indicated Antibody Screen NEGATIVE Spec Expiration Date 06/02/2025 - 233905/30/25 05/30/25 05/30/25 Range/Units 02:20 02:35 03:06 WBC (4.50-10.00) 10*3/uL RBC (4.40-5.60) 10*6/uL Hgb (13.0-17.0) g/dL Hct (39.6-50.0) % MCV (80.0-97.0) fL MCH (27.0-32.0) pg MCHC (32.0-37.0) g/dL Plt Count (140-440) 10*3/uL MPV (9.5-12.2) fL Immature Gran % (Auto) % Neutrophils % % Lymphocytes % % Monocytes % % Eosinophils % % Basophils % % Immature Gran # (0.00-0.04) 10*3/uL Neutrophils # (1.80-7.70) 10*3/uL Lymphocytes # (0.90-5.00) 10*3/uL Monocytes # (0.20-1.00) 10*3/uL Eosinophils # (0.04-0.35) 10*3/uL Basophils # (0.00-0.10) 10*3/uL Immature Plt Fraction (1.1-6.1) % PT (10.0-12.5) sec INR (<1.2) APTT (22.0-30.0) sec Sodium (137-145) mmol/L Potassium (3.5-5.1) mmol/L Chloride (98-107) mmol/L Carbon Dioxide (22-30) mmol/L Anion Gap mmol/L BUN (9-20) mg/dL Creatinine (0.66-1.25) mg/dL Est GFR (CKD-EPI)AfAm (>60 ml/min/1.73 sqM) Est GFR (CKD-EPI)NonAf (>60 ml/min/1.73 sqM) Glucose (74-99) mg/dL POC Glucose (mg/dL) (70-110) mg/dL POC Glu Trust Administrator ID Lactic Ac Sepsis Rflx Y Plasma Lactic Acid Cory (0.7-2.0) mmol/L Calcium (8.4-10.2) mg/dL Total Bilirubin (0.2-1.3) mg/dL AST (17-59) U/L ALT (4-49) U/L Alkaline Phosphatase (38-126) U/L Creatine Kinase (55-170) U/L Total Protein (6.3-8.2) g/dL Albumin (3.5-5.0) g/dL Lipase (23-300) U/L Urine Color Urine Appearance (Clear) Urine pH (5.0-8.0) Ur Specific Isabella (1.001-1.035) Urine Protein (Negative) Urine Glucose (UA) (Negative) Urine Ketones (Negative) Urine Blood (Negative) Urine Nitrite (Negative) Urine Bilirubin (Negative) Urine Urobilinogen (<2.0) mg/dL Ur Leukocyte Esterase (Negative) Gastric Occult Blood Positive (Negative) Urine Opiates Screen (NotDetected) Ur Oxycodone Screen (NotDetected) Urine Methadone Screen (NotDetected) Ur Barbiturates Screen (NotDetected) U Tricyclic Antidepress (NotDetected) Ur Phencyclidine Scrn (NotDetected) Ur Amphetamines Screen (NotDetected) U Methamphetamines Scrn (NotDetected) U Benzodiazepines Scrn (NotDetected) Urine Cocaine Screen (NotDetected) U Marijuana (THC) Screen (NotDetected) Serum Alcohol mg/dL Influenza Type A (PCR) Not Detected (Not Detectd) Influenza Type B (PCR) Not Detected (Not Detectd) RSV (PCR) Not Detected (Not Detectd) SARS-CoV-2 (PCR) Not Detected (Not Detectd) Blood Type Blood Type Confirm Blood Type Recheck Bld Type Recheck Status Antibody Screen Spec Expiration Date 05/30/25 Range/Units 05:37 WBC (4.50-10.00) 10*3/uL RBC (4.40-5.60) 10*6/uL Hgb (13.0-17.0) g/dL Hct (39.6-50.0) % MCV (80.0-97.0) fL MCH (27.0-32.0) pg MCHC (32.0-37.0) g/dL Plt Count (140-440) 10*3/uL MPV (9.5-12.2) fL Immature Gran % (Auto) % Neutrophils % % Lymphocytes % % Monocytes % % Eosinophils % % Basophils % % Immature Gran # (0.00-0.04) 10*3/uL Neutrophils # (1.80-7.70) 10*3/uL Lymphocytes # (0.90-5.00) 10*3/uL Monocytes # (0.20-1.00) 10*3/uL Eosinophils # (0.04-0.35) 10*3/uL Basophils # (0.00-0.10) 10*3/uL Immature Plt Fraction (1.1-6.1) % PT (10.0-12.5) sec INR (<1.2) APTT (22.0-30.0) sec Sodium (137-145) mmol/L Potassium (3.5-5.1) mmol/L Chloride (98-107) mmol/L Carbon Dioxide (22-30) mmol/L Anion Gap mmol/L BUN (9-20) mg/dL Creatinine (0.66-1.25) mg/dL Est GFR (CKD-EPI)AfAm (>60 ml/min/1.73 sqM) Est GFR (CKD-EPI)NonAf (>60 ml/min/1.73 sqM) Glucose (74-99) mg/dL POC Glucose (mg/dL) (70-110) mg/dL POC Glu Trust Administrator ID Lactic Ac Sepsis Rflx Plasma Lactic Acid Cory 6.9 H* (0.7-2.0) mmol/L Calcium (8.4-10.2) mg/dL Total Bilirubin (0.2-1.3) mg/dL AST (17-59) U/L ALT (4-49) U/L Alkaline Phosphatase (38-126) U/L Creatine Kinase (55-170) U/L Total Protein (6.3-8.2) g/dL Albumin (3.5-5.0) g/dL Lipase (23-300) U/L Urine Color Urine Appearance (Clear) Urine pH (5.0-8.0) Ur Specific Isabella (1.001-1.035) Urine Protein (Negative) Urine Glucose (UA) (Negative) Urine Ketones (Negative) Urine Blood (Negative) Urine Nitrite (Negative) Urine Bilirubin (Negative) Urine Urobilinogen (<2.0) mg/dL Ur Leukocyte Esterase (Negative) Gastric Occult Blood (Negative) Urine Opiates Screen (NotDetected) Ur Oxycodone Screen (NotDetected) Urine Methadone Screen (NotDetected) Ur Barbiturates Screen (NotDetected) U Tricyclic Antidepress (NotDetected) Ur Phencyclidine Scrn (NotDetected) Ur Amphetamines Screen (NotDetected) U Methamphetamines Scrn (NotDetected) U Benzodiazepines Scrn (NotDetected) Urine Cocaine Screen (NotDetected) U Marijuana (THC) Screen (NotDetected) Serum Alcohol mg/dL Influenza Type A (PCR) (Not Detectd) Influenza Type B (PCR) (Not Detectd) RSV (PCR) (Not Detectd) SARS-CoV-2 (PCR) (Not Detectd) Blood Type Blood Type Confirm Blood Type Recheck Bld Type Recheck Status Antibody Screen Spec Expiration Date - EKG Data -: EKG Interpreted by Me EKG Comments: 12-lead Electrocardiogram Interpretation Note EKG was reviewed and interpreted by myself. 12-lead ECG performed at 0152 is interpreted by me as revealing sinus tachycardia at a rate of 119 beats per minute. Clyde is normal. MI interval is 165 ms, QRS durations 86 ms, QTc is 357 ms.. There were no ST or T wave abnormalities to suggest myocardial ischemia or injury. R wave progression across the precordium was satisfactory. By my interpretation this EKG is non-diagnostic for acute ischemia. Disposition Clinical Impression: Sepsis, Altered mental status, Dehydration, Fall Disposition: ADMITTED IP TO THIS HOSP Condition: Stable Time of Disposition: 04:50
--- NOTE | 2025-05-30 08:30 | ED ---
Medical Decision Making - Lab Data Result diagrams: 05/30/25 01:40 05/30/25 01:40 Lab Results 05/30/25 05/30/25 05/30/25 Range/Units 01:35 01:40 01:40 WBC 7.80 (4.50-10.00) 10*3/uL RBC 4.21 L (4.40-5.60) 10*6/uL Hgb 13.0 (13.0-17.0) g/dL Hct 39.5 L (39.6-50.0) % MCV 93.8 (80.0-97.0) fL MCH 30.9 (27.0-32.0) pg MCHC 32.9 (32.0-37.0) g/dL Plt Count 106 L (140-440) 10*3/uL MPV 10.9 (9.5-12.2) fL Immature Gran % (Auto) 0.6 % Neutrophils % 93.2 % Lymphocytes % 2.6 % Monocytes % 3.2 % Eosinophils % 0.0 % Basophils % 0.4 % Immature Gran # 0.05 H (0.00-0.04) 10*3/uL Neutrophils # 7.27 (1.80-7.70) 10*3/uL Lymphocytes # 0.20 L (0.90-5.00) 10*3/uL Monocytes # 0.25 (0.20-1.00) 10*3/uL Eosinophils # 0.00 L (0.04-0.35) 10*3/uL Basophils # 0.03 (0.00-0.10) 10*3/uL Immature Plt Fraction 5.0 (1.1-6.1) % PT 13.3 H (10.0-12.5) sec INR 1.2 H (<1.2) APTT 22.3 (22.0-30.0) sec Sodium (137-145) mmol/L Potassium (3.5-5.1) mmol/L Chloride (98-107) mmol/L Carbon Dioxide (22-30) mmol/L Anion Gap mmol/L BUN (9-20) mg/dL Creatinine (0.66-1.25) mg/dL Est GFR (CKD-EPI)AfAm (>60 ml/min/1.73 sqM) Est GFR (CKD-EPI)NonAf (>60 ml/min/1.73 sqM) Glucose (74-99) mg/dL POC Glucose (mg/dL) (70-110) mg/dL POC Glu Expediter Service Order ID Lactic Ac Sepsis Rflx Plasma Lactic Acid Cory (0.7-2.0) mmol/L Calcium (8.4-10.2) mg/dL Total Bilirubin (0.2-1.3) mg/dL AST (17-59) U/L ALT (4-49) U/L Alkaline Phosphatase (38-126) U/L Creatine Kinase (55-170) U/L Total Protein (6.3-8.2) g/dL Albumin (3.5-5.0) g/dL Lipase (23-300) U/L Urine Color Urine Appearance (Clear) Urine pH (5.0-8.0) Ur Specific Aubrey (1.001-1.035) Urine Protein (Negative) Urine Glucose (UA) (Negative) Urine Ketones (Negative) Urine Blood (Negative) Urine Nitrite (Negative) Urine Bilirubin (Negative) Urine Urobilinogen (<2.0) mg/dL Ur Leukocyte Esterase (Negative) Gastric Occult Blood (Negative) Urine Opiates Screen (NotDetected) Ur Oxycodone Screen (NotDetected) Urine Methadone Screen (NotDetected) Ur Barbiturates Screen (NotDetected) U Tricyclic Antidepress (NotDetected) Ur Phencyclidine Scrn (NotDetected) Ur Amphetamines Screen (NotDetected) U Methamphetamines Scrn (NotDetected) U Benzodiazepines Scrn (NotDetected) Urine Cocaine Screen (NotDetected) U Marijuana (THC) Screen (NotDetected) Serum Alcohol mg/dL Influenza Type A (PCR) (Not Detectd) Influenza Type B (PCR) (Not Detectd) RSV (PCR) (Not Detectd) SARS-CoV-2 (PCR) (Not Detectd) Blood Type Blood Type Confirm A Negative Blood Type Recheck Bld Type Recheck Status Antibody Screen Spec Expiration Date 05/30/25 05/30/25 05/30/25 Range/Units 01:40 01:40 01:40 WBC (4.50-10.00) 10*3/uL RBC (4.40-5.60) 10*6/uL Hgb (13.0-17.0) g/dL Hct (39.6-50.0) % MCV (80.0-97.0) fL MCH (27.0-32.0) pg MCHC (32.0-37.0) g/dL Plt Count (140-440) 10*3/uL MPV (9.5-12.2) fL Immature Gran % (Auto) % Neutrophils % % Lymphocytes % % Monocytes % % Eosinophils % % Basophils % % Immature Gran # (0.00-0.04) 10*3/uL Neutrophils # (1.80-7.70) 10*3/uL Lymphocytes # (0.90-5.00) 10*3/uL Monocytes # (0.20-1.00) 10*3/uL Eosinophils # (0.04-0.35) 10*3/uL Basophils # (0.00-0.10) 10*3/uL Immature Plt Fraction (1.1-6.1) % PT (10.0-12.5) sec INR (<1.2) APTT (22.0-30.0) sec Sodium 137 (137-145) mmol/L Potassium 3.7 (3.5-5.1) mmol/L Chloride 102 (98-107) mmol/L Carbon Dioxide 19 L (22-30) mmol/L Anion Gap 16 mmol/L BUN 16 (9-20) mg/dL Creatinine 0.92 (0.66-1.25) mg/dL Est GFR (CKD-EPI)AfAm >90 (>60 ml/min/1.73 sqM) Est GFR (CKD-EPI)NonAf 80 (>60 ml/min/1.73 sqM) Glucose 148 H (74-99) mg/dL POC Glucose (mg/dL) (70-110) mg/dL POC Glu Expediter Service Order ID Lactic Ac Sepsis Rflx Plasma Lactic Acid Cory 8.6 H* (0.7-2.0) mmol/L Calcium 9.2 (8.4-10.2) mg/dL Total Bilirubin 4.2 H (0.2-1.3) mg/dL AST 206 H (17-59) U/L ALT 142 H (4-49) U/L Alkaline Phosphatase 201 H (38-126) U/L Creatine Kinase (55-170) U/L Total Protein 5.6 L (6.3-8.2) g/dL Albumin 3.4 L (3.5-5.0) g/dL Lipase (23-300) U/L Urine Color Yellow Urine Appearance Clear (Clear) Urine pH 7.0 (5.0-8.0) Ur Specific Aubrey 1.021 (1.001-1.035) Urine Protein Trace H (Negative) Urine Glucose (UA) Negative (Negative) Urine Ketones Negative (Negative) Urine Blood Negative (Negative) Urine Nitrite Negative (Negative) Urine Bilirubin 1+ H (Negative) Urine Urobilinogen 3.0 (<2.0) mg/dL Ur Leukocyte Esterase Negative (Negative) Gastric Occult Blood (Negative) Urine Opiates Screen Not Detected (NotDetected) Ur Oxycodone Screen Not Detected (NotDetected) Urine Methadone Screen Not Detected (NotDetected) Ur Barbiturates Screen Not Detected (NotDetected) U Tricyclic Antidepress Not Detected (NotDetected) Ur Phencyclidine Scrn Not Detected (NotDetected) Ur Amphetamines Screen Not Detected (NotDetected) U Methamphetamines Scrn Not Detected (NotDetected) U Benzodiazepines Scrn Detected H (NotDetected) Urine Cocaine Screen Not Detected (NotDetected) U Marijuana (THC) Screen Not Detected (NotDetected) Serum Alcohol <10 mg/dL Influenza Type A (PCR) (Not Detectd) Influenza Type B (PCR) (Not Detectd) RSV (PCR) (Not Detectd) SARS-CoV-2 (PCR) (Not Detectd) Blood Type Blood Type Confirm Blood Type Recheck Bld Type Recheck Status Antibody Screen Spec Expiration Date 05/30/25 05/30/25 05/30/25 Range/Units 01:40 01:40 01:56 WBC (4.50-10.00) 10*3/uL RBC (4.40-5.60) 10*6/uL Hgb (13.0-17.0) g/dL Hct (39.6-50.0) % MCV (80.0-97.0) fL MCH (27.0-32.0) pg MCHC (32.0-37.0) g/dL Plt Count (140-440) 10*3/uL MPV (9.5-12.2) fL Immature Gran % (Auto) % Neutrophils % % Lymphocytes % % Monocytes % % Eosinophils % % Basophils % % Immature Gran # (0.00-0.04) 10*3/uL Neutrophils # (1.80-7.70) 10*3/uL Lymphocytes # (0.90-5.00) 10*3/uL Monocytes # (0.20-1.00) 10*3/uL Eosinophils # (0.04-0.35) 10*3/uL Basophils # (0.00-0.10) 10*3/uL Immature Plt Fraction (1.1-6.1) % PT (10.0-12.5) sec INR (<1.2) APTT (22.0-30.0) sec Sodium (137-145) mmol/L Potassium (3.5-5.1) mmol/L Chloride (98-107) mmol/L Carbon Dioxide (22-30) mmol/L Anion Gap mmol/L BUN (9-20) mg/dL Creatinine (0.66-1.25) mg/dL Est GFR (CKD-EPI)AfAm (>60 ml/min/1.73 sqM) Est GFR (CKD-EPI)NonAf (>60 ml/min/1.73 sqM) Glucose (74-99) mg/dL POC Glucose (mg/dL) 169 H (70-110) mg/dL POC Glu Expediter Service Order ID [place] Ma Lactic Ac Sepsis Rflx Plasma Lactic Acid Cory (0.7-2.0) mmol/L Calcium (8.4-10.2) mg/dL Total Bilirubin (0.2-1.3) mg/dL AST (17-59) U/L ALT (4-49) U/L Alkaline Phosphatase (38-126) U/L Creatine Kinase 45 L (55-170) U/L Total Protein (6.3-8.2) g/dL Albumin (3.5-5.0) g/dL Lipase 36 (23-300) U/L Urine Color Urine Appearance (Clear) Urine pH (5.0-8.0) Ur Specific Aubrey (1.001-1.035) Urine Protein (Negative) Urine Glucose (UA) (Negative) Urine Ketones (Negative) Urine Blood (Negative) Urine Nitrite (Negative) Urine Bilirubin (Negative) Urine Urobilinogen (<2.0) mg/dL Ur Leukocyte Esterase (Negative) Gastric Occult Blood (Negative) Urine Opiates Screen (NotDetected) Ur Oxycodone Screen (NotDetected) Urine Methadone Screen (NotDetected) Ur Barbiturates Screen (NotDetected) U Tricyclic Antidepress (NotDetected) Ur Phencyclidine Scrn (NotDetected) Ur Amphetamines Screen (NotDetected) U Methamphetamines Scrn (NotDetected) U Benzodiazepines Scrn (NotDetected) Urine Cocaine Screen (NotDetected) U Marijuana (THC) Screen (NotDetected) Serum Alcohol mg/dL Influenza Type A (PCR) (Not Detectd) Influenza Type B (PCR) (Not Detectd) RSV (PCR) (Not Detectd) SARS-CoV-2 (PCR) (Not Detectd) Blood Type A Negative Blood Type Confirm Blood Type Recheck No Previous Record Bld Type Recheck Status CABO Indicated Antibody Screen NEGATIVE Spec Expiration Date 06/02/2025233905/30/25 05/30/25 05/30/25 Range/Units 02:20 02:35 03:06 WBC (4.50-10.00) 10*3/uL RBC (4.40-5.60) 10*6/uL Hgb (13.0-17.0) g/dL Hct (39.6-50.0) % MCV (80.0-97.0) fL MCH (27.0-32.0) pg MCHC (32.0-37.0) g/dL Plt Count (140-440) 10*3/uL MPV (9.5-12.2) fL Immature Gran % (Auto) % Neutrophils % % Lymphocytes % % Monocytes % % Eosinophils % % Basophils % % Immature Gran # (0.00-0.04) 10*3/uL Neutrophils # (1.80-7.70) 10*3/uL Lymphocytes # (0.90-5.00) 10*3/uL Monocytes # (0.20-1.00) 10*3/uL Eosinophils # (0.04-0.35) 10*3/uL Basophils # (0.00-0.10) 10*3/uL Immature Plt Fraction (1.1-6.1) % PT (10.0-12.5) sec INR (<1.2) APTT (22.0-30.0) sec Sodium (137-145) mmol/L Potassium (3.5-5.1) mmol/L Chloride (98-107) mmol/L Carbon Dioxide (22-30) mmol/L Anion Gap mmol/L BUN (9-20) mg/dL Creatinine (0.66-1.25) mg/dL Est GFR (CKD-EPI)AfAm (>60 ml/min/1.73 sqM) Est GFR (CKD-EPI)NonAf (>60 ml/min/1.73 sqM) Glucose (74-99) mg/dL POC Glucose (mg/dL) (70-110) mg/dL POC Glu Expediter Service Order ID Lactic Ac Sepsis Rflx Y Plasma Lactic Acid Cory (0.7-2.0) mmol/L Calcium (8.4-10.2) mg/dL Total Bilirubin (0.2-1.3) mg/dL AST (17-59) U/L ALT (4-49) U/L Alkaline Phosphatase (38-126) U/L Creatine Kinase (55-170) U/L Total Protein (6.3-8.2) g/dL Albumin (3.5-5.0) g/dL Lipase (23-300) U/L Urine Color Urine Appearance (Clear) Urine pH (5.0-8.0) Ur Specific Aubrey (1.001-1.035) Urine Protein (Negative) Urine Glucose (UA) (Negative) Urine Ketones (Negative) Urine Blood (Negative) Urine Nitrite (Negative) Urine Bilirubin (Negative) Urine Urobilinogen (<2.0) mg/dL Ur Leukocyte Esterase (Negative) Gastric Occult Blood Positive (Negative) Urine Opiates Screen (NotDetected) Ur Oxycodone Screen (NotDetected) Urine Methadone Screen (NotDetected) Ur Barbiturates Screen (NotDetected) U Tricyclic Antidepress (NotDetected) Ur Phencyclidine Scrn (NotDetected) Ur Amphetamines Screen (NotDetected) U Methamphetamines Scrn (NotDetected) U Benzodiazepines Scrn (NotDetected) Urine Cocaine Screen (NotDetected) U Marijuana (THC) Screen (NotDetected) Serum Alcohol mg/dL Influenza Type A (PCR) Not Detected (Not Detectd) Influenza Type B (PCR) Not Detected (Not Detectd) RSV (PCR) Not Detected (Not Detectd) SARS-CoV-2 (PCR) Not Detected (Not Detectd) Blood Type Blood Type Confirm Blood Type Recheck Bld Type Recheck Status Antibody Screen Spec Expiration Date 05/30/25 Range/Units 05:37 WBC (4.50-10.00) 10*3/uL RBC (4.40-5.60) 10*6/uL Hgb (13.0-17.0) g/dL Hct (39.6-50.0) % MCV (80.0-97.0) fL MCH (27.0-32.0) pg MCHC (32.0-37.0) g/dL Plt Count (140-440) 10*3/uL MPV (9.5-12.2) fL Immature Gran % (Auto) % Neutrophils % % Lymphocytes % % Monocytes % % Eosinophils % % Basophils % % Immature Gran # (0.00-0.04) 10*3/uL Neutrophils # (1.80-7.70) 10*3/uL Lymphocytes # (0.90-5.00) 10*3/uL Monocytes # (0.20-1.00) 10*3/uL Eosinophils # (0.04-0.35) 10*3/uL Basophils # (0.00-0.10) 10*3/uL Immature Plt Fraction (1.1-6.1) % PT (10.0-12.5) sec INR (<1.2) APTT (22.0-30.0) sec Sodium (137-145) mmol/L Potassium (3.5-5.1) mmol/L Chloride (98-107) mmol/L Carbon Dioxide (22-30) mmol/L Anion Gap mmol/L BUN (9-20) mg/dL Creatinine (0.66-1.25) mg/dL Est GFR (CKD-EPI)AfAm (>60 ml/min/1.73 sqM) Est GFR (CKD-EPI)NonAf (>60 ml/min/1.73 sqM) Glucose (74-99) mg/dL POC Glucose (mg/dL) (70-110) mg/dL POC Glu Expediter Service Order ID Lactic Ac Sepsis Rflx Plasma Lactic Acid Cory 6.9 H* (0.7-2.0) mmol/L Calcium (8.4-10.2) mg/dL Total Bilirubin (0.2-1.3) mg/dL AST (17-59) U/L ALT (4-49) U/L Alkaline Phosphatase (38-126) U/L Creatine Kinase (55-170) U/L Total Protein (6.3-8.2) g/dL Albumin (3.5-5.0) g/dL Lipase (23-300) U/L Urine Color Urine Appearance (Clear) Urine pH (5.0-8.0) Ur Specific Aubrey (1.001-1.035) Urine Protein (Negative) Urine Glucose (UA) (Negative) Urine Ketones (Negative) Urine Blood (Negative) Urine Nitrite (Negative) Urine Bilirubin (Negative) Urine Urobilinogen (<2.0) mg/dL Ur Leukocyte Esterase (Negative) Gastric Occult Blood (Negative) Urine Opiates Screen (NotDetected) Ur Oxycodone Screen (NotDetected) Urine Methadone Screen (NotDetected) Ur Barbiturates Screen (NotDetected) U Tricyclic Antidepress (NotDetected) Ur Phencyclidine Scrn (NotDetected) Ur Amphetamines Screen (NotDetected) U Methamphetamines Scrn (NotDetected) U Benzodiazepines Scrn (NotDetected) Urine Cocaine Screen (NotDetected) U Marijuana (THC) Screen (NotDetected) Serum Alcohol mg/dL Influenza Type A (PCR) (Not Detectd) Influenza Type B (PCR) (Not Detectd) RSV (PCR) (Not Detectd) SARS-CoV-2 (PCR) (Not Detectd) Blood Type Blood Type Confirm Blood Type Recheck Bld Type Recheck Status Antibody Screen Spec Expiration Date Critical Care Time Critical Care Time: Yes Total Critical Care Time: 36 Disposition Clinical Impression: Sepsis, Altered mental status, Dehydration, Fall Disposition: ADMITTED IP TO THIS HOSP Condition: Stable
[2025-05-30] MEDS: PANTOPRAZOLE 40 MG/10 ML VIAL IV SCH (11:04)
--- NOTE | 2025-05-30 13:25 | US ---
EXAMINATION TYPE: US liver DATE OF EXAM: 05/30/2025 COMPARISON: CT CLINICAL INDICATION: Male, 79 years old with history of elevated ALT/AST; Patient found unresponsive; AMS; Weakness and unknown sepsis. TECHNIQUE: Grayscale and color Doppler imaging of the right upper quadrant was performed. FINDINGS: EXAM MEASUREMENTS: Liver Length: 14.8 cm Gallbladder Wall: Surgically absent cm CBD: 1.1 cm Right Kidney: 11.0 x 5.6 x 5.3 cm LACE STRIPPER NOTES: Pancreas: Tail obscured by overlying bowel gas Liver: Increased attenuation; Dilated tubular structure vs complex fluid collection seen within port a hepatis compatible with dilated biliary ducts on CT imaging 05/30/2025. Gallbladder: Surgically absent Evidence for sonographic Chahal's sign: No CBD: Dilated Right Kidney: wnl IMPRESSION: 1. Postcholecystectomy changes with dilation of the main duct which can be seen in normal post javier cystectomy physiology. CT imaging same day there is abrupt cut off of the main duct with possible gal lstone present suggesting choledocholithiasis. Further evaluation with MRI MRCP recommended. 2. Hepatic steatosis. [facility], , 05/30/2025 1:23 PM
[2025-05-30] MEDS: VANCOMYCIN 1,500 MG in SODIUM CHLORIDE 0.9% 500 ML 500 ML IVPB SCH (16:32)
--- NOTE | 2025-05-30 17:34 | P.CNPUL ---
History of Present Illness Consult date: 05/30/25 Chief complaint: Hypotension History of present illness: This is a 79-year-old male patient, seen in the emergency department upon the request of primary care because of hypotension. The patient presented to the emergency department because of altered mentation and the patient was weak and had a fall. No skeletal injuries. He is known to have history of coronary artery disease, diabetes mellitus type 2, hypertension hyperlipidemia and the patient has BPH, chronic back pain related to lumbar disc disease and history of atrial fibrillation. The patient has not had previous cardiac catheterization and stenting. The patient also has had previous cardiac ablation for atrial fibrillation. The patient was seen and evaluated in the emergency department. The patient was febrile with a Tmax of 100.9. Slightly tachycardic. Systolic blood pressure was in the 80s.. On treatment of oxygen by nasal cannula with a pulse ox of 98%. Denies having any chest pain. No cough. No sputum production. No chest tightness. No wheezing. In the emergency, the patient was given a total of 1 L of lactated Ringer and currently lactated Ringer's is running at the rate of 130 cc an hour. Cardiac rhythm is sinus. The patient was started on a combination of Zosyn and and vancomycin suspecting underlying sepsis. The patient's last echo was at 7.8 with a hemoglobin 13 and a platelet count of 106. Normal coagulation profile. Sodium level is 137, potassium is at 3.7, bicarbonate of 19 with a BUN of 16 and a creatinine of 0.9 and a gap of 16. Lactic acid level initially was at 8.6, dropped down to 4.7, currently is at 6.7 and is being monitored. AST is 206, ALT 142, alkaline phosphatase of 201, CPK is 45, UA is negative, Gastroccult blood was positive, urine toxin was positive for benzodiazepines. Viral screen is negative. Blood cultures been sent and results are still pending for now. Meanwhile, the chest x-ray showed no acute abnormalities. It was essentially a normal chest x-ray. CAT scan of the abdomen and pelvis done in the emergency department showed uncomplicated left renal cyst, complex right renal cyst and minor chronic findings, essentially negative. Ultrasound the liver was also done based on the abnormal LFTs and the findings were consistent with hepatic steatosis and the patient is postcholecystectomy and there are changes with dilation of the main duct which is considered to be physiologic postcholecystectomy. There is also an abrupt cut off of the main duct with possible gallstone present suggesting choledocholithiasis. Noted, the patient has no nausea, no emesis, no diarrhea. Review of Systems Constitutional: Reports as per HPI, Reports fatigue, Reports lethargy, Reports malaise, Reports weakness Eyes: denies as per HPI, denies blurred vision, denies bulging eye, denies decreased vision, denies diplopia, denies discharge, denies dry eye, denies irritation, denies itching, denies pain, denies photophobia, denies loss of p eripheral vision, denies loss of vision, denies tunnel vision/blind spots Ears: deny: decreased hearing, ear discharge, earache, tinnitus Ears, nose, mouth and throat: Reports as per HPI Breasts: absent: as per HPI, gynecomastia Cardiovascular: Reports as per HPI Respiratory: Reports as per HPI Gastrointestinal: Reports as per HPI Genitourinary: Reports as per HPI Musculoskeletal: Reports as per HPI Musculoskeletal: absent: ankle pain, ankle stiffness, ankle swelling, as per HPI, elbow pain, elbow stiffness, elbow swelling, foot pain, foot stiffness, foot swelling, hand pain, hand stiffness, hand swelling, hip pain, hip stiffness, hip swelling, knee pain, knee stiffness, knee swelling, shoulder pain, shoulder stiffness, shoulder swelling, wrist pain, wrist stiffness, wrist swelling Integumentary: Reports as per HPI Neurological: Reports as per HPI, Reports weakness Psychiatric: Reports as per HPI Endocrine: Reports as per HPI, Reports fatigue Hematologic/Lymphatic: Reports as per HPI Allergic/Immunologic: Reports as per HPI Past Medical History Past Medical History: Atrial Fibrillation, Coronary Artery Disease (CAD), Chest Pain / Angina, Diabetes Mellitus, Eye Disorder, Hyperlipidemia, Hypertension, Myocardial Infarction ([place]), Prostate Disorder Additional Past Medical History / Comment(s): NIDDM type II, back pain-bulging discs, diverticular dx, BPH, BILAT CATARACTS Last Myocardial Infarction Date:: 1999 History of Any Multi-Drug Resistant Organisms: None Reported Past Surgical History: Cardiac Ablation, Cholecystectomy, EPS, Heart Catheterization With Stent, Orthopedic Surgery, Tonsillectomy Additional Past Surgical History / Comment(s): 1999 cardiac stents, bilateral open shoulder surgeries for rotator cuff, colonoscopy, vasectomy, circumcism. Past Anesthesia/Blood Transfusion Reactions: No Reported Reaction Date of Last Stent Placement:: 1999 Past Psychological History: No Psychological Hx Reported Smoking Status: Current every day smoker - Past Family History Brother(s) Family Medical History: Dialysis Mother Family Medical History: Vascular Disorder Additional Family Medical History / Comment(s): Mother of a brain aneurysm. Medications and Allergies Home Medications Medication Instructions Recorded Confirmed Type Finasteride [Proscar] 5 mg PO DAILY 02/15/15 05/30/25 History Apixaban [Eliquis] 5 mg PO BID 04/15/18 05/30/25 History Montelukast [Singulair] 10 mg PO HS 04/15/18 05/30/25 History Pantoprazole [Protonix] 40 mg PO DAILY 03/21/21 05/30/25 History Metoprolol Tartrate [Lopressor] 50 mg PO BID-W/MEALS 01/03/22 05/30/25 History Atorvastatin [Lipitor] 40 mg PO DAILY 05/30/25 05/30/25 History Tamsulosin [Flomax] 0.4 mg PO DAILY 05/30/25 05/30/25 History lisinopriL [Zestril] 5 mg PO DAILY 05/30/25 05/30/25 History metFORMIN HCL [Glucophage] 850 mg PO TID 05/30/25 05/30/25 History Allergies Allergy/AdvReac Type Severity Reaction Status Date / Time lorazepam [From Ativan] AdvReac BECOMES Verified 05/30/25 10:14 DISORIENTED morphine AdvReac AGITATION Verified 05/30/25 10:14 Physical Exam Vitals: Vital Signs Temp Pulse Resp BP Pulse Ox 05/30/25 10:10 94 18 86/55 92 L 05/30/25 07:26 98.9 F 95 18 86/49 94 L 05/30/25 06:04 98.9 F 101 H 18 99/60 96 05/30/25 01:19 100.9 F H 110 H 16 151/78 94 L Intake and Output 05/29/25 05/30/25 05/30/25 22:59 06:59 14:59 Other: Weight 76.521 kg 76.521 kg The patient appeared well nourished and normally developed. Vital signs as documented. Head exam is unremarkable. No scleral icterus or corneal arcus noted. Neck is without jugular venous distension, thyromegaly, or carotid bruits. Carotid upstrokes are brisk bilaterally. Lungs are clear to auscultation and percussion. Cardiac exam reveals the PMI to be normally sized and situated. Rhythm is regular. First and second heart sounds normal. No murmurs, rubs or gallops. Abdominal exam reveals normal bowel sounds, no masses, no organomegaly and no ao rtic enlargement. Extremities are nonedematous and both femoral and pedal pulses are normal. Examination of the skin revealed no evidence of significant rashes, suspicious appearing nevi or other concerning lesions. Neurologically, the patient is awake and alert and the patient does not have any focal neurological deficit. Cranial nerves are essentially intact. Results - Laboratory Findings CBC and BMP: 05/30/25 01:40 05/30/25 01:40 PT/INR, D-dimer PT 13.3 sec (10.0-12.5) H 05/30/25 01:40 INR 1.2 (<1.2) H 05/30/25 01:40 Abnormal lab findings: Abnormal Labs 05/30/25 05/30/25 05/30/25 01:40 01:40 01:40 RBC 4.21 L Hct 39.5 L Plt Count 106 L Immature Gran # 0.05 H Lymphocytes # 0.20 L Eosinophils # 0.00 L PT 13.3 H INR 1.2 H Carbon Dioxide Glucose POC Glucose (mg/dL) Plasma Lactic Acid Cory Total Bilirubin AST ALT Alkaline Phosphatase Creatine Kinase Total Protein Albumin Urine Protein Trace H Urine Bilirubin 1+ H U Benzodiazepines Scrn Detected H 05/30/25 05/30/25 05/30/25 01:40 01:40 01:40 RBC Hct Plt Count Immature Gran # Lymphocytes # Eosinophils # PT INR Carbon Dioxide 19 L Glucose 148 H POC Glucose (mg/dL) Plasma Lactic Acid Cory 8.6 H* Total Bilirubin 4.2 H AST 206 H ALT 142 H Alkaline Phosphatase 201 H Creatine Kinase 45 L Total Protein 5.6 L Albumin 3.4 L Urine Protein Urine Bilirubin U Benzodiazepines Scrn 05/30/25 05/30/25 05/30/25 01:56 05:37 08:54 RBC Hct Plt Count Immature Gran # Lymphocytes # Eosinophils # PT INR Carbon Dioxide Glucose POC Glucose (mg/dL) 169 H Plasma Lactic Acid Cory 6.9 H* 4.7 H* Total Bilirubin AST ALT Alkaline Phosphatase Creatine Kinase Total Protein Albumin Urine Protein Urine Bilirubin U Benzodiazepines Scrn - Diagnostic Findings Chest x-ray: image reviewed Assessment and Plan Plan: Hypotension with generalized weakness/fall and mild lactic acidosis currently under investigation. His underlying sepsis. Exact source is not clear. Consider cholangitis as the patient has abnormal LFTs with elevated alkaline phosphatase. The patient had a ultrasound of the liver showing postcholecystectomy changes. Common bile duct was dilated and there is an abrupt cut off of the main duct with possible gallstones suggestive of choledocholithiasis. No significant right upper quadrant pain or tenderness. Currently on IV Zosyn and the patient is also on vancomycin for empiric antibiotic coverage. Cultures were sent Generalized weakness secondary to above Lactic acidosis, noted the patient has been maintained on metformin outpatient basis. Lactic acid levels remain elevated. No significant leukocytosis Coronary artery disease History of atrial fibrillation current rhythm is sinus and the patient is maintained on anticoagulation with Eliquis Diabetes mellitus type 2 History of hypertension, History of hyperlipidemia Chronic back pain with degenerative lumbar disc disease BPH Previous history of cardiac catheterization and stenting Previous history of cardiac ablation for atrial fibrillation. Plan The patient has been adequately resuscitated with IV fluids. Continue lactated Ringer at rate of 130 cc an hour. Monitor lactic acid levels Continue IV Zosyn Continue vancomycin Consult general surgery regarding the abnormal LFTs in the common bile duct findings. Consider the possibility of cholangitis as the patient has abrupt cutoff sign of the common bile duct. Will order a MRCP with the next 24 hours. Pressors if needed. Patient's blood pressure has responded nicely to IV fluids. Monitor LFTs Hold Lipitor Hold metformin Hold metoprolol till the patient's blood pressure is more stabilized. Hold lisinopril May resume anticoagulation for the next 24 hours. Cardiac rhythm is sinus Will continue to follow. ICU admission if needed. For now, the patient's blood pressure is stable. Time with Patient: Greater than 30
[2025-05-30] MEDS: MIDODRINE 5 MG TAB PO STA (20:10)
--- NOTE | 2025-05-30 22:50 | P.CONS ---
History of Present Illness - Reason for Consult Consult date: 05/30/25 Sepsis, unknown source Requesting physician: Milton Mccurdy - Chief Complaint Mental status changes and weakness x 1 day - History of Present Illness Patient is a 79-year-old male with a past medical history significant for Atrial Fibrillation, Coronary Artery Disease (CAD), Chest Pain / Angina, Diabetes Mellitus, Eye Disorder, Hyperlipidemia, Hypertension, Myocardial Infarction ([place]), Prostate Disorder, patient has been brought into the hospital concern for mental status changes as well as weakness apparently patient did have a 2 falls day before presentation to the hospital and on presentation the hospital patient noted to have decreased level of responsiveness patient denies having any headache or URI symptoms denies having any chest pain or shortness with occasional cough did have some nausea but no vomiting no significant abdominal pain diarrhea or constipation and no urinary symptoms on presentation to the hospital he did have a temperature of 100.9 degrees for night patient was tachycardic as well as hypertensive and hypoxic currently on 3 L nasal oxygen patient did have white count of 7.80 with a left shift lactic acid elevated liver enzymes are elevated BUN/creatinine electrolytes are normal urine has been negative urine drug screen was positive for benzo influenza RSV COVID testing negative patient did have a chest x-ray normal exam abdominal pelvis CT done with IV contrast only did shows postop changes of cholecystectomy mild pneumobilia and dilated CBD complex right renal cyst patient was started on vancomycin and Zosyn infectious disease was consulted for further management of antibiotic therapy Review of Systems Positive point and negatives has been mentioned in the HPI, complete review of systems was performed and all other systems are negative Past Medical History Past Medical History: Atrial Fibrillation, Coronary Artery Disease (CAD), Chest Pain / Angina, Diabetes Mellitus, Eye Disorder, Hyperlipidemia, Hypertension, Myocardial Infarction ([place]), Prostate Disorder Additional Past Medical History / Comment(s): NIDDM type II, back pain-bulging discs, diverticular dx, BPH, BILAT CATARACTS Last Myocardial Infarction Date:: 1999 History of Any Multi-Drug Resistant Organisms: None Reported Past Surgical History: Cardiac Ablation, Cholecystectomy, EPS, Heart Catheterization With Stent, Orthopedic Surgery, Tonsillectomy Additional Past Surgical History / Comment(s): 1999 cardiac stents, bilateral open shoulder surgeries for rotator cuff, colonoscopy, vasectomy, circumcism. Past Anesthesia/Blood Transfusion Reactions: No Reported Reaction Date of Last Stent Placement:: 1999 Past Psychological History: No Psychological Hx Reported Smoking Status: Current every day smoker - Past Family History Brother(s) Family Medical History: Dialysis Mother Family Medical History: Vascular Disorder Additional Family Medical History / Comment(s): Mother of a brain aneurysm. Medications and Allergies Home Medications Medication Instructions Recorded Confirmed Type Finasteride [Proscar] 5 mg PO DAILY 02/15/15 05/30/25 History Apixaban [Eliquis] 5 mg PO BID 04/15/18 05/30/25 History Montelukast [Singulair] 10 mg PO HS 04/15/18 05/30/25 History Pantoprazole [Protonix] 40 mg PO DAILY 03/21/21 05/30/25 History Metoprolol Tartrate [Lopressor] 50 mg PO BID-W/MEALS 01/03/22 05/30/25 History Atorvastatin [Lipitor] 40 mg PO DAILY 05/30/25 05/30/25 History Tamsulosin [Flomax] 0.4 mg PO DAILY 05/30/25 05/30/25 History lisinopriL [Zestril] 5 mg PO DAILY 05/30/25 05/30/25 History metFORMIN HCL [Glucophage] 850 mg PO TID 05/30/25 05/30/25 History Allergies Allergy/AdvReac Type Severity Reaction Status Date / Time lorazepam [From Ativan] AdvReac BECOMES Verified 05/30/25 10:14 DISORIENTED morphine AdvReac AGITATION Verified 05/30/25 10:14 Physical Exam Vitals: Vital Signs Temp Pulse Resp BP Pulse Ox 05/30/25 12:00 99 18 99/57 100 05/30/25 11:00 90 18 89/52 99 05/30/25 10:10 94 18 86/55 92 L 05/30/25 07:26 98.9 F 95 18 86/49 94 L 05/30/25 06:04 98.9 F 101 H 18 99/60 96 05/30/25 01:19 100.9 F H 110 H 16 151/78 94 L Intake and Output 05/29/25 05/30/25 05/30/25 22:59 06:59 14:59 Other: Weight 76.521 kg 76.521 kg GENERAL DESCRIPTION: Elderly male lying in bed, no distress. No tachypnea or accessory muscle of respiration use. HEENT: Shows Pallor , no scleral icterus. Oral mucous membrane is dry. NECK: Trachea central, no thyromegaly. LUNGS: Unlabored breathing. Clear to auscultation anteriorly. No wheeze or crackle. HEART: S1, S2, regular rate and rhythm. No loud murmur ABDOMEN: Soft, mild left-sided tenderness and distention EXTREMITIES: No edema of feet. SKIN: No rash, no masses palpable. NEUROLOGICAL: The patient is awake, alert, oriented x3, mood and affect normal. Results CBC & Chem 7: 05/30/25 01:40 05/30/25 01:40 Labs: Abnormal Lab Results - Last 24 Hours (Table) 05/30/25 05/30/25 05/30/25 Range/Units 01:40 01:40 01:40 RBC 4.21 L (4.40-5.60) 10*6/uL Hct 39.5 L (39.6-50.0) % Plt Count 106 L (140-440) 10*3/uL Immature Gran # 0.05 H (0.00-0.04) 10*3/uL Lymphocytes # 0.20 L (0.90-5.00) 10*3/uL Eosinophils # 0.00 L (0.04-0.35) 10*3/uL PT 13.3 H (10.0-12.5) sec INR 1.2 H (<1.2) Carbon Dioxide (22-30) mmol/L Glucose (74-99) mg/dL POC Glucose (mg/dL) (70-110) mg/dL Plasma Lactic Acid Cory (0.7-2.0) mmol/L Total Bilirubin (0.2-1.3) mg/dL AST (17-59) U/L ALT (4-49) U/L Alkaline Phosphatase (38-126) U/L Creatine Kinase (55-170) U/L Total Protein (6.3-8.2) g/dL Albumin (3.5-5.0) g/dL Urine Protein Trace H (Negative) Urine Bilirubin 1+ H (Negative) U Benzodiazepines Scrn Detected H (NotDetected) 05/30/25 05/30/25 05/30/25 Range/Units 01:40 01:40 01:40 RBC (4.40-5.60) 10*6/uL Hct (39.6-50.0) % Plt Count (140-440) 10*3/uL Immature Gran # (0.00-0.04) 10*3/uL Lymphocytes # (0.90-5.00) 10*3/uL Eosinophils # (0.04-0.35) 10*3/uL PT (10.0-12.5) sec INR (<1.2) Carbon Dioxide 19 L (22-30) mmol/L Glucose 148 H (74-99) mg/dL POC Glucose (mg/dL) (70-110) mg/dL Plasma Lactic Acid Cory 8.6 H* (0.7-2.0) mmol/L Total Bilirubin 4.2 H (0.2-1.3) mg/dL AST 206 H (17-59) U/L ALT 142 H (4-49) U/L Alkaline Phosphatase 201 H (38-126) U/L Creatine Kinase 45 L (55-170) U/L Total Protein 5.6 L (6.3-8.2) g/dL Albumin 3.4 L (3.5-5.0) g/dL Urine Protein (Negative) Urine Bilirubin (Negative) U Benzodiazepines Scrn (NotDetected) 05/30/25 05/30/25 05/30/25 Range/Units 01:56 05:37 08:54 RBC (4.40-5.60) 10*6/uL Hct (39.6-50.0) % Plt Count (140-440) 10*3/uL Immature Gran # (0.00-0.04) 10*3/uL Lymphocytes # (0.90-5.00) 10*3/uL Eosinophils # (0.04-0.35) 10*3/uL PT (10.0-12.5) sec INR (<1.2) Carbon Dioxide (22-30) mmol/L Glucose (74-99) mg/dL POC Glucose (mg/dL) 169 H (70-110) mg/dL Plasma Lactic Acid Cory 6.9 H* 4.7 H* (0.7-2.0) mmol/L Total Bilirubin (0.2-1.3) mg/dL AST (17-59) U/L ALT (4-49) U/L Alkaline Phosphatase (38-126) U/L Creatine Kinase (55-170) U/L Total Protein (6.3-8.2) g/dL Albumin (3.5-5.0) g/dL Urine Protein (Negative) Urine Bilirubin (Negative) U Benzodiazepines Scrn (NotDetected) Assessment and Plan (1) Cholangitis Current Visit: Yes Status: Acute Code(s): K83.09 - OTHER CHOLANGITIS SNOMED Code(s): 51177043 (2) Sepsis Current Visit: Yes Status: Acute Code(s): A41.9 - SEPSIS, UNSPECIFIED ORGANISM SNOMED Code(s): 06183559 Plan: 1patient presented to hospital with sepsis in this patient who did have a fever tachycardia elevated lactic acid source is likely abdominal and concerning for possible cholangitis as the patient noted to have some abdominal tenderness elevated liver enzymes and dilated CBD on the CT unfortunately CT was done without oral contrast with minimal sensitivity of this testing. 2we will treat the patient with Zosyn 3.375 g 8-hour however discontinue vancomycin to decrease risk of nephrotoxicity. Will follow-up on the culture and clinical condition and adjust antibiotic further if needed. We will follow on clinical condition and cultures to further adjust medication if needed Thank you for this consultation we will follow the patient along with you Dictation was produced using [employer] dictation software. please excuse any grammatical, word or spelling errors. Time with Patient: Greater than 30
--- NOTE | 2025-05-31 06:25 | P.HPIM ---
History of Present Illness This is a pleasant 79 years old male with past medical history of multiple medical problems Presents because of altered mental status He is awake alert oriented x 3, partially confused His son brought him to the hospital because he fell twice yesterday He was balance as he states without specification but he denies loss of conscio usness he fell in the garage no head trauma no body trauma. Patient himself denies any specific symptoms he says he has diarrhea twice per day On exam he has right upper quadrant tenderness He had a fever of 100.9 blood pressure on the low side with systolic 80 to 90s and patient tachycardic lactic acid elevated 6.9 at 4.7 occult blood in stool positive urinalysis showing no evidence of infection. Serum alcohol less than 10 urine drug screen is positive for benzodiazepines CT of the abdomen pelvis showing complex right renal cyst Chest x-ray is negative for acute process CT of the head showing no hemorrhage or mass or midline shift Patient started on antibiotic and admitted to the hospital WBC 7.8 liver enzymes moderately elevated Review of Systems Review of systems CONSTITUTIONAL: No fever, no malaise, no fatigue. HEENT: No recent visual problems or hearing problems. Denied any sore throat. CARDIOVASCULAR: No orthopnea, PND, no palpitations, no syncope. PULMONARY: No shortness of breath, no cough, no hemoptysis. GASTROINTESTINAL: No diarrhea, no nausea, no vomiting, no abdominal pain. Normoactive bowel sounds. NEUROLOGICAL: No headaches, no weakness, no numbness. HEMATOLOGICAL: Denies any bleeding or petechiae. GENITOURINARY: Denies any burning micturition, frequency, or urgency. MUSCULOSKELETAL/RHEUMATOLOGICAL: Denies any joint pain, swelling, or any muscle pain. ENDOCRINE: Denies any polyuria or polydipsia. Past Medical History Past Medical History: Atrial Fibrillation, Coronary Artery Disease (CAD), Chest Pain / Angina, Diabetes Mellitus, Eye Disorder, Hyperlipidemia, Hypertension, Myocardial Infarction (NV), Prostate Disorder Additional Past Medical History / Comment(s): NIDDM type II, back pain-bulging discs, diverticular dx, BPH, BILAT CATARACTS Last Myocardial Infarction Date:: 1999 History of Any Multi-Drug Resistant Organisms: None Reported Past Surgical History: Cardiac Ablation, Cholecystectomy, EPS, Heart Catheterization With Stent, Orthopedic Surgery, Tonsillectomy Additional Past Surgical History / Comment(s): 1999 cardiac stents, bilateral o pen shoulder surgeries for rotator cuff, colonoscopy, vasectomy, circumcism. Past Anesthesia/Blood Transfusion Reactions: No Reported Reaction Date of Last Stent Placement:: 1999 Past Psychological History: No Psychological Hx Reported Smoking Status: Current every day smoker - Past Family History Brother(s) Family Medical History: Dialysis Mother Family Medical History: Vascular Disorder Additional Family Medical History / Comment(s): Mother of a brain aneurysm. Medications and Allergies Home Medications Medication Instructions Recorded Confirmed Type RX: Finasteride [Proscar] 5 mg PO DAILY 02/15/15 05/30/25 History RX: Apixaban [Eliquis] 5 mg PO BID 04/15/18 05/30/25 History RX: Montelukast [Singulair] 10 mg PO HS 04/15/18 05/30/25 History RX: Pantoprazole [Protonix] 40 mg PO DAILY 03/21/21 05/30/25 History Metoprolol Tartrate [Lopressor] 50 mg PO BID-W/MEALS 01/03/22 05/30/25 History RX: Atorvastatin [Lipitor] 40 mg PO DAILY 05/30/25 05/30/25 History RX: Tamsulosin [Flomax] 0.4 mg PO DAILY 05/30/25 05/30/25 History lisinopriL [Zestril] 5 mg PO DAILY 05/30/25 05/30/25 History metFORMIN HCL [Glucophage] 850 mg PO TID 05/30/25 05/30/25 History Allergies Allergy/AdvReac Type Severity Reaction Status Date / Time lorazepam [From Ativan] AdvReac BECOMES Verified 05/30/25 10:14 DISORIENTED morphine AdvReac AGITATION Verified 05/30/25 10:14 Physical Exam Vitals: Vital Signs Temp Pulse Resp BP Pulse Ox 05/30/25 07:26 98.9 F 95 18 86/49 94 L 05/30/25 06:04 98.9 F 101 H 18 99/60 96 05/30/25 01:19 100.9 F H 110 H 16 151/78 94 L Intake and Output 05/29/25 05/30/25 05/30/25 22:59 06:59 14:59 Other: Weight 76.521 kg 76.521 kg GENERAL: The patient is alert and oriented x3, not in any acute distress. Well developed, well nourished. HEENT: Pupils are round and equally reacting to light. EOMI. No scleral icterus. No conjunctival pallor. Normocephalic, atraumatic. No pharyngeal erythema. No thyromegaly. CARDIOVASCULAR: S1 and S2 present. No murmurs, rubs, or gallops. PULMONARY: Chest is clear to auscultation, no wheezing , no crackles. -ABDOMEN: Soft, RUQ tendernes, nondistended, normoactive bowel sounds. No palpable organomegaly. MUSCULOSKELETAL: No joint swelling or deformity. EXTREMITIES: No cyanosis, clubbing, or pedal edema. NEUROLOGICAL: Gross neurological examination did not reveal any focal deficits. SKIN: No rashes. no petechiae. Results CBC & Chem 7: 05/30/25 01:40 05/30/25 01:40 Labs: Abnormal Lab Results - Last 24 Hours (Table) 05/30/25 05/30/25 05/30/25 Range/Units 01:40 01:40 01:40 RBC 4.21 L (4.40-5.60) 10*6/uL Hct 39.5 L (39.6-50.0) % Plt Count 106 L (140-440) 10*3/uL Immature Gran # 0.05 H (0.00-0.04) 10*3/uL Lymphocytes # 0.20 L (0.90-5.00) 10*3/uL Eosinophils # 0.00 L (0.04-0.35) 10*3/uL PT 13.3 H (10.0-12.5) sec INR 1.2 H (<1.2) Carbon Dioxide (22-30) mmol/L Glucose (74-99) mg/dL POC Glucose (mg/dL) (70-110) mg/dL Plasma Lactic Acid Cory (0.7-2.0) mmol/L Total Bilirubin (0.2-1.3) mg/dL AST (17-59) U/L ALT (4-49) U/L Alkaline Phosphatase (38-126) U/L Creatine Kinase (55-170) U/L Total Protein (6.3-8.2) g/dL Albumin (3.5-5.0) g/dL Urine Protein Trace H (Negative) Urine Bilirubin 1+ H (Negative) U Benzodiazepines Scrn Detected H (NotDetected) 05/30/25 05/30/25 05/30/25 Range/Units 01:40 01:40 01:40 RBC (4.40-5.60) 10*6/uL Hct (39.6-50.0) % Plt Count (140-440) 10*3/uL Immature Gran # (0.00-0.04) 10*3/uL Lymphocytes # (0.90-5.00) 10*3/uL Eosinophils # (0.04-0.35) 10*3/uL PT (10.0-12.5) sec INR (<1.2) Carbon Dioxide 19 L (22-30) mmol/L Glucose 148 H (74-99) mg/dL POC Glucose (mg/dL) (70-110) mg/dL Plasma Lactic Acid Cory 8.6 H* (0.7-2.0) mmol/L Total Bilirubin 4.2 H (0.2-1.3) mg/dL AST 206 H (17-59) U/L ALT 142 H (4-49) U/L Alkaline Phosphatase 201 H (38-126) U/L Creatine Kinase 45 L (55-170) U/L Total Protein 5.6 L (6.3-8.2) g/dL Albumin 3.4 L (3.5-5.0) g/dL Urine Protein (Negative) Urine Bilirubin (Negative) U Benzodiazepines Scrn (NotDetected) 05/30/25 05/30/25 05/30/25 Range/Units 01:56 05:37 08:54 RBC (4.40-5.60) 10*6/uL Hct (39.6-50.0) % Plt Count (140-440) 10*3/uL Immature Gran # (0.00-0.04) 10*3/uL Lymphocytes # (0.90-5.00) 10*3/uL Eosinophils # (0.04-0.35) 10*3/uL PT (10.0-12.5) sec INR (<1.2) Carbon Dioxide (22-30) mmol/L Glucose (74-99) mg/dL POC Glucose (mg/dL) 169 H (70-110) mg/dL Plasma Lactic Acid Cory 6.9 H* 4.7 H* (0.7-2.0) mmol/L Total Bilirubin (0.2-1.3) mg/dL AST (17-59) U/L ALT (4-49) U/L Alkaline Phosphatase (38-126) U/L Creatine Kinase (55-170) U/L Total Protein (6.3-8.2) g/dL Albumin (3.5-5.0) g/dL Urine Protein (Negative) Urine Bilirubin (Negative) U Benzodiazepines Scrn (NotDetected) Thrombosis Risk Factor Assmnt - Choose All That Apply Any of the Below Risk Factors Present?: Yes Each Risk Factor Represents 3 Points: Age 75 years or older Thrombosis Risk Factor Assessment Total Risk Factor Score: 3 Thrombosis Risk Factor Assessment Level: Moderate Risk Assessment and Plan Assessment: Severe sepsis Right upper quadrant tenderness, rule out acute cholecystitis Lactic acidosis Hypotension Atrial fibrillation Coronary artery disease, status post previous stents Hypertension Hyperlipidemia Plan: Continue with antibiotics IV vancomycin and Zosyn Continue with aggressive hydration Monitor lactic acid Infectious disease consult Pulmonary/critical care consult Further recommendation based on the clinical course Labs and medication were reviewed.. Continue same treatment. Continue with symptomatic treatment. Resume home medication. Monitor labs and vitals. DVT and GI prophylaxis. Further recommendations as per clinical course of the christal narayan DVT prophylaxis: Subcutaneous heparin GI Prophylaxis: Protonix Prognosis is guarded
[2025-05-31 06:54] LABS: HCT 38.2 % (39.6-50.0); HGB 12.6 g/dL (13.0-17.0); Immature Platelet Fraction 13.0 % (1.1-6.1); MCH 31.3 pg (27.0-32.0); MCHC 33.0 g/dL (32.0-37.0); MCV 95.0 fL (80.0-97.0); RBC 4.02 10*6/uL (4.40-5.60); RDW 15.2 % (11.5-14.5); WBC 18.08 10*3/uL (4.50-10.00)
[2025-05-31 07:12] LABS: ALT 482 U/L (4-49); African American GFR (CKD) 37 (>60 ml/min/1.73 sqM); Albumin 3.0 g/dL (3.5-5.0); Alkaline Phosphatase 101 U/L (38-126); Anion Gap 18 mmol/L; Blood Urea Nitrogen 35 mg/dL (9-20); Calcium 7.6 mg/dL (8.4-10.2); Carbon Dioxide 19 mmol/L (22-30); Chloride 110 mmol/L (98-107); Glucose 59 mg/dL (74-99); Non-African American GFR(CKD) 32 (>60 ml/min/1.73 sqM); Potassium 4.6 mmol/L (3.5-5.1); Sodium 147 mmol/L (137-145); Total Protein 5.2 g/dL (6.3-8.2)
[2025-05-31 07:19] LABS: AST 822 U/L (17-59)
[2025-05-31 07:50] LABS: Glucose,Whole Blood 60 mg/dL (70-110)
[2025-05-31] MEDS: DEXTROSE 50% SYRINGE 50 ML IVP PRN ×2 (08:18→16:24)
[2025-05-31] MEDS: DEXTROSE 5% IN WATER 1,000 ML IV SCH (08:18)
[2025-05-31 08:42] LABS: Lymphocytes # (M) 1.08 k/uL (1.0-4.8); Monocytes # (M) 2.35 k/uL (0-1.0); Neutrophils # (M) 14.64 k/uL (1.3-7.7); Neutrophils % (M) 81 %; Platelet Count 49 10*3/uL (140-440); Total Cells Counted 100
[2025-05-31] MEDS: APIXABAN 5 MG TAB PO SCH (11:08)
[2025-05-31 11:48] LABS: Glucose,Whole Blood 91 mg/dL (70-110)
[2025-05-31] MEDS: INSULIN LISPRO (HumaLOG) 100 UNIT/ML 10 mL VL SQ SCH (11:48)
--- NOTE | 2025-05-31 14:47 | P.PN ---
Subjective Progress Note Date: 05/31/25 This is a 79-year-old male patient, seen in the emergency department upon the request of primary care because of hypotension. The patient presented to the emergency department because of altered mentation and the patient was weak and had a fall. No skeletal injuries. He is known to have history of coronary artery disease, diabetes mellitus type 2, hypertension hyperlipidemia and the patient has BPH, chronic back pain related to lumbar disc disease and history of atrial fibrillation. The patient has not had previous cardiac catheterization and stenting. The patient also has had previous cardiac ablation for atrial fibrillation. The patient was seen and evaluated in the emergency department. The patient was febrile with a Tmax of 100.9. Slightly tachycardic. Systolic blood pressure was in the 80s.. On treatment of oxygen by nasal cannula with a pulse ox of 98%. Denies having any chest pain. No cough. No sputum production. No chest tightness. No wheezing. In the emergency, the patient was given a total of 1 L of lactated Ringer and currently lactated Ringer's is running at the rate of 130 cc an hour. Cardiac rhythm is sinus. The patient was started on a combination of Zosyn and and vancomycin suspecting underlying sepsis. The patient's last echo was at 7.8 with a hemoglobin 13 and a platelet count of 106. Normal coagulation profile. Sodium level is 137, potassium is at 3.7, bicarbonate of 19 with a BUN of 16 and a creatinine of 0.9 and a gap of 16. Lactic acid level initially was at 8.6, dropped down to 4.7, currently is at 6.7 and is being monitored. AST is 206, ALT 142, alkaline phosphatase of 201, CPK is 45, UA is negative, Gastroccult blood was positive, urine toxin was positive for benzodiazepines. Viral screen is negative. Blood cultures been sent and results are still pending for now. Meanwhile, the chest x-ray showed no acute abnormalities. It was essentially a normal chest x-ray. CAT scan of the abdomen and pelvis done in the emergency department showed uncomplicated left renal cyst, complex right renal cyst and minor chronic findings, essentially negative. Ultrasound the liver was also done based on the abnormal LFTs and the findings were consistent with hepatic steatosis and the patient is postcholecystectomy and there are changes with dilation of the main duct which is considered to be physiologic postcholecystectomy. There is also an abrupt cut off of the main duct with possible gallstone present suggesting choledocholithiasis. Noted, the patient has no nausea, no emesis, no diarrhea. The patient is seen today May 31, 2025 in follow-up in the emergency department. He is currently sitting up in bed. Awake and alert in no acute distress. Maintaining good O2 saturations in the mid 90s on 2 L/min per nasal cannula. He has been afebrile. Hemodynamically stable. Blood culture positive for E. coli, Klebsiella pneumoniae, Enterococcus faecium. White count 18.0. Hemoglobin 12.6. Platelets 49,000. Sodium 147. Potassium 4.6. Bicarb 19. BUN 35. Creatinine 1.96. Glucose 60. AST 822. ALT 482. He is currently receiving D5W with at 75 mL/h. Remains on Zosyn. Eliquis on hold for possible surgical intervention. Objective - Vital Signs Vital signs: Vital Signs Temp 97.5 F L 05/31/25 04:00 Pulse 87 05/31/25 09:30 Resp 23 05/31/25 09:30 BP 108/60 05/31/25 09:30 Pulse Ox 98 05/31/25 09:30 FiO2 Intake & Output 05/30/25 05/31/25 05/31/25 18:59 06:59 18:59 Intake Total 1025 Balance 1025 Weight 76.521 kg Intake: Intake, IV Titration 1025 Amount Lactated Ringers 1,000 ml 825 @ 75 mls/hr IV .[id number] RACHID Rx#:[id number] Piperacillin-Tazobactam 3 200 .375 gm In Sodium Chloride 0.9% 100 ml @ 25 mls/hr IVPB Q8H RACHID Rx#: [id number] Other: # Voids 4 # Bowel Movements 2 - Exam GENERAL EXAM: Alert, weak, 79-year-old male, on 2 L nasal cannula, comfortable in no apparent distress. HEAD: Normocephalic. EYES: Normal reaction of pupils, equal size. NOSE: Clear with pink turbinates. THROAT: No erythema or exudates. NECK: No masses, no JVD. CHEST: No chest wall deformity. LUNGS: Equal air entry with no crackles, wheeze, rhonchi or dullness. CVS: S1 and S2 normal with no audible murmur, regular rhythm. ABDOMEN: No hepatosplenomegaly, normal bowel sounds, no guarding or rigidity. SPINE: No scoliosis or deformity SKIN: No rashes CENTRAL NERVOUS SYSTEM: No focal deficits, tone is normal in all 4 extremities. EXTREMITIES: There is no peripheral edema. No clubbing, no cyanosis. Peripheral pulses are intact. - Labs CBC & Chem 7: 05/31/25 06:05/31/25 06:29 Labs: Abnormal Lab Results - Last 24 Hours (Table) 05/30/25 05/30/25 05/30/25 Range/Units 16:08 20:21 23:00 WBC (4.50-10.00) 10*3/uL RBC (4.40-5.60) 10*6/uL Hgb (13.0-17.0) g/dL Hct (39.6-50.0) % Plt Count (140-440) 10*3/uL MPV (9.5-12.2) fL Immature Gran # (0.00-0.04) 10*3/uL Neutrophils # (Manual) (1.3-7.7) k/uL Monocytes # (Manual) (0-1.0) k/uL Immature Plt Fraction (1.1-6.1) % Sodium (137-145) mmol/L Chloride (98-107) mmol/L Carbon Dioxide (22-30) mmol/L BUN (9-20) mg/dL Creatinine (0.66-1.25) mg/dL Glucose (74-99) mg/dL POC Glucose (mg/dL) (70-110) mg/dL Plasma Lactic Acid Cory 6.7 H* 6.5 H* 7.9 H* (0.7-2.0) mmol/L Calcium (8.4-10.2) mg/dL Total Bilirubin (0.2-1.3) mg/dL AST (17-59) U/L ALT (4-49) U/L Total Protein (6.3-8.2) g/dL Albumin (3.5-5.0) g/dL 05/31/25 05/31/25 05/31/25 Range/Units 06: 06: 07:49 WBC 18.08 H (4.50-10.00) 10*3/uL RBC 4.02 L (4.40-5.60) 10*6/uL Hgb 12.6 L (13.0-17.0) g/dL Hct 38.2 L (39.6-50.0) % Plt Count 49 L D (140-440) 10*3/uL MPV 13.7 H (9.5-12.2) fL Immature Gran # 1.62 H (0.00-0.04) 10*3/uL Neutrophils # (Manual) 14.64 H (1.3-7.7) k/uL Monocytes # (Manual) 2.35 H (0-1.0) k/uL Immature Plt Fraction 13.0 H (1.1-6.1) % Sodium 147 H (137-145) mmol/L Chloride 110 H (98-107) mmol/L Carbon Dioxide 19 L (22-30) mmol/L BUN 35 H (9-20) mg/dL Creatinine 1.96 H (0.66-1.25) mg/dL Glucose 59 L (74-99) mg/dL POC Glucose (mg/dL) 60 L (70-110) mg/dL Plasma Lactic Acid Cory (0.7-2.0) mmol/L Calcium 7.6 L (8.4-10.2) mg/dL Total Bilirubin 3.3 H (0.2-1.3) mg/dL AST 822 H (17-59) U/L ALT 482 H (4-49) U/L Total Protein 5.2 L (6.3-8.2) g/dL Albumin 3.0 L (3.5-5.0) g/dL Microbiology - Last 24 Hours (Table) 05/30/25 02:34 Blood Culture Gram Stain - Preliminary Blood Blood Culture - Preliminary Escherichia coli Klebsiella Pneum subsp ozaenae Enterococcus faecium Molecular ID Assessment and Plan Assessment: Hypotension with generalized weakness/fall and mild lactic acidosis currently under investigation. Suspect underlying sepsis. Exact source is not clear. Consider cholangitis as the patient has abnormal LFTs with elevated alkaline phosphatase. The patient had a ultrasound of the liver showing postcholecystectomy changes. Common bile duct was dilated and there is an abrupt cut off of the main duct with possible gallstones suggestive of choledocholithiasis. No significant right upper quadrant pain or tenderness. Currently on IV Zosyn. Blood culture showing E. coli, Klebsiella pneumoniae, Enterococcus faecium Bacteremia secondary to above Thrombocytopenia secondary to above Transaminitis secondary to above Generalized weakness secondary to above Acute kidney injury secondary to above Acute leukocytosis secondary to above Lactic acidosis, noted the patient has been maintained on metformin outpatient basis. Lactic acid levels remain elevated. No significant leukocytosis Coronary artery disease History of atrial fibrillation current rhythm is sinus and the patient is maintained on anticoagulation with Eliquis Diabetes mellitus type 2 History of hypertension, History of hyperlipidemia Chronic back pain with degenerative lumbar disc disease BPH Previous history of cardiac catheterization and stenting Previous history of cardiac ablation for atrial fibrillation. Plan: Ultrasound of the liver, labs and medications reviewed Remains on oxygen at 2 L/min per nasal cannula Titrate down the FiO2 as tolerated Continued on Zosyn per infectious disease Eliquis on hold for possible surgical intervention Continue D5W at 75 mL/h Prognosis is guarded We will continue to follow I have personally seen and examined the patient, performed the documentation and the assessment and plan as written. Number of minutes spent on the visit: 10 Dictation was produced using [employer] dictation software. Please excuse any grammatical, word or spelling errors.
--- NOTE | 2025-05-31 15:04 | P.CONS ---
History of Present Illness - Reason for Consult Consult date: 05/31/25 Hyperbilirubinemia Requesting physician: Sujatha Turner - Chief Complaint Fall - History of Present Illness This is a pleasant 79-year-old male who was brought into the emergency department secondary to a fall and altered mental status changes. Past medical history includes atrial fibrillation on Eliquis, coronary artery disease, diabetes mellitus, hyperlipidemia, hypertension, and prostate disorder. Patient had multiple imaging with no acute findings. He was noted to have elevated LFTs on admission. He had a CT of the abdomen pelvis that showed postcholecystectomy changes mild pneumobilia likely secondary to sphincterotomy common bile duct appropriately distended given patient's postoperative state. He further had ultrasound of the liver that reported increased attenuation of the liver with dilated tubular structure versus complex fluid collection seen within the juancarlos hepatitis compatible with dilated biliary ducts on CT imaging. Gallbladder surgically absent CBD dilated. CT imaging same day reported per ultrasound that there was abrupt cut off of the main duct with possible gallstone present suggesting choledocholithiasis. Further evaluation with MRI MRCP recommended. Hepatic steatosis. Gastroenterology was consulted for hyperbilirubinemia. Patient states he does not have abdominal pain at rest but if you press on his abdomen he states that he has tenderness. No nausea or vomiting. He has been having diarrhea he denies any blood in his stool or black stool. He denies any history of known liver disease, denies any history of alcoholism in the past or currently. Currently on IV Zosyn. Patient is currently on Eliquis for atrial fibrillation, last taken today at 11 AM. Patient had low-grade fever of 100.9 on admission, has been afebrile since. Today's labs WBC 18 CBC 12.6 platelet count 49,000 sodium 147 potassium 4.6 BUN 35 creatinine 1.9 total bilirubin 3.3 AST 822 ALT 482 alkaline phosphatase 101 INR on admission 1.2 patient had a positive gastric occult blood. Patient denies any hematemesis. Review of Systems REVIEW OF SYSTEMS: CARDIOPULMONARY: No chest pain or shortness of breath. Gastrointestinal: Abdominal pain only with palpation. No nausea or vomiting. No hematemesis, coffee-ground emesis. No rectal bleeding, or melena. Diarrhea. GENITOURINARY: No dysuria or hematuria. MUSCULOSKELETAL: Reports normal range of motion., Joint pain. SKIN: No rashes. No jaundice. ENDOCRINE: No chills, fevers. No excessive weight gain or loss. No polydipsia or polyuria. PSYCHIATRIC: Unremarkable. NEUROLOGY: No change in mental status. Denies dizziness, headache. ENT: Vision unremarkable. CONSTITUTIONAL: No recent weight loss. No fever, chills, night sweats. Past Medical History Past Medical History: Atrial Fibrillation, Coronary Artery Disease (CAD), Chest Pain / Angina, Diabetes Mellitus, Eye Disorder, Hyperlipidemia, Hypertension, Myocardial Infarction (CT), Prostate Disorder Additional Past Medical History / Comment(s): NIDDM type II, back pain-bulging discs, diverticular dx, BPH, BILAT CATARACTS Last Myocardial Infarction Date:: 1999 History of Any Multi-Drug Resistant Organisms: None Reported Past Surgical History: Cardiac Ablation, Cholecystectomy, EPS, Heart Catheterization With Stent, Orthopedic Surgery, Tonsillectomy Additional Past Surgical History / Comment(s): 1999 cardiac stents, bilateral open shoulder surgeries for rotator cuff, colonoscopy, vasectomy, circumcism. Past Anesthesia/Blood Transfusion Reactions: No Reported Reaction Date of Last Stent Placement:: 1999 Past Psychological History: No Psychological Hx Reported Smoking Status: Current every day smoker - Past Family History Brother(s) Family Medical History: Dialysis Mother Family Medical History: Vascular Disorder Additional Family Medical History / Comment(s): Mother of a brain aneurysm. Medications and Allergies Home Medications Medication Instructions Recorded Confirmed Type Finasteride [Proscar] 5 mg PO DAILY 02/15/15 05/30/25 History Apixaban [Eliquis] 5 mg PO BID 04/15/18 05/30/25 History Montelukast [Singulair] 10 mg PO HS 04/15/18 05/30/25 History Pantoprazole [Protonix] 40 mg PO DAILY 03/21/21 05/30/25 History Metoprolol Tartrate [Lopressor] 50 mg PO BID-W/MEALS 01/03/22 05/30/25 History Atorvastatin [Lipitor] 40 mg PO DAILY 05/30/25 05/30/25 History Tamsulosin [Flomax] 0.4 mg PO DAILY 05/30/25 05/30/25 History lisinopriL [Zestril] 5 mg PO DAILY 05/30/25 05/30/25 History metFORMIN HCL [Glucophage] 850 mg PO TID 05/30/25 05/30/25 History Allergies Allergy/AdvReac Type Severity Reaction Status Date / Time lorazepam [From Ativan] AdvReac BECOMES Verified 05/30/25 10:14 DISORIENTED morphine AdvReac AGITATION Verified 05/30/25 10:14 Physical Exam Vitals: Vital Signs Temp Pulse Pulse Resp BP BP Pulse Ox 05/31/25 09:30 87 23 108/60 98 05/31/25 09:00 88 22 117/56 100 05/31/25 08:30 91 21 92/45 95 05/31/25 08:24 91 18 92/45 95 05/31/25 04:00 97.5 F L 96 18 96/59 98 05/31/25 00:00 97.4 F L 104 H 20 95/57 95 05/30/25 22:28 93/57 05/30/25 21:51 103 H 05/30/25 21:48 97.7 F 103 H 20 84/56 98 05/30/25 20:00 104 H 20 85/56 98 05/30/25 16:44 107 H 20 115/65 98 05/30/25 14:51 109 H 20 95/62 97 Intake and Output 05/30/25 05/31/25 05/31/25 22:59 06:59 14:59 Intake Total 1025 Balance 1025 Intake: Intake, IV Titration 1025 Amount Lactated Ringers 1,000 ml 825 @ 75 mls/hr IV .[id number] RACHID Rx#:[id number] Piperacillin-Tazobactam 3 200 .375 gm In Sodium Chloride 0.9% 100 ml @ 25 mls/hr IVPB Q8H RACHID Rx#: [id number] Other: # Voids 4 # Bowel Movements 2 General appearance: The patient is alert, oriented, appears in no acute distress. HET: Head is normocephalic and atraumatic. Conjunctiva pink. Sclera anicteric. Neck: Supple without lymphadenopathy. Trachea midline. Heart: Regular. Lungs: Equal expansion, normal respiratory effort. Abdomen: Soft, right upper quadrant and epigastric tenderness, nondistended. Skin: No rashes. Mildly jaundice. Extremities: Normal skin color and turgor. No pedal edema. Neurological: No focal deficits. Alert and oriented x3. Results CBC & Chem 7: 05/31/25 06:29 05/31/25 06:29 Labs: Abnormal Lab Results - Last 24 Hours (Table) 05/30/25 05/30/25 05/30/25 Range/Units 13:34 16:08 20:21 WBC (4.50-10.00) 10*3/uL RBC (4.40-5.60) 10*6/uL Hgb (13.0-17.0) g/dL Hct (39.6-50.0) % Plt Count (140-440) 10*3/uL MPV (9.5-12.2) fL Immature Gran # (0.00-0.04) 10*3/uL Neutrophils # (Manual) (1.3-7.7) k/uL Monocytes # (Manual) (0-1.0) k/uL Immature Plt Fraction (1.1-6.1) % Sodium (137-145) mmol/L Chloride (98-107) mmol/L Carbon Dioxide (22-30) mmol/L BUN (9-20) mg/dL Creatinine (0.66-1.25) mg/dL Glucose (74-99) mg/dL POC Glucose (mg/dL) (70-110) mg/dL Plasma Lactic Acid Cory 6.8 H* 6.7 H* 6.5 H* (0.7-2.0) mmol/L Calcium (8.4-10.2) mg/dL Total Bilirubin (0.2-1.3) mg/dL AST (17-59) U/L ALT (4-49) U/L Total Protein (6.3-8.2) g/dL Albumin (3.5-5.0) g/dL 05/30/25 05/31/25 05/31/25 Range/Units 23:00 06:29 06:29 WBC 18.08 H (4.50-10.00) 10*3/uL RBC 4.02 L (4.40-5.60) 10*6/uL Hgb 12.6 L (13.0-17.0) g/dL Hct 38.2 L (39.6-50.0) % Plt Count 49 L D (140-440) 10*3/uL MPV 13.7 H (9.5-12.2) fL Immature Gran # 1.62 H (0.00-0.04) 10*3/uL Neutrophils # (Manual) 14.64 H (1.3-7.7) k/uL Monocytes # (Manual) 2.35 H (0-1.0) k/uL Immature Plt Fraction 13.0 H (1.1-6.1) % Sodium 147 H (137-145) mmol/L Chloride 110 H (98-107) mmol/L Carbon Dioxide 19 L (22-30) mmol/L BUN 35 H (9-20) mg/dL Creatinine 1.96 H (0.66-1.25) mg/dL Glucose 59 L (74-99) mg/dL POC Glucose (mg/dL) (70-110) mg/dL Plasma Lactic Acid Cory 7.9 H* (0.7-2.0) mmol/L Calcium 7.6 L (8.4-10.2) mg/dL Total Bilirubin 3.3 H (0.2-1.3) mg/dL AST 822 H (17-59) U/L ALT 482 H (4-49) U/L Total Protein 5.2 L (6.3-8.2) g/dL Albumin 3.0 L (3.5-5.0) g/dL 05/31/ Range/Units 07:49 WBC (4.50-10.00) 10*3/uL RBC (4.40-5.60) 10*6/uL Hgb (13.0-17.0) g/dL Hct (39.6-50.0) % Plt Count (140-440) 10*3/uL MPV (9.5-12.2) fL Immature Gran # (0.00-0.04) 10*3/uL Neutrophils # (Manual) (1.3-7.7) k/uL Monocytes # (Manual) (0-1.0) k/uL Immature Plt Fraction (1.1-6.1) % Sodium (137-145) mmol/L Chloride (98-107) mmol/L Carbon Dioxide (22-30) mmol/L BUN (9-20) mg/dL Creatinine (0.66-1.25) mg/dL Glucose (74-99) mg/dL POC Glucose (mg/dL) 60 L (70-110) mg/dL Plasma Lactic Acid Cory (0.7-2.0) mmol/L Calcium (8.4-10.2) mg/dL Total Bilirubin (0.2-1.3) mg/dL AST (17-59) U/L ALT (4-49) U/L Total Protein (6.3-8.2) g/dL Albumin (3.5-5.0) g/dL Microbiology - Last 24 Hours (Table) 05/30/25 02:34 Blood Culture Gram Stain - Preliminary Blood Blood Culture - Preliminary Escherichia coli Klebsiella Pneum subsp ozaenae Enterococcus faecium Molecular ID Comments: ultrasound of the liver that reported increased attenuation of the liver with dilated tubular structure versus complex fluid collection seen within the juancarlos hepatitis compatible with dilated biliary ducts on CT imaging. Gallbladder surgically absent CBD dilated. CT imaging same day reported per ultrasound that there was abrupt cut off of the main duct with possible gallstone present suggesting choledocholithiasis. Further evaluation with MRI MRCP recommended. Hepatic steatosis. Assessment and Plan (1) Transaminitis Narrative/Plan: 79-year-old male presenting secondary to a fall and difficulty getting up. Noted to have elevated LFTs on admission and further evaluation concerning for possible CBD stone abdominal ultrasound in setting of abdominal tenderness in the right upper quadrant and epigastric region. Remote postcholecystectomy, need to consider possible choledocholithiasis. Agree with MRCP for further evaluation. Unfortunately patient is on Eliquis received dose today as well as thrombocytopenic with most recent platelet count 49,000. Patient denies any history of underlying liver disease or alcoholism in the past. Current Visit: Yes Status: Acute Code(s): R74.01 - ELEVATION OF LEVELS OF LIVER TRANSAMINASE LEVELS SNOMED Code(s): 733490901 (2) Abdominal pain Current Visit: Yes Status: Acute Code(s): R10.9 - UNSPECIFIED ABDOMINAL PAIN SNOMED Code(s): 46898467 (3) Atrial fibrillation Current Visit: Yes Status: Acute Code(s): I48.91 - UNSPECIFIED ATRIAL FIBRILLATION SNOMED Code(s): 06550652 (4) Thrombocytopenia Current Visit: Yes Status: Acute Code(s): D69.6 - THROMBOCYTOPENIA, UNSPECIFIED SNOMED Code(s): 040044421 (5) Altered mental status Current Visit: Yes Status: Acute Code(s): R41.82 - ALTERED MENTAL STATUS, UNSPECIFIED SNOMED Code(s): 138847922 (6) Fall Current Visit: Yes Status: Acute Code(s): W19.XXXA - UNSPECIFIED FALL, INITIAL ENCOUNTER SNOMED Code(s): 1207071 (7) Diabetes Current Visit: No Status: Acute Code(s): E11.9 - TYPE 2 DIABETES MELLITUS WITHOUT COMPLICATIONS SNOMED Code(s): 64683449 Plan: 1. Continue symptomatic and supportive care 2. Pain medication as needed 3. Daily CBC, CMP, INR 4. Hold anticoagulation 5. Protonix 40 mg daily for GI prophylaxis 6. Orders for stool culture and C. difficile 7. Agree with MRCP which is currently ordered 8. Diet as tolerated 9. Further recommendations forthcoming based on clinical course Thank you for this consultation, we will continue to follow. Dr. Linda Wall I agree with the dictator's note, documented as a scribe by Roxy Arbams.
--- NOTE | 2025-05-31 15:27 | P.PN ---
Subjective Progress Note Date: 05/31/25 05/31/2025 patient seen and examined at bedside. No acute events overnight. Still having abdominal pain and right upper quadrant Labs today: WBC 18.08, hemoglobin 12.6, platelet count 49,000, sodium 147, ch loride 110, bicarb 19, BUN 35, creatinine 1.96, glucose 59, calcium 7.6, AST 822, ALT 482, albumin 3 Imaging: Liver ultrasound showed postcholecystectomy dilation of main duct abrupt cut off at the main duct with possible gallstone present suggestive of choledocholithiasis, CBD 1.1 cm, gallbladder surgically absent Review of systems: Pertinent positives and negatives as discussed in HPI, a complete review of systems was performed and all other systems are negative. Physical examination: Vital signs reviewed General: non toxic, no distress, appears at stated age, nasal cannula Derm: no unusual rashes/lesions, warm Head: atraumatic, normocephalic, symmetric Eyes: EOMI, anicteric sclera, pupils equal round reactive to light ENT: Nose and ears atraumatic Neck: No cervical lymphadenopathy, trachea midline, supple Mouth: no lip lesion, mucus membranes moist Cardiovascular: S1S2 reg, no murmur Lungs: diffuse coarse rales, no accessory muscle use, Gurgling on assessment. Abdominal: soft, tenderness on light palpation RUQ, no guarding Ext: muscle strength 5 out of 5 in all 4 extremities grossly, no gross muscle atrophy, no contractures, positive dorsalis pedis pulse bilateral, no edema Neuro: CN II-XI grossly intact, no gross focal neuro deficits, conversant and cooperative Psych: Alert and oriented x3, appropriate affect and mood Assessment/Plan: #Acute abdomen concerning for Acute Cholangitis #Possible Choledocholithaisis from imaging #Sepsis secondary to above #Transaminitis secondary to above #Lactic acidosis Liver ultrasound showed postcholecystectomy dilation of main duct abrupt cut off at the main duct with possible gallstone present suggestive of choledocholithiasis, CBD 1.1 cm, gallbladder surgically absent Liver enzymes and lactic uptrending WBC today 18.08 Febrile on admission Blood cultures positive for E. coli, Klebsiella and Enterococcus Currently on IV Zosyn Received 3 L IV fluid bolus in the ED. Was on lactated Ringer's. Patient becoming hypernatremic. Continue with D5 water 75 cc/h MRCP ordered Consult GI and general surgery and critical care # ANN, prerenal BUN 35, creatinine 1.9 Continue with IV fluids as above Avoid nephrotoxic agents Monitor UO Chronic conditions: #Diabetes mellitus Hemoglobin A1c 6.9 Hold home medications Glucose Accu-Cheks ACHS Initiate Insulin sliding scale ACHS Monitor for hypoglycemia #Atrial fibrillation #Coronary artery disease, status post previous stents #Hypertension #Hyperlipidemia Hold Zestril, finasteride, Flomax and metformin Continue Eliquis and Lipitor DVT prophylaxis: Eliquis 5 mg p.o. daily GI prophylaxis: Protonix IV daily Prognosis guarded Sujatha Turner MD PGY-1/Personnel Records Clerk Dictation was produced using [employer] dictation software. please excuse any grammatical, word or spelling errors. Attestation I have seen and examined this patient with my resident , discussed the same with the resident/OLGA LIDIA, and agree with the dictator's assessment and plan as written Dr. Fili zhang Objective - Vital Signs Vital signs: Vital Signs Temp 97.5 F L 05/31/25 04:00 Pulse 96 05/31/25 04:00 Resp 18 05/31/25 04:00 BP 96/59 05/31/25 04:00 Pulse Ox 98 05/31/25 04:00 FiO2 Intake & Output 05/30/25 05/31/25 05/31/25 18:59 06:59 18:59 Intake Total 1025 Balance 1025 Weight 76.521 kg Intake: Intake, IV Titration 1025 Amount Lactated Ringers 1,000 ml 825 @ 75 mls/hr IV .[id number] RACHID Rx#:[id number] Piperacillin-Tazobactam 3 200 .375 gm In Sodium Chloride 0.9% 100 ml @ 25 mls/hr IVPB Q8H RACHID Rx#: [id number] Other: # Voids 4 # Bowel Movements 2 - Labs CBC & Chem 7: 06/01/25 09:17 06/01/25 09:17 Labs: Abnormal Lab Results - Last 24 Hours (Table) 05/30/25 05/30/25 05/30/25 Range/Units 08:54 13:34 16:08 WBC (4.50-10.00) 10*3/uL RBC (4.40-5.60) 10*6/uL Hgb (13.0-17.0) g/dL Hct (39.6-50.0) % MPV (9.5-12.2) fL Immature Gran # (0.00-0.04) 10*3/uL Immature Plt Fraction (1.1-6.1) % Sodium (137-145) mmol/L Chloride (98-107) mmol/L Carbon Dioxide (22-30) mmol/L BUN (9-20) mg/dL Creatinine (0.66-1.25) mg/dL Glucose (74-99) mg/dL POC Glucose (mg/dL) (70-110) mg/dL Plasma Lactic Acid Cory 4.7 H* 6.8 H* 6.7 H* (0.7-2.0) mmol/L Calcium (8.4-10.2) mg/dL Total Bilirubin (0.2-1.3) mg/dL AST (17-59) U/L ALT (4-49) U/L Total Protein (6.3-8.2) g/dL Albumin (3.5-5.0) g/dL 05/30/25 05/30/25 05/31/25 Range/Units 20:21 23:00 06:29 WBC 18.08 H (4.50-10.00) 10*3/uL RBC 4.02 L (4.40-5.60) 10*6/uL Hgb 12.6 L (13.0-17.0) g/dL Hct 38.2 L (39.6-50.0) % MPV 13.7 H (9.5-12.2) fL Immature Gran # 1.62 H (0.00-0.04) 10*3/uL Immature Plt Fraction 13.0 H (1.1-6.1) % Sodium (137-145) mmol/L Chloride (98-107) mmol/L Carbon Dioxide (22-30) mmol/L BUN (9-20) mg/dL Creatinine (0.66-1.25) mg/dL Glucose (74-99) mg/dL POC Glucose (mg/dL) (70-110) mg/dL Plasma Lactic Acid Cory 6.5 H* 7.9 H* (0.7-2.0) mmol/L Calcium (8.4-10.2) mg/dL Total Bilirubin (0.2-1.3) mg/dL AST (17-59) U/L ALT (4-49) U/L Total Protein (6.3-8.2) g/dL Albumin (3.5-5.0) g/dL 05/31/25 05/31/25 Range/Units 06:29 07:49 WBC (4.50-10.00) 10*3/uL RBC (4.40-5.60) 10*6/uL Hgb (13.0-17.0) g/dL Hct (39.6-50.0) % MPV (9.5-12.2) fL Immature Gran # (0.00-0.04) 10*3/uL Immature Plt Fraction (1.1-6.1) % Sodium 147 H (137-145) mmol/L Chloride 110 H (98-107) mmol/L Carbon Dioxide 19 L (22-30) mmol/L BUN 35 H (9-20) mg/dL Creatinine 1.96 H (0.66-1.25) mg/dL Glucose 59 L (74-99) mg/dL POC Glucose (mg/dL) 60 L (70-110) mg/dL Plasma Lactic Acid Cory (0.7-2.0) mmol/L Calcium 7.6 L (8.4-10.2) mg/dL Total Bilirubin 3.3 H (0.2-1.3) mg/dL AST 822 H (17-59) U/L ALT 482 H (4-49) U/L Total Protein 5.2 L (6.3-8.2) g/dL Albumin 3.0 L (3.5-5.0) g/dL Microbiology - Last 24 Hours (Table) 05/30/25 02:34 Blood Culture Gram Stain - Preliminary Blood Blood Culture - Preliminary Molecular ID
[2025-05-31 16:19] LABS: Glucose,Whole Blood 69 mg/dL (70-110)
--- NOTE | 2025-05-31 16:24 | P.GSCN ---
History of Present Illness Consult date: 05/31/25 History of present illness: 79-year-old male presented to the emergency department status post fall and altered mental status. He does appear a bit confused during my examination. During his workup he is noted to have elevated LFTs. He did have CT of the abdomen and pelvis that showed postcholecystectomy changes with mild pneumobilia likely secondary to sphincterotomy. Common bile duct is noted to be distended likely secondary to postoperative state. Ultrasound of the liver was performed to further investigate with dilated bile duct confirmed. CT imaging reported that there was abrupt cut off of the main duct with possible gallstone present suggesting choledocholithiasis. Gallbladder is surgically absent. Patient on exam denies any significant abdominal pain. He does have some mild tenderness to palpation. He is noted to have leukocytosis. Review of Systems All systems: negative Past Medical History Past Medical History: Atrial Fibrillation, Coronary Artery Disease (CAD), Chest Pain / Angina, Diabetes Mellitus, Eye Disorder, Hyperlipidemia, Hypertension, Myocardial Infarction ([place]), Prostate Disorder Additional Past Medical History / Comment(s): NIDDM type II, back pain-bulging discs, diverticular dx, BPH, BILAT CATARACTS Last Myocardial Infarction Date:: 1999 History of Any Multi-Drug Resistant Organisms: None Reported Past Surgical History: Cardiac Ablation, Cholecystectomy, EPS, Heart Catheterization With Stent, Orthopedic Surgery, Tonsillectomy Additional Past Surgical History / Comment(s): 1999 cardiac stents, bilateral open shoulder surgeries for rotator cuff, colonoscopy, vasectomy, circumcism. Past Anesthesia/Blood Transfusion Reactions: No Reported Reaction Date of Last Stent Placement:: 1999 Past Psychological History: No Psychological Hx Reported Smoking Status: Current every day smoker - Past Family History Brother(s) Family Medical History: Dialysis Mother Family Medical History: Vascular Disorder Additional Family Medical History / Comment(s): Mother of a brain aneurysm. Medications and Allergies Home Medications Medication Instructions Recorded Confirmed Type Finasteride [Proscar] 5 mg PO DAILY 02/15/15 05/30/25 History Apixaban [Eliquis] 5 mg PO BID 04/15/18 05/30/25 History Montelukast [Singulair] 10 mg PO HS 04/15/18 05/30/25 History Pantoprazole [Protonix] 40 mg PO DAILY 03/21/21 05/30/25 History Metoprolol Tartrate [Lopressor] 50 mg PO BID-W/MEALS 01/03/22 05/30/25 History Atorvastatin [Lipitor] 40 mg PO DAILY 05/30/25 05/30/25 History Tamsulosin [Flomax] 0.4 mg PO DAILY 05/30/25 05/30/25 History lisinopriL [Zestril] 5 mg PO DAILY 05/30/25 05/30/25 History metFORMIN HCL [Glucophage] 850 mg PO TID 05/30/25 05/30/25 History Allergies Allergy/AdvReac Type Severity Reaction Status Date / Time lorazepam [From Ativan] AdvReac BECOMES Verified 05/30/25 10:14 DISORIENTED morphine AdvReac AGITATION Verified 05/30/25 10:14 Surgical - Exam Osteopathic Statement: *. No significant issues noted on an osteopathic structural exam other than those noted in the History and Physical/Consult. Vital Signs Temp Pulse Resp BP Pulse Ox 100.9 F H 110 H 16 151/78 94 L 05/30/25 01:19 05/30/25 01:19 05/30/25 01:19 05/30/25 01:19 05/30/25 01:19 - General no distress - Eyes normal ocular movement - ENT no hearing loss - Neck trachea midline - Respiratory normal respiratory effort - Abdomen Soft, mild generalized tenderness, nondistended, no rebound or guarding Results - Labs 05/31/25 06:29 05/31/25 06:29 Abnormal Lab Results - Last 24 Hours (Table) 05/30/25 05/30/25 05/30/25 Range/Units 16:08 20:21 23:00 WBC (4.50-10.00) 10*3/uL RBC (4.40-5.60) 10*6/uL Hgb (13.0-17.0) g/dL Hct (39.6-50.0) % Plt Count (140-440) 10*3/uL MPV (9.5-12.2) fL Immature Gran # (0.00-0.04) 10*3/uL Neutrophils # (Manual) (1.3-7.7) k/uL Monocytes # (Manual) (0-1.0) k/uL Immature Plt Fraction (1.1-6.1) % Sodium (137-145) mmol/L Chloride (98-107) mmol/L Carbon Dioxide (22-30) mmol/L BUN (9-20) mg/dL Creatinine (0.66-1.25) mg/dL Glucose (74-99) mg/dL POC Glucose (mg/dL) (70-110) mg/dL Plasma Lactic Acid Cory 6.7 H* 6.5 H* 7.9 H* (0.7-2.0) mmol/L Calcium (8.4-10.2) mg/dL Total Bilirubin (0.2-1.3) mg/dL AST (17-59) U/L ALT (4-49) U/L Total Protein (6.3-8.2) g/dL Albumin (3.5-5.0) g/dL 05/31/25 05/31/25 05/31/25 Range/Units 06:29 06:29 07:49 WBC 18.08 H (4.50-10.00) 10*3/uL RBC 4.02 L (4.40-5.60) 10*6/uL Hgb 12.6 L (13.0-17.0) g/dL Hct 38.2 L (39.6-50.0) % Plt Count 49 L D (140-440) 10*3/uL MPV 13.7 H (9.5-12.2) fL Immature Gran # 1.62 H (0.00-0.04) 10*3/uL Neutrophils # (Manual) 14.64 H (1.3-7.7) k/uL Monocytes # (Manual) 2.35 H (0-1.0) k/uL Immature Plt Fraction 13.0 H (1.1-6.1) % Sodium 147 H (137-145) mmol/L Chloride 110 H (98-107) mmol/L Carbon Dioxide 19 L (22-30) mmol/L BUN 35 H (9-20) mg/dL Creatinine 1.96 H (0.66-1.25) mg/dL Glucose 59 L (74-99) mg/dL POC Glucose (mg/dL) 60 L (70-110) mg/dL Plasma Lactic Acid Cory (0.7-2.0) mmol/L Calcium 7.6 L (8.4-10.2) mg/dL Total Bilirubin 3.3 H (0.2-1.3) mg/dL AST 822 H (17-59) U/L ALT 482 H (4-49) U/L Total Protein 5.2 L (6.3-8.2) g/dL Albumin 3.0 L (3.5-5.0) g/dL 05/31/25 Range/Units 16:18 WBC (4.50-10.00) 10*3/uL RBC (4.40-5.60) 10*6/uL Hgb (13.0-17.0) g/dL Hct (39.6-50.0) % Plt Count (140-440) 10*3/uL MPV (9.5-12.2) fL Immature Gran # (0.00-0.04) 10*3/uL Neutrophils # (Manual) (1.3-7.7) k/uL Monocytes # (Manual) (0-1.0) k/uL Immature Plt Fraction (1.1-6.1) % Sodium (137-145) mmol/L Chloride (98-107) mmol/L Carbon Dioxide (22-30) mmol/L BUN (9-20) mg/dL Creatinine (0.66-1.25) mg/dL Glucose (74-99) mg/dL POC Glucose (mg/dL) 69 L (70-110) mg/dL Plasma Lactic Acid Cory (0.7-2.0) mmol/L Calcium (8.4-10.2) mg/dL Total Bilirubin (0.2-1.3) mg/dL AST (17-59) U/L ALT (4-49) U/L Total Protein (6.3-8.2) g/dL Albumin (3.5-5.0) g/dL Microbiology - Last 24 Hours (Table) 05/30/25 02:34 Blood Culture Gram Stain - Preliminary Blood Blood Culture - Preliminary Escherichia coli Klebsiella Pneum subsp ozaenae Enterococcus faecium Molecular ID Diabetes panel 05/31/25 Range/Units 06:29 Sodium 147 H (137-145) mmol/L Potassium 4.6 (3.5-5.1) mmol/L Chloride 110 H (98-107) mmol/L Carbon Dioxide 19 L (22-30) mmol/L BUN 35 H (9-20) mg/dL Creatinine 1.96 H (0.66-1.25) mg/dL Glucose 59 L (74-99) mg/dL Calcium 7.6 L (8.4-10.2) mg/dL AST 822 H (17-59) U/L ALT 482 H (4-49) U/L Alkaline Phosphatase 101 (38-126) U/L Total Protein 5.2 L (6.3-8.2) g/dL Albumin 3.0 L (3.5-5.0) g/dL Calcium panel 05/31/25 Range/Units 06:29 Calcium 7.6 L (8.4-10.2) mg/dL Albumin 3.0 L (3.5-5.0) g/dL Pituitary panel 05/31/25 Range/Units 06:29 Sodium 147 H (137-145) mmol/L Potassium 4.6 (3.5-5.1) mmol/L Chloride 110 H (98-107) mmol/L Carbon Dioxide 19 L (22-30) mmol/L BUN 35 H (9-20) mg/dL Creatinine 1.96 H (0.66-1.25) mg/dL Glucose 59 L (74-99) mg/dL Calcium 7.6 L (8.4-10.2) mg/dL Adrenal panel 05/31/25 Range/Units 06:29 Sodium 147 H (137-145) mmol/L Potassium 4.6 (3.5-5.1) mmol/L Chloride 110 H (98-107) mmol/L Carbon Dioxide 19 L (22-30) mmol/L BUN 35 H (9-20) mg/dL Creatinine 1.96 H (0.66-1.25) mg/dL Glucose 59 L (74-99) mg/dL Calcium 7.6 L (8.4-10.2) mg/dL Total Bilirubin 3.3 H (0.2-1.3) mg/dL AST 822 H (17-59) U/L ALT 482 H (4-49) U/L Alkaline Phosphatase 101 (38-126) U/L Total Protein 5.2 L (6.3-8.2) g/dL Albumin 3.0 L (3.5-5.0) g/dL Assessment and Plan Plan: 79-year-old male with history of cholecystectomy and dilated common bile duct. Based on imaging, possibility of choledocholithiasis. He does state that cholecystectomy was performed many years ago. MRCP has been ordered and is p ending for further evaluation. Currently, no plan for acute surgical intervention. GI recommendations appreciated.
[2025-05-31 17:22] LABS: Glucose,Whole Blood 185 mg/dL (70-110)
[2025-05-31 19:58] LABS: Glucose,Whole Blood 84 mg/dL (70-110)
[2025-06-01] MEDS ORDERED: HEPARIN SODIUM,PORCINE 5,000 UNIT/ML 1 ML VIAL SQ SCH
[2025-06-01] MEDS: OLANZapine 5 MG TAB PO STA (00:10)
[2025-06-01 05:55] LABS: Glucose,Whole Blood 77 mg/dL (70-110)
[2025-06-01] MEDS: ACETAMINOPHEN TAB 325 MG TAB PO PRN (06:14)
[2025-06-01 06:37] LABS: HCT 37.4 % (39.6-50.0); HGB 12.1 g/dL (13.0-17.0); Immature Platelet Fraction 11.5 % (1.1-6.1); MCH 30.6 pg (27.0-32.0); MCHC 32.4 g/dL (32.0-37.0); MCV 94.7 fL (80.0-97.0); RBC 3.95 10*6/uL (4.40-5.60); RDW 15.2 % (11.5-14.5); WBC 9.23 10*3/uL (4.50-10.00)
[2025-06-01 06:44] LABS: ALT 371 U/L (4-49); AST 366 U/L (17-59); African American GFR (CKD) 42 (>60 ml/min/1.73 sqM); Albumin 3.0 g/dL (3.5-5.0); Alkaline Phosphatase 266 U/L (38-126); Anion Gap 17 mmol/L; Blood Urea Nitrogen 43 mg/dL (9-20); Calcium 8.2 mg/dL (8.4-10.2); Carbon Dioxide 17 mmol/L (22-30); Chloride 107 mmol/L (98-107); Glucose 67 mg/dL (74-99); Non-African American GFR(CKD) 36 (>60 ml/min/1.73 sqM); Potassium 4.0 mmol/L (3.5-5.1); Sodium 141 mmol/L (137-145); Total Protein 5.3 g/dL (6.3-8.2)
[2025-06-01 06:50] LABS: INR 1.4 (<1.2); Prothrombin Time 14.6 sec (10.0-12.5)
[2025-06-01 06:53] LABS: Platelet Count 41 10*3/uL (140-440)
--- NOTE | 2025-06-01 07:14 | CA ---
Transthoracic Echo Report Name: Salvatore Blankenship Age: 79 Gender: M : 1945 Exam Date: 05/31/2025 14:07 Exam Location: [facility] Ht (in): 72 Wt (lb): 168 Ordering Physician: Kinjal Maldonado MD Attending/Referring Phys: Train Examiner Giovanny Roberts RDCS Procedure CPT: Indications: low bp Cardiac Hx: Technical Quality: Fair Contrast 1: Total Dose (mL): Contrast 2: Total Dose (mL): MEASUREMENTS (Male / Female) Normal Values 2D ECHO LV Diastolic Diameter PLAX 4.7 cm 4.2 - 5.9 / 3.9 - 5.3 cm LV Systolic Diameter PLAX 3.5 cm IVS Diastolic Thickness 1.0 cm 0.6 - 1.0 / 0.6 - 0.9 cm LVPW Diastolic Thickness 1.1 cm 0.6 - 1.0 / 0.6 - 0.9 cm LV Relative Wall Thickness 0.4 RV Internal Dim ED PLAX 3.3 cm LVOT Diameter 1.5 cm Aortic Root Diameter 2.8 cm LA Systolic Diameter LX 4.0 cm 3.0 - 4.0 / 2.7 - 3.8 cm LV Diastolic Volume MOD BP 77.9 cm??? 67 - 155 / 56 - 104 cm??? LV Systolic Volume MOD BP 38.1 cm??? 22 - 58 / 19 - 49 cm??? LV Ejection Fraction MOD BP 51.1 % >= 55 % LV Cardiac Index MOD BP 1881.0 cm???/min???m??? LV Diastolic Volume MOD 4C 76.7 cm??? LV Systolic Volume MOD 4C 31.0 cm??? LV Ejection Fraction MOD 4C 59.6 % LV Cardiac Index MOD 4C 2162.0 cm???/min???m??? LV Diastolic Length 4C 7.9 cm LV Systolic Length 4C 6.5 cm LV Diastolic Volume MOD 2C 79.2 cm??? LV Systolic Volume MOD 2C 47.9 cm??? LV Ejection Fraction MOD 2C 39.5 % LV Cardiac Index MOD 2C 1478.0 cm???/min???m??? LV Diastolic Length 2C 8.0 cm LV Systolic Length 2C 6.7 cm DOPPLER Mitral E Point Velocity 64.9 cm/s Mitral A Point Velocity 56.5 cm/s Mitral E to A Ratio 1.1 MV Deceleration Time 174.2 ms MV E' Velocity 6.2 cm/s Mitral E to MV E' Ratio 10.4 FINDINGS Left Ventricle Left ventricular ejection fraction is estimated at 55-60%. Normal left ventricular systolic function with no obvious regional wall motion abnormalities. Left ventricular cavity size normal. Left ventricular wall thickness normal. Right Ventricle Moderate right ventricular dilatation. Unable to estimate the right ventricular systolic pressure. Right Atrium Moderate right atrial dilatation. Left Atrium Moderate left atrial dilatation. Mitral Valve Structurally normal mitral valve. Mild mitral regurgitation. No mitral stenosis. Aortic Valve Trileaflet aortic valve. No aortic valve stenosis or regurgitation. Diffuse thickening (sclerosis) of the aortic valve cusps without reduced excursion. Tricuspid Valve Structurally normal tricuspid valve. No tricuspid stenosis. Mild tricuspid regurgitation. Pulmonic Valve Structurally normal pulmonic valve. Trace pulmonic regurgitation. No pulmonic stenosis. Pericardium No pericardial or pleural effusion. Aorta Normal size aortic root and proximal ascending aorta. CONCLUSIONS Normal LV function Moderate right ventricular dilatation Mild mitral and tricuspid regurgitation Previewed by: Dr. Gilbert Wall MD (Electronically Signed) Final Date: 01 June 2025 07:14
--- NOTE | 2025-06-01 07:42 | P.PN ---
Subjective Progress Note Date: 05/31/25 Principal diagnosis: Reason for follow-up is bacteremia and cholangitis Patient is a 79-year-old male with a past medical history significant for Atrial Fibrillation, Coronary Artery Disease (CAD), Chest Pain / Angina, Diabetes Mellitus, Eye Disorder, Hyperlipidemia, Hypertension, Myocardial Infarction ([place]), Prostate Disorder, patient has been brought into the hospital concern for mental status changes as well as weakness patient did have a fever CT abdominal pelvis did shows dilated CBD with subsequently blood culture positive for multiple pathogen holding E. coli Klebsiella and Enterococcus patient. On today's evaluation that is 05/31/2025, patient did have resolution of his fever and has been afebrile, patient is breathing comfortably and is currently on 2 L nasal cannula oxygen, patient denies having any chest pain and cough, patient denies nausea vomiting or diarrhea and no abdominal pain. Patient white count is up to 18.08 creatinine is 1.96 liver enzymes are elevated Objective - Vital Signs Vital signs: Vital Signs Temp 97.5 F L 05/31/25 04:00 Pulse 87 05/31/25 09:30 Resp 23 05/31/25 09:30 BP 108/60 05/31/25 09:30 Pulse Ox 98 05/31/25 09:30 FiO2 Intake & Output 05/30/25 05/31/25 05/31/25 18:59 06:59 18:59 Intake Total 1025 Balance 1025 Weight 76.521 kg Intake: Intake, IV Titration 1025 Amount Lactated Ringers 1,000 ml 825 @ 75 mls/hr IV .[id number] RACHID Rx#:[id number] Piperacillin-Tazobactam 3 200 .375 gm In Sodium Chloride 0.9% 100 ml @ 25 mls/hr IVPB Q8H RACHID Rx#: [id number] Other: # Voids 4 # Bowel Movements 2 - Exam GENERAL DESCRIPTION: An elderly male lying in bed in no distress RESPIRATORY SYSTEM: Unlabored breathing , decreased breath sounds at bases HEART: S1 S2 regular rate and rhythm , ABDOMEN: Soft , no tenderness EXTREMITIES: No edema feet - Labs CBC & Chem 7: 06/01/25 06:11 06/01/25 06:11 Labs: Abnormal Lab Results - Last 24 Hours (Table) 05/30/25 05/30/25 05/30/25 Range/Units 13:34 16:08 20:21 WBC (4.50-10.00) 10*3/uL RBC (4.40-5.60) 10*6/uL Hgb (13.0-17.0) g/dL Hct (39.6-50.0) % Plt Count (140-440) 10*3/uL MPV (9.5-12.2) fL Immature Gran # (0.00-0.04) 10*3/uL Neutrophils # (Manual) (1.3-7.7) k/uL Monocytes # (Manual) (0-1.0) k/uL Immature Plt Fraction (1.1-6.1) % Sodium (137-145) mmol/L Chloride (98-107) mmol/L Carbon Dioxide (22-30) mmol/L BUN (9-20) mg/dL Creatinine (0.66-1.25) mg/dL Glucose (74-99) mg/dL POC Glucose (mg/dL) (70-110) mg/dL Plasma Lactic Acid Cory 6.8 H* 6.7 H* 6.5 H* (0.7-2.0) mmol/L Calcium (8.4-10.2) mg/dL Total Bilirubin (0.2-1.3) mg/dL AST (17-59) U/L ALT (4-49) U/L Total Protein (6.3-8.2) g/dL Albumin (3.5-5.0) g/dL 05/30/25 05/31/25 05/31/25 Range/Units 23:00 06:29 06:29 WBC 18.08 H (4.50-10.00) 10*3/uL RBC 4.02 L (4.40-5.60) 10*6/uL Hgb 12.6 L (13.0-17.0) g/dL Hct 38.2 L (39.6-50.0) % Plt Count 49 L D (140-440) 10*3/uL MPV 13.7 H (9.5-12.2) fL Immature Gran # 1.62 H (0.00-0.04) 10*3/uL Neutrophils # (Manual) 14.64 H (1.3-7.7) k/uL Monocytes # (Manual) 2.35 H (0-1.0) k/uL Immature Plt Fraction 13.0 H (1.1-6.1) % Sodium 147 H (137-145) mmol/L Chloride 110 H (98-107) mmol/L Carbon Dioxide 19 L (22-30) mmol/L BUN 35 H (9-20) mg/dL Creatinine 1.96 H (0.66-1.25) mg/dL Glucose 59 L (74-99) mg/dL POC Glucose (mg/dL) (70-110) mg/dL Plasma Lactic Acid Cory 7.9 H* (0.7-2.0) mmol/L Calcium 7.6 L (8.4-10.2) mg/dL Total Bilirubin 3.3 H (0.2-1.3) mg/dL AST 822 H (17-59) U/L ALT 482 H (4-49) U/L Total Protein 5.2 L (6.3-8.2) g/dL Albumin 3.0 L (3.5-5.0) g/dL 05/31/25 Range/Units 07:49 WBC (4.50-10.00) 10*3/uL RBC (4.40-5.60) 10*6/uL Hgb (13.0-17.0) g/dL Hct (39.6-50.0) % Plt Count (140-440) 10*3/uL MPV (9.5-12.2) fL Immature Gran # (0.00-0.04) 10*3/uL Neutrophils # (Manual) (1.3-7.7) k/uL Monocytes # (Manual) (0-1.0) k/uL Immature Plt Fraction (1.1-6.1) % Sodium (137-145) mmol/L Chloride (98-107) mmol/L Carbon Dioxide (22-30) mmol/L BUN (9-20) mg/dL Creatinine (0.66-1.25) mg/dL Glucose (74-99) mg/dL POC Glucose (mg/dL) 60 L (70-110) mg/dL Plasma Lactic Acid Cory (0.7-2.0) mmol/L Calcium (8.4-10.2) mg/dL Total Bilirubin (0.2-1.3) mg/dL AST (17-59) U/L ALT (4-49) U/L Total Protein (6.3-8.2) g/dL Albumin (3.5-5.0) g/dL Microbiology - Last 24 Hours (Table) 05/30/25 02:34 Blood Culture Gram Stain - Preliminary Blood Blood Culture - Preliminary Escherichia coli Klebsiella Pneum subsp ozaenae Enterococcus faecium Molecular ID Assessment and Plan (1) Cholangitis Current Visit: Yes Status: Acute Code(s): K83.09 - OTHER CHOLANGITIS SNOMED Code(s): 01233849 (2) Sepsis Current Visit: Yes Status: Acute Code(s): A41.9 - SEPSIS, UNSPECIFIED ORGANISM SNOMED Code(s): 80053126 (3) Bacteremia Current Visit: Yes Status: Acute Code(s): R78.81 - BACTEREMIA SNOMED Code(s): 3422768 Plan: 1patient presented to hospital with sepsis in this patient who did have a fever tachycardia elevated lactic acid source is likely abdominal and concerning for possible cholangitis as the patient noted to have some abdominal tenderness elevated liver enzymes and dilated CBD on the CT unfortunately CT was done witho ut oral contrast with minimal sensitivity of this testing. 2patient did have bacteremia highly concerning for possible cholangitis, workup is currently in progress both surgery and GI are following the patient MRCP has been ordered 3patient to be treated with Zosyn while waiting for the sensitivity to finalize Dictation was produced using [employer] dictation software. please excuse any grammatical, word or spelling errors. Time with Patient: Less than 30
[2025-06-01 07:45] LABS: Lymphocytes # (M) 0.74 k/uL (1.0-4.8); Monocytes # (M) 0.09 k/uL (0-1.0); Neutrophils # (M) 8.39 k/uL (1.3-7.7); Neutrophils % (M) 75 %; Total Cells Counted 100
[2025-06-01] MEDS ORDERED: ATORVASTATIN 40 MG TAB PO SCH (09:00)
[2025-06-01 09:52] LABS: Basophils # (A) 0.02 10*3/uL (0.00-0.10); Basophils % (A) 0.1 %; Eosinophils # (A) 0.01 10*3/uL (0.04-0.35); Eosinophils % (A) 0.1 %; HCT 34.7 % (39.6-50.0); HGB 11.7 g/dL (13.0-17.0); Lymphocytes # (A) 0.34 10*3/uL (0.90-5.00); Lymphocytes % (A) 2.3 %; MCH 31.1 pg (27.0-32.0); MCHC 33.7 g/dL (32.0-37.0); MCV 92.3 fL (80.0-97.0); Monocytes # (A) 0.50 10*3/uL (0.20-1.00); Monocytes % (A) 3.4 %; Neutrophils # (A) 9.10 10*3/uL (1.80-7.70); Neutrophils % (A) 62.2 %; RBC 3.76 10*6/uL (4.40-5.60); RDW 15.1 % (11.5-14.5); WBC 14.63 10*3/uL (4.50-10.00)
[2025-06-01 10:07] LABS: ALT 340 U/L (4-49); AST 307 U/L (17-59); African American GFR (CKD) 45 (>60 ml/min/1.73 sqM); Albumin 2.7 g/dL (3.5-5.0); Alkaline Phosphatase 314 U/L (38-126); Anion Gap 9 mmol/L; Blood Urea Nitrogen 45 mg/dL (9-20); Calcium 7.9 mg/dL (8.4-10.2); Carbon Dioxide 22 mmol/L (22-30); Chloride 111 mmol/L (98-107); Glucose 71 mg/dL (74-99); Non-African American GFR(CKD) 39 (>60 ml/min/1.73 sqM); Potassium 3.4 mmol/L (3.5-5.1); Sodium 142 mmol/L (137-145); Total Protein 5.0 g/dL (6.3-8.2)
--- NOTE | 2025-06-01 11:07 | P.PN ---
Subjective Progress Note Date: 06/01/25 Principal diagnosis: Transaminitis, abdominal pain This is a pleasant 79-year-old male who was brought into the emergency department secondary to a fall and altered mental status changes. Past medical history includes atrial fibrillation on Eliquis, coronary artery disease, kaitlin betes mellitus, hyperlipidemia, hypertension, and prostate disorder. Patient had multiple imaging with no acute findings. He was noted to have elevated LFTs on admission. He had a CT of the abdomen pelvis that showed postcholecystectomy changes mild pneumobilia likely secondary to sphincterotomy common bile duct appropriately distended given patient's postoperative state. He further had ultrasound of the liver that reported increased attenuation of the liver with dilated tubular structure versus complex fluid collection seen within the juancarlos hepatitis compatible with dilated biliary ducts on CT imaging. Gallbladder surgically absent CBD dilated. CT imaging same day reported per ultrasound that there was abrupt cut off of the main duct with possible gallstone present suggesting choledocholithiasis. Further evaluation with MRI MRCP recommended. Hepatic steatosis. Gastroenterology was consulted for hyperbilirubinemia. Patient states he does not have abdominal pain at rest but if you press on his abdomen he states that he has tenderness. No nausea or vomiting. He has been having diarrhea he denies any blood in his stool or black stool. He denies any history of known liver disease, denies any history of alcoholism in the past or currently. Currently on IV Zosyn. Patient is currently on Eliquis for atrial fibrillation, last taken today at 11 AM. Patient had low-grade fever of 100.9 on admission, has been afebrile since. Today's labs WBC 18 CBC 12.6 platelet count 49,000 sodium 147 potassium 4.6 BUN 35 creatinine 1.9 total bilirubin 3.3 AST 822 ALT 482 alkaline phosphatase 101 INR on admission 1.2 patient had a positive gastric occult blood. Patient denies any hematemesis. 06/01/2025 Patient seen and examined today as a follow-up. He just underwent MRCP, report currently pending. Has abdominal pain which is diffuse. Patient had positive blood cultures for E. coli, Klebsiella pneumonia and Enterococcus faecium. He has been afebrile. Patient has wet productive cough. Today's initial labs WBC 9.2 hemoglobin 12 platelet count 41,000 INR 1.4 sodium 141 potassium 4.0 BUN 43 creatinine 1.7 total bilirubin 5.7 AST 366 ALT 371 alkaline phosphatase 266 Objective - Vital Signs Vital signs: Vital Signs Temp 98.1 F 06/01/25 03:15 Pulse 114 H 06/01/25 03:15 Resp 18 06/01/25 03:15 BP 155/76 06/01/25 03:15 Pulse Ox 97 06/01/25 03:15 FiO2 Intake & Output 05/31/25 06/01/25 06/01/25 18:59 06:59 18:59 Intake Total 0 Output Total 100 Balance 0 -100 Weight 79.6 kg Intake: Oral 0 Output: Urine 100 Other: Voiding Method Bedside Commode # Voids 1 - Exam General appearance: The patient is alert, oriented, appears in no acute distress. HET: Head is normocephalic and atraumatic. Conjunctiva pink. Sclera icteric. Neck: Supple without lymphadenopathy. Abdomen: Soft, diffuse tenderness, appears greatest in the right upper quadrant and epigastric region, nondistended. Extremities: Normal skin color and turgor. No pedal edema Skin: No rashes, jaundice. Neurological: No focal deficits. Alert and oriented. - Labs CBC & Chem 7: 06/01/25 09:17 06/01/25 09:17 Labs: Abnormal Lab Results - Last 24 Hours (Table) 05/31/25 05/31/25 06/01/25 Range/Units 16:18 17:19 06:11 WBC (4.50-10.00) 10*3/uL RBC 3.95 L (4.40-5.60) 10*6/uL Hgb 12.1 L (13.0-17.0) g/dL Hct 37.4 L (39.6-50.0) % Plt Count 41 L (140-440) 10*3/uL MPV 13.8 H (9.5-12.2) fL Immature Gran # 3.64 H (0.00-0.04) 10*3/uL Neutrophils # (Manual) 8.39 H (1.3-7.7) k/uL Lymphocytes # (Manual) 0.74 L (1.0-4.8) k/uL Immature Plt Fraction 11.5 H (1.1-6.1) % PT (10.0-12.5) sec INR (<1.2) Potassium (3.5-5.1) mmol/L Chloride (98-107) mmol/L Carbon Dioxide (22-30) mmol/L BUN (9-20) mg/dL Creatinine (0.66-1.25) mg/dL Glucose (74-99) mg/dL POC Glucose (mg/dL) 69 L 185 H (70-110) mg/dL Calcium (8.4-10.2) mg/dL Total Bilirubin (0.2-1.3) mg/dL AST (17-59) U/L ALT (4-49) U/L Alkaline Phosphatase (38-126) U/L Total Protein (6.3-8.2) g/dL Albumin (3.5-5.0) g/dL 06/01/25 06/01/25 06/01/25 Range/Units 06:11 06:11 09:17 WBC 14.63 H (4.50-10.00) 10*3/uL RBC 3.76 L (4.40-5.60) 10*6/uL Hgb 11.7 L (13.0-17.0) g/dL Hct 34.7 L (39.6-50.0) % Plt Count (140-440) 10*3/uL MPV 13.7 H (9.5-12.2) fL Immature Gran # 4.66 H (0.00-0.04) 10*3/uL Neutrophils # (Manual) (1.3-7.7) k/uL Lymphocytes # (Manual) (1.0-4.8) k/uL Immature Plt Fraction (1.1-6.1) % PT 14.6 H (10.0-12.5) sec INR 1.4 H (<1.2) Potassium (3.5-5.1) mmol/L Chloride (98-107) mmol/L Carbon Dioxide 17 L (22-30) mmol/L BUN 43 H (9-20) mg/dL Creatinine 1.76 H (0.66-1.25) mg/dL Glucose 67 L (74-99) mg/dL POC Glucose (mg/dL) (70-110) mg/dL Calcium 8.2 L (8.4-10.2) mg/dL Total Bilirubin 5.7 H (0.2-1.3) mg/dL AST 366 H (17-59) U/L ALT 371 H (4-49) U/L Alkaline Phosphatase 266 H (38-126) U/L Total Protein 5.3 L (6.3-8.2) g/dL Albumin 3.0 L (3.5-5.0) g/dL 06/01/25 Range/Units 09:17 WBC (4.50-10.00) 10*3/uL RBC (4.40-5.60) 10*6/uL Hgb (13.0-17.0) g/dL Hct (39.6-50.0) % Plt Count (140-440) 10*3/uL MPV (9.5-12.2) fL Immature Gran # (0.00-0.04) 10*3/uL Neutrophils # (Manual) (1.3-7.7) k/uL Lymphocytes # (Manual) (1.0-4.8) k/uL Immature Plt Fraction (1.1-6.1) % PT (10.0-12.5) sec INR (<1.2) Potassium 3.4 L (3.5-5.1) mmol/L Chloride 111 H (98-107) mmol/L Carbon Dioxide (22-30) mmol/L BUN 45 H (9-20) mg/dL Creatinine 1.67 H (0.66-1.25) mg/dL Glucose 71 L (74-99) mg/dL POC Glucose (mg/dL) (70-110) mg/dL Calcium 7.9 L (8.4-10.2) mg/dL Total Bilirubin 6.4 H (0.2-1.3) mg/dL AST 307 H (17-59) U/L ALT 340 H (4-49) U/L Alkaline Phosphatase 314 H (38-126) U/L Total Protein 5.0 L (6.3-8.2) g/dL Albumin 2.7 L (3.5-5.0) g/dL Microbiology - Last 24 Hours (Table) 05/30/25 02:34 Blood Culture Gram Stain - Preliminary Blood Blood Culture - Preliminary Escherichia coli Klebsiella Pneum subsp ozaenae Enterococcus faecium Molecular ID Assessment and Plan (1) Transaminitis Narrative/Plan: 79-year-old male presenting secondary to a fall and difficulty getting up. No hermelinda to have elevated LFTs on admission and further evaluation concerning for possible CBD stone abdominal ultrasound in setting of abdominal tenderness in the right upper quadrant and epigastric region. Remote postcholecystectomy, need to consider possible choledocholithiasis. Unfortunately patient is on Eliquis received dose today as well as thrombocytopenic with most recent platelet count 49,000. Patient denies any history of underlying liver disease or alcoholism in the past, however CT abdomen pelvis shows hepatic steatosis, likely patient has some underlying liver disease. Awaiting MRCP results for further recommendations. Possible cholangitis Current Visit: Yes Status: Acute Code(s): R74.01 - ELEVATION OF LEVELS OF LIVER TRANSAMINASE LEVELS SNOMED Code(s): 485429309 (2) Choledocholithiasis Narrative/Plan: MRCP completed with findings of choledocholithiasis CBD stone measuring 9 x 5 mm. Recommend ERCP for CBD stone removal however patient is high risk with multiple comorbidities as well as increased risk of bleeding secondary to thrombocytopenia and coagulopathy with elevated INR, possibly secondary to underlying liver disease as seen imaging with reported hepatic steatosis. Recommend transfer to tertiary center secondary to high risk patient for ERCP, recommend advanced endoscopist. Current Visit: Yes Status: Acute Code(s): K80.50 - CALCULUS OF BILE DUCT W/O CHOLANGITIS OR CHOLECYST W/O OBST SNOMED Code(s): 325035649 (3) Abdominal pain Current Visit: Yes Status: Acute Code(s): R10.9 - UNSPECIFIED ABDOMINAL PAIN SNOMED Code(s): 27254638 (4) Thrombocytopenia Current Visit: Yes Status: Acute Code(s): D69.6 - THROMBOCYTOPENIA, UNSPECIFIED SNOMED Code(s): 536329983 (5) Atrial fibrillation Current Visit: Yes Status: Acute Code(s): I48.91 - UNSPECIFIED ATRIAL FI BRILLATION SNOMED Code(s): 57469435 (6) Altered mental status Current Visit: Yes Status: Acute Code(s): R41.82 - ALTERED MENTAL STATUS, UNSPECIFIED SNOMED Code(s): 334998818 (7) Fall Current Visit: Yes Status: Acute Code(s): W19.XXXA - UNSPECIFIED FALL, INITIAL ENCOUNTER SNOMED Code(s): 5573970 (8) Diabetes Current Visit: No Status: Acute Code(s): E11.9 - TYPE 2 DIABETES MELLITUS WITHOUT COMPLICATIONS SNOMED Code(s): 21649858 (9) Bacteremia Current Visit: Yes Status: Acute Code(s): R78.81 - BACTEREMIA SNOMED Code(s): 5123497 Plan: 1. Continue symptomatic and supportive care 2. Pain medication as needed 3. Daily CBC, CMP, INR 4. Hold anticoagulation 5. Protonix 40 mg daily for GI prophylaxis 6. Continue antibiotics per recommendations from infectious disease 7. MRCP reviewed with evidence of filling defect concerning for CBD stone. Recommend transfer to tertiary center for ERCP with advanced endoscopist as patient is high risk for bleeding secondary to thrombocytopenia, coagulopathy and multiple comorbidities. This was discussed with the patient and family who are agreeable with transfer. This was discussed with the primary medical team who will initiate transfer. Thank you for this consultation, we will continue to follow. Dr. Linda Wall I agree with the dictator's note, documented as a scribe by Roxy VÁZQUEZ .
[2025-06-01 11:17] LABS: Glucose,Whole Blood 101 mg/dL (70-110)
--- NOTE | 2025-06-01 11:33 | P.PN ---
Subjective Progress Note Date: 06/01/25 This is a 79-year-old male patient, seen in the emergency department upon the request of primary care because of hypotension. The patient presented to the emergency department because of altered mentation and the patient was weak and had a fall. No skeletal injuries. He is known to have history of coronary artery disease, diabetes mellitus type 2, hypertension hyperlipidemia and the patient has BPH, chronic back pain related to lumbar disc disease and history of atrial fibrillation. The patient has not had previous cardiac catheterization and stenting. The patient also has had previous cardiac ablation for atrial fibrillation. The patient was seen and evaluated in the emergency department. The patient was febrile with a Tmax of 100.9. Slightly tachycardic. Systolic blood pressure was in the 80s.. On treatment of oxygen by nasal cannula with a pulse ox of 98%. Denies having any chest pain. No cough. No sputum production. No chest tightness. No wheezing. In the emergency, the patient was given a total of 1 L of lactated Ringer and currently lactated Ringer's is running at the rate of 130 cc an hour. Cardiac rhythm is sinus. The patient was started on a combination of Zosyn and and vancomycin suspecting underlying sepsis. The patient's last echo was at 7.8 with a hemoglobin 13 and a platelet count of 106. Normal coagulation profile. Sodium level is 137, potassium is at 3.7, bicarbonate of 19 with a BUN of 16 and a creatinine of 0.9 and a gap of 16. Lactic acid level initially was at 8.6, dropped down to 4.7, currently is at 6.7 and is being monitored. AST is 206, ALT 142, alkaline phosphatase of 201, CPK is 45, UA is negative, Gastroccult blood was positive, urine toxin was positive for benzodiazepines. Viral screen is negative. Blood cultures been sent and results are still pending for now. Meanwhile, the chest x-ray showed no acute abnormalities. It was essentially a normal chest x-ray. CAT scan of the abdomen and pelvis done in the emergency department showed uncomplicated left renal cyst, complex right renal cyst and minor chronic findings, essentially negative. Ultrasound the liver was also done based on the abnormal LFTs and the findings were consistent with hepatic steatosis and the patient is postcholecystectomy and there are changes with dilation of the main duct which is considered to be physiologic postcholecystectomy. There is also an abrupt cut off of the main duct with possible gallstone present suggesting choledocholithiasis. Noted, the patient has no nausea, no emesis, no diarrhea. The patient is seen today May 31, 2025 in follow-up in the emergency department. He is currently sitting up in bed. Awake and alert in no acute distress. Maintaining good O2 saturations in the mid 90s on 2 L/min per nasal cannula. He has been afebrile. Hemodynamically stable. Blood culture positive for E. coli, Klebsiella pneumoniae, Enterococcus faecium. White count 18.0. Hemoglobin 12.6. Platelets 49,000. Sodium 147. Potassium 4.6. Bicarb 19. BUN 35. Creatinine 1.96. Glucose 60. AST 822. ALT 482. He is currently receiving D5W with at 75 mL/h. Remains on Zosyn. Eliquis on hold for possible surgical intervention. The patient is seen today June 01, 2025 in follow-up on the regular medical floor. He is currently resting in bed. Awake and alert in no acute distress. He is maintaining O2 saturations in the mid 90s on 3 L/min per nasal cannula. He is afebrile. Hemodynamically stable. Chest x-ray shows a right lower lobe infiltrate. Blood cultures positive for E. coli, Klebsiella pneumoniae, Enter ococcus faecium. White count 14.6. Hemoglobin 11.7. Platelets 41,000. Sodium 142. Potassium 3.4. Bicarb 22. BUN 45. Creatinine 1.67. Glucose 71. AST 307. ALT 340. Alk phos 314. He remains on Zosyn. He did go for an MRCP today. Results are pending. Objective - Vital Signs Vital signs: Vital Signs Temp 98.4 F 06/01/25 09:15 Pulse 105 H 06/01/25 09:15 Resp 18 06/01/25 09:15 BP 110/68 06/01/25 09:15 Pulse Ox 96 06/01/25 09:15 FiO2 Intake & Output 05/31/25 06/01/25 06/01/25 18:59 06:59 18:59 Intake Total 0 Output Total 100 Balance 0 -100 Weight 79.6 kg Intake: Oral 0 Output: Urine 100 Other: Voiding Method Bedside Commode # Voids 1 - Exam GENERAL EXAM: Alert, weak, 79-year-old male, on 3 L nasal cannula, comfortable in no apparent distress. HEAD: Normocephalic. EYES: Normal reaction of pupils, equal size. NOSE: Clear with pink turbinates. THROAT: No erythema or exudates. NECK: No masses, no JVD. CHEST: No chest wall deformity. LUNGS: Equal air entry with bilateral scattered rhonchi. CVS: S1 and S2 normal with no audible murmur, regular rhythm. ABDOMEN: No hepatosplenomegaly, normal bowel sounds, no guarding or rigidity. SPINE: No scoliosis or deformity SKIN: No rashes CENTRAL NERVOUS SYSTEM: No focal deficits, tone is normal in all 4 extremities. EXTREMITIES: There is no peripheral edema. No clubbing, no cyanosis. Peripheral pulses are intact. - Labs CBC & Chem 7: 06/01/25 09:17 06/01/25 09:17 Labs: Abnormal Lab Results - Last 24 Hours (Table) 05/31/25 05/31/25 06/01/25 Range/Units 16:18 17:19 06:11 WBC (4.50-10.00) 10*3/uL RBC 3.95 L (4.40-5.60) 10*6/uL Hgb 12.1 L (13.0-17.0) g/dL Hct 37.4 L (39.6-50.0) % Plt Count 41 L (140-440) 10*3/uL MPV 13.8 H (9.5-12.2) fL Immature Gran # 3.64 H (0.00-0.04) 10*3/uL Neutrophils # (Manual) 8.39 H (1.3-7.7) k/uL Lymphocytes # (Manual) 0.74 L (1.0-4.8) k/uL Immature Plt Fraction 11.5 H (1.1-6.1) % PT (10.0-12.5) sec INR (<1.2) Potassium (3.5-5.1) mmol/L Chloride (98-107) mmol/L Carbon Dioxide (22-30) mmol/L BUN (9-20) mg/dL Creatinine (0.66-1.25) mg/dL Glucose (74-99) mg/dL POC Glucose (mg/dL) 69 L 185 H (70-110) mg/dL Calcium (8.4-10.2) mg/dL Total Bilirubin (0.2-1.3) mg/dL AST (17-59) U/L ALT (4-49) U/L Alkaline Phosphatase (38-126) U/L Total Protein (6.3-8.2) g/dL Albumin (3.5-5.0) g/dL 06/01/25 06/01/25 06/01/25 Range/Units 06:11 06:11 09:17 WBC 14.63 H (4.50-10.00) 10*3/uL RBC 3.76 L (4.40-5.60) 10*6/uL Hgb 11.7 L (13.0-17.0) g/dL Hct 34.7 L (39.6-50.0) % Plt Count (140-440) 10*3/uL MPV 13.7 H (9.5-12.2) fL Immature Gran # 4.66 H (0.00-0.04) 10*3/uL Neutrophils # (Manual) (1.3-7.7) k/uL Lymphocytes # (Manual) (1.0-4.8) k/uL Immature Plt Fraction (1.1-6.1) % PT 14.6 H (10.0-12.5) sec INR 1.4 H (<1.2) Potassium (3.5-5.1) mmol/L Chloride (98-107) mmol/L Carbon Dioxide 17 L (22-30) mmol/L BUN 43 H (9-20) mg/dL Creatinine 1.76 H (0.66-1.25) mg/dL Glucose 67 L (74-99) mg/dL POC Glucose (mg/dL) (70-110) mg/dL Calcium 8.2 L (8.4-10.2) mg/dL Total Bilirubin 5.7 H (0.2-1.3) mg/dL AST 366 H (17-59) U/L ALT 371 H (4-49) U/L Alkaline Phosphatase 266 H (38-126) U/L Total Protein 5.3 L (6.3-8.2) g/dL Albumin 3.0 L (3.5-5.0) g/dL 06/01/25 Range/Units 09:17 WBC (4.50-10.00) 10*3/uL RBC (4.40-5.60) 10*6/uL Hgb (13.0-17.0) g/dL Hct (39.6-50.0) % Plt Count (140-440) 10*3/uL MPV (9.5-12.2) fL Immature Gran # (0.00-0.04) 10*3/uL Neutrophils # (Manual) (1.3-7.7) k/uL Lymphocytes # (Manual) (1.0-4.8) k/uL Immature Plt Fraction (1.1-6.1) % PT (10.0-12.5) sec INR (<1.2) Potassium 3.4 L (3.5-5.1) mmol/L Chloride 111 H (98-107) mmol/L Carbon Dioxide (22-30) mmol/L BUN 45 H (9-20) mg/dL Creatinine 1.67 H (0.66-1.25) mg/dL Glucose 71 L (74-99) mg/dL POC Glucose (mg/dL) (70-110) mg/dL Calcium 7.9 L (8.4-10.2) mg/dL Total Bilirubin 6.4 H (0.2-1.3) mg/dL AST 307 H (17-59) U/L ALT 340 H (4-49) U/L Alkaline Phosphatase 314 H (38-126) U/L Total Protein 5.0 L (6.3-8.2) g/dL Albumin 2.7 L (3.5-5.0) g/dL Microbiology - Last 24 Hours (Table) 05/30/25 02:34 Blood Culture Gram Stain - Preliminary Blood Blood Culture - Preliminary Escherichia coli Klebsiella Pneum subsp ozaenae Enterococcus faecium Molecular ID Assessment and Plan Assessment: Hypotension with generalized weakness/fall and mild lactic acidosis currently under investigation. Suspect underlying sepsis. Exact source is not clear. Consider cholangitis as the patient has abnormal LFTs with elevated alkaline phosphatase. Ultrasound of the liver showing postcholecystectomy changes. Common bile duct was dilated and there is an abrupt cut off of the main duct with possible gallstones suggestive of choledocholithiasis. No significant right upper quadrant pain or tenderness. Currently on IV Zosyn. Blood culture showing E. coli, Klebsiella pneumoniae, Enterococcus faecium Bacteremia secondary to above Thrombocytopenia secondary to above Transaminitis secondary to above Generalized weakness secondary to above Acute kidney injury secondary to above Acute leukocytosis secondary to above Lactic acidosis, noted the patient has been maintained on metformin outpatient basis. Lactic acid levels remain elevated. No significant leukocytosis Acute hypoxemic respiratory failure secondary to suspected early right lower lobe pneumonia Coronary artery disease History of atrial fibrillation current rhythm is sinus and the patient is maintained on anticoagulation with Eliquis Diabetes mellitus type 2 History of hypertension, History of hyperlipidemia Chronic back pain with degenerative lumbar disc disease BPH Previous history of cardiac catheterization and stenting Previous history of cardiac ablation for atrial fibrillation. Plan: Chest x-ray, labs and medications reviewed Possible early right lung pneumonia Remains on oxygen at 3 L/min per nasal cannula Titrate the FiO2 as tolerated Continued on Zosyn MRCP done today, results pending Eliquis on hold for possible surgical intervention Continue D5W at 75 mL/h Prognosis is guarded We will continue to follow I have personally seen and examined the patient, performed the documentation and the assessment and plan as written. Number of minutes spent on the visit: 10 Dictation was produced using [employer] dictation software. Please excuse any grammatical, word or spelling errors.
--- NOTE | 2025-06-01 12:46 | MR ---
MR MRCP INDICATION: Patient age:Male; 79 years old; Reason for study: RUQ Abdominal pain; PHH. COMPARISON: Ultrasound liver 05/30/2025, CT abdomen pelvis 05/30/2025, 08/19/2018 TECHNIQUE: Multi planar, T2-weighted imaging with and without fat saturation and chemical shift imag ing was performed of the abdomen. Then, heavily T2 weighted imaging was utilized in order to study th e biliary system. Maximum intensity projection images were reconstructed from the original data of james flynn biliary tree. No Gadolinium given. FINDINGS: Motion degraded examination. MRCP: The intrahepatic ducts are dilated. The common bile duct at the level of the pancreatic head m easures 3 mm in size. The common hepatic duct measures 13 mm in size. There is a filling defect in t rina proximal common bile duct measuring 9 x 5 mm (series 401, image 20). Consistent with choledocholit hiasis. This causes upstream dilatation. The pancreatic duct is normal. The gallbladder is surgicall y absent. Abdomen: The spleen, adrenal glands, and pancreas have a grossly normal noncontrast appearance. Perip ortal edema identified. No hydronephrosis. Few bilateral T2 hyperintense thin wall simple appearing r enal cysts. There are 2 left renal cortical T2 hypointense/T1 hyperintense lesions with the lower deanne e measuring up to 2.4 cm and in the upper pole measuring up to 1.5 cm. These correspond to recent CT. These are stable in size dating back to 2018. Favored to represent benign proteinaceous/hemorrhagic cysts. Distal colonic diverticulosis without evidence for acute diverticulitis. Ectasia of the abdomi nal aorta measuring up to 2.9 cm. Trace bilateral pleural effusions with bilateral lower lobe streaky atelectasis. IMPRESSION: Motion degraded examination. 1. Choledocholithiasis involving the common bile duct with upstream intra and extra hepatic biliary duct dilatation. ERCP is recommended. 2. Complex left renal cysts which are stable in size dating back to 2018. Favor to represent protein aceous/hemorrhagic cysts. 3. Post cholecystectomy changes. [facility], , 06/01/2025 12:43 PM
--- NOTE | 2025-06-01 12:56 | XR ---
EXAMINATION TYPE: XR chest 1V portable DATE OF EXAM: 06/01/2025 11:17 AM COMPARISON: None. CLINICAL INDICATION: Male, 79 years old with history of Weezes on PE requiring nasal oxygen, TECHNIQUE: XR chest 1V portable views of the chest are obtained. FINDINGS: Demonstrated are scattered senescent parenchymal change. Patchy density right medial lung base may reflect atelectasis or infiltrate. Correlate clinically. The heart is stable. Hilar and mediastinal structures are within normal limits. Degenerative changes are seen of the dorsal spine. IMPRESSION: 1. Patchy density right medial lung base may reflect atelectasis or infiltrate. Correlate clinically . [facility], , 06/01/2025 12:54 PM
[2025-06-01 13:46] LABS: Platelet Count 50 10*3/uL (140-440)
[2025-06-01 14:10] VITALS: BMI 23.8
--- NOTE | 2025-06-01 15:20 | P.PN ---
Progress Note - Text Progress Note Date: 06/01/25 Patient seen and examined. No acute events overnight VSS General-NAD CVS-RRR Lungs-NLB Abdomen-soft, NTND 79-year-old male with History of Cholecystectomy and Dilated Common Bile Duct -MRCP shows choledocholithiasis -GI recs regarding ERCP -Abx per ID -Full Liquid Diet -Pain Control -AM labs -No acute surgical intervention Dilip [facility] [phone]
[2025-06-01 15:49] LABS: Hepatitis A Antibody IgM Nonreactive (Nonreactive); Hepatitis B Surface Antigen Nonreactive (Nonreactive); Hepatitis C IgG Antibody Nonreactive (Nonreactive)
[2025-06-01 16:21] LABS: Glucose,Whole Blood 95 mg/dL (70-110)
--- NOTE | 2025-06-01 17:11 | P.PN ---
Subjective Progress Note Date: 06/01/25 Reason for follow-up is bacteremia and cholangitis Patient is a 79-year-old male with a past medical history significant for Atrial Fibrillation, Coronary Artery Disease (CAD), Chest Pain / Angina, Diabetes Mellitus, Eye Disorder, Hyperlipidemia, Hypertension, Myocardial Infarction ([place]), Prostate Disorder, patient has been brought into the hospital concern for mental status changes as well as weakness patient did have a fever CT abdominal pelvis did shows dilated CBD with subsequently blood culture positive for multiple pathogen holding E. coli Klebsiella and Enterococcus patient. On today's evaluation that is 06/01/2025, patient did have resolution of his fever and has been afebrile, patient is breathing comfortably and is currently on 3 L nasal cannula oxygen, patient denies having any chest pain and cough, patient denies nausea vomiting or diarrhea and no abdominal pain. Patient white count is up to 9.23, and later 14.6, creatinine is 1.76 and later 1.67, liver enzymes are elevated and downtrending Objective - Vital Signs Vital signs: Vital Signs Temp 98.4 F 06/01/25 09:15 Pulse 104 H 06/01/25 14:00 Resp 18 06/01/25 14:00 BP 127/70 06/01/25 12:00 Pulse Ox 96 06/01/25 12:00 FiO2 Intake & Output 05/31/25 06/01/25 06/01/25 18:59 06:59 18:59 Intake Total 0 Output Total 100 Balance 0 -100 Weight 79.6 kg 79.6 kg Intake: Oral 0 Output: Urine 100 Other: Voiding Method Bedside Commode # Voids 1 1 - Exam GENERAL DESCRIPTION: An elderly male lying in bed in no distress RESPIRATORY SYSTEM: Unlabored breathing , decreased breath sounds at bases HEART: S1 S2 regular rate and rhythm , ABDOMEN: Soft , no tenderness EXTREMITIES: No edema feet - Labs CBC & Chem 7: 06/01/25 09:17 06/01/25 09:17 Labs: Abnormal Lab Results - Last 24 Hours (Table) 05/31/25 05/31/25 06/01/25 Range/Units 16:18 17:19 06:11 WBC (4.50-10.00) 10*3/uL RBC 3.95 L (4.40-5.60) 10*6/uL Hgb 12.1 L (13.0-17.0) g/dL Hct 37.4 L (39.6-50.0) % Plt Count 41 L (140-440) 10*3/uL MPV 13.8 H (9.5-12.2) fL Immature Gran # 3.64 H (0.00-0.04) 10*3/uL Neutrophils # (1.80-7.70) 10*3/uL Neutrophils # (Manual) 8.39 H (1.3-7.7) k/uL Lymphocytes # (0.90-5.00) 10*3/uL Lymphocytes # (Manual) 0.74 L (1.0-4.8) k/uL Eosinophils # (0.04-0.35) 10*3/uL Immature Plt Fraction 11.5 H (1.1-6.1) % PT (10.0-12.5) sec INR (<1.2) Potassium (3.5-5.1) mmol/L Chloride (98-107) mmol/L Carbon Dioxide (22-30) mmol/L BUN (9-20) mg/dL Creatinine (0.66-1.25) mg/dL Glucose (74-99) mg/dL POC Glucose (mg/dL) 69 L 185 H (70-110) mg/dL Calcium (8.4-10.2) mg/dL Total Bilirubin (0.2-1.3) mg/dL AST (17-59) U/L ALT (4-49) U/L Alkaline Phosphatase (38-126) U/L Total Protein (6.3-8.2) g/dL Albumin (3.5-5.0) g/dL 06/01/25 06/01/25 06/01/25 Range/Units 06:11 06:11 09:17 WBC 14.63 H (4.50-10.00) 10*3/uL RBC 3.76 L (4.40-5.60) 10*6/uL Hgb 11.7 L (13.0-17.0) g/dL Hct 34.7 L (39.6-50.0) % Plt Count 50 L (140-440) 10*3/uL MPV 13.7 H (9.5-12.2) fL Immature Gran # 4.66 H (0.00-0.04) 10*3/uL Neutrophils # 9.10 H (1.80-7.70) 10*3/uL Neutrophils # (Manual) (1.3-7.7) k/uL Lymphocytes # 0.34 L (0.90-5.00) 10*3/uL Lymphocytes # (Manual) (1.0-4.8) k/uL Eosinophils # 0.01 L (0.04-0.35) 10*3/uL Immature Plt Fraction (1.1-6.1) % PT 14.6 H (10.0-12.5) sec INR 1.4 H (<1.2) Potassium (3.5-5.1) mmol/L Chloride (98-107) mmol/L Carbon Dioxide 17 L (22-30) mmol/L BUN 43 H (9-20) mg/dL Creatinine 1.76 H (0.66-1.25) mg/dL Glucose 67 L (74-99) mg/dL POC Glucose (mg/dL) (70-110) mg/dL Calcium 8.2 L (8.4-10.2) mg/dL Total Bilirubin 5.7 H (0.2-1.3) mg/dL AST 366 H (17-59) U/L ALT 371 H (4-49) U/L Alkaline Phosphatase 266 H (38-126) U/L Total Protein 5.3 L (6.3-8.2) g/dL Albumin 3.0 L (3.5-5.0) g/dL 06/01/25 Range/Units 09:17 WBC (4.50-10.00) 10*3/uL RBC (4.40-5.60) 10*6/uL Hgb (13.0-17.0) g/dL Hct (39.6-50.0) % Plt Count (140-440) 10*3/uL MPV (9.5-12.2) fL Immature Gran # (0.00-0.04) 10*3/uL Neutrophils # (1.80-7.70) 10*3/uL Neutrophils # (Manual) (1.3-7.7) k/uL Lymphocytes # (0.90-5.00) 10*3/uL Lymphocytes # (Manual) (1.0-4.8) k/uL Eosinophils # (0.04-0.35) 10*3/uL Immature Plt Fraction (1.1-6.1) % PT (10.0-12.5) sec INR (<1.2) Potassium 3.4 L (3.5-5.1) mmol/L Chloride 111 H (98-107) mmol/L Carbon Dioxide (22-30) mmol/L BUN 45 H (9-20) mg/dL Creatinine 1.67 H (0.66-1.25) mg/dL Glucose 71 L (74-99) mg/dL POC Glucose (mg/dL) (70-110) mg/dL Calcium 7.9 L (8.4-10.2) mg/dL Total Bilirubin 6.4 H (0.2-1.3) mg/dL AST 307 H (17-59) U/L ALT 340 H (4-49) U/L Alkaline Phosphatase 314 H (38-126) U/L Total Protein 5.0 L (6.3-8.2) g/dL Albumin 2.7 L (3.5-5.0) g/dL Microbiology - Last 24 Hours (Table) 05/30/25 02:34 Blood Culture Gram Stain - Final Blood Blood Culture - Final Escherichia coli Klebsiella Pneum subsp ozaenae Enterococcus faecium Molecular ID Assessment and Plan (1) Cholangitis Status: Acute Code(s): K83.09 - OTHER CHOLANGITIS SNOMED Code(s): 71825596 (2) Sepsis Status: Acute Code(s): A41.9 - SEPSIS, UNSPECIFIED ORGANISM SNOMED Code(s): 08056461 (3) Bacteremia Status: Acute Code(s): R78.81 - BACTEREMIA SNOMED Code(s): 0724781 Plan: 1patient presented to hospital with sepsis in this patient who did have a fever tachycardia elevated lactic acid source is likely abdominal and concerning for possible cholangitis as the patient noted to have some abdominal tenderness elevated liver enzymes and dilated CBD on the CT unfortunately CT was done without oral contrast with minimal sensitivity of this testing. 2patient did have bacteremia highly concerning for possible cholangitis, workup is currently in progress both surgery and GI are following the patient MRCP has been ordered 3patient to be treated with Zosyn at this time, blood culture findings of E. coli, Klebsiella pneum, Enterococcus faecium Salvatore Rice MD Internal Medicine Resident, PGY2 Infectious disease service Patient was personally seen and examined with the resident physician documentation has been reviewed and agree patient did have poly microbial bacteremia source likely GI tract with evidence of cholangitis and evidence of choledocholithiasis on the MRCP he needs ERCP however GI is consulted on the case recommend the patient to be transferred to [facility] we will keep the patient on Zosyn until the patient is evaluated by ID services at the tertiary care. belkys gates MD Dictation was produced using [employer] dictation software. please excuse any grammatical, word or spelling errors. Time with Patient: Less than 30
[2025-06-01] MEDS: METOPROLOL TARTRATE 50 MG TAB PO SCH (18:06)
--- NOTE | 2025-06-01 18:53 | P.DS ---
Providers Date of admission: 05/30/25 05:46 Attending physician: Gamaliel Conner Consults: 05/30/25 05:46 Consult Physician Routine Consulting Provider: Leyda Pierre Consult Reason/Comments: sepsis, unknown source Do you want consulting provider notified?: Yes 05/30/25 10:18 Consult Physician Urgent Consulting Provider: Kinjal Maldonado Consult Reason/Comments: icu evaluation ,sepsis ,hypotnesion ,high laqctic Do you want consulting provider notified?: Yes 05/31/25 12:14 Consult Physician Routine Consulting Provider: Adriana Wall Consult Reason/Comments: Hyperbilirubin Do you want consulting provider notified?: Yes 05/31/25 12:24 Consult Physician Urgent Consulting Provider: Lonnie Yanez Consult Reason/Comments: RUQ pain concerning for acute cholangitis Do you want consulting provider notified?: Yes Primary care physician: Stated None Hospital Course: Discharge Diagnosis: Severe sepsis Right upper quadrant tenderness, rule out acute cholecystitis Lactic acidosis Hypotension Atrial fibrillation Coronary artery disease, status post previous stents Hypertension Hyperlipidemia Hospital Course: This is a pleasant 79 years old male with past medical history of multiple medical problems Presents because of altered mental status He is awake alert oriented x 3, partially confused His son brought him to the hospital because he fell twice yesterday He was balance as he states without specification but he denies loss of consciousness he fell in the garage no head trauma no body trauma. Patient himself denies any specific symptoms he says he has diarrhea twice per day On exam he has right upper quadrant tenderness He had a fever of 100.9 blood pressure on the low side with systolic 80 to 90s and patient tachycardic lactic acid elevated 6.9 at 4.7 occult blood in stool positive urinalysis showing no evidence of infection. Serum alcohol less than 10 urine drug screen is positive for benzodiazepines CT of the abdomen pelvis showing complex right renal cyst Chest x-ray is negative for acute process CT of the head showing no hemorrhage or mass or midline shift Patient started on antibiotic and admitted to the hospital WBC 7.8 liver enzymes moderately elevated While admitted patient was found to have significantly elevated LFTs and it was decided that time a CT abdomen was necessary which showed evidence of choledocholithiasis. Ultrasound right upper quadrant also showed enlarged bile duct. MRCP was performed which showed choledocholithiasis and need for ERCP. Concordance with GI we decided he is not a candidate for ERCP due to thrombocytopenia and coagulopathy, at this point it was decided the patient needed to be transferred to a higher level of care facility. I reached out to Dr. Vaz about the case and he accepted the patient for transfer. The patient was transfered to [facility] which is in allignement with the wishes of his family Pt seen and examined at bedside: GENERAL EXAM: Alert, weak, 79-year-old male, on 3 L nasal cannula, comfortable in no apparent distress. HEAD: Normocephalic. EYES: Normal reaction of pupils, equal size. NOSE: Clear with pink turbinates. THROAT: No erythema or exudates. NECK: No masses, no JVD. CHEST: No chest wall deformity. LUNGS: Equal air entry with bilateral scattered rhonchi. CVS: S1 and S2 normal with no audible murmur, regular rhythm. ABDOMEN: No hepatosplenomegaly, normal bowel sounds, no guarding or rigidity. SPINE: No scoliosis or deformity SKIN: No rashes CENTRAL NERVOUS SYSTEM: No focal deficits, tone is normal in all 4 extremities. EXTREMITIES: There is no peripheral edema. No clubbing, no cyanosis. Peripheral pulses are intact. A total of [>30] minutes were spent preparing this complex discarge summary. Patient was discharged on 06/01 Attestation I have seen and examined this patient with my resident , discussed the same with the resident/OLGA LIDIA, and agree with the dictator's assessment and plan as written Dr. Fili zhang Patient Condition at Discharge: Stable Plan - Discharge Summary Discharge Rx Participant: No New Discharge Prescriptions: No Action Finasteride [Proscar] 5 mg PO DAILY Montelukast [Singulair] 10 mg PO HS Apixaban [Eliquis] 5 mg PO BID Pantoprazole [Protonix] 40 mg PO DAILY Metoprolol Tartrate [Lopressor] 50 mg PO BID-W/MEALS metFORMIN HCL [Glucophage] 850 mg PO TID Tamsulosin [Flomax] 0.4 mg PO DAILY lisinopriL [Zestril] 5 mg PO DAILY Atorvastatin [Lipitor] 40 mg PO DAILY Discharge Medication List Finasteride [Proscar] 5 mg PO DAILY 02/15/15 [History] Apixaban [Eliquis] 5 mg PO BID 04/15/18 [History] Montelukast [Singulair] 10 mg PO HS 04/15/18 [History] Pantoprazole [Protonix] 40 mg PO DAILY 03/21/21 [History] Metoprolol Tartrate [Lopressor] 50 mg PO BID-W/MEALS 01/03/22 [History] Atorvastatin [Lipitor] 40 mg PO DAILY 05/30/25 [History] Tamsulosin [Flomax] 0.4 mg PO DAILY 05/30/25 [History] lisinopriL [Zestril] 5 mg PO DAILY 05/30/25 [History] metFORMIN HCL [Glucophage] 850 mg PO TID 05/30/25 [History] Follow up Appointment(s)/Referral(s): Mau Mcmillan MD [STAFF PHYSICIAN] - 1-2 Days [facility] Visiting Nurse, [NON-STAFF] - Discharge/Stand Alone Forms: Who Do I Call? Discharge Disposition: TRANSFER TO SHORT TERM HOSP
[2025-06-01 19:49] LABS: Glucose,Whole Blood 88 mg/dL (70-110)
[2025-06-01 20:10] VITALS: BP 144/83; PULSE 84; RESP 20; TEMP 98.3
[2025-06-01] MEDS: VANCOMYCIN IV PER PHARMACY 1 EACH MISC MISCELLANE SCH (23:15)
[2025-06-01] MEDS: VANCOMYCIN 1,500 MG in SODIUM CHLORIDE 0.9% 500 ML 500 ML IVPB SCH (23:15)
[2025-06-02] MEDS ORDERED: VANCOMYCIN 1,500 MG in SODIUM CHLORIDE 0.9% 500 ML 500 ML IVPB SCH (21:00)
== END 2025-06-01 22:47 | disposition short-term general hospital (02) | DRG 871 ==
LOC: EC 01:18 → 3SCARD 05:46
PROVIDERS: ADMIT Hospitalist; ATTEND Hospitalist
DX: A41.51 Sepsis due to Escherichia coli [E. coli] (principal); J96.01 Acute respiratory failure with hypoxia; E87.20 Acidosis, unspecified; E87.0 Hyperosmolality and hypernatremia; K80.30 Calculus of bile duct with cholangitis, unspecified, without obstruction; N17.9 Acute kidney failure, unspecified; D69.59 Other secondary thrombocytopenia; E86.0 Dehydration; E11.9 Type 2 diabetes mellitus without complications; I48.91 Unspecified atrial fibrillation; I10 Essential (primary) hypertension; K76.0 Fatty (change of) liver, not elsewhere classified; R65.20 Severe sepsis without septic shock; E78.5 Hyperlipidemia, unspecified; F17.200 Nicotine dependence, unspecified, uncomplicated; I95.9 Hypotension, unspecified; B95.2 Enterococcus as the cause of diseases classified elsewhere; B96.1 Klebsiella pneumoniae [K. pneumoniae] as the cause of diseases classified elsewhere; R19.5 Other fecal abnormalities; G89.29 Other chronic pain; I25.10 Atherosclerotic heart disease of native coronary artery without angina pectoris; R79.1 Abnormal coagulation profile; I25.2 Old myocardial infarction; M51.369 Other intervertebral disc degeneration, lumbar region without mention of lumbar back pain or lower extremity pain; N28.1 Cyst of kidney, acquired; N40.0 Benign prostatic hyperplasia without lower urinary tract symptoms; Z91.81 History of falling; Z79.01 Long term (current) use of anticoagulants; Z79.84 Long term (current) use of oral hypoglycemic drugs; Z79.899 Other long term (current) drug therapy; Z95.5 Presence of coronary angioplasty implant and graft; Z90.49 Acquired absence of other specified parts of digestive tract; Z11.52 Encounter for screening for COVID-19; Z88.5 Allergy status to narcotic agent; Z88.8 Allergy status to other drugs, medicaments and biological substances
CPT/HCPCS: 36415; 70450; 71045; 72125; 72170; 74177; 74181; 76705; 80053; 80074; 80306; 80320; 81003; 82140; 82271; 82550; 83605; 83690; 85025; 85610; 85730; 86850; 86900; 86901; 87040; 87045; 87046; 87077; 87186; 87636; 93005; 93306; 96361; 96365; 96366; 96368; 96375; 96376; 99291